=== PATIENT | male | born 1945 | race Caucasian/White ===

== ENCOUNTER 2018-10-10 09:28 | Emergency (ER) | payer MEDICARE ==
[~2018-10-10] VITALS: Ht 188 cm; Wt 99.8 kg
[~2018-10-10 09:28] MED LIST: AMLO5TAB9 PO; ASCO500C15 PO; CIPR-225 PO; CYCL10TA9 PO; HYDR-3876 PO; IBUP-1780 PO; LISI10TA2 PO; METF-397 PO; MULT-301 PO; OMEP20TA7 PO; ONDA8TAB12 PO; OXYC-465 PO; PHEN-640 PO; POLY17PO6 PO; RANI-515 PO; RT-ALBUINH IH; SIMV20TA3 PO; TAMS0.4C2 PO
--- OUTSIDE RECORDS SUMMARY | 2018-10-10 09:34 | XMS REPORT | Continuity of Care Document ---
Author Organization Unknown Address Unknown Allergies Active Description Code Type Severity Reaction Onset Reported/Identified Relationship to Patient Clinical Status Yes No Known Drug Allergies [id number] Drug Allergy Unknown N/A 09/25/2015 Medications There is no data. Problems Date Dx Coded Attending Type Code Diagnosis Diagnosed By 09/26/2015 VALERIA GARLAND MD Ot N20.1 09/26/2015 VALERIA GARLAND MD Ot Z01.810 09/26/2015 VALERIA GARLAND MD Ot Z01.811 09/26/2015 VALERIA GARLAND MD Ot Z11.2 09/26/2015 VALERIA GARLAND MD Ot N20.1 CALCULUS OF URETER 09/26/2015 VALERIA GARLAND MD Ot Z79.899 OTHER HALF-WAY (CURRENT) DRUG THERAPY 09/27/2015 VALERIA GARLAND MD Ot N20.1 09/27/2015 VALERIA GARLAND MD Ot Z79.899 10/12/2015 VALERIA GARLAND MD Ot N20.1 CALCULUS OF URETER 10/12/2015 VALERIA GARLAND MD Ot Z01.810 ENCOUNTER FOR PREPROCEDURAL CARDIOVASCUL 10/12/2015 VALERIA GARLAND MD Ot Z01.811 ENCOUNTER FOR PREPROCEDURAL RESPIRATORY 10/12/2015 VALERIA GARLAND MD Ot Z11.2 ENCOUNTER FOR SCREENING FOR OTHER BACTER Procedures There is no data. Results There is no data. Encounters ACCT No. Visit Date/Time Discharge Status Pt. Type Provider Facility Loc./Unit Complaint [id number] 09/26/2015 06:00:00 09/26/2015 13:25:00 DIS Outpatient VALERIA GARLAND MD [facility] [id number] 09/25/2015 11:35:00 09/25/2015 23:59:59 CLS Outpatient DADA TAPIA, VALERIA Sharma [facility] PREOP [id number] 10/10/2018 09:30:00 ACT Emergency RODNEY PRESCOTT DO [facility] ER FS RIGHT SIDE GROIN PAIN [id number] 08/17/2018 08:00:00 08/17/2018 23:59:59 [facility] Outpatient SARAHI ROBERTO [facility]
[2018-10-10 10:53] LABS: BILIRUBIN,URINE NEGATIVE (NEGATIVE); CLARITY,URINE CLEAR; COLOR,URINE YELLOW; GLUCOSE, URINE (UA) 3+ (NEGATIVE); KETONES,URINE NEGATIVE (NEGATIVE); LEUKOCYTE ESTERASE ,URINE NEGATIVE (NEGATIVE); NITRITE,URINE NEGATIVE (NEGATIVE); PROTEIN,URINE NEGATIVE (NEGATIVE); UROBILINOGEN,URINE 0.2 MG/DL (NORMAL)
[2018-10-10 10:54] LABS: BACTERIA,URINE NEGATIVE /HPF; SQUAMOUS EPITHELIAL CELL,UR RARE /HPF; WBC,URINE 0-2 /HPF
--- NOTE | 2018-10-10 10:56 | ED GI ---
General Chief Complaint: Abdominal/GI Problems Stated Complaint: RIGHT SIDE GROIN PAIN Nursing Triage Note: Patient reports right groin/right flank pain for 2 weeks. States he has had kidney stones in the past, but not for some time. Denies any difficulty urinating, blood in urine, etc. Sepsis Screen: No Definite Risk History of Present Illness Date Seen by Provider: Oct 10, 2018 Time Seen by Provider: 10:42 This is a 72-year-old man with a history of kidney stones and remote appendectomy, diabetes, hyperlipidemia, GERD, here for intermittent right groin pain over the last several days. He states that the pain comes and goes. Sharp in character. This feels the same as when he had a kidney stone in the past. He is urinating normally. He has not had a change in bowel movements, no vomiting. No lower extremity weakness, numbness, or tingling. He currently does not have pain. Allergies and Home Medications Allergies Coded Allergies: No Known Drug Allergies (Unverified , 09/25/15) Home Medications Albuterol Sulfate 6.7 Gm Hfa.aer.ad, 2 PUFF IH Q6H PRN for SHORTNESS OF BREATH, (Reported) Amlodipine Besylate 5 Mg Tablet, 5 MG PO DAILY, (Reported) Ascorbic Acid 500 Mg Capsule.er, 500 MG PO DAILY, (Reported) Ciprofloxacin HCl 500 Mg Tablet, 500 MG PO BID TAKE ONE TABLET BY MOUTH TWICE A DAY. USE ALL OF THIS ANTIBIOTIC PRESCRIBED. Prescribed by: CASSANDRA ROY on 09/26/15 1303 Cyclobenzaprine HCl 10 Mg Tablet, 10 MG PO HS PRN for SPASMS, (Reported) Hydrocodone/Acetaminophen 1 Each Tablet, 1-2 EACH PO Q4H MAY TAKE 1 OR 2 TABLETS BY MOUTH EVERY 4 HRS NEEDED FOR PAIN. Prescribed by: CASSANDRA ROY on 09/26/15 1303 Ibuprofen 800 Mg Tablet, 800 MG PO Q6H PRN for PAIN, (Reported) Lisinopril 10 Mg Tablet, 10 MG PO DAILY, (Reported) Metformin HCl 500 Mg Tablet, 500 MG PO BID, (Reported) Multivitamin 1 Each Tablet, 1 EACH PO DAILY, (Reported) Omeprazole 20 Mg Tablet.dr, 20 MG PO DAILY, (Reported) Ondansetron HCl 8 Mg Tablet, 8 MG PO Q6H PRN for NAUSEA/VOMITING, (Reported) Oxycodone HCl/Acetaminophen 1 Each Tablet, 1 EACH PO Q4H PRN for PAIN, (Reported ) Phenazopyridine HCl 200 Mg Tablet, 1 TAB PO TID MAY TAKE ONE TABLET BY MOUTH UP TO 3 TIMES A DAY NEEDED FOR PAIN OR BLADDER SPASMS. Prescribed by: CASSANDRA ROY on 09/26/15 1303 Polyethylene Glycol 3350 17 Gm Powd.pack, 17 GM PO DAILY, (Reported) Simvastatin 20 Mg Tablet, 20 MG PO DAILY, (Reported) Tamsulosin HCl 0.4 Mg Cap.er.24h, 0.4 MG PO DAILY, (Reported) Patient Home Medication List Home Medication List Reviewed: Yes Review of Systems Review of Systems Constitutional: no symptoms reported EENTM: No Symptoms Reported Respiratory: No Symptoms Reported Cardiovascular: No Symptoms Reported Gastrointestinal: See HPI Genitourinary: See HPI Musculoskeletal: no symptoms reported Skin: no symptoms reported Psychiatric/Neurological: No Symptoms Reported Endocrine: No Symptoms Reported Past Uypovbx-Ncahia-Wjswta Hx Past Med/Social Hx: Reviewed Nursing Past Med/Soc Hx Patient Social History Alcohol Use: Denies Use Recreational Drug Use: No Smoking Status: Never a Smoker 2nd Hand Smoke Exposure: No Recent Foreign Travel: No Contact w/Someone Who Travel: No Recent Infectious Disease Expo: No Recent Hopitalizations: No Physical Abuse: No Sexual Abuse: No Mistreated: No Fear: No Immunizations Up To Date Date of Influenza Vaccine: Mar 26, 2015 Seasonal Allergies Seasonal Allergies: No Past Medical History Surgeries: Yes Appendectomy Respiratory: Yes Asthma, Chronic Bronchitis Cardiac: No Neurological: No Sexually Transmitted Disease: No HIV/AIDS: No Genitourinary: Yes Kidney Stones Gastrointestinal: Yes Gastroesophageal Reflux, Chronic Constipation Musculoskeletal: Yes Chronic Back Pain Endocrine: Yes Diabetes, Non-Insulin dep HEENT: No Loss of Vision: Bilateral Hearing Impairment: Hard of Hearing Cancer: No Psychosocial: No Integumentary: No Blood Disorders: No Adverse Reaction/Blood Tranf: No Physical Exam Vital Signs Vital Signs - First Documented 10/10/18 10:25 Temp 98.3 Pulse 98 Resp 20 B/P (MAP) 134/74 (94) Pulse Ox 98 O2 Delivery Room Air Capillary Refill : Less Than 3 Seconds Height/Weight/BMI Height: 6'2.00" Weight: 220lbs. 0.0oz. 99.640605qi; 27.15 BMI Method:Stated General Appearance: no apparent distress HEENT: normal ENT inspection Neck: supple Respiratory: lungs clear Cardiovascular: normal peripheral pulses, regular rate, rhythm Gastrointestinal: non tender, soft Genital/Rectal: other (the testicles are normal in size and nontender, there is no inguinal hernia) Back: no CVA tenderness Neurologic/Psychiatric: alert, normal mood/affect; No abnormal gait Skin: warm/dry Progress/Results/Core Measures Results/Orders Lab Results Laboratory Tests Test 10/10/18 10:35 10/10/18 11:00 Range/Units Urine Color YELLOW Urine Clarity CLEAR Urine pH 6.0 5-9 Urine Specific [place] 1.015 L 1.016-1.022 Urine Protein NEGATIVE NEGATIVE Urine Glucose (UA) 3+ H NEGATIVE Urine Ketones NEGATIVE NEGATIVE Urine Nitrite NEGATIVE NEGATIVE Urine Bilirubin NEGATIVE NEGATIVE Urine Urobilinogen 0.2 NORMAL MG/DL Urine Leukocyte Esterase NEGATIVE NEGATIVE Urine RBC (Auto) NEGATIVE NEGATIVE Urine RBC NONE /HPF Urine WBC 0-2 /HPF Urine Squamous Epithelial Cells RARE /HPF Urine Crystals NONE /LPF Urine Bacteria NEGATIVE /HPF Urine Casts PRESENT /LPF Urine Hyaline Casts 5-10 H /LPF Urine Mucus MODERATE H /LPF Urine Culture Indicated NO White Blood Count 8.8 4.3-11.0 10^3/uL Red Blood Count 4.48 4.35-5.85 10^6/uL Hemoglobin 13.2 L 13.3-17.7 G/DL Hematocrit 41 40-54 % Mean Corpuscular Volume 91 80-99 FL Mean Corpuscular Hemoglobin 29 25-34 PG Mean Corpuscular Hemoglobin Concent 33 32-36 G/DL Red Cell Distribution Width 13.1 10.0-14.5 % Platelet Count 236 130-400 10^3/uL Mean Platelet Volume 8.8 7.4-10.4 FL Sodium Level 137 135-145 MMOL/L Potassium Level 4.2 3.6-5.0 MMOL/L Chloride Level 99 98-107 MMOL/L Carbon Dioxide Level 28 21-32 MMOL/L Anion Gap 10 5-14 MMOL/L Blood Urea Nitrogen 16 7-18 MG/DL Creatinine 0.80 0.60-1.30 MG/DL Estimat Glomerular Filtration Rate > 60 BUN/Creatinine Ratio 20 Glucose Level 231 H 70-105 MG/DL Calcium Level 8.9 8.5-10.1 MG/DL My Orders Orders - RODNEY PRESCOTT DO Ua Culture If Indicated (10/10/18 10:39) Cbc No Diff (10/10/18 10:49) Basic Metabolic Panel (10/10/18 10:49) Ct Abdomen/Pelvis W (10/10/18 10:57) Vital Signs/I&O 10/10/18 10:25 Temp 98.3 Pulse 98 Resp 20 B/P (MAP) 134/74 (94) Pulse Ox 98 O2 Delivery Room Air Blood Pressure Mean: 94 Progress Progress Note #1: Progress Note This is a 72-year-old man with a history of kidney stones in the past here with pain that he says is identical to his prior episode, intermittent, present in the right groin but currently resolved. He just wants to find out what was causing his pain. Urinalysis does not show evidence of hematuria. We will check a CT with IV contrast as well as basic labs. We will continue to monitor. Progress Note #2: Progress Note Intermittent groin pain may be secondary to the small fat containing inguinal hernias seen on CT. Patient is asymptomatic and well appearing, he can follow- up as an outpatient for further evaluation. Return precautions discussed. Departure Impression Primary Impression: Inguinal hernia Disposition: 01 HOME, SELF-CARE Condition: Stable Departure-Patient Inst. Referrals: ANN MARIE BROWN MD, AMANDA S APRN (PCP) Primary Care Physician Patient Instructions: Inguinal and Femoral (Groin) Hernias RODNEY PRESCOTT DO Oct 10, 2018 10:56
[2018-10-10 11:09] LABS: HEMOGLOBIN 13.2 G/DL (13.3-17.7); WHITE BLOOD COUNT 8.8 10^3/uL (4.3-11.0)
[2018-10-10 11:10] LABS: MEAN PLATELET VOLUME 8.8 FL (7.4-10.4); RED CELL DISTRIBUTION WIDTH 13.1 % (10.0-14.5)
[2018-10-10 11:31] LABS: BUN/CREATININE RATIO 20; CARBON DIOXIDE 28 MMOL/L (21-32); CHLORIDE 99 MMOL/L (98-107); GFR ESTIMATED > 60; GLUCOSE 231 MG/DL (70-105); POTASSIUM 4.2 MMOL/L (3.6-5.0); SODIUM 137 MMOL/L (135-145)
[2018-10-10 11:32] LABS: CALCIUM 8.9 MG/DL (8.5-10.1)
--- NOTE | 2018-10-10 12:28 | Diagnostic Imaging Report ---
PROCEDURE: CT abdomen and pelvis with contrast. TECHNIQUE: Multiple contiguous axial images were obtained through the abdomen and pelvis after administration of intravenous contrast. Auto Exposure Controls were utilized during the CT exam to meet ALARA standards for radiation dose reduction. INDICATION: Right lower pelvic pain for two weeks. COMPARISON: None. FINDINGS: There is mild pleural thickening/fluid in the lung bases. There is increased AP diameter. The heart is normal in size. There is no pericardial effusion. The liver demonstrates no focal lesions. Cholecystectomy clips are noted. The spleen appears normal. The adrenal glands are normal. The pancreas is normal. The kidneys demonstrate no enhancing masses. There is no hydronephrosis. Simple appearing cysts are seen bilaterally, larger on the right measuring 3.3 cm in size. The bowel loops are nondistended. No obstruction is seen. The appendix is not seen but no secondary findings of appendicitis are seen. No free fluid is seen. There is diverticulosis of the descending and sigmoid colon without findings of diverticulitis. The distal colon is decompressed. No acute osseous abnormality seen. No masses or lymphadenopathy is seen. There are bilateral inguinal hernias containing fat only, left greater than right. IMPRESSION: 1. No acute abdominopelvic abnormality is seen. 2. Colonic diverticulosis without diverticulitis. 3. Small fat-containing inguinal hernias, left greater than right. 4. Mild pleural thickening/fluid at the lung bases. Dictated by: Dictated on workstation # [id number]
[2018-10-10 13:02] VITALS: BP 135/64
== END 2018-10-10 13:00 | disposition home or self-care (01) ==
LOC: EDUNIT# 09:28 → ER FS 09:30
DX: K40.90 Unilateral inguinal hernia, without obstruction or gangrene, not specified as recurrent (principal); E11.9 Type 2 diabetes mellitus without complications; E78.5 Hyperlipidemia, unspecified; K21.9 Gastro-esophageal reflux disease without esophagitis; J45.909 Unspecified asthma, uncomplicated; Z87.19 Personal history of other diseases of the digestive system; Z87.442 Personal history of urinary calculi; Z90.49 Acquired absence of other specified parts of digestive tract; Z79.84 Long term (current) use of oral hypoglycemic drugs
CPT/HCPCS: 36415; 74177; 80048; 81000; 85027

== ENCOUNTER 2018-10-26 11:40 | Outpatient (CLI) | payer MEDICARE ==
[~2018-10-26] VITALS: Ht 188 cm; Wt 102.1 kg
[2018-10-26] MEDS ORDERED: CHOL2000 PO (11:59)
[2018-10-26] MEDS ORDERED: OMEG-141 PO (11:59)
[2018-10-26 12:02] VITALS: BP 146/101
[2018-10-28] MEDS ORDERED: ACHD5005 PO (13:00)
== END 2018-10-26 12:26 | disposition home or self-care (01) ==
LOC: PREOP 11:40
PROVIDERS: ATTEND Surgery
DX: Z01.818 Encounter for other preprocedural examination (principal)
CPT/HCPCS: 87081

== ENCOUNTER 2018-10-28 07:55 | Day surgery (SDC) | payer MEDICARE ==
[~2018-10-28] VITALS: Ht 188 cm; Wt 96.8 kg
[2018-10-28] VITALS (8 sets, daily range): BP systolic 118–148; BP diastolic 73–98
[~2018-10-28 07:55] MED LIST changes: +CHOL2000 PO; +OMEG-141 PO
[2018-10-28] MEDS ORDERED: ceFAZolin 2 GM/50 ML NS 50 ML IV ONE (08:15)
[2018-10-28] MEDS ORDERED: CATHETER FLUSH 10 ML SYR IV PRN (08:15)
[2018-10-28] MEDS: LACTATED RINGERS 1,000 ML IV PRN ×2 (08:15→12:36)
--- NOTE | 2018-10-28 08:42 | Progress Note-Pre Operative ---
Pre-Operative Progress Note H&P Reviewed The H&P was reviewed, patient examined and no changes noted. Time Seen by Provider: 08:32 Date H&P Reviewed: October 28, 2018 Time H&P Reviewed: 08:33 Pre-Operative Diagnosis: Right inguinal hernia MONIKA THURMAN DO October 28, 2018 08:42
--- OUTSIDE RECORDS SUMMARY | 2018-10-28 11:03 | XMS REPORT | Continuity of Care Document ---
Author Organization Unknown Address Unknown Allergies Active Description Code Type Severity Reaction Onset Reported/Identified Relationship to Patient Clinical Status Yes No Known Drug Allergies [id number] Drug Allergy Unknown N/A 09/25/2015 Medications There is no data. Problems Date Dx Coded Attending Type Code Diagnosis Diagnosed By 09/26/2015 VALERIA GARLAND MD Ot N20.1 09/26/2015 VALERIA GARLAND MD Ot Z01.810 09/26/2015 VALERIA GARLAND MD Ot Z01.811 09/26/2015 VALERIA GARLAND MD Ot Z11.2 09/26/2015 VALERIA GARLAND MD Ot N20.1 CALCULUS OF URETER 09/26/2015 VALERIA GARLAND MD Ot Z79.899 OTHER GROUP HOME (CURRENT) DRUG THERAPY 09/27/2015 VALERIA GARLAND MD Ot N20.1 09/27/2015 VALERIA GARLAND MD Ot Z79.899 10/12/2015 VALERIA GARLAND MD Ot N20.1 CALCULUS OF URETER 10/12/2015 VALERIA GARLAND MD Ot Z01.810 ENCOUNTER FOR PREPROCEDURAL CARDIOVASCUL 10/12/2015 VALERIA GARLAND MD Ot Z01.811 ENCOUNTER FOR PREPROCEDURAL RESPIRATORY 10/12/2015 VALERIA GARLAND MD Ot Z11.2 ENCOUNTER FOR SCREENING FOR OTHER BACTER 10/10/2018 VALERIA GARLAND MD Ot N20.1 CALCULUS OF URETER 10/10/2018 VALERIA GARLAND MD Ot Z01.810 ENCOUNTER FOR PREPROCEDURAL CARDIOVASCUL 10/10/2018 VALERIA GARLAND MD Ot Z01.811 ENCOUNTER FOR PREPROCEDURAL RESPIRATORY 10/10/2018 VALERIA GARLAND MD Ot Z11.2 ENCOUNTER FOR SCREENING FOR OTHER BACTER 10/10/2018 VALERIA GARLAND MD, Ot N20.1 CALCULUS OF URETER 10/10/2018 VALERIA GARLAND MD, Ot Z01.810 ENCOUNTER FOR PREPROCEDURAL CARDIOVASCUL 10/10/2018 VALERIA GARLAND MD, Ot Z01.811 ENCOUNTER FOR PREPROCEDURAL RESPIRATORY 10/10/2018 VALERIA GARLAND MD, Ot Z11.2 ENCOUNTER FOR SCREENING FOR OTHER BACTER 10/13/2018 RODNEY PRESCOTT DO Ot E11.9 TYPE 2 DIABETES MELLITUS WITHOUT COMPLIC 10/13/2018 RODNEY PRESCOTT DO Ot E78.5 HYPERLIPIDEMIA, UNSPECIFIED 10/13/2018 ATA PRESCOTT DOED T Ot J45.909 UNSPECIFIED ASTHMA, UNCOMPLICATED 10/13/2018 RODNEY PRESCOTT DO T Ot K21.9 GASTRO-ESOPHAGEAL REFLUX DISEASE WITHOUT 10/13/2018 RODNEY PRESCOTT DO T Ot K40.90 UNIL INGUINAL HERNIA, W/O OBST OR GANGR, 10/13/2018 RODNEY PRESCOTT DO Ot R10.31 RIGHT LOWER QUADRANT PAIN 10/13/2018 RODNEY PRESCOTT DO T Ot Z79.84 GROUP HOME (CURRENT) USE OF ORAL HYPOGLYC 10/13/2018 ATA PRESCOTT DOED T Ot Z87.19 PERSONAL HISTORY OF OTHER DISEASES OF TH 10/13/2018 RODNEY PRESCOTT DO T Ot Z87.442 PERSONAL HISTORY OF URINARY CALCULI 10/13/2018 RODNEY PRESCOTT DO T Ot Z90.49 ACQUIRED ABSENCE OF OTHER SPECIFIED PART Procedures There is no data. Results Test Result Range Complete urinalysis with reflex to culture - 10/10/18 10:35 Urine color determination YELLOW NRG Urine clarity determination CLEAR NRG Urine pH measurement by test strip 6.0 5-9 Specific gravity of urine by test strip 1.015 1.016- 1.022 Urine protein assay by test strip, semi-quantitative NEGATIVE NEGATIVE Urine glucose detection by automated test strip 3+ NEGATIVE Erythrocytes detection in urine sediment by light microscopy NEGATIVE NEGATIVE Urine ketones detection by automated test strip NEGATIVE NEGATIVE Urine nitrite detection by test strip NEGATIVE NEGATIVE Urine total bilirubin detection by test strip NEGATIVE NEGATIVE Urine urobilinogen measurement by automated test strip (mass/volume) 0.2 mg/dL NORMAL Urine leukocyte esterase detection by dipstick NEGATIVE NEGATIVE Automated urine sediment erythrocyte count by microscopy (number/high power field) NONE NRG Automated urine sediment leukocyte count by microscopy (number/high power field ) [HPF] NRG Bacteria detection in urine sediment by light microscopy NEGATIVE NRG Squamous epithelial cells detection in urine sediment by light microscopy RARE NRG Crystals detection in urine sediment by light microscopy NONE NRG Casts detection in urine sediment by light microscopy PRESENT NRG Mucus detection in urine sediment by light microscopy MODERATE NRG Complete urinalysis with reflex to culture NO NRG Hyaline casts detection in urine sediment by light microscopy 5-10 NRG Automated blood complete blood count (hemogram) panel - 10/10/18 11:00 Blood leukocytes automated count (number/volume) 8.8 10*3/uL 4.3-11.0 Blood erythrocytes automated count (number/volume) 4.48 10*6/uL 4.35-5.85 Venous blood hemoglobin measurement (mass/volume) 13.2 g/dL 13.3-17.7 Blood hematocrit (volume fraction) 41 % 40-54 Automated erythrocyte mean corpuscular volume 91 [foz_us] 80-99 Automated erythrocyte mean corpuscular hemoglobin (mass per erythrocyte) 29 pg 25-34 Automated erythrocyte mean corpuscular hemoglobin concentration measurement ( mass/volume) 33 g/dL 32-36 Automated erythrocyte distribution width ratio 13.1 % 10.0-14.5 Automated blood platelet count (count/volume) 236 10*3/uL 130-400 Automated blood platelet mean volume measurement 8.8 [foz_us] 7.4-10.4 Whole blood basic metabolic panel - 10/10/18 11:00 Serum or plasma sodium measurement (moles/volume) 137 mmol/L 135-145 Serum or plasma potassium measurement (moles/volume) 4.2 mmol/L 3.6-5.0 Serum or plasma chloride measurement (moles/volume) 99 mmol/L 98-107 Carbon dioxide 28 mmol/L 21-32 Serum or plasma anion gap determination (moles/volume) 10 mmol/L 5-14 Serum or plasma urea nitrogen measurement (mass/volume) 16 mg/dL 7-18 Serum or plasma creatinine measurement (mass/volume) 0.80 mg/dL 0.60-1.30 Serum or plasma urea nitrogen/creatinine mass ratio 20 NRG Serum or plasma creatinine measurement with calculation of estimated glomerular filtration rate > NRG Serum or plasma glucose measurement (mass/volume) 231 mg/dL 70-105 Serum or plasma calcium measurement (mass/volume) 8.9 mg/dL 8.5-10.1 Encounters ACCT No. Visit Date/Time Discharge Status Pt. Type Provider Facility Loc./Unit Complaint [id number] 10/10/2018 09:30:00 10/10/2018 13:00:00 DIS Outpatient RODNEY PRESCOTT DO [facility] ER FS RIGHT SIDE GROIN PAIN [id number] 09/26/2015 06:00:00 09/26/2015 13:25:00 DIS Outpatient VALERIA GARLAND MD [facility] SDC LEFT STONE [id number] 09/25/2015 11:35:00 09/25/2015 23:59:59 CLS Outpatient VALERIA GARLAND MD [facility] PREOP LEFT STONE [id number] 08/17/2018 08:00:00 08/17/2018 23:59:59 CLS Outpatient SARAHI ROBERTO [facility]
[2018-10-28] MEDS ORDERED: proPOfol 200 MG/20 ML (DIPRIVAN) VIAL IV ONE (11:43)
[2018-10-28] MEDS ORDERED: SEVOFLURANE (ULTANE) 15 ML INHAL SOLN ONE ×4 (11:43→12:28)
[2018-10-28] MEDS ORDERED: ONDANSETRON 4 MG/2 ML (SDV) Z0FRAN ONE (11:43)
[2018-10-28] MEDS ORDERED: fentaNYL INJECTION 100 MCG/2 ML AMP ONE ×2 (11:43→12:39)
[2018-10-28] MEDS ORDERED: LIDOCAINE PF 2% 5 ML (XYLOCAINE) VIAL ONE (11:43)
[2018-10-28] MEDS ORDERED: ROCURONIUM 10 MG/ML 5 ML SYRINGE IV ONE (11:44)
[2018-10-28] MEDS ORDERED: MIDAZOLAM 2 MG/2 ML (VERSED) VIAL ONE (11:44)
[2018-10-28] MEDS ORDERED: LIDOCAINE 1% INJ 20 ML 20 ML VIAL ONE (11:50)
[2018-10-28] MEDS ORDERED: BUP/EPI 0.5% 1:200,000 (SENSORCAINE) 30 ML VIAL ONE (11:50)
[2018-10-28] MEDS ORDERED: PHENYLEPHRINE 100 MCG/ML 10 ML (ANESTHESIA) SYR ONE (12:28)
--- NOTE | 2018-10-28 12:48 | Progress Note-Post Operative ---
Post-Operative Progess Note Surgeon (s)/Shelf Stocker (s) Surgeon MONIKA THURMAN DO Shelf Stocker: Candace Pre-Operative Diagnosis Right inguinal hernia Post-Operative Diagnosis Same - Direct Procedure & Operative Findings Date of Procedure 10/28/18 Procedure Performed/Findings RIH with mesh placement Anesthesia Type GET Estimated Blood Loss Estimated blood loss (mL): scant Specimens/Packing Specimens Removed none MONIKA THURMAN DO October 28, 2018 12:48
[2018-10-28] MEDS ORDERED: ACHD5005 PO (13:00)
[2018-10-28] MEDS ORDERED: morphine INJ 10 MG/ML 1ML (SYR OR VIAL) ONE (13:01)
--- NOTE | 2018-10-28 13:01 | Discharge Inst-Surgical ---
Discharge Inst-Surgical Depart Medication/Instructions New, Converted or Re-Newed RX: RX Given to Pt/Family Patient Instructions Follow up Appt: Make appointment for 1 week. [phone] Instructions: No lifting greater than 20 pounds. No strenuous activity. May shower in 24 hours, no tub bath or soaking. Use incentive spirometer at home as directed. No Smoking Skin/Wound Care: May remove bandages in am. You need to leave the Dermabond on incision it will fall off on it's own. Symptoms to Report: Appetite Changes, Extremity Discoloration, Numbness/Tingling, Swelling Increased , Bleeding Excessive, Eyesight Changes, Pain Increased, Urine Color Change, Constipation(Persistent), Fever over 101 degree F, Pain/Pressure in chest, Urinating Difficulty, Cough Up/Vomit Blood, Heart Beat Irreg/Pounding, Pain/ Pressure in jaw, Cramps in feet or legs, Lightheadedness, Pain/Pressure in shoulder, Diarrhea(Persistent), Memory Changes Suddenly, Questions/Concerns, Weight gain consecutive days, Dizziness/Fainting, Nausea/Vomiting, Shortness of Breath, Weight gain over 2 pounds If questions or concerns contact your physician Or seek help at emergency department. Activity Activity as Tolerated: Yes Activity Instructions: Avoid Stress to Incision Driving Instructions: No Driving/Refer to Dr. Perez Discharge Diet: No Restrictions Diet After 24 Hours: Clear Liquid if Nauseous If Any Problems/Questions/Issu: Contact Your Physician, Go to Emergency Room Skin/Wound Care Infection Signs and Symptoms: Increased Redness, Foul Odor of Wound, Increased Drainage, Skin Itchy or Has a Rash, Increased Swelling, Temperature Above 101 F Bathing Instructions: Shower Stitches/[place]/Dermabond Dis: Dermabond Ice Pack: Ice On and Off Site (as needed for pain) MONIKA THURMAN DO October 28, 2018 13:01
[2018-10-28] MEDS ORDERED: ONDANSETRON 4 MG/2 ML (SDV) Z0FRAN IVP PRN (13:15)
[2018-10-28] MEDS ORDERED: MEPERIDINE (DEMEROL) INJ 50 MG/ML IVP ONE (13:15)
[2018-10-28] MEDS ORDERED: morphine INJ 10 MG/ML 1ML (SYR OR VIAL) IVP ONE (13:15)
--- NOTE | 2018-10-29 00:02 | OPERATIVE REPORT ---
DATE OF SERVICE: 10/28/2018 PREOPERATIVE DIAGNOSIS: Bilateral inguinal hernia. POSTOPERATIVE DIAGNOSIS: Bilateral inguinal hernia. PROCEDURE: Right inguinal herniorrhaphy with mesh placement. SURGEON: Acosta Steele DO. DADO OPERATOR: Oleksandr Maria DO. ANESTHESIA: General endotracheal tube. SPECIMENS: None. BLOOD LOSS: Scant. FLUIDS: Per anesthesia. POSTOPERATIVE CONDITION: Stable. INDICATION FOR PROCEDURE: The patient is a 72-year-old male, who came in complaining of right inguinal pain and had been told he had a right inguinal hernia. Physical exam found a right inguinal hernia as well as a small left inguinal hernia, but only the right was bothering, so only decided to repair this one. FINDINGS: The patient had a right direct inguinal hernia, which was basically a floor defect. PROCEDURE NOTE: After informed consent was obtained, the patient was brought to the operating room and placed on the operating table in supine position. He was sterilely prepped and draped in a normal fashion. Local lidocaine was used to infiltrate the skin actually to perform an ilioinguinal nerve block as well as pubic tubercle block and then infiltrated the right inguinal region with local, then made an incision with #15 blade, carried down through the skin into the subcutaneous tissue, then deepened down through subcutaneous tissue with Bovie electrocautery down to the fascia. External oblique fascia was infiltrated with local and incised through the external inguinal ring with Bovie electrocautery, grasping the two sides and then dissecting under the external oblique fascia bluntly with a finger, then getting around the cord and cord structures and the pubic tubercle, placed a Nelson drain, put in inferolateral direction. Looked superiorly immediately, did not find an indirect hernia sac, it was a large floor defect. I elected to close this with 0 Vicryl. Two [id number] sutures were used to close this, held down nicely. I then elected to place a right-sided Parietex mesh, trimmed to fit into the inguinal canal and sutured one to the pubic tubercle and encircled the cord with a precut hole, attached the mesh to itself and then placed the rest of the mesh up under the external oblique fascia. It laid in very nicely, copiously irrigated with normal saline, suctioned this out and then elected to close the incision, closed the external oblique fascia with 3-0 Vicryl running suture, thereby recreating the external inguinal ring, internal inguinal ring and recreated by the mesh. I then closed Hao's fascia with 3-0 Vicryl three interrupted sutures and then closed the skin with a 4-0 undyed Monocryl in running subcuticular fashion. Area was cleaned and dried and Dermabond was placed. The patient then transferred to the recovery room in stable condition. Sponge, instrument and needle count correct at the end of the case. Job ID: [id number] DocumentID: [id number] Dictated Date: 10/28/2018 16:31:22 Street Car Inspector Date: 10/29/2018 00:01:53 Dictated By: ACOSTA STEELE DO
== END 2018-10-28 15:10 | disposition home or self-care (01) ==
LOC: SDC 07:55
PROVIDERS: ATTEND Surgery
DX: K40.90 Unilateral inguinal hernia, without obstruction or gangrene, not specified as recurrent (principal); E11.9 Type 2 diabetes mellitus without complications; I10 Essential (primary) hypertension; E78.5 Hyperlipidemia, unspecified; K21.9 Gastro-esophageal reflux disease without esophagitis; J45.909 Unspecified asthma, uncomplicated; Z80.3 Family history of malignant neoplasm of breast; Z87.891 Personal history of nicotine dependence; Z79.84 Long term (current) use of oral hypoglycemic drugs; Z79.899 Other long term (current) drug therapy
CPT/HCPCS: 82962

== ENCOUNTER → 2019-04-28 | Outpatient (CLI) | payer MEDICARE ==
[~2019-04-28] MED LIST changes: +ACHD5005 PO; +CATHETER FLUSH 10 ML SYR IV PRN; +HOLD METFORMIN - RECEIVED CONTRAST 20 ML VIAL IV SCH; +IOHEXOL 350 MG/ML 100 ML (OMNIPAQUE 350) VIAL IV ONE; +NS 100 ML (IVPB) BAG IV ONE
--- NOTE | 2019-04-28 10:37 | Diagnostic Imaging Report ---
PROCEDURE: CT chest with and without contrast. TECHNIQUE: Multiple contiguous axial images were obtained through the chest before and after administration of intravenous contrast. Auto Exposure Controls were utilized during the CT exam to meet ALARA standards for radiation dose reduction. INDICATION: 2-3 months history of cough. COMPARISON: Correlation limited to overlapped images of the lung bases obtained at abdominal CT 10/10/2018. FINDINGS: Benign calcified andreas granulomatous residua paratracheal, subcarinal, mediastinal as well as the bilateral johnnie present. Few scattered calcified pulmonary parenchymal granulomata noted. No suspicious or noncalcified lung mass or thoracic lymph nodes. No findings of acute pneumonia. There is mild subsegmental basilar atelectatic changes. No carlos edema or focal pneumonia. There is a tiny hiatal hernia. There is no thoracic effusion. The aorta is nonaneurysmal and patent. No acute chest wall pathology. The visualized upper abdomen reveals previous cholecystectomy and a tiny cyst off the upper pole of the left renal cortex. IMPRESSION: Chronic benign calcified granulomatous residua. Mild zones of atelectasis. No focal pneumonia, suspicious mass or chest effusion. Dictated by: Dictated on workstation # [id number]
== END ==
LOC: RAD FS 08:28
PROVIDERS: ATTEND Nurse Practitioner
DX: J44.9 Chronic obstructive pulmonary disease, unspecified (principal); I10 Essential (primary) hypertension; J98.11 Atelectasis; J84.10 Pulmonary fibrosis, unspecified; Z90.49 Acquired absence of other specified parts of digestive tract
CPT/HCPCS: 71270

== ENCOUNTER → 2019-06-02 | Outpatient (CLI) | payer MEDICARE ==
[~2019-06-02] MED LIST changes: -CATHETER FLUSH 10 ML SYR IV PRN; -HOLD METFORMIN - RECEIVED CONTRAST 20 ML VIAL IV SCH; -IOHEXOL 350 MG/ML 100 ML (OMNIPAQUE 350) VIAL IV ONE; -NS 100 ML (IVPB) BAG IV ONE; +RT-ALBUTEROL SULF 2.5 MG/3 ML PRE-MIX VIAL INH ONE
== END ==
LOC: RT 13:33
PROVIDERS: ATTEND Nurse Practitioner Family
DX: J30.9 Allergic rhinitis, unspecified (principal); Z87.891 Personal history of nicotine dependence
CPT/HCPCS: 94060; 94726; 94729

== ENCOUNTER → 2020-01-27 | Outpatient (CLI) | payer MEDICARE ==
[~2020-01-27] MED LIST changes: -ONDA8TAB12 PO; +ONDA8TAB15 PO; -RANI-515 PO; +RANI-609 PO; -RT-ALBUTEROL SULF 2.5 MG/3 ML PRE-MIX VIAL INH ONE; +SIMV20TA26 PO; -SIMV20TA3 PO
== END ==
LOC: CARD 09:54
PROVIDERS: ATTEND Internal Medicine Cardiovascular Disease
DX: I10 Essential (primary) hypertension (principal); R09.89 Other specified symptoms and signs involving the circulatory and respiratory systems; R07.9 Chest pain, unspecified; R06.09 Other forms of dyspnea
CPT/HCPCS: 93306

== ENCOUNTER → 2020-02-07 | Outpatient (CLI) | payer MEDICARE ==
[~2020-02-07] VITALS: Ht 188 cm; Wt 72.0 kg
[~2020-02-07] MED LIST changes: +CATHETER FLUSH 10 ML SYR IV PRN; +REGADENOSON 0.4 MG/5 ML SYR (LEXISCAN) IV ONE
[2020-02-07 09:30] VITALS: BP 184/93
--- NOTE | 2020-02-07 12:05 | Cardiology Stress Test Report ---
Stress Test Report Date of Procedure/Referring: Date of Procedure: Feb 07, 2020 PCP Raheel Perea MD Admitting Physician Center/[facility] Indications: Chest pain Baseline Heart Rate: 74 Baseline Blood Pressure: Blood Pressure Systolic: 184 Blood Pressure Diastolic: 93 Baseline Vitals Vital Signs Date Time Temp Pulse Resp B/P (MAP) Pulse Ox O2 Delivery O2 Flow Rate FiO2 02/07/20 09:30 76 18 184/93 (123) 98 Room Air Baseline EKG: Baseline EKG: normal sinus rhythm Summary After explaining the procedure to the patient, he signed a consent and then brought to the stress nuclear laboratory. Patient received 0.4 mg Lexiscan for stress test, ECG, heart rate and blood pressure were monitored continuously. Resting and stress dose of radio tracer were injected, imaging was acquired and reviewed in short axis, horizontal long axis and vertical long axis views. TID: 1.08 SSS: 3 SDS: 1 EF: 52 1. Patient tolerated Lexiscan well 2. Baseline hypertension, mild improvement during test 3. Diaphragmatic attenuation with typical male pattern, no significant ischemia or infarction on SPECT images 4. Normal left ventricular size, mild lateral wall hypokinesia, EF 52 percent RAHEEL PEREA MD Feb 07, 2020 12:05
== END ==
LOC: CARD 06:45
PROVIDERS: ATTEND Internal Medicine Cardiovascular Disease
DX: I11.9 Hypertensive heart disease without heart failure (principal); R09.89 Other specified symptoms and signs involving the circulatory and respiratory systems
CPT/HCPCS: 78452; 93017; A9502

== ENCOUNTER → 2020-07-03 | Outpatient (CLI) | payer MEDICARE, MEDICAID ==
[~2020-07-03] MED LIST changes: +AMLO-250 PO; -AMLO5TAB9 PO; -ASCO500C15 PO; +ASCO500C18 PO; -CATHETER FLUSH 10 ML SYR IV PRN; -HYDR-3876 PO; +HYDR-3920 PO; -OXYC-465 PO; +OXYC-556 PO; -REGADENOSON 0.4 MG/5 ML SYR (LEXISCAN) IV ONE
--- NOTE | 2020-07-03 11:18 | Diagnostic Imaging Report ---
PROCEDURE: MRI lumbar spine without contrast. TECHNIQUE: Multiplanar, multisequence MRI of the lumbar spine was performed without contrast. INDICATION: Chronic low back pain. Right-sided sciatica. COMPARISON: None. FINDINGS: 5 lumbar type vertebral bodies are visualized with the last well-formed disc space designated L5-S1. No acute fracture or dislocation is seen in the lumbar spine. Alignment is anatomic. Vertebral body heights and disc spaces are well-maintained. The bone marrow signal is normal. The conus terminates at the L1 level. No masses are seen associated with the conus or nerve roots of the cauda equina. No epidural collections are identified. Multilevel degenerative changes are seen in the lumbar spine with disc bulges, facet hypertrophy, and buckling of the ligamentum flavum. T12-L1: No significant spinal canal or foraminal stenosis. L1-L2: No significant spinal canal or foraminal stenosis. L2-L3: No significant spinal canal or foraminal stenosis. L3-L4: Facet hypertrophy and buckling of the ligamentum flavum results in no significant spinal canal narrowing and mild bilateral foraminal narrowing. L4-L5: Broad-based disc bulge, facet hypertrophy with right-sided synovial cyst, and buckling of the ligamentum flavum results in severe spinal canal stenosis and moderate bilateral foraminal stenosis. L5-S1: Broad-based disc bulge, facet hypertrophy, and buckling of the ligamentum flavum results in no significant spinal canal narrowing and moderate right and ewpqmgwy-og-ypzmka left foraminal stenosis. Paravertebral soft tissues are unremarkable. Simple cortical cyst is noted in the inferior pole of the right kidney. IMPRESSION: 1. No acute fracture or dislocation in the lumbar spine. 2. Multilevel degenerative changes in the lumbar spine, greatest at L4-L5 and L5-S1. In particular a synovial cyst is seen protruding from the right facet joint at L4-L5 contributing to the severe spinal canal stenosis. This also is likely contacting the L5 and/or S1 nerve roots, contributing to the patient's history of right-sided sciatica. Dictated by: Dictated on workstation # [id number]
== END ==
LOC: RAD 08:55
PROVIDERS: ATTEND Nurse Practitioner
DX: M47.816 Spondylosis without myelopathy or radiculopathy, lumbar region (principal); M47.817 Spondylosis without myelopathy or radiculopathy, lumbosacral region; M48.061 Spinal stenosis, lumbar region without neurogenic claudication
CPT/HCPCS: 72148

== ENCOUNTER 2020-08-17 07:11 | Inpatient (IN) | payer MEDICARE, MEDICAID ==
[~2020-08-17] VITALS: Ht 188 cm; Wt 98.2 kg
[~2020-08-17 07:11] MED LIST changes: +ACETAMINOPHEN 500 MG TAB (TYLENOL) PO PRN; +BISACODYL 10 MG SUPP (DULCOLAX) PR PRN; +CALCIUM CARBONATE 500 MG (TUMS) TAB.CHEW PO PRN; +LACTULOSE SYRUP 10GM/15ML (ENULOSE) 30ML UDC PO PRN; -LISI10TA2 PO; +LISI10TA25 PO; +LOPERAMIDE 2 MG (IMODIUM) TABLET PO PRN; +MELATONIN 3 MG TABLET PO PRN; +ONDANSETRON 4 MG (ZOFRAN) ORAL DISSOLVE TAB PO PRN; +diphenhydrAMINE 25 MG TAB (BENADRYL) PO PRN
--- NOTE | 2020-08-17 11:53 | History & Physical ---
History of Present Illness HPI/Chief Complaint CC: Severe back pain from spine surgery HPI: This is a 74yoWM clinic patient of [facility] who arrives from [facility] after undergoing spine surgery and in need of PT OT and swing bed services prior to returning home with his elderly . He has help at home with some caretakers but very concerned about falls at night. Currently patient feels good and pain is well controlled on pain meds. BM yesterday. Urinating well. Will check labs in am. Restarted all meds at [place]. Source: patient, old records Exam Limitations: no limitations Date Seen 08/17/20 Time Seen by a Provider: 19:00 Attending Physician Gaby Gomez DO [facility] [place] [place] Referring Physician Date of Admission Home Medications & Allergies Home Medications Reviewed patient Home Medication Reconciliation performed by pharmacy medication reconciliations manufacturing test technician and/or nursing. Patients Allergies have been reviewed. Allergies Allergies Coded Allergies No Known Drug Allergies (Unverified10/28/18) Past Fqcchev-Fflvbk-Tvjuvz Hx Past Med/Social Hx: Reviewed Nursing Past Med/Soc Hx, Reviewed and Corrections made Patient Social History Marrital Status: Employed/Student: retired Alcohol Use: Denies Use Smoking Status: Never a Smoker Former Smoker, Quit: October 26, 1969 2nd Hand Smoke Exposure: Yes Recent Hopitalizations: No Immunizations Up To Date Date of Pneumonia Vaccine: Mar 30, 2018 Date of Influenza Vaccine: Mar 30, 2018 Seasonal Allergies Seasonal Allergies: No Past Medical History Surgeries: Appendectomy, Orthopedic Cardiac: High Cholesterol, Hypertension Sexually Transmitted Disease: No HIV/AIDS: No Genitourinary: Kidney Stones Gastrointestinal: Gastroesophageal Reflux, Chronic Constipation Musculoskeletal: Back Injury, Chronic Back Pain Endocrine: Diabetes, Non-Insulin dep Loss of Vision: Bilateral Hearing Impairment: Hard of Hearing History of Blood Disorders: No Adverse Reaction to Blood Ferguson: No (N/A) Review of Systems Constitutional: see HPI, malaise, weakness Gastrointestinal: constipation Musculoskeletal: back pain Physical Exam Physical Exam Vital Signs Vital Signs - First Documented 08/17/20 08/17/20 13:10 18:32 Temp 36.9 Pulse 101 Resp 16 B/P (MAP) 100/62 (75) Pulse Ox 95 O2 Delivery Room Air Capillary Refill : Height, Weight, BMI Height: 6'2.00" Weight: 213lbs. 6.0oz. 96.454706uz; 20.37 BMI Method:Stated General Appearance: No Apparent Distress, WD/WN, Chronically ill Eyes: Bilateral Eye Normal Inspection, Bilateral Eye PERRL HEENT: PERRL/EOMI, Normal ENT Inspection, Pharynx Normal Neck: Full Range of Motion, Normal Inspection, Non Tender, Supple, Carotid Bruit Respiratory: Chest Non Tender, Lungs Clear, Normal Breath Sounds, No Accessory Muscle Use, No Respiratory Distress Cardiovascular: Regular Rate, Rhythm, No Edema, No Gallop, No JVD, No Murmur, Normal Peripheral Pulses Gastrointestinal: Normal Bowel Sounds, No Organomegaly, No Pulsatile Mass, Non Tender, Soft Back: CVA Tenderness (L), CVA Tenderness (R), Decreased Range of Motion, Muscle Spasm, Vertebral Tenderness Extremity: Normal Capillary Refill, Normal Inspection, Normal Range of Motion, Non Tender, No Calf Tenderness, No Pedal Edema Neurologic/Psychiatric: Alert, Oriented x3, No Motor/Sensory Deficits, Normal Mood/Affect Skin: Normal Color, Warm/Dry Lymphatic: No Adenopathy Results Results/Procedures Labs Patient resulted labs reviewed. Assessment/Plan Admission Diagnosis Assessment: Severe back pain from extensive spine surgery with disability HTN DM HLP GERD Plan: Pain control PT OT Home meds Admission Status: Inpatient Order (span 2 midnights) Reason for Inpatient Admission: sb Diagnosis/Problems Diagnosis/Problems (1) S/P spinal surgery (2) Hypertension (3) Diabetes mellitus Clinical Quality Measures DVT/VTE Risk/Contraindication: Contraindications-Pharm: Other *list below* Other: spinal surgery GABY GOMEZ DO Aug 17, 2020 11:53
[2020-08-17] MEDS ORDERED: ACETAMINOPHEN 325 MG TABLET PO PRN (13:15)
[2020-08-17] MEDS ORDERED: DOCU100T2 PO (13:35)
[2020-08-17] MEDS ORDERED: LISI10TA25 PO (13:35)
[2020-08-17] MEDS ORDERED: OXYC10TA7 PO (13:35)
[2020-08-17] MEDS ORDERED: TIOT4MIS2 IH (13:35)
[2020-08-17] MEDS ORDERED: CYCL10TA9 PO (13:35)
[2020-08-17] MEDS ORDERED: FLUT1AER IH (13:35)
--- NOTE | 2020-08-17 15:06 | Physical Therapy Evaluation ---
PT Evaluation-General Medical Diagnosis Admission Date Aug 17, 2020 at 13:02 Medical Diagnosis: lumbar intrabody fusion Onset Date: Aug 15, 2020 Therapy Diagnosis Therapy Diagnosis: generalized weakness/debility Height/Weight Height (Feet): 6 Height (Inches): 2.00 Weight (Pounds): 213 Weight (Ounces): 6.0 Precautions Precautions/Isolations: Standard Precautions Weight Bear Status Right Lower Extremity: Right Weight Bearing/Tolerated Left Lower Extremity: Left Weight Bearing/Tolerated Referral Physician: Patricia Reason for Referral: Evaluation/Treatment Medical History Pertinent Medical History: DM, HTN Current History Direct admit for SWB Reviewed History: Yes Social History Home: Apartment Current Living Status: Spouse Entry Into Home: Level Entry Prior Prior Level of Function SCALE: Activities may be completed with or without assistive devices. 8-Uhxgbyxbfc-xytirwv completes the activity by him/herself with no assistance from a helper. 5-Set-up or Clean-up Assistance-helper sets up or cleans up; patient completes activity. [place] assists only prior to or following the activity. 4-Supervision or Touching Assistance-helper provides verbal cues and/or touching/steadying and/or contact guard assistance as patient completes activity. Assistance may be provided throughout the activity or intermittently. 3-Partial/Moderate Assistance-helper does LESS THAN HALF the effort. [place] lifts, holds or supports trunk or limbs, but provides less than half the effort. 2-Substantial/Maximal Assistance-helper does MORE THAN HALF the effort. [place] lifts or holds trunk or limbs and provides more than half the effort. 0-Clwaflvvq-xvresn does ALL the effort. Patient does none of the effort to complete the activity. Or, the assistance of 2 or more helpers is required for the patient to complete the activity. If activity was not attempted, code reason: 7-Patient Refused. 9-Not Applicable-not attempted and the patient did not perform the activity before the current illness, exacerbation or injury. 10-Not Attempted due to Environmental Limitations-(lack of equipment, weather restraints, etc.). 88-Not Attempted due to Medical Conditions or Safety Concerns. Bed Mobility: 6 Transfers (B,C,W/C): 6 Gait: 6 Stairs: 6 Indoor Mobility (Ambulation): Independent Stairs: Independent Prior Devices Use: Walker PT Evaluation-Current Subjective Patient agrees to PT. Pain Numeric Pain Scale: 5-Moderate Pain Location: Lower Location Body Site: Back Pain Description: Acute Objective Patient Orientation: Normal For Age ROM/Strength ROM Lower Extremities bilateral LE WFL Strength Lower Extremities 4-/5 grossly bilateral LE Integumentary/Posture Integumentary refer to nursing notes Bowel Incontinence: No Bladder Incontinence: No Posture trunk flexed posture Neuromuscular (Tone, Coordination, Reflexes) grossly intact with all Sensory Vision: Functional Hearing: Impaired Sensation Right Lower Extremit: Intact Sensation Left Lower Extremity: Intact Transfers Roll Left & Right (QC): 2 Sit to Lying (QC): 2 Lying to Sitting/Side of Bed(Q: 2 Sit to Stand (QC): 3 Chair/Ujr-qv-Gbovr Xfer(QC): 3 Toilet Transfer (QC): 3 Car Transfer (QC): 3 Gait Does the Patient Walk?: Yes Mode of Locomotion: Walk Anticipated Mode of Locomotion: Walk Walk 10 feet (QC): 3 Walk 50 ft with 2 Turns(QC): 3 Walk 150 ft (QC): 3 Walking 10ft/uneven surface-QC: 3 Distance: 225' Gait Assistive Device: FWW Comments/Gait Description slow, steady gait sequence Wheelchair Training Does the Pt Use a Wheelchair?: No Wheel 50 ft with 2 turns (QC): 9 Wheel 150 ft (QC): 9 Type of Wheelchair: N/A Stairs #of Steps: 4 1 Step (curb) (QC): 4 4 Steps (QC): 4 12 Steps (QC): 9 Balance Sitting Static: Normal Sitting Dynamic: Normal Standing Static: Normal Standing Dynamic: Normal Picking up an Object (QC): 88 Treatment Gait training 225' FWW min assist for safety/stair training 4 steps with bilateral hand rail step to sequence Assessment/Needs 74 y.o. male, will benefit from skilled PT to address functional strength and mobility to improve current LOF to safely return to home with spouse at maximum LOF. Rehab Potential: Fair PT [facility] Goals Microfilm Operator Goals PT [facility] Goals Time Frame: Sep 02, 2020 Roll Left & Right (QC): 6 Sit to Lying (QC): 6 Lying-Sitting on Side/Bed(QC): 6 Sit to Stand (QC): 6 Chair/Kes-qy-Pryaj Xfer(QC): 6 Toilet Transfer (QC): 6 Car Transfer (QC): 6 Does the Patient Walk: Yes Walk 10 feet (QC): 6 Walk 50ft with 2 Turns (QC): 6 Walk 150 ft (QC): 6 Walking 10ft on Uneven Surface: 6 1 Step (curb) (QC): 5 4 Steps (QC): 5 12 Steps (QC): 88 Picking up an Object (QC): 6 (device due to no bending allow per surgeon) Does the Pt use WC or Scooter?: No Wheel 50 feet with 2 turns (QC: 9 Type: N/A Wheel 150 feet: 9 Type: N/A PT Plan Problem List Problem List: Activity Tolerance, Functional Strength, Gait, Transfer, Bed Mobility Treatment/Plan Treatment Plan: Continue Plan of Care Treatment Plan: Bed Mobility, Education, Functional Activity Jose, Functional Strength, Gait, Safety, Therapeutic Exercise, Transfers Treatment Duration: Sep 02, 2020 Frequency: 11 times per week Estimated Hrs Per Day: .5 hour per day Patient and/or Family Agrees t: Yes Discharge Recommendations Therapy Discharge Recommendati: Home & Family, Post Acute PT Time/GCodes Time In: 1310 Time Out: 1333 Total Billed Treatment Time: 23 Total Billed Treatment 1 visit EVModC 8 min FA 15 min CHANA DYKES PT Aug 17, 2020 15:06
--- NOTE | 2020-08-17 15:32 | Occupational Therapy Eval ---
OT Evaluation-General/PLF Medical Diagnosis Admission Date Aug 17, 2020 at 13:02 Medical Diagnosis: lumbar intrabody fusion Onset Date: Aug 15, 2020 Therapy Diagnosis Therapy Diagnosis: decreased ADL status, weakness Height/Weight Height (Feet): 6 Height (Inches): 2.00 Weight (Pounds): 213 Weight (Ounces): 6.0 Precautions Precautions/Isolations: Standard Precautions Referral Physician: Patricia Referral Reason: Evaluation/Treatment Medical History Pertinent Medical History: DM, HTN Additional Medical History HTN, kidney stones, GERD, DM, back pain, SAMISH Current History s/p lumbar interbody fusion 1 level L4-L5, direct admit for SWB Social History Home: Apartment Current Living Status: Spouse Entry Into Home: Ramp (with rails) ADL-Prior Level of Function SCALE: Activities may be completed with or without assistive devices. 9-Bmstitjmbo-aeggaua completes the activity by him/herself with no assistance from a helper. 5-Set-up or Clean-up Assistance-helper sets up or cleans up; patient completes activity. [place] assists only prior to or following the activity. 4-Supervision or Touching Assistance-helper provides verbal cues and/or touching/steadying and/or contact guard assistance as patient completes activity. Assistance may be provided throughout the activity or intermittently. 3-Partial/Moderate Assistance-helper does LESS THAN HALF the effort. [place] lifts, holds or supports trunk or limbs, but provides less than half the effort. 2-Substantial/Maximal Assistance-helper does MORE THAN HALF the effort. [place] lifts or holds trunk or limbs and provides more than half the effort. 7-Stjdpumef-lsbeoo does ALL the effort. Patient does none of the effort to complete the activity. Or, the assistance of 2 or more helpers is required for the patient to complete the activity. If activity was not attempted, code reason: 7-Patient Refused. 9-Not Applicable-not attempted and the patient did not perform the activity before the current illness, exacerbation or injury. 10-Not Attempted due to Environmental Limitations-(lack of equipment, weather restraints, etc.). 88-Not Attempted due to Medical Conditions or Safety Concerns. ADL PLOF Comments Pt reports being independent at PLOF with bathing/dressing/toileting. He has assistance at home with cooking and cleaning. He primarily used a cane for functional mobility. Self Care: Independent Functional Cognition: Independent DME/Equipment: Bath Chair, Tub/Shower DME/Equipment Comments cane OT Current Status Subjective Pt laying in bed, agreeable to OT evaluation and tx. Pt did not verbalize any pain during tx. Mental Status/Objective Patient Orientation: Person, Place, Situation Attachments: Drains Current Glasses/Contacts: Yes Hearing Aids: No (has had LEIJA in past, doesn't wear) Dentures/Partials: Yes Hand Dominance: Left Upper Extremity ROM WFL Upper Extremity Coordination WFL Upper Extremity Sensation WFL, pt denies tingling/numbness BUEs Upper Extremity Strength Mpt tested t pback precautions. ADL-Treatment Eating (QC): 6 (Per pt report) Oral Hygiene (QC): 5 (set up at tray table) Shower/Bathe Self (QC): 2 (Pt able to wash upper body, required assist with buttocks, and lower legs/feet. Pt able to was periare in standing) Upper Body Dressing (QC): 2 (Pt able to unbutton shirt, mod A to doff shirt. Pt donned hospital gown, threading BUEs, assist tying gown. Assist with back brace.) Lower Body Dressing (QC): 2 (assist with fasteners, pt able to manage pants down, assist doffing over feet.) On/Off Footwear (QC): 1 (Assist donning/doffing socks due to back precautions) Toileting Hygiene (QC): 2 (Pt able to manage pants down, assist with fasteners, assist with hygiene, assist pant hike.) Other Treatments Pt dr order: showering is allowed but sponge bathing is encouraged to prevent bandage from getting wet. Do not soak incision (no bathing/swimming) until after follow up appointment Pt laying in bed, pt completed oral care at tray table. Transferred supine to sit EOB with max A. Pt doffed UE clothing, and performed UE sponge bath. Pt donned hospital gown and back brace. He then stood at FWW, mod A sit to stand. OT assisted pt with fasteners, he then performed clothing management down, washed periarea, OT assisted with buttocks, managed underwear up. Then sat at bed to finish LE sponge bath. OT assisted pt with LEs in order to maintain back precautions. Pt doffed back brace, transferred supine with max A. Post tx, pt laying in bed, call light in reach and all needs met. Education OT Patient Education: Correct positioning, Energy conservation, Modified ADL techniques, Progress toward Goal/Update tx plan, Purpose of tx/functional activities, Reviewed precautions, Rehab process Teaching Recipient: Patient Teaching Methods: Discussion Response to Teaching: Verbalize Understanding OT Short Term Goals Short Term Goals Time Frame: Aug 30, 2020 Shower/bathe self: 3 Upper body dressin Lower body dressin Putting on/taking off footwear: 3 OT Form Builder Goals Form Builder Goals Time Frame: Sep 08, 2020 Eating (QC): 6 Oral Hygiene (QC): 6 Toileting Hygiene (QC): 6 Shower/Bathe Self (QC): 4 Upper Body Dressing (QC): 5 Lower Body Dressing (QC): 4 On/Off Footwear (QC): 4 Additional Goals: 1-Demonstrate ADL Tasks, 2-Verbalize Understanding, 3- ImproveStrength/Jose 1=Demonstrate adherence to instructed precautions during ADL tasks. 2=Patient will verbalize/demonstrate understanding of assistive devices/modifications for ADL. 3=Patient will improve strength/tolerance for activity to enable patient to perform ADL's. OT Education/Plan Problem List/Assessment Assessment: Decreased Activ Tolerance, Decreased UE Strength, Impaired Bed Mobility, Impaired Funct Balance, Impaired I ADL's, Impaired Self-Care Skills Discharge Recommendations Plan/Recommendations: Continue POC Therapy Discharge Recommendati: Home & Family Treatment Plan/Plan of Care Patient would benefit from OT for education, treatment and training to promote independence in ADL's, mobility, safety and/or upper extremity function for ADL's. Plan of Care: ADL Retraining, Functional Mobility, UE Funct Exercise/Act Treatment Duration: Sep 08, 2020 Frequency: 5 times per week Estimated Hrs Per Day: .25 hour per day Rehab Potential: Fair Time/GCodes Start Time: 13:40 Stop Time: 15:23 Total Time Billed (hr/min): 43 Billed Treatment Time 1, EVM (10'), ADL 2 (33) KRISTI CERVANTES OT Aug 17, 2020 15:32
[2020-08-17] MEDS: HYDROcodone/APAP 5 MG/325 MG (LORTAB) TAB PO PRN ×2 (16:02→21:18)
[2020-08-17] MEDS ORDERED: RT-ALBUTEROL SULF 2.5 MG/3 ML PRE-MIX VIAL IH PRN (18:15)
[2020-08-17] MEDS ORDERED: NON-FORMULARY MEDICATION 1 EA EA (Oxycodone HCl 10 MG) PO PRN (18:15)
[2020-08-17] MEDS ORDERED: NON-FORMULARY MEDICATION 1 EA EA (Docusate Sodium 100 MG) PO PRN (18:15)
[2020-08-17] MEDS ORDERED: RX-CYCLOBENZAPRINE 10 MG (FLEXERIL) TAB PPK#3 PO PRN (18:15)
[2020-08-17] MEDS ORDERED: DOCUSATE SODIUM 100 MG (COLACE) CAP PO PRN (18:30)
[2020-08-17 18:32] VITALS: BP 100/62
[2020-08-17] MEDS ORDERED: CYCLOBENZAPRINE 10 MG (FLEXERIL) TAB PO PRN (18:45)
[2020-08-17] MEDS: SENNA W/DOCUSATE (SENOKOT S) TABLET PO SCH ×2 (19:02→21:17)
[2020-08-17] MEDS: DOCUSATE SODIUM 100 MG (COLACE) CAP PO SCH ×2 (19:02→21:17)
[2020-08-17] MEDS: SIMvastatin 20 MG (ZOCOR) TAB PO SCH (21:18)
[2020-08-18 05:01] VITALS: BP 107/62
[2020-08-18 06:19] LABS: BASOPHILS # (AUTO) 0.1 10^3/uL (0.0-0.1); BASOPHILS % (AUTO) 1 % (0-10); EOSINOPHILS # (AUTO) 0.2 10^3/uL (0.0-0.3); EOSINOPHILS % (AUTO) 2 % (0-10); HEMATOCRIT 31 % (40-54); LYMPHOCYTES # (AUTO) 2.9 10^3/uL (1.0-4.0); LYMPHOCYTES % (AUTO) 25 % (12-44); MEAN CORPUSCULAR HEMOGLOBIN 30 pg (25-34); MEAN CORPUSCULAR HGB CONC 33 g/dL (32-36); MEAN CORPUSCULAR VOLUME 92 fL (80-99); MEAN PLATELET VOLUME 8.9 fL (9.0-12.2); MONOCYTES # (AUTO) 1.1 10^3/uL (0.0-1.0); MONOCYTES % (AUTO) 9 % (0-12); NEUTROPHILS # (AUTO) 7.5 10^3/uL (1.8-7.8); NEUTROPHILS % (AUTO) 63 % (42-75); PLATELET COUNT 268 10^3/uL (130-400); WHITE BLOOD COUNT 11.9 10^3/uL (4.3-11.0)
[2020-08-18 06:23] LABS: ALBUMIN 3.4 GM/DL (3.2-4.5); CHLORIDE 104 MMOL/L (98-107); POTASSIUM 4.4 MMOL/L (3.6-5.0); SODIUM 134 MMOL/L (135-145)
[2020-08-18 06:24] LABS: CALCIUM 8.7 MG/DL (8.5-10.1)
[2020-08-18 06:25] LABS: GLUCOSE 171 MG/DL (70-105)
[2020-08-18 06:26] LABS: TOTAL PROTEIN 7.1 GM/DL (6.4-8.2)
[2020-08-18 06:27] LABS: CARBON DIOXIDE 20 MMOL/L (21-32)
[2020-08-18 06:29] LABS: ALKALINE PHOSPHATASE 57 U/L (40-136); CREATININE SERUM 0.79 MG/DL (0.60-1.30); GFR ESTIMATED > 60
[2020-08-18 06:30] LABS: BUN/CREATININE RATIO 22
[2020-08-18 06:32] LABS: ALANINE AMINOTRANSFERASE 45 U/L (0-55)
[2020-08-18] MEDS: UMECLIDINIUM BROMIDE (INCRUSE ELLIPTA) 7'S IH SCH (07:28)
[2020-08-18] MEDS: ADVAIR HFA 115/21 MCG INHALER 8 GM IH SCH ×2 (07:28→18:00)
[2020-08-18] MEDS ORDERED: NON-FORMULARY MEDICATION 1 EA EA (Fluticasone/Vilanterol (Breo Ellipta 100-25 Mcg INH) 1 E IH SCH (09:00)
[2020-08-18] MEDS: lisINopril 10 MG (PRINIVIL) TABLET PO SCH (09:00)
[2020-08-18] MEDS ORDERED: NON-FORMULARY MEDICATION 1 EA EA (Tiotropium Bromide (Spiriva Respimat 2.5MCG/ACTUATION) 2 IH SCH (09:00)
[2020-08-18] MEDS: metFORMIN 500 MG (GLUCOPHAGE) TAB PO SCH ×2 (09:09→17:58)
[2020-08-18] MEDS: PANTOPRAZOLE 20 MG TABLET (PROTONIX) PO SCH (09:11)
[2020-08-18] MEDS: amLODIPine 5 MG (NORVASC) TAB PO SCH (09:12)
[2020-08-18] MEDS: SENNA W/DOCUSATE (SENOKOT S) TABLET PO SCH ×2 (09:33→19:47)
[2020-08-18] MEDS: DOCUSATE SODIUM 100 MG (COLACE) CAP PO SCH ×2 (09:33→19:46)
--- NOTE | 2020-08-18 09:41 | Physical Therapy Daily Note ---
PT Daily Note-Current Subjective Patient reports 5/10 LBP. Very agreeable to participate with therapy. Pain Numeric Pain Scale: 5-Moderate Pain Location: Lower Location Body Site: Back Pain Description: Acute Mental Status Patient Orientation: Normal For Age Transfers SCALE: Activities may be completed with or without assistive devices. 3-Hoemdgcgbb-jvsbaan completes the activity by him/herself with no assistance from a helper. 5-Set-up or Clean-up Assistance-helper sets up or cleans up; patient completes activity. [place] assists only prior to or following the activity. 4-Supervision or Touching Assistance-helper provides verbal cues and/or touching/steadying and/or contact guard assistance as patient completes activity. Assistance may be provided throughout the activity or intermittently. 3-Partial/Moderate Assistance-helper does LESS THAN HALF the effort. [place] lifts, holds or supports trunk or limbs, but provides less than half the effort. 2-Substantial/Maximal Assistance-helper does MORE THAN HALF the effort. [place] lifts or holds trunk or limbs and provides more than half the effort. 0-Mrdgfqpsg-jkjxxv does ALL the effort. Patient does none of the effort to complete the activity. Or, the assistance of 2 or more helpers is required for the patient to complete the activity. If activity was not attempted, code reason: 7-Patient Refused. 9-Not Applicable-not attempted and the patient did not perform the activity before the current illness, exacerbation or injury. 10-Not Attempted due to Environmental Limitations-(lack of equipment, weather restraints, etc.). 88-Not Attempted due to Medical Conditions or Safety Concerns. Roll Left & Right (QC): 4 Sit to Lying (QC): 4 Lying to Sitting/Side of Bed(Q: 4 Sit to Stand (QC): 4 Chair/Nwq-of-Gjfsr Xfer(QC): 4 Toilet Transfer (QC): 4 (patient toileted self independently) Weight Bearing Right Lower Extremity: Right Weight Bearing/Tolerated Left Lower Extremity: Left Weight Bearing/Tolerated Gait Training Does the Patient Walk?: Yes Distance: 500' Walk 10 feet (QC): 4 Walk 50 ft with 2 Turns(QC): 4 Walk 150 ft (QC): 4 Walking 10ft/uneven surface-QC: 4 Gait Assistive Device: FWW trunk flexed posture/functional gait sequence Exercises Seated Therapy Exercises: Ankle pumps, Long arc quads, Hip flexion Seated Reps: 15 (2 sets) Assessment Current Status: Excellent Progress Patient is up in recliner and is highly motivated with progress. SWB updated. PT Local Hazmat Driver Goals Local Hazmat Driver Goals PT Local Hazmat Driver Goals Time Frame: Sep 02, 2020 Roll Left & Right (QC): 6 Sit to Lying (QC): 6 Lying-Sitting on Side/Bed(QC): 6 Sit to Stand (QC): 6 Chair/Lrw-bg-Xuzfh Xfer(QC): 6 Toilet Transfer (QC): 6 Car Transfer (QC): 6 Does the Patient Walk: Yes Walk 10 feet (QC): 6 Walk 50ft with 2 Turns (QC): 6 Walk 150 ft (QC): 6 Walking 10ft on Uneven Surface: 6 1 Step (curb) (QC): 5 4 Steps (QC): 5 12 Steps (QC): 88 Picking up an Object (QC): 6 (device due to no bending allow per surgeon) Does the Pt use WC or Scooter?: No Wheel 50 feet with 2 turns (QC: 9 Type: N/A Wheel 150 feet: 9 Type: N/A PT Plan Treatment/Plan Treatment Plan: Continue Plan of Care Treatment Plan: Bed Mobility, Education, Functional Activity Jose, Functional Strength, Gait, Safety, Therapeutic Exercise, Transfers Treatment Duration: Sep 02, 2020 Frequency: 11 times per week Estimated Hrs Per Day: .5 hour per day Patient and/or Family Agrees t: Yes Time/GCodes Time In: 845 Time Out: 908 Total Billed Treatment Time: 23 Total Billed Treatment 1 visit GT 13 min EX 10 min CHANA DYKES PT Aug 18, 2020 09:41
--- NOTE | 2020-08-18 11:43 | Progress Note - Hospitalist ---
JESUS CANALES,[facility] 08/18/20 1143: Subjective HPI/CC On Admission Date Seen by Provider: Aug 18, 2020 Time Seen by Provider: 11:00 CC: Severe back pain from spine surgery HPI: This is a 74yoWM clinic patient of [facility] who arrives from [facility] after undergoing spine surgery and in need of PT OT and swing bed services prior to returning home with his elderly . He has help at home with some caretakers but very concerned about falls at night. Currently patient feels good and pain is well controlled on pain meds. BM yesterday. Urinating well. Will check labs in am. Restarted all meds at [place]. Subjective/Events-last exam Endorses improvement of low back pain to 5/10 this am. Ambulated in [place] with PT & feels stronger. +BM, +urine. Denies CP/SOB/fever/chills/abd pain Review of Systems General: No Chills Pulmonary: No Dyspnea, No Cough Cardiovascular: No: Chest Pain Gastrointestinal: No: Nausea, Vomiting, Abdominal Pain Genitourinary: No Dysuria Neurological: No: Weakness, Numbness Objective Exam Vital Signs Vital Signs Date Time Temp Pulse Resp B/P (MAP) Pulse Ox O2 Delivery O2 Flow Rate FiO2 08/18/20 07:35 Room Air 08/18/20 07:28 94 08/18/20 05:01 37.5 87 18 107/62 (77) Capillary Refill : General Appearance: No Apparent Distress Respiratory: Chest Non Tender, Lungs Clear, Normal Breath Sounds Cardiovascular: Regular Rate, Rhythm, No Edema Gastrointestinal: Non Tender Rectal: Deferred Back: Normal Inspection Extremity: Normal Capillary Refill, Normal Inspection, No Pedal Edema Neurologic/Psychiatric: Alert, No Motor/Sensory Deficits Skin: Normal Color Results/Procedures Lab Laboratory Tests 08/18/20 06:09 Patient resulted labs reviewed. Assessment/Plan Assessment and Plan Assess & Plan/Chief Complaint 1. Low back pain -Lortab -Oxycodone -Flexeril -APAP -work with PT/OT 2. BM/Urine -Bisacodyl, Senna, Docusate PRN -No Merchant 3. H/o asthma -Albuterol -Advair -Incruse 4. HTN -Amlodipine -Holding lisinopril for SBP < 130 5. DM -Metformin Clinical Quality Measures DVT/VTE Risk/Contraindication: Contraindications-Pharm: Other *list below* Other: spinal surgery GABY DE GUZMAN DO 08/19/20 0706: Subjective Subjective/Events-last exam Patient feels good Less pain BM regimen will be held due to loose stools Review of Systems General: Fatigue Objective Exam General Appearance: No Apparent Distress, WD/WN, Chronically ill Respiratory: Chest Non Tender, Lungs Clear, Normal Breath Sounds, No Accessory Muscle Use, No Respiratory Distress Cardiovascular: Regular Rate, Rhythm, No Edema, No Gallop, No JVD, No Murmur, Normal Peripheral Pulses Back: Decreased Range of Motion Neurologic/Psychiatric: Alert, Oriented x3, No Motor/Sensory Deficits, Normal Mood/Affect Assessment/Plan Assessment and Plan Assess & Plan/Chief Complaint Pain control Ambulate PT OT Supervisory-Addendum Brief Verification & Attestation Participated in pt care: history, MDM, physical Personally performed: exam, history, MDM, supervision of care Care discussed with: Medical Student Procedures: n/a Results interpretation: Verified all documentation Verification and Attestation of Medical Student E/M Service A medical student performed and documented this service in my presence. I reviewed and verified all information documented by the medical student and made modifications to such information, when appropriate. I personally performed the physical exam and medical decision making. Gaby De Guzman, Aug 19, 2020,07:05 JESUS CANALES,MED STUD Aug 18, 2020 11:43 GABY DE GUZMAN DO Aug 19, 2020 07:06
--- NOTE | 2020-08-18 13:32 | Occupational Ther Daily Note ---
OT Current Status-Daily Note Subjective Pt alert, sitting in recliner. Pt agrees to therapy. No c/o pain at this time. Mental Status/Objective Patient Orientation: Person, Place, Time, Situation Attachments: Drains, IV ADL-Treatment Pt able to don/doff socks by bringing each foot up to adhere to back precautions, set up only. Pt demonstrates SOA and requires recovery break. Pt then declined to walk to bathroom sink to complete oral care. After gathering supplies for pt, pt was able to complete oral care by self. After session, PT took over care. All needs met in room. Therapy Code Descriptions/Definitions Functional [place] Measure: 0=Not Assessed/NA 4=Minimal Assistance 1=Total Assistance 5=Supervision or Setup 2=Maximal Assistance 6=Modified [place] 3=Moderate Assistance 7=Complete IndependenceSCALE: Activities may be completed with or without assistive devices. 3-Pokkjkfqwy-zrtietq completes the activity by him/herself with no assistance from a helper. 5-Set-up or Clean-up Assistance-helper sets up or cleans up; patient completes activity. [place] assists only prior to or following the activity. 4-Supervision or Touching Assistance-helper provides verbal cues and/or touching/steadying and/or contact guard assistance as patient completes activity. Assistance may be provided throughout the activity or intermittently. 3-Partial/Moderate Assistance-helper does LESS THAN HALF the effort. [place] lifts, holds or supports trunk or limbs, but provides less than half the effort. 2-Substantial/Maximal Assistance-helper does MORE THAN HALF the effort. [place] lifts or holds trunk or limbs and provides more than half the effort. 1-Ncqsozenk-dzkudv does ALL the effort. Patient does none of the effort to complete the activity. Or, the assistance of 2 or more helpers is required for the patient to complete the activity. If activity was not attempted, code reason: 7-Patient Refused. 9-Not Applicable-not attempted and the patient did not perform the activity before the current illness, exacerbation or injury. 10-Not Attempted due to Environmental Limitations-(lack of equipment, weather restraints, etc.). 88-Not Attempted due to Medical Conditions or Safety Concerns. Oral Hygiene (QC): 5 On/Off Footwear: 5 OT Short Term Goals Short Term Goals Time Frame: Aug 30, 2020 Shower/bathe self: 3 Upper body dressin Lower body dressin Putting on/taking off footwear: 3 OT Agriculture Teacher Goals Alf Goals Time Frame: Sep 08, 2020 Eating (QC): 6 Oral Hygiene (QC): 6 Toileting Hygiene (QC): 6 Shower/Bathe Self (QC): 4 Upper Body Dressing (QC): 5 Lower Body Dressing (QC): 4 On/Off Footwear (QC): 4 Additional Goals: 1-Demonstrate ADL Tasks, 2-Verbalize Understanding, 3- ImproveStrength/Jose 1=Demonstrate adherence to instructed precautions during ADL tasks. 2=Patient will verbalize/demonstrate understanding of assistive devices/modifications for ADL. 3=Patient will improve strength/tolerance for activity to enable patient to perform ADL's. OT Education/Plan Problem List/Assessment Assessment: Decreased Activ Tolerance, Impaired Self-Care Skills Discharge Recommendations Plan/Recommendations: Continue POC Treatment Plan/Plan of Care Patient would benefit from OT for education, treatment and training to promote independence in ADL's, mobility, safety and/or upper extremity function for ADL's. Plan of Care: ADL Retraining, Functional Mobility, UE Funct Exercise/Act Treatment Duration: Sep 08, 2020 Frequency: 5 times per week Estimated Hrs Per Day: .25 hour per day Rehab Potential: Fair Time/GCodes Start Time: 13:08 Stop Time: 13:23 Total Time Billed (hr/min): 15 Billed Treatment Time 1 visit-ADL 1 (15 min) JONI ALVARADO Aug 18, 2020 13:32
--- NOTE | 2020-08-18 13:45 | Physical Therapy Daily Note ---
PT Daily Note-Current Subjective Patient just completed OT session. Agrees to PT. Mental Status Patient Orientation: Normal For Age Transfers SCALE: Activities may be completed with or without assistive devices. 6-Jxtswvrvio-ptemwbl completes the activity by him/herself with no assistance from a helper. 5-Set-up or Clean-up Assistance-helper sets up or cleans up; patient completes activity. [place] assists only prior to or following the activity. 4-Supervision or Touching Assistance-helper provides verbal cues and/or touching/steadying and/or contact guard assistance as patient completes activity. Assistance may be provided throughout the activity or intermittently. 3-Partial/Moderate Assistance-helper does LESS THAN HALF the effort. [place] lifts, holds or supports trunk or limbs, but provides less than half the effort. 2-Substantial/Maximal Assistance-helper does MORE THAN HALF the effort. [place] lifts or holds trunk or limbs and provides more than half the effort. 0-Imxhvvley-qeelot does ALL the effort. Patient does none of the effort to complete the activity. Or, the assistance of 2 or more helpers is required for the patient to complete the activity. If activity was not attempted, code reason: 7-Patient Refused. 9-Not Applicable-not attempted and the patient did not perform the activity before the current illness, exacerbation or injury. 10-Not Attempted due to Environmental Limitations-(lack of equipment, weather restraints, etc.). 88-Not Attempted due to Medical Conditions or Safety Concerns. Sit to Stand (QC): 6 Weight Bearing Right Lower Extremity: Right Weight Bearing/Tolerated Left Lower Extremity: Left Weight Bearing/Tolerated Gait Training Does the Patient Walk?: Yes Distance: 600' Walk 10 feet (QC): 6 Walk 50 ft with 2 Turns(QC): 6 Walk 150 ft (QC): 6 Gait Assistive Device: FWW safe and functional with no deviation Exercises Seated Therapy Exercises: Ankle pumps, Long arc quads, Hip flexion Seated Reps: 15 Assessment PT instructed patient to ambulate PRN in hallway. Nursing notified. Patient progressing with treatment plan. PT Half-Way Goals Half-Way Goals PT Half-Way Goals Time Frame: Sep 02, 2020 Roll Left & Right (QC): 6 Sit to Lying (QC): 6 Lying-Sitting on Side/Bed(QC): 6 Sit to Stand (QC): 6 Chair/Lpy-gp-Guycq Xfer(QC): 6 Toilet Transfer (QC): 6 Car Transfer (QC): 6 Does the Patient Walk: Yes Walk 10 feet (QC): 6 Walk 50ft with 2 Turns (QC): 6 Walk 150 ft (QC): 6 Walking 10ft on Uneven Surface: 6 1 Step (curb) (QC): 5 4 Steps (QC): 5 12 Steps (QC): 88 Picking up an Object (QC): 6 (device due to no bending allow per surgeon) Does the Pt use WC or Scooter?: No Wheel 50 feet with 2 turns (QC: 9 Type: N/A Wheel 150 feet: 9 Type: N/A PT Plan Treatment/Plan Treatment Plan: Continue Plan of Care Treatment Plan: Bed Mobility, Education, Functional Activity Jose, Functional Strength, Gait, Safety, Therapeutic Exercise, Transfers Treatment Duration: Sep 02, 2020 Frequency: 11 times per week Estimated Hrs Per Day: .5 hour per day Patient and/or Family Agrees t: Yes Time/GCodes Time In: 1326 Time Out: 1336 Total Billed Treatment Time: 10 Total Billed Treatment 1 visit FA 10 min CHANA DYKES PT Aug 18, 2020 13:45
[2020-08-18 17:55] VITALS: BP 107/44
[2020-08-18] MEDS: SIMvastatin 20 MG (ZOCOR) TAB PO SCH (19:47)
[2020-08-19 05:13] VITALS: BP 134/78
--- NOTE | 2020-08-19 07:19 | Progress Note - Hospitalist ---
Subjective HPI/CC On Admission Date Seen by Provider: Aug 19, 2020 Time Seen by Provider: 12:00 CC: Severe back pain from spine surgery HPI: This is a 74yoWM clinic patient of [facility] who arrives from [facility] after undergoing spine surgery and in need of PT OT and swing bed services prior to returning home with his elderly . He has help at home with some caretakers but very concerned about falls at night. Currently patient feels good and pain is well controlled on pain meds. BM yesterday. Urinating well. Will check labs in am. Restarted all meds at [place]. Subjective/Events-last exam Patient feels good Ambulating with therapy Pain improved BM+ Review of Systems General: Fatigue, Malaise Musculoskeletal: back pain Objective Exam Vital Signs Vital Signs Date Time Temp Pulse Resp B/P (MAP) Pulse Ox O2 Delivery O2 Flow Rate FiO2 08/19/20 17:17 36.6 105 20 90/64 (73) 94 Room Air Capillary Refill : General Appearance: No Apparent Distress, WD/WN, Chronically ill Respiratory: Chest Non Tender, Lungs Clear, Normal Breath Sounds, No Accessory Muscle Use, No Respiratory Distress Cardiovascular: Regular Rate, Rhythm, No Edema, No Gallop, No JVD, No Murmur, Normal Peripheral Pulses Back: Decreased Range of Motion Neurologic/Psychiatric: Alert, Oriented x3, No Motor/Sensory Deficits, Normal Mood/Affect Results/Procedures Lab Patient resulted labs reviewed. Assessment/Plan Assessment and Plan Assess & Plan/Chief Complaint Assessment: s/p spinal surgery with slow recovery Back pain HTN DM Plan: Monitor closely Diagnosis/Problems Diagnosis/Problems (1) S/P spinal surgery (2) Hypertension (3) Diabetes mellitus Clinical Quality Measures DVT/VTE Risk/Contraindication: Contraindications-Pharm: Other *list below* Other: spinal surgery ALVINA DE GUZMAN DO Aug 19, 2020 07:19
[2020-08-19] MEDS: ADVAIR HFA 115/21 MCG INHALER 8 GM IH SCH (07:26)
[2020-08-19] MEDS: UMECLIDINIUM BROMIDE (INCRUSE ELLIPTA) 7'S IH SCH (07:27)
--- NOTE | 2020-08-19 08:08 | Physical Therapy Daily Note ---
PT Daily Note-Current Subjective Patient just completed breakfast and agrees to PT. Pain Numeric Pain Scale: 5-Moderate Pain Location: Lower Location Body Site: Back Pain Description: Acute Mental Status Patient Orientation: Normal For Age Transfers SCALE: Activities may be completed with or without assistive devices. 9-Vevvjegndm-fkeoajz completes the activity by him/herself with no assistance from a helper. 5-Set-up or Clean-up Assistance-helper sets up or cleans up; patient completes activity. [place] assists only prior to or following the activity. 4-Supervision or Touching Assistance-helper provides verbal cues and/or touching/steadying and/or contact guard assistance as patient completes activity. Assistance may be provided throughout the activity or intermittently. 3-Partial/Moderate Assistance-helper does LESS THAN HALF the effort. [place] lifts, holds or supports trunk or limbs, but provides less than half the effort. 2-Substantial/Maximal Assistance-helper does MORE THAN HALF the effort. [place] lifts or holds trunk or limbs and provides more than half the effort. 7-Komlipnry-vkfnhx does ALL the effort. Patient does none of the effort to complete the activity. Or, the assistance of 2 or more helpers is required for the patient to complete the activity. If activity was not attempted, code reason: 7-Patient Refused. 9-Not Applicable-not attempted and the patient did not perform the activity be fore the current illness, exacerbation or injury. 10-Not Attempted due to Environmental Limitations-(lack of equipment, weather restraints, etc.). 88-Not Attempted due to Medical Conditions or Safety Concerns. Roll Left & Right (QC): 6 Sit to Lying (QC): 5 Lying to Sitting/Side of Bed(Q: 5 Sit to Stand (QC): 6 Chair/Rhy-zr-Hmglp Xfer(QC): 6 Toilet Transfer (QC): 6 Weight Bearing Right Lower Extremity: Right Weight Bearing/Tolerated Left Lower Extremity: Left Weight Bearing/Tolerated Gait Training Does the Patient Walk?: Yes Distance: 600' Walk 10 feet (QC): 6 Walk 50 ft with 2 Turns(QC): 6 Walk 150 ft (QC): 6 Walking 10ft/uneven surface-QC: 6 Gait Assistive Device: FWW safe and functional (RN notified to have patient ambulate PRN in hallway) Stair Training Stair Training: Handrails/: 2 handrails #of Steps: 4 1 Step (curb) (QC): 5 4 Steps (QC): 5 12 Steps (QC): 9 Stairs: Pattern: Step to Assessment Patient returned to bed without much difficulty. Back brace on when OOB. PT Skilled Nursing Goals Biscuit Factory Worker Goals PT Biscuit Factory Worker Goals Time Frame: Sep 02, 2020 Roll Left & Right (QC): 6 Sit to Lying (QC): 6 Lying-Sitting on Side/Bed(QC): 6 Sit to Stand (QC): 6 Chair/Jpi-dc-Gzaef Xfer(QC): 6 Toilet Transfer (QC): 6 Car Transfer (QC): 6 Does the Patient Walk: Yes Walk 10 feet (QC): 6 Walk 50ft with 2 Turns (QC): 6 Walk 150 ft (QC): 6 Walking 10ft on Uneven Surface: 6 1 Step (curb) (QC): 5 4 Steps (QC): 5 12 Steps (QC): 88 Picking up an Object (QC): 6 (device due to no bending allow per surgeon) Does the Pt use WC or Scooter?: No Wheel 50 feet with 2 turns (QC: 9 Type: N/A Wheel 150 feet: 9 Type: N/A PT Plan Treatment/Plan Treatment Plan: Continue Plan of Care Treatment Plan: Bed Mobility, Education, Functional Activity Jose, Functional Strength, Gait, Safety, Therapeutic Exercise, Transfers Treatment Duration: Sep 02, 2020 Frequency: 11 times per week Estimated Hrs Per Day: .5 hour per day Patient and/or Family Agrees t: Yes Time/GCodes Time In: 735 Time Out: 750 Total Billed Treatment Time: 15 Total Billed Treatment 1 visit FA 15 min CHANA DYKES PT Aug 19, 2020 08:08
[2020-08-19] MEDS: amLODIPine 5 MG (NORVASC) TAB PO SCH (08:14)
[2020-08-19] MEDS: lisINopril 10 MG (PRINIVIL) TABLET PO SCH (08:14)
[2020-08-19] MEDS: metFORMIN 500 MG (GLUCOPHAGE) TAB PO SCH ×2 (08:15→17:57)
[2020-08-19] MEDS: DOCUSATE SODIUM 100 MG (COLACE) CAP PO SCH ×2 (08:15→20:52)
[2020-08-19] MEDS: SENNA W/DOCUSATE (SENOKOT S) TABLET PO SCH ×2 (08:15→20:52)
[2020-08-19] MEDS: PANTOPRAZOLE 20 MG TABLET (PROTONIX) PO SCH (08:17)
[2020-08-19] MEDS: HYDROcodone/APAP 5 MG/325 MG (LORTAB) TAB PO PRN (15:46)
[2020-08-19 17:17] VITALS: BP 90/64
[2020-08-19] MEDS: SIMvastatin 20 MG (ZOCOR) TAB PO SCH (20:52)
[2020-08-20] MEDS: HYDROcodone/APAP 5 MG/325 MG (LORTAB) TAB PO PRN ×2 (02:09→23:17)
[2020-08-20 06:34] VITALS: BP 109/66
[2020-08-20] MEDS: ADVAIR HFA 115/21 MCG INHALER 8 GM IH SCH (07:29)
[2020-08-20] MEDS: UMECLIDINIUM BROMIDE (INCRUSE ELLIPTA) 7'S IH SCH (07:29)
[2020-08-20] MEDS: lisINopril 10 MG (PRINIVIL) TABLET PO SCH (08:58)
[2020-08-20] MEDS: amLODIPine 5 MG (NORVASC) TAB PO SCH (08:58)
[2020-08-20] MEDS: DOCUSATE SODIUM 100 MG (COLACE) CAP PO SCH ×2 (08:58→21:16)
[2020-08-20] MEDS: PANTOPRAZOLE 20 MG TABLET (PROTONIX) PO SCH (08:58)
[2020-08-20] MEDS: SENNA W/DOCUSATE (SENOKOT S) TABLET PO SCH ×2 (08:58→21:16)
[2020-08-20] MEDS: metFORMIN 500 MG (GLUCOPHAGE) TAB PO SCH ×2 (08:58→18:32)
--- NOTE | 2020-08-20 12:43 | Progress Note - Hospitalist ---
Subjective HPI/CC On Admission Date Seen by Provider: Aug 20, 2020 Time Seen by Provider: 12:15 CC: Severe back pain from spine surgery HPI: This is a 74yoWM clinic patient of [facility] who arrives from [facility] after undergoing spine surgery and in need of PT OT and swing bed services prior to returning home with his elderly . He has help at home with some caretakers but very concerned about falls at night. Currently patient feels good and pain is well controlled on pain meds. BM yesterday. Urinating well. Will check labs in am. Restarted all meds at [place]. Subjective/Events-last exam Patient reports no issues Back pain managed BM+ Eating well No other concerns Review of Systems General: Fatigue, Malaise Musculoskeletal: back pain Objective Exam Vital Signs Vital Signs Date Time Temp Pulse Resp B/P (MAP) Pulse Ox O2 Delivery O2 Flow Rate FiO2 08/20/20 09:00 Room Air 08/20/20 07:29 93 08/20/20 06:34 36.4 85 18 109/66 (80) Capillary Refill : General Appearance: No Apparent Distress, WD/WN, Chronically ill Respiratory: Chest Non Tender, Lungs Clear, Normal Breath Sounds, No Accessory Muscle Use, No Respiratory Distress Cardiovascular: Regular Rate, Rhythm, No Edema, No Gallop, No JVD, No Murmur, Normal Peripheral Pulses Back: Decreased Range of Motion Neurologic/Psychiatric: Alert, Oriented x3, No Motor/Sensory Deficits, Normal Mood/Affect Results/Procedures Lab Patient resulted labs reviewed. Assessment/Plan Assessment and Plan Assess & Plan/Chief Complaint Assessment: s/p spinal surgery with slow recovery Back pain HTN DM Plan: Monitor closely 08/20/20: Back pain management PT OT BM regimen Diagnosis/Problems Diagnosis/Problems (1) S/P spinal surgery (2) Hypertension (3) Diabetes mellitus Clinical Quality Measures DVT/VTE Risk/Contraindication: Contraindications-Pharm: Other *list below* Other: spinal surgery ALVINA DE GUZMAN DO Aug 20, 2020 12:43
[2020-08-20 18:00] VITALS: BP 134/63
[2020-08-20] MEDS: SIMvastatin 20 MG (ZOCOR) TAB PO SCH (21:16)
[2020-08-21 05:33] VITALS: BP 120/67
[2020-08-21 05:59] LABS: BASOPHILS % (AUTO) 0 % (0-10); EOSINOPHILS # (AUTO) 0.2 10^3/uL (0.0-0.3); EOSINOPHILS % (AUTO) 3 % (0-10); HEMATOCRIT 28 % (40-54); HEMOGLOBIN 8.8 g/dL (13.3-17.7); LYMPHOCYTES # (AUTO) 2.5 10^3/uL (1.0-4.0); LYMPHOCYTES % (AUTO) 29 % (12-44); MEAN CORPUSCULAR HEMOGLOBIN 29 pg (25-34); MEAN CORPUSCULAR HGB CONC 32 g/dL (32-36); MEAN CORPUSCULAR VOLUME 93 fL (80-99); MEAN PLATELET VOLUME 8.9 fL (9.0-12.2); MONOCYTES # (AUTO) 0.8 10^3/uL (0.0-1.0); MONOCYTES % (AUTO) 10 % (0-12); NEUTROPHILS # (AUTO) 4.8 10^3/uL (1.8-7.8); NEUTROPHILS % (AUTO) 57 % (42-75); PLATELET COUNT 218 10^3/uL (130-400); WHITE BLOOD COUNT 8.4 10^3/uL (4.3-11.0)
[2020-08-21 06:11] LABS: ALBUMIN 3.1 GM/DL (3.2-4.5); CHLORIDE 105 MMOL/L (98-107); POTASSIUM 4.6 MMOL/L (3.6-5.0); SODIUM 135 MMOL/L (135-145)
[2020-08-21 06:12] LABS: CALCIUM 8.4 MG/DL (8.5-10.1)
[2020-08-21 06:13] LABS: GLUCOSE 122 MG/DL (70-105); TOTAL PROTEIN 6.4 GM/DL (6.4-8.2)
[2020-08-21 06:14] LABS: CARBON DIOXIDE 20 MMOL/L (21-32)
[2020-08-21 06:15] LABS: BILIRUBIN,TOTAL 0.4 MG/DL (0.1-1.0)
[2020-08-21 06:17] LABS: ALKALINE PHOSPHATASE 60 U/L (40-136); CREATININE SERUM 0.65 MG/DL (0.60-1.30); GFR ESTIMATED > 60
[2020-08-21 06:18] LABS: BUN/CREATININE RATIO 20
[2020-08-21 06:20] LABS: ALANINE AMINOTRANSFERASE 50 U/L (0-55)
[2020-08-21] MEDS: DOCUSATE SODIUM 100 MG (COLACE) CAP PO SCH ×2 (08:57→20:07)
[2020-08-21] MEDS: SENNA W/DOCUSATE (SENOKOT S) TABLET PO SCH ×2 (08:57→20:07)
[2020-08-21] MEDS: PANTOPRAZOLE 20 MG TABLET (PROTONIX) PO SCH (08:57)
[2020-08-21] MEDS: metFORMIN 500 MG (GLUCOPHAGE) TAB PO SCH ×2 (08:57→17:32)
[2020-08-21] MEDS: amLODIPine 5 MG (NORVASC) TAB PO SCH (08:57)
[2020-08-21] MEDS: lisINopril 10 MG (PRINIVIL) TABLET PO SCH (08:57)
--- NOTE | 2020-08-21 10:06 | Physical Therapy Daily Note ---
PT Daily Note-Current Subjective Patient agrees to PT. Pain Numeric Pain Scale: 5-Moderate Pain Location: Lower Location Body Site: Back Pain Description: Acute Mental Status Patient Orientation: Normal For Age Attachments: Drains Transfers SCALE: Activities may be completed with or without assistive devices. 3-Oshqypssak-yezrenn completes the activity by him/herself with no assistance from a helper. 5-Set-up or Clean-up Assistance-helper sets up or cleans up; patient completes activity. [place] assists only prior to or following the activity. 4-Supervision or Touching Assistance-helper provides verbal cues and/or touching/steadying and/or contact guard assistance as patient completes activity. Assistance may be provided throughout the activity or intermittently. 3-Partial/Moderate Assistance-helper does LESS THAN HALF the effort. [place] lifts, holds or supports trunk or limbs, but provides less than half the effort. 2-Substantial/Maximal Assistance-helper does MORE THAN HALF the effort. [place] lifts or holds trunk or limbs and provides more than half the effort. 9-Uckxosoni-zvydoj does ALL the effort. Patient does none of the effort to complete the activity. Or, the assistance of 2 or more helpers is required for the patient to complete the activity. If activity was not attempted, code reason: 7-Patient Refused. 9-Not Applicable-not attempted and the patient did not perform the activity before the current illness, exacerbation or injury. 10-Not Attempted due to Environmental Limitations-(lack of equipment, weather restraints, etc.). 88-Not Attempted due to Medical Conditions or Safety Concerns. Roll Left & Right (QC): 5 Sit to Lying (QC): 5 Lying to Sitting/Side of Bed(Q: 5 Sit to Stand (QC): 5 Chair/Axj-lm-Oqxza Xfer(QC): 5 Toilet Transfer (QC): 5 Car Transfer (QC): 5 Weight Bearing Right Lower Extremity: Right Weight Bearing/Tolerated Left Lower Extremity: Left Weight Bearing/Tolerated Gait Training Does the Patient Walk?: Yes Distance: 600' Walk 10 feet (QC): 5 Walk 50 ft with 2 Turns(QC): 5 Walk 150 ft (QC): 5 Walking 10ft/uneven surface-QC: 5 Gait Assistive Device: FWW safe and functional with no deviation Stair Training Stair Training: Handrails/: 2 handrails #of Steps: 12 1 Step (curb) (QC): 5 4 Steps (QC): 5 12 Steps (QC): 5 Stairs: Pattern: Step to Balance Picking up an Object (QC): 5 (seated position with baster hand) Exercises Seated Therapy Exercises: Ankle pumps, Long arc quads, Hip flexion Seated Reps: 15 Assessment Patient toileted self after BM. Patient tolerated treatment well. PT Nursing Home Goals Pallet Rectifier Goals PT Pallet Rectifier Goals Time Frame: Sep 02, 2020 Roll Left & Right (QC): 6 Sit to Lying (QC): 6 Lying-Sitting on Side/Bed(QC): 6 Sit to Stand (QC): 6 Chair/Tdq-zz-Mkovp Xfer(QC): 6 Toilet Transfer (QC): 6 Car Transfer (QC): 6 Does the Patient Walk: Yes Walk 10 feet (QC): 6 Walk 50ft with 2 Turns (QC): 6 Walk 150 ft (QC): 6 Walking 10ft on Uneven Surface: 6 1 Step (curb) (QC): 5 (met 08/21/20) 4 Steps (QC): 5 (met 08/21/20) 12 Steps (QC): 5 (met 08/21/20) Picking up an Object (QC): 6 (device due to no bending allow per surgeon) Does the Pt use WC or Scooter?: No Wheel 50 feet with 2 turns (QC: 9 Type: N/A Wheel 150 feet: 9 Type: N/A PT Plan Treatment/Plan Treatment Plan: Continue Plan of Care Treatment Plan: Bed Mobility, Education, Functional Activity Jose, Functional Strength, Gait, Safety, Therapeutic Exercise, Transfers Treatment Duration: Sep 02, 2020 Frequency: 11 times per week Estimated Hrs Per Day: .5 hour per day Patient and/or Family Agrees t: Yes Time/GCodes Time In: 915 Time Out: 943 Total Billed Treatment Time: 28 Total Billed Treatment 1 visit FA 15 min EX 13 min CHANA DYKES PT Aug 21, 2020 10:05
[2020-08-21] MEDS: UMECLIDINIUM BROMIDE (INCRUSE ELLIPTA) 7'S IH SCH (10:51)
[2020-08-21] MEDS: ADVAIR HFA 115/21 MCG INHALER 8 GM IH SCH (10:51)
--- NOTE | 2020-08-21 11:18 | Progress Note - Hospitalist ---
SATYA MATA [facility] 08/21/20 1118: Subjective HPI/CC On Admission Date Seen by Provider: Aug 21, 2020 Time Seen by Provider: 08:40 CC: Severe back pain from spine surgery HPI: This is a 74yoWM clinic patient of [facility] who arrives from [facility] after undergoing spine surgery and in need of PT OT and swing bed services prior to returning home with his elderly . He has help at home with some caretakers but very concerned about falls at night. Currently patient feels good and pain is well controlled on pain meds. BM yesterday. Urinating well. Will check labs in am. Restarted all meds at [place]. Subjective/Events-last exam Jax is alert and oriented and in no acute distress. No acute events overnight. He is eating and drinking without issue. Urinating and having bowel movements. Currently he is working with PT and he feels he is making progress. Pain is better controlled with 5/10 being the max. Back drain presents with less than 15cc, draining thin bright red blood. He has a follow up appointment with orthopedics August 23. Denies F/C, N/V, SOB, Chest pain, abdominal pain, weakness or loss of sensation at this time. Review of Systems General: No Chills HEENT: No Head Aches, No Visual Changes Pulmonary: No Dyspnea, No Cough Cardiovascular: No: Chest Pain, Palpitations Gastrointestinal: No: Nausea, Vomiting, Abdominal Pain, Constipation, Hematochezia Genitourinary: No Incontinence, No Retention Musculoskeletal: back pain (minimal ) Neurological: No: Numbness Objective Exam Vital Signs Vital Signs Date Time Temp Pulse Resp B/P (MAP) Pulse Ox O2 Delivery O2 Flow Rate FiO2 08/21/20 09:35 Room Air 08/21/20 09:00 96 08/21/20 05:33 35.6 77 20 120/67 (84) Capillary Refill : General Appearance: No Apparent Distress, WD/WN, Thin HEENT: PERRL/EOMI Neck: Full Range of Motion, Non Tender Respiratory: Chest Non Tender, Normal Breath Sounds, No Accessory Muscle Use, No Respiratory Distress Cardiovascular: Regular Rate, Rhythm, Normal Peripheral Pulses Gastrointestinal: Non Tender, Soft Back: No CVA Tenderness, Other (Dressing over L4-S1 region. Appeared C/D/I. Drain had minimal fluid. <15cc thin blood ) Extremity: Normal Capillary Refill, Non Tender, No Calf Tenderness Neurologic/Psychiatric: Alert, Oriented x3 Skin: Normal Color, Warm/Dry Lymphatic: No Adenopathy Results/Procedures Lab Laboratory Tests 08/21/20 05:43 Patient resulted labs reviewed. Assessment/Plan Assessment and Plan Assess & Plan/Chief Complaint Assessment: s/p spinal surgery with slow recovery Back pain HTN DM 08/20/20: Back pain management PT OT BM regimen 08/21/20: Pain has improved Continue PT BM regimen helping Consider drain removal Plan D/C tomorrow. F/U appointment with ortho on 08/23/20 Clinical Quality Measures DVT/VTE Risk/Contraindication: Contraindications-Pharm: Other *list below* Other: spinal surgery GABY GOMEZ DO 08/22/20 0545: Subjective Subjective/Events-last exam Pt doing very well Ready for discharge tomorrow with [facility] Will discontinue the drain now that he has less than 50 CCs per shift Bowels are moving well Pain is under control Objective Exam General Appearance: No Apparent Distress, WD/WN, Chronically ill Respiratory: Lungs Clear, Normal Breath Sounds Cardiovascular: Regular Rate, Rhythm Back: Decreased Range of Motion Neurologic/Psychiatric: Alert, Oriented x3, No Motor/Sensory Deficits, Normal Mood/Affect Assessment/Plan Assessment and Plan Assess & Plan/Chief Complaint DC tomorrow Supervisory-Addendum Brief Verification & Attestation Participated in pt care: history, MDM, physical Personally performed: exam, history, MDM, supervision of care Care discussed with: Medical Student Procedures: n/a Results interpretation: Verified all documentation Verification and Attestation of Medical Student E/M Service A medical student performed and documented this service in my presence. I reviewed and verified all information documented by the medical student and made modifications to such information, when appropriate. I personally performed the physical exam and medical decision making. Gaby Gomez Aug 22, 2020,05:44 SATYA MATA [facility] Aug 21, 2020 11:18 GABY GOMEZ DO Aug 22, 2020 05:45
--- NOTE | 2020-08-21 13:18 | Occupational Ther Daily Note ---
OT Current Status-Daily Note Subjective Pt alert, lying in bed. Pt agrees to therapy. No c/o pain. Mental Status/Objective Patient Orientation: Person, Place, Time, Situation Attachments: Drains, IV ADL-Treatment Pt agrees to shower. Pt ambulated to toilet with SBA. SBA for clothing manipulation, independent sitting on toilet for hygiene. Transferred into shower, SBA. Completed shower using LH sponge, grabbars and hand held shower sitting on shower bench, independently. Pt doffed socks independently after education on how to adhere to back precautions. Educated pt on donning socks with sock aide, pt verbalized understanding though did not want to attempt. Min A to thread underwear over toes then pt able to complete all other parts of donning lower body. Using clinical judgment pt is able to complete upper body dressing by self after set up. Pt fatigues easily and becomes SOA then uses pursed lip breathing. Min A to go from EOB to supine. After session, pt lying in bed with call light/phone in reach. All needs met in room. Therapy Code Descriptions/Definitions Functional [place] Measure: 0=Not Assessed/NA 4=Minimal Assistance 1=Total Assistance 5=Supervision or Setup 2=Maximal Assistance 6=Modified [place] 3=Moderate Assistance 7=Complete IndependenceSCALE: Activities may be completed with or without assistive devices. 9-Epkuxltfkx-bmqywan completes the activity by him/herself with no assistance from a helper. 5-Set-up or Clean-up Assistance-helper sets up or cleans up; patient completes activity. [place] assists only prior to or following the activity. 4-Supervision or Touching Assistance-helper provides verbal cues and/or touching/steadying and/or contact guard assistance as patient completes activity. Assistance may be provided throughout the activity or intermittently. 3-Partial/Moderate Assistance-helper does LESS THAN HALF the effort. [place] lifts, holds or supports trunk or limbs, but provides less than half the effort. 2-Substantial/Maximal Assistance-helper does MORE THAN HALF the effort. [place] lifts or holds trunk or limbs and provides more than half the effort. 3-Dtwbywxni-mjxale does ALL the effort. Patient does none of the effort to c omplete the activity. Or, the assistance of 2 or more helpers is required for the patient to complete the activity. If activity was not attempted, code reason: 7-Patient Refused. 9-Not Applicable-not attempted and the patient did not perform the activity before the current illness, exacerbation or injury. 10-Not Attempted due to Environmental Limitations-(lack of equipment, weather restraints, etc.). 88-Not Attempted due to Medical Conditions or Safety Concerns. Shower/Bathe Self (QC): 5 Upper Body Dressing (QC): 5 Lower Body Dressing (QC): 3 On/Off Footwear: 3 Toileting Hygiene (QC): 4 Toilet Transfer (QC): 4 OT Short Term Goals Short Term Goals Time Frame: Aug 30, 2020 Shower/bathe self: 3 Upper body dressin Lower body dressin Putting on/taking off footwear: 3 OT Editorial Clerk Goals Editorial Clerk Goals Time Frame: Sep 08, 2020 Eating (QC): 6 Oral Hygiene (QC): 6 Toileting Hygiene (QC): 6 Shower/Bathe Self (QC): 4 Upper Body Dressing (QC): 5 Lower Body Dressing (QC): 4 On/Off Footwear (QC): 4 Additional Goals: 1-Demonstrate ADL Tasks, 2-Verbalize Understanding, 3- ImproveStrength/Jose 1=Demonstrate adherence to instructed precautions during ADL tasks. 2=Patient will verbalize/demonstrate understanding of assistive devices/modifications for ADL. 3=Patient will improve strength/tolerance for activity to enable patient to perform ADL's. OT Education/Plan Problem List/Assessment Assessment: Decreased Activ Tolerance, Impaired Self-Care Skills Discharge Recommendations Plan/Recommendations: Continue POC Treatment Plan/Plan of Care Patient would benefit from OT for education, treatment and training to promote independence in ADL's, mobility, safety and/or upper extremity function for ADL's. Plan of Care: ADL Retraining, Functional Mobility, UE Funct Exercise/Act Treatment Duration: Sep 08, 2020 Frequency: 5 times per week Estimated Hrs Per Day: .25 hour per day Rehab Potential: Fair Time/GCodes Start Time: 12:40 Stop Time: 13:37 Total Time Billed (hr/min): 57 Billed Treatment Time 1 vosot-ADL 4 (57 min) JONI ALVARADO Aug 21, 2020 13:18
--- NOTE | 2020-08-21 14:39 | Physical Therapy Daily Note ---
PT Daily Note-Current Subjective Patient is in bed. Just completed OT session. AGrees to PT. Pain Numeric Pain Scale: 5-Moderate Pain Location: Lower Location Body Site: Back Pain Description: Acute Mental Status Patient Orientation: Normal For Age Transfers SCALE: Activities may be completed with or without assistive devices. 4-Vigqgejavf-auopjsq completes the activity by him/herself with no assistance from a helper. 5-Set-up or Clean-up Assistance-helper sets up or cleans up; patient completes activity. [place] assists only prior to or following the activity. 4-Supervision or Touching Assistance-helper provides verbal cues and/or touching/steadying and/or contact guard assistance as patient completes activity. Assistance may be provided throughout the activity or intermittently. 3-Partial/Moderate Assistance-helper does LESS THAN HALF the effort. [place] lifts, holds or supports trunk or limbs, but provides less than half the effort. 2-Substantial/Maximal Assistance-helper does MORE THAN HALF the effort. [place] lifts or holds trunk or limbs and provides more than half the effort. 8-Xamaoeeeq-mwcuff does ALL the effort. Patient does none of the effort to complete the activity. Or, the assistance of 2 or more helpers is required for the patient to complete the activity. If activity was not attempted, code reason: 7-Patient Refused. 9-Not Applicable-not attempted and the patient did not perform the activity before the current illness, exacerbation or injury. 10-Not Attempted due to Environmental Limitations-(lack of equipment, weather restraints, etc.). 88-Not Attempted due to Medical Conditions or Safety Concerns. Roll Left & Right (QC): 6 Sit to Lying (QC): 6 Lying to Sitting/Side of Bed(Q: 6 Sit to Stand (QC): 6 Chair/Leu-jb-Icqgi Xfer(QC): 6 Toilet Transfer (QC): 6 Car Transfer (QC): 6 QC addressed due to dismissal to home this week Weight Bearing Right Lower Extremity: Right Weight Bearing/Tolerated Left Lower Extremity: Left Weight Bearing/Tolerated Gait Training Does the Patient Walk?: Yes Distance: 600' Walk 10 feet (QC): 6 Walk 50 ft with 2 Turns(QC): 6 Walk 150 ft (QC): 6 Walking 10ft/uneven surface-QC: 6 Gait Assistive Device: FWW safe and functional with no deviation. Balance Picking up an Object (QC): 6 (chair car driver) Assessment Patient tolerated treatment well. Patient donns back brace with set up. All gross motor skills are safely performed and independent. Patient is highly motivated with progress and the ability to perform activity. Goals address and attained. Patient initially required minimal assistance with all functional mobility. Patient ambulates >500' with FWW and ascends and descends steps (12) with step to sequence. PT Snf Goals Snf Goals PT Forms Analyst Goals Time Frame: Sep 02, 2020 Roll Left & Right (QC): 6 (met 08/21/20) Sit to Lying (QC): 6 (met 08/21/20) Lying-Sitting on Side/Bed(QC): 6 (met 08/21/20) Sit to Stand (QC): 6 (met 08/21/20) Chair/Kxg-wr-Ojmnb Xfer(QC): 6 (met 08/21/20) Toilet Transfer (QC): 6 (met 08/21/20) Car Transfer (QC): 6 (met 08/21/20) Does the Patient Walk: Yes Walk 10 feet (QC): 6 (met 08/21/20) Walk 50ft with 2 Turns (QC): 6 (met 08/21/20) Walk 150 ft (QC): 6 (met 08/21/20) Walking 10ft on Uneven Surface: 6 (met 08/21/20) 1 Step (curb) (QC): 5 (met 08/21/20) 4 Steps (QC): 5 (met 08/21/20) 12 Steps (QC): 5 (met 08/21/20) Picking up an Object (QC): 6 (device due to no bending allow per surgeon) Does the Pt use WC or Scooter?: No Wheel 50 feet with 2 turns (QC: 9 Type: N/A Wheel 150 feet: 9 Type: N/A PT Plan Treatment/Plan Treatment Plan: Continue Plan of Care, Discontinue PT, goals met (plan dismissal 08/22/20) Treatment Plan: Bed Mobility, Education, Functional Activity Jose, Functional Strength, Gait, Safety, Therapeutic Exercise, Transfers Treatment Duration: Sep 02, 2020 Frequency: 11 times per week Estimated Hrs Per Day: .5 hour per day Patient and/or Family Agrees t: Yes Time/GCodes Time In: 1345 Time Out: 1400 Total Billed Treatment Time: 15 Total Billed Treatment 1 visit FA 15 min CHANA DYKES PT Aug 21, 2020 14:39
[2020-08-21 18:07] VITALS: BP 115/69
[2020-08-21] MEDS: SIMvastatin 20 MG (ZOCOR) TAB PO SCH (20:07)
[2020-08-21] MEDS: HYDROcodone/APAP 5 MG/325 MG (LORTAB) TAB PO PRN (21:28)
[2020-08-22 05:20] VITALS: BP 118/64
[2020-08-22] MEDS ORDERED: OXYC10TA7 PO (06:20)
[2020-08-22] MEDS ORDERED: CYCL10TA9 PO ×2 (06:20→09:46)
--- NOTE | 2020-08-22 06:23 | D/C HH Face to Face Order ---
D/C Face to Face Orders Reconcile Patient Problems Problems Reviewed?: Yes Instructions for Patient [facility] Patient Instructions/FollowUp: [facility] 1 week Physician to follow Patient: [facility] Discharge Diet for Home: Regular Diet Patient Problems: Spinal surgery Patient Data-Allergies,Ht & Wt Patient Allergies: Coded Allergies: No Known Drug Allergies (Unverified , 10/28/18) Height (Feet): 6 Height (Inches): 2.00 Weight (Pounds): 213 Weight (Ounces): 6.0 Home Health Need/Face to Face Date of Face to Face: Aug 22, 2020 Clinical Findings: Generalized weakness and fatigue, Instability, Muscle weakness, Pain with ambulation, Unsteady gait I have seen Pt huto-kr-pddb: Yes Discharged To: Home Diagnosis/Conditions: Spinal surgery Patient is Homebound due to: Muscle weakness, Pain w/ambulation Homebound Status Due to the above stated illness, injury or surgical procedure (medical condition or diagnosis) and associated clinical findings, the patient is homebound because of his/her inability to leave home except with aid of a supportive device and/or person AND leaving the home requires a considerable and taxing effort or is medically contraindicated. Pt req the following assistanc: [facility] Nursing Orders Home Health Services Order: Nursing Services, Marketing Sales Manager-Evaluate & Treat, Physical Therapy-Evaluate & Treat Certify Stmt I certify that this patient is under my care and that I, a nurse practitioner or a physician; a senior executive assistant working with me, had a face to face encounter that - meets the physician face to face encounter requirements with this patient as dated. ALVINA DE GUZMAN DO Aug 22, 2020 06:23
--- NOTE | 2020-08-22 06:23 | Discharge Summary ---
Discharge Summary Hospital Course Was the Problem List Reviewed?: Yes Problems/Dx: (1) S/P spinal surgery (2) Hypertension (3) Diabetes mellitus Hospital Course Date of Admission: Aug 17, 2020 at 13:02 Admission Diagnosis : Family Physician/Provider: Michelle Godinez Aprn Date of Discharge: 08/22/20 Discharge Diagnosis: spine surgery with slow recovery, HTN, DM, post op anemia Hospital Course: Hospital Course: Pt had an uneventful hospital course. He was admitted to [facility] from [facility] after spine surgery. He underwent PT and OT, bowel function returned back to normal, pain was well controlled, labs remained stable and overall he was doing well and felt to be ready for discharge. Labs and Pending Lab Test: Home Meds Active Oxycodone HCl 10 Mg Tablet 10 Mg PO Q4H PRN MDD 60MG Cyclobenzaprine HCl 10 Mg Tablet 10 Mg PO Q8H PRN Reported Spiriva Respimat 2.5MCG/ACTUATION (Tiotropium [place]) 4 Gm Mist.inhal 2 Puff IH DAILY Lisinopril 10 Mg Tablet 10 Mg PO DAILY Docusate Sodium 100 Mg Tablet 100 Mg PO BID PRN Breo Ellipta 100-25 Mcg INH (Fluticasone/Vilanterol) 1 Each Blst.w.dev 1 Each IH DAILY Simvastatin 20 Mg Tablet 20 Mg PO HS Omeprazole 20 Mg Tablet.dr 20 Mg PO DAILY Metformin HCl 500 Mg Tablet 1,000 Mg PO BID WITH MEALS Amlodipine Besylate 5 Mg Tablet 5 Mg PO DAILY Proventil Hfa (Albuterol Sulfate) 6.7 Gm Hfa.aer.ad 2 Puff IH Q6H PRN Assessment/Pt Instructions [facility] 1 week Discharge Planning: <30 minutes discharge planning Discharge Physical Examination Vital Signs Vital Signs Date Time Temp Pulse Resp B/P (MAP) Pulse Ox O2 Delivery O2 Flow Rate FiO2 08/22/20 05:20 36.2 82 20 118/64 (82) 94 Room Air General Appearance: No Apparent Distress, WD/WN, Chronically ill Respiratory: Lungs Clear Cardiovascular: Regular Rate, Rhythm Neurologic/Psychiatric: Alert, Oriented x3, No Motor/Sensory Deficits, Normal Mood/Affect Allergies: Coded Allergies: No Known Drug Allergies (Unverified , 10/28/18) Discharge Summary Date of Admission Aug 17, 2020 at 13:02 Date of Discharge Discharge Date: Aug 22, 2020 Admission Diagnosis Assessment: Severe back pain from extensive spine surgery with disability HTN DM HLP GERD Plan: Pain control PT OT Home meds Discharge Diagnosis DC tomorrow (1) S/P spinal surgery (2) Hypertension (3) Diabetes mellitus Clinical Quality Measures DVT/VTE Risk/Contraindication: Contraindications-Pharm: Other *list below* Other: spinal surgery ALVINA DE GUZMAN DO Aug 22, 2020 06:23
[2020-08-22] MEDS: UMECLIDINIUM BROMIDE (INCRUSE ELLIPTA) 7'S IH SCH (07:19)
[2020-08-22] MEDS: ADVAIR HFA 115/21 MCG INHALER 8 GM IH SCH (07:19)
--- NOTE | 2020-08-22 07:56 | Therapy Team Discharge Summary ---
Therapy Discharge Summary Discharge Recommendations Date of Discharge Physical Therapy Patient donns back brace with set up. All gross motor skills are safely performed and independent. Patient is highly motivated with progress and the ability to perform activity. Goals address and attained. Patient initially re quired minimal assistance with all functional mobility. Patient ambulates >500' with FWW and ascends and descends steps (12) with step to sequence with use of 2 hand rails. Patient is currently independent and will dismiss to home with spouse and home health. Occupational Therapy Decreased Activ Tolerance, Impaired Self-Care Skills PT Nursing Home Goals [place]er Goals PT Lode Miner Goals Time Frame: Sep 02, 2020 Roll Left to Right (QC): 6 (met 08/21/20) Sit to Lying (QC): 6 (met 08/21/20) Lying-Sitting on Side/Bed(QC): 6 (met 08/21/20) Sit to Stand (QC): 6 (met 08/21/20) Chair/Ylv-jk-Notkv Xfer(QC): 6 (met 08/21/20) Car Transfer (QC): 6 (met 08/21/20) Does the Patient Walk: Yes Walk 10 feet (QC): 6 (met 08/21/20) Walk 10ft-Uneven Surface(QC): 6 (met 08/21/20) Walk 50ft with 2 Turns (QC): 6 (met 08/21/20) Walk 150 ft (QC): 6 (met 08/21/20) Does the Pt use WC or Scooter?: No Wheel 50 feet with 2 turns (QC: 9 1 Step (curb) (QC): 5 (met 08/21/20) 4 Steps (QC): 5 (met 08/21/20) 12 Steps (QC): 5 (met 08/21/20) Picking up an Object (QC): 6 (device due to no bending allow per surgeon) OT Lode Miner Goals Lode Miner Goals Time Frame: Sep 08, 2020 Eating (QC): 6 Oral Hygiene (QC): 6 Shower/Bathe Self (QC): 4 Upper Body Dressing (QC): 5 Lower Body Dressing (QC): 4 On/Off Footwear (QC): 4 Toileting Hygiene (QC): 6 Toilet/Commode Transfer (QC): 6 (met 08/21/20) Additional Goals: 1-Demonstrate ADL Tasks, 2-Verbalize Understanding, 3- ImproveStrength/Jose 1=Demonstrate adherence to instructed precautions during ADL tasks. 2=Patient will verbalize/demonstrate understanding of assistive devices/modifications for ADL. 3=Patient will improve strength/tolerance for activity to enable patient to perform ADL's. CHANA DYKES PT Aug 22, 2020 07:56
[2020-08-22] MEDS: HYDROcodone/APAP 5 MG/325 MG (LORTAB) TAB PO PRN (08:33)
[2020-08-22] MEDS: PANTOPRAZOLE 20 MG TABLET (PROTONIX) PO SCH (08:33)
[2020-08-22] MEDS: metFORMIN 500 MG (GLUCOPHAGE) TAB PO SCH (08:33)
[2020-08-22] MEDS: DOCUSATE SODIUM 100 MG (COLACE) CAP PO SCH (08:34)
[2020-08-22] MEDS: amLODIPine 5 MG (NORVASC) TAB PO SCH (08:37)
[2020-08-22] MEDS: lisINopril 10 MG (PRINIVIL) TABLET PO SCH (08:37)
[2020-08-22] MEDS: SENNA W/DOCUSATE (SENOKOT S) TABLET PO SCH (08:37)
[2020-08-22] MEDS ORDERED: OXC5T PO (09:46)
--- NOTE | 2020-08-22 11:08 | Progress Note ---
[facility] 08/22/20 1108: Progress Note Hospital Course: Jax Cabrera is a 74 y/o male that was admitted to [facility] on 08/17/20 and with be D/C to 08/22/20 today. The patient underwent spinal fusion of his lumbar spine and required admittance for PT/OT and swing bed services. while admitted he was under the care of Dr. Gomez Internal Medicine and received PT/OT services. The patients labs were stable through out hospital course. Pain was well controlled. Bowel function is back to normal and the patient has regained his strength. He will be discharged in stable condition. He should follow medication prescribed in discharge papers. Additionally, he should follow up with appointments outlined in discharge instructions. The following information is only a summary of the patients admission while at [facility] and is not all inclusive. Please review entire chart for more information. GABY GOMEZ DO 08/23/20 0535: Supervisory-Addendum Brief Verification & Attestation Participated in pt care: history, MDM, physical Personally performed: exam, history, MDM, supervision of care Care discussed with: Medical Student Procedures: n/a Results interpretation: Verified all documentation Verification and Attestation of Medical Student E/M Service A medical student performed and documented this service in my presence. I reviewed and verified all information documented by the medical student and made modifications to such information, when appropriate. I personally performed the physical exam and medical decision making. Gaby Gomez, Aug 23, 2020,05:35 SATYA [facility]ATA [facility] Aug 22, 2020 11:08 GABY GOMEZ DO Aug 23, 2020 05:35
--- NOTE | 2020-08-22 14:33 | Therapy Team Discharge Summary ---
Therapy Discharge Summary Discharge Recommendations Date of Discharge Aug 22, 2020 at 11:25 Therapy D/C Recommendations: Occupational Therapy Home Care Occupational Therapy Pt. seen to increase overall strength with daily tasks, as well as independence. At discharge, pt. met goals of toileting, showering, and UE dressing. Requires continued practice with LE dressing and footwear. Pt. discharged home with continued support. Recommend continued OT to increase functional independence. Decreased Activ Tolerance, Impaired Self-Care Skills PT Turn Out Goals Turn Out Goals PT Turn Out Goals Time Frame: Sep 02, 2020 Roll Left to Right (QC): 6 (met 08/21/20) Sit to Lying (QC): 6 (met 08/21/20) Lying-Sitting on Side/Bed(QC): 6 (met 08/21/20) Sit to Stand (QC): 6 (met 08/21/20) Chair/Lbe-mi-Vfkil Xfer(QC): 6 (met 08/21/20) Car Transfer (QC): 6 (met 08/21/20) Does the Patient Walk: Yes Walk 10 feet (QC): 6 (met 08/21/20) Walk 10ft-Uneven Surface(QC): 6 (met 08/21/20) Walk 50ft with 2 Turns (QC): 6 (met 08/21/20) Walk 150 ft (QC): 6 (met 08/21/20) Does the Pt use WC or Scooter?: No Wheel 50 feet with 2 turns (QC: 9 1 Step (curb) (QC): 5 (met 08/21/20) 4 Steps (QC): 5 (met 08/21/20) 12 Steps (QC): 5 (met 08/21/20) Picking up an Object (QC): 6 (device due to no bending allow per surgeon) OT Penitentiary Goals Turn Out Goals Time Frame: Sep 08, 2020 Eating (QC): 6 (met) Oral Hygiene (QC): 6 (not met) Shower/Bathe Self (QC): 4 (met) Upper Body Dressing (QC): 5 (met) Lower Body Dressing (QC): 4 (not met) On/Off Footwear (QC): 4 (not met) Toileting Hygiene (QC): 6 (not met) Toilet/Commode Transfer (QC): 6 (met 08/21/20) Additional Goals: 1-Demonstrate ADL Tasks, 2-Verbalize Understanding, 3-Imp roveStrength/Jose 1=Demonstrate adherence to instructed precautions during ADL tasks. 2=Patient will verbalize/demonstrate understanding of assistive devices/modifications for ADL. 3=Patient will improve strength/tolerance for activity to enable patient to perform ADL's. TONY KRISHNAMURTHY OT Aug 22, 2020 14:33
== END 2020-08-22 11:25 | disposition home health service (06) | DRG 948 ==
LOC: 4TH 13:02
PROVIDERS: ADMIT Internal Medicine; ATTEND Internal Medicine
DX: G89.18 Other acute postprocedural pain (principal); Z47.89 Encounter for other orthopedic aftercare; D64.9 Anemia, unspecified; E11.9 Type 2 diabetes mellitus without complications; I10 Essential (primary) hypertension; K59.00 Constipation, unspecified; J45.909 Unspecified asthma, uncomplicated; E78.00 Pure hypercholesterolemia, unspecified; E78.5 Hyperlipidemia, unspecified; K21.9 Gastro-esophageal reflux disease without esophagitis; H54.3 Unqualified visual loss, both eyes; H91.90 Unspecified hearing loss, unspecified ear; Z79.84 Long term (current) use of oral hypoglycemic drugs
CPT/HCPCS: 36415; 80053; 85025; 94640; 94760

== ENCOUNTER → 2020-10-17 | Outpatient (CLI) | payer MEDICARE, MEDICAID ==
[~2020-10-17] MED LIST changes: -ACETAMINOPHEN 500 MG TAB (TYLENOL) PO PRN; -BISACODYL 10 MG SUPP (DULCOLAX) PR PRN; -CALCIUM CARBONATE 500 MG (TUMS) TAB.CHEW PO PRN; +DOCU100T2 PO; +FLUT1AER IH; -LACTULOSE SYRUP 10GM/15ML (ENULOSE) 30ML UDC PO PRN; -LOPERAMIDE 2 MG (IMODIUM) TABLET PO PRN; -MELATONIN 3 MG TABLET PO PRN; -ONDANSETRON 4 MG (ZOFRAN) ORAL DISSOLVE TAB PO PRN; +OXC5T PO; +OXYC10TA7 PO; +RT-ALBUTEROL SULF 2.5 MG/3 ML PRE-MIX VIAL INH ONE; +TIOT4MIS2 IH; -diphenhydrAMINE 25 MG TAB (BENADRYL) PO PRN
== END ==
LOC: RT 15:30
PROVIDERS: ATTEND Nurse Practitioner Family
DX: J44.9 Chronic obstructive pulmonary disease, unspecified (principal)
CPT/HCPCS: 94060; 94726; 94729

== ENCOUNTER → 2020-12-26 | Outpatient (CLI) | payer MEDICARE, MEDICAID ==
[~2020-12-26] MED LIST changes: -RT-ALBUTEROL SULF 2.5 MG/3 ML PRE-MIX VIAL INH ONE
--- NOTE | 2020-12-26 09:59 | Diagnostic Imaging Report ---
INDICATION: Postmenopausal. COMPARISON: None. FINDINGS: The bone mineral density of the hips and femoral necks was measured. The lumbar spine could not be evaluated as reportedly the patient underwent a fusion procedure of the lower lumbar spine in July of this year. The total T score for the left hip is -2.1 and for the right hip -1.5. These values do fall within the range of osteopenia. The T score for the left femoral neck is -1.6 and for the right -1.5. These, too, are within the range of osteopenia. AP Spine L1-L4: [BMD (g/cm2): na] [T-Score: na] [Z-Score: na] [BMD Previous: na] [BMD % Change: na] LT Hip Neck: [BMD (g/cm2): 0.867] [T-Score: -1.6] [Z-Score: -0.6] LT Hip Total: [BMD (g/cm2):0.799] [T-Score:-2.1] [Z-Score: -1.6] [BMD Previous: na] [BMD % Change: na] RT Hip Neck: [BMD (g/cm2):0.881] [T-Score:-1.5] [Z-Score:-0.5] RT Hip Total: [BMD (g/cm2):0.890] [T-score:-1.5] [Z-Score:-1.0] [BMD Previous:na] [BMD % Change:na] *Indicates significant change from prior examination based on 95% confidence level. World Health Organization criteria for BMD interpretation classify patients as Normal (T-score at or above -1.0), Osteopenic (T-score between -1.0 and -2.5) or Osteoporotic (T-score at or below -2.5). LIMITATIONS AND MODIFICATION: None. FRACTURE RISK (FRAX SCORE): The ten year probability of (%): Major Osteoporotic Fracture: [10.6] Hip Fracture: [3.0] IMPRESSION: 1. There is osteopenia of the hips and femoral necks. 2. The bone mineral density of the lumbar spine could not be obtained due to the surgical procedure. 3. See below National Osteoporosis Foundation guidelines on when to potentially initiate pharmacologic therapy. Based on the National Osteoporosis Foundation Guidelines, pharmacologic treatment should be initiated in any of the following, unless clinical conditions suggest otherwise: * Any patient with prior fragility fracture of the hip or vertebrae. A spine fracture indicates 5X risk for subsequent spine fracture and 2X risk for subsequent hip fracture. * Osteoporosis (T-score <-2.5). * Postmenopausal women and men age 50 and older with low bone mass/osteopenia (T-score between -1.0 and -2.5) by DXA and 10-year major osteoporotic fracture greater than 20% or a 10-year probability of hip fracture greater than 3%. These fracture risks are supplied above in the FRAX score, if applicable. * Clinician judgement and/or patient preferences may indicate treatment for people with 10-year fracture probabilities above or below these levels. Dictated by: Dictated on workstation # [id number]
== END ==
LOC: RAD 13:00
PROVIDERS: ATTEND Nurse Practitioner
DX: Z13.820 Encounter for screening for osteoporosis (principal); M85.80 Other specified disorders of bone density and structure, unspecified site
CPT/HCPCS: 77080

== ENCOUNTER 2021-02-25 09:30 | Observation (INO) | payer MEDICARE, MEDICAID ==
[~2021-02-25] VITALS: Ht 187 cm; Wt 95.3 kg
[2021-02-25] MEDS ORDERED: NS IV 1000 ML 1,000 ML ONE (09:57)
[2021-02-25 09:59] LABS: BASOPHILS # (AUTO) 0.1 10^3/uL (0.0-0.1); BASOPHILS % (AUTO) 0 % (0-10); EOSINOPHILS # (AUTO) 0.1 10^3/uL (0.0-0.3); EOSINOPHILS % (AUTO) 0 % (0-10); HEMATOCRIT 42 % (40-54); HEMOGLOBIN 13.1 g/dL (13.3-17.7); LYMPHOCYTES # (AUTO) 1.9 10^3/uL (1.0-4.0); LYMPHOCYTES % (AUTO) 11 % (12-44); MEAN CORPUSCULAR HEMOGLOBIN 28 pg (25-34); MEAN CORPUSCULAR HGB CONC 31 g/dL (32-36); MEAN CORPUSCULAR VOLUME 89 fL (80-99); MEAN PLATELET VOLUME 8.6 fL (9.0-12.2); MONOCYTES # (AUTO) 1.3 10^3/uL (0.0-1.0); MONOCYTES % (AUTO) 8 % (0-12); NEUTROPHILS % (AUTO) 80 % (42-75); PLATELET COUNT 287 10^3/uL (130-400); WHITE BLOOD COUNT 16.3 10^3/uL (4.3-11.0)
[2021-02-25 10:13] LABS: CHLORIDE 98 MMOL/L (98-107); POTASSIUM 4.9 MMOL/L (3.6-5.0); SODIUM 132 MMOL/L (135-145)
[2021-02-25 10:15] LABS: CALCIUM 9.4 MG/DL (8.5-10.1); INR 0.9 (0.8-1.4); PROTHROMBIN TIME PATIENT 12.5 SEC (12.2-14.7)
[2021-02-25 10:16] LABS: GLUCOSE 167 MG/DL (70-105); TOTAL PROTEIN 8.1 GM/DL (6.4-8.2)
[2021-02-25 10:17] LABS: BILIRUBIN,TOTAL 0.9 MG/DL (0.1-1.0); CARBON DIOXIDE 19 MMOL/L (21-32)
[2021-02-25 10:19] LABS: ALKALINE PHOSPHATASE 79 U/L (40-136); CREATININE SERUM 0.84 MG/DL (0.60-1.30); GFR ESTIMATED 89
[2021-02-25 10:20] LABS: BUN/CREATININE RATIO 17
[2021-02-25 10:22] LABS: ALANINE AMINOTRANSFERASE 148 U/L (0-55); MAGNESIUM 1.5 MG/DL (1.6-2.4)
[2021-02-25 10:26] LABS: BAND NEUTROPHILS 0 %; BASOPHILS % (MANUAL) 1 %; EOSINOPHILS % (MANUAL) 3 %; LYMPHOCYTES % (MANUAL) 13 %; MONOCYTES % (MANUAL) 6 %; NEUTROPHILS % (MANUAL) 77 %; RBC MORPH NORMAL
--- NOTE | 2021-02-25 10:39 | Diagnostic Imaging Report ---
INDICATION: Sepsis. Frontal chest obtained at 10:38 a.m. and is compared to 09/25/2015. FINDINGS: Heart is mildly enlarged. Mediastinal silhouette is otherwise unremarkable. There is mild central vascular prominence. There are chronic appearing increased interstitial markings. There is some minimal bibasilar infiltrate which was not present on the previous study. IMPRESSION: Mild cardiomegaly and central vascular prominence. Chronic appearing increased interstitial markings. There are minimal bibasilar infiltrates which were not present on the previous study. Dictated by: Dictated on workstation # [id number]
[2021-02-25] MEDS ORDERED: CEFEPIME INJECTION 1,000 MG in WATER (STERILE) FOR INJECTION 10 ML IV ONE (10:45)
--- NOTE | 2021-02-25 11:02 | ED Respiratory ---
General Chief Complaint: Respiratory Problems Stated Complaint: SOB/CHILLS Nursing Triage Note: PT BROUHGT IN BY [facility] FROM [facility] WALK[facility] FOR SOA AND CHILLS. PT WAS TACHYCARDIC AT WALK IN CLINIC AND SOFT BLOOD PRESSURE 100/78. PT DENIES PAIN ON ARRIVAL. GIVEN 324 MG ASA BY EMS EN ROUTE. PT HAS 18G LEFT FOREARM THAT WAS PLACED BY [facility] Source: patient Exam Limitations: no limitations (JAMES HUDSON APRN) History of Present Illness Date Seen by Provider: Feb 25, 2021 Time Seen by Provider: 10:59 Initial Comments To ER by [facility] with reports of shortness of breath and chills. Has a history of COPD. 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 Timing/Duration: just prior to arrival Severity: moderate Associated Symptoms: cough (JAMES HUDSON APRN) Allergies and Home Medications Allergies Coded Allergies: No Known Drug Allergies (Unverified , 10/28/18) Patient Home Medication List Home Medication List Reviewed: Yes (JAMES HUDSON APRN) Albuterol Sulfate (Proventil Hfa) 6.7 Gm Hfa.aer.ad, 2 PUFF INH Q6H PRN for SHORTNESS OF BREATH, (Reported) Entered as Reported by: PAULINE EAST on 02/27/21 102 Last Action: Reviewed Amlodipine Besylate (Amlodipine Besylate) 5 Mg Tablet, 5 MG PO DAILY, (Reported) Entered as Reported by: NOEMÍ HERNANDEZ on 09/25/15 1220 Last Action: Reviewed Aspirin (Aspirin EC) 81 Mg Tablet.dr, 81 MG PO DAILY, (Reported) Entered as Reported by: PAULINE EAST on 02/27/21 102 Last Action: Reviewed Fluticasone Propionate (Fluticasone Propionate) 16 Gm [place].susp, 1 SPRAY NSEACH DAILY PRN for CONGESTION, (Reported) Entered as Reported by: PAULINE EAST on 02/27/21 102 Last Action: Reviewed Fluticasone/Vilanterol (Breo Ellipta 200-25 Mcg INH) 1 Each Blst.w.dev, 1 PUFF INH DAILY, (Reported) Entered as Reported by: PAULINE EAST on 02/27/21 102 Last Action: Reviewed Gabapentin (Gabapentin) 100 Mg Capsule, 100 MG PO DAILY, (Reported) Entered as Reported by: PAULINE EAST on 02/27/21 1027 Last Action: Reviewed Ipratropium/Albuterol Sulfate (Iprat-Albut 0.5-3(2.5) mg/3 ml) 3 Ml Ampul.neb, 3 ML NEB Q4H PRN for SHORTNESS OF BREATH, (Reported) Entered as Reported by: PAULINE EAST on 02/27/21 102 Last Action: Reviewed Lisinopril (Lisinopril) 20 Mg Tablet, 20 MG PO HS, (Reported) Entered as Reported by: PAULINE EAST on 02/27/21 102 Last Action: Reviewed Metformin HCl (Metformin HCl) 500 Mg Tablet, 1,000 MG PO BID, (Reported) Entered as Reported by: NOEMÍ HERNANDEZ on 09/25/15 1220 Last Action: Reviewed Montelukast Sodium (Montelukast Sodium) 10 Mg Tablet, 10 MG PO DAILY, (Reported) Entered as Reported by: PAULINE EAST on 02/27/211026 Last Action: Reviewed [place]-3 Fatty Acids/Fish Oil (Fish Oil 1,200 mg Softgel) 1 Each Capsule, 1 EACH PO DAILY, (Reported) Entered as Reported by: PAULINE EAST on 02/27/21 1031 Last Action: Reviewed Omeprazole (Omeprazole) 20 Mg Tablet.dr, 20 MG PO DAILY, (Reported) Entered as Reported by: NOEMÍ HERNANDEZ on 09/25/15 1220 Last Action: Reviewed Polyethylene Glycol 3350 (Miralax) 17 Gm Powd.pack, 17 GM PO DAILY PRN for CONSTIPATION-2ND LINE, (Reported) Entered as Reported by: PAULINE EAST on 02/27/21 102 Last Action: Reviewed Simvastatin (Simvastatin) 20 Mg Tablet, 20 MG PO DAILY, (Reported) Entered as Reported by: NOEMÍ HERNANDEZ on 09/25/15 122 Last Action: Reviewed Tiotropium Mesa (Spiriva) 1 Inh Aerp, 1 PUFF INH DAILY, (Reported) Entered as Reported by: PAULINE EAST on 02/27/21 102 Last Action: Reviewed Discontinued Medications Albuterol Sulfate (Proventil Hfa) 6.7 Gm Hfa.aer.ad, 2 PUFF IH Q6H PRN for SHORTNESS OF BREATH, (Reported) Discontinued Reason: Duplicate Order Entered as Reported by: NOEMÍ HERNANDEZ on 09/25/15 1220 Last Action: Discontinued Albuterol Sulfate (Proair Hfa) 1 Puff Puff, 2 PUFF IH DAILY, (Reported) Discontinued Reason: No Longer Taking Entered as Reported by: MARLYS CANTU on 02/25/212255 Last Action: Discontinued Cyclobenzaprine HCl (Cyclobenzaprine HCl) 10 Mg Tablet, 10 MG PO TID Discontinued Reason: No Longer Taking Prescribed by: ALVINA DE GUZMAN on 08/22/20 0946 Last Action: Discontinued Docusate Sodium (Docusate Sodium) 100 Mg Tablet, 100 MG PO BID PRN for CONSTIPATION-1ST LINE, (Reported) Discontinued Reason: No Longer Taking Entered as Reported by: PAULINE EAST on 08/17/201334 Last Action: Discontinued Docusate Sodium (Colace) 100 Mg Capsule, 100 MG PO BID PRN for CONSTIPATION-1ST LINE, (Reported) Discontinued Reason: No Longer Taking Entered as Reported by: MARLYS CANTU on 02/25/212255 Last Action: Discontinued Fluticasone/Vilanterol (Breo Ellipta 100-25 Mcg INH) 1 Each Blst.w.dev, 1 EACH IH DAILY, (Reported) Discontinued Reason: No Longer Taking Entered as Reported by: PAULINE EAST on 08/17/201334 Last Action: Discontinued Lidocaine/Racepinep/Tetracaine (Dkwzndnrk-Awtiujlp-Rftuu Soln) 3 Ml Portia.pf.raúl, 3 ML TP DAILY PRN for PAIN-SEE DOSE INSTRUCTIONS, (Reported) Discontinued Reason: No Longer Taking Entered as Reported by: MARLYS CANTU on 02/25/212255 Last Action: Discontinued Lisinopril (Lisinopril) 10 Mg Tablet, 10 MG PO DAILY, (Reported) Discontinued Reason: No Longer Taking Entered as Reported by: PAULINE EAST on 08/17/201334 Last Action: Discontinued Meloxicam (Mobic) 15 Mg Tablet, 15 MG PO DAILY, (Reported) Discontinued Reason: No Longer Taking Entered as Reported by: MARLYS CANTU on 02/25/212255 Last Action: Discontinued Oxycodone Hcl (Oxyir Tablet) 5 Mg Tab, 10 MG PO Q4H PRN for PAIN-SEVERE (8-10) Discontinued Reason: No Longer Taking Prescribed by: ALVINA DE GUZMAN on 08/22/20 0949 Last Action: Discontinued Sitagliptin Phosphate (Januvia) 100 Mg Tablet, 100 MG PO DAILY, (Reported) Discontinued Reason: No Longer Taking Entered as Reported by: MARLYS CANTU on 02/25/212255 Last Action: Discontinued Tamsulosin HCl (Flomax) 0.4 Mg Cap, 0.4 MG PO DAILY, (Reported) Discontinued Reason: No Longer Taking Entered as Reported by: MARLYS CANTU on 02/25/212255 Last Action: Discontinued Tiotropium Mesa (Spiriva Respimat 2.5MCG/ACTUATION) 4 Gm Mist.inhal, 2 PUFF IH DAILY, (Reported) Discontinued Reason: No Longer Taking Entered as Reported by: PAULINE EAST on 08/17/20 1335 Last Action: Discontinued Tizanidine HCl (Tizanidine HCl) 2 Mg Capsule, 2 MG PO BID, (Reported) Discontinued Reason: No Longer Taking Entered as Reported by: MARLYS CANTU on 02/25/212255 Last Action: Discontinued Tramadol HCl (Tramadol HCl) 50 Mg Tablet, 50 MG PO BID PRN for PAIN-SEE DOSE INSTRUCTIONS, (Reported) Discontinued Reason: No Longer Taking Entered as Reported by: MARLYS CANTU on 02/25/212255 Last Action: Discontinued Review of Systems Review of Systems Constitutional: see HPI EENTM: see HPI Respiratory: see HPI, cough Cardiovascular: no symptoms reported Genitourinary: no symptoms reported Musculoskeletal: no symptoms reported Skin: no symptoms reported Psychiatric/Neurological: No Symptoms Reported Hematologic/Lymphatic: No Symptoms Reported Immunological/Allergic: no symptoms reported (JAMES HUDSON APRN) Past Myjebkg-Rxlkvt-Qirfyl Hx Patient Social History Tobacco Use?: No Smoking Status: Former Smoker Smokeless Tobacco Frequency: Former User Use of E-Cig and/or Vaping dev: No Alcohol Use?: No Pt feels they are or have been: No (JAMES HUDSON APRN) Immunizations Up To Date First/Initial COVID19 Vaccinat: 07/25/2020 Second COVID19 Vaccination Marcelino: 08/22/2020 COVID19 Vaccine Chip Unloader: moderndeandra (JAMES HUDSON APRN) Seasonal Allergies Seasonal Allergies: No (JAMES HUDSON APRN) Past Medical History Surgery/Hospitalization HX: back surgery july Surgeries: Yes Appendectomy, Orthopedic Respiratory: Yes Asthma, Chronic Bronchitis Cardiac: Yes High Cholesterol, Hypertension Neurological: No Sexually Transmitted Disease: No HIV/AIDS: No Genitourinary: Yes Kidney Stones Gastrointestinal: Yes Gastroesophageal Reflux, Chronic Constipation Musculoskeletal: Yes Back Injury, Chronic Back Pain Endocrine: Yes Diabetes, Non-Insulin dep HEENT: Yes (READING GLASSES, PARTIAL ) Loss of Vision: Bilateral Hearing Impairment: Hard of Hearing Cancer: No Psychosocial: No Integumentary: No Blood Disorders: No Adverse Reaction/Blood Tranf: No (N/A) (JAMES HUDSON APRN) Physical Exam Vital Signs - First Documented 02/25/21 09:33 Temp 37.3 Pulse 116 Resp 22 B/P (MAP) 143/83 (103) Pulse Ox 96 O2 Delivery Room Air (TYREE TELLES MD) Capillary Refill : Less Than 3 Seconds (JAMES HUDSON APRN) Height: 6'2.00" Weight: 213lbs. 6.0oz. 96.009326fc; 26.00 BMI Method:Stated General Appearance: WD/WN, no apparent distress Eyes: Bilateral Eye Normal Inspection, Bilateral Eye PERRL, Bilateral Eye EOMI Neck: non-tender, full range of motion Respiratory: normal breath sounds, no respiratory distress, no accessory muscle use, decreased breath sounds; No wheezing; other (Bibasilar diminished but without crackles) Gastrointestinal: normal bowel sounds, non tender Neurologic/Psychiatric: alert, normal mood/affect, oriented x 3 Skin: normal color, warm/dry (JAMES HUDSON APRN) Focused Exam Lactic Acid Level Laboratory Tests Test 02/25/21 09:45 Lactic Acid Level 3.84 MMOL/L (0.50-2.00) *H (TYREE TELLES MD) Progress/Results/Core Measures Suspected Sepsis SIRS Temperature: Pulse: 116 Respiratory Rate: 22 Laboratory Tests 02/25/21 09:45: White Blood Count 16.3H Blood Pressure 143 /83 Mean: 103 02/25/21 09:45: Lactic Acid Level 3.84*H Laboratory Tests 02/25/21 09:45: Creatinine 0.84, INR Comment 0.9, Platelet Count 287, Total Bilirubin 0.9 (JAMES HUDSON APRN) Results/Orders Lab Results Laboratory Tests Test 02/25/21 09:45 02/25/21 10:50 Range/Units White Blood Count 16.3 H 4.3-11.0 10^3/uL Red Blood Count 4.70 4.30-5.52 10^6/uL Hemoglobin 13.1 L 13.3-17.7 g/dL Hematocrit 42 40-54 % Mean Corpuscular Volume 89 80-99 fL Mean Corpuscular Hemoglobin 28 25-34 pg Mean Corpuscular Hemoglobin Concent 31 L 32-36 g/dL Red Cell Distribution Width 14.9 H 10.0-14.5 % Platelet Count 287 130-400 10^3/uL Mean Platelet Volume 8.6 L 9.0-12.2 fL Immature Granulocyte % (Auto) 0 % Neutrophils (%) (Auto) 80 H 42-75 % Lymphocytes (%) (Auto) 11 L 12-44 % Monocytes (%) (Auto) 8 0-12 % Eosinophils (%) (Auto) 0 0-10 % Basophils (%) (Auto) 0 0-10 % Neutrophils # (Auto) 13.0 H 1.8-7.8 10^3/uL Lymphocytes # (Auto) 1.9 1.0-4.0 10^3/uL Monocytes # (Auto) 1.3 H 0.0-1.0 10^3/uL Eosinophils # (Auto) 0.1 0.0-0.3 10^3/uL Basophils # (Auto) 0.1 0.0-0.1 10^3/uL Immature Granulocyte # (Auto) 0.1 0.0-0.1 10^3/uL Neutrophils % (Manual) 77 % Lymphocytes % (Manual) 13 % Monocytes % (Manual) 6 % Eosinophils % (Manual) 3 % Basophils % (Manual) 1 % Band Neutrophils 0 % Blood Morphology Comment NORMAL Prothrombin Time 12.5 12.2-14.7 SEC INR Comment 0.9 0.8-1.4 Activated Partial Thromboplast Time 26 24-35 SEC Sodium Level 132 L 135-145 MMOL/L Potassium Level 4.9 3.6-5.0 MMOL/L Chloride Level 98 98-107 MMOL/L Carbon Dioxide Level 19 L 21-32 MMOL/L Anion Gap 15 H 5-14 MMOL/L Blood Urea Nitrogen 14 7-18 MG/DL Creatinine 0.84 0.60-1.30 MG/DL Estimat Glomerular Filtration Rate 89 BUN/Creatinine Ratio 17 Glucose Level 167 H 70-105 MG/DL Lactic Acid Level 3.84 *H 0.50-2.00 MMOL/L Calcium Level 9.4 8.5-10.1 MG/DL Corrected Calcium 9.4 8.5-10.1 MG/DL Magnesium Level 1.5 L 1.6-2.4 MG/DL Total Bilirubin 0.9 0.1-1.0 MG/DL Aspartate Amino Transf (AST/SGOT) 76 H 5-34 U/L Alanine Aminotransferase (ALT/SGPT) 148 H 0-55 U/L Alkaline Phosphatase 79 40-136 U/L Myoglobin 37.0 10.0-92.0 NG/ML Troponin I < 0.028 <0.028 NG/ML Total Protein 8.1 6.4-8.2 GM/DL Albumin 4.0 3.2-4.5 GM/DL Influenza Type A (RT-PCR) Not Detected Not Detecte Influenza Type B (RT-PCR) Not Detected Not Detecte SARS-CoV-2 RNA (RT-PCR) Not Detected Not Detecte Urine Color YELLOW Urine Clarity CLEAR Urine pH 7.0 5-9 Urine Specific [place] 1.020 1.016-1.022 Urine Protein NEGATIVE NEGATIVE Urine Glucose (UA) NEGATIVE NEGATIVE Urine Ketones NEGATIVE NEGATIVE Urine Nitrite NEGATIVE NEGATIVE Urine Bilirubin NEGATIVE NEGATIVE Urine Urobilinogen 1.0 < = 1.0 MG/DL Urine Leukocyte Esterase NEGATIVE NEGATIVE Urine RBC (Auto) NEGATIVE NEGATIVE Urine RBC NONE /HPF Urine WBC NONE /HPF Urine Squamous Epithelial Cells NONE /HPF Urine Crystals NONE /LPF Urine Bacteria NEGATIVE /HPF Urine Casts NONE /LPF Urine Mucus NEGATIVE /LPF Urine Culture Indicated NO (TYREE TELLES MD) Micro Results Microbiology 02/25/21 Blood Culture - Preliminary, Resulted No growth (TYREE TELLES MD) My Orders Orders - TYREE TELLES MD Cbc With Automated Diff (02/25/21 09:37) Comprehensive Metabolic Panel (02/25/21 09:37) Blood Culture (02/25/21 09:37) Urinalysis (02/25/21 09:37) Protime With Inr (02/25/21 09:37) Partial Thromboplastin Time (02/25/21 09:37) Chest 1 View, Ap/Pa Only (02/25/21 09:37) Ed Iv/Invasive Line Start (02/25/21 09:37) Ed Iv/Invasive Line Start (02/25/21 09:37) Vital Signs Adult Sepsis Patie Q15M (02/25/21 09:37) O2 (02/25/21 09:37) Remove Rings In Anticipation O (02/25/21 09:37) Lactic Acid Analyzer (02/25/21 09:37) Magnesium (02/25/21 09:37) Ekg Tracing (02/25/21 09:37) Myoglobin Serum (02/25/21 09:37) Monitor-Rhythm Ecg Trace Only (02/25/21 09:37) Troponin I (02/25/21 09:37) Covid 19 Inhouse Test (02/25/21 09:37) Influenza A And B By Pcr (02/25/21 09:37) Ns Iv 1000 Ml (Sodium Chloride 0.9%) (02/25/21 09:57) Manual Differential (02/25/21 09:45) (TYREE TELLES MD) Vital Signs/I&O 02/25/21 02/25/21 09:33 09:33 Temp 37.3 Pulse 116 Resp 22 B/P (MAP) 143/83 (103) Pulse Ox 96 O2 Delivery Room Air Room Air (TYREE TELLES MD) Vital Signs/I&O Capillary Refill : Less Than 3 Seconds (JAMES HUDSON APRN) Blood Pressure Mean: 103 Departure Communication (Admissions) 1101-Tachycardic at 116, elevated lactic acid at 3.84 but he is not hypotensive nor does he have a lactic acid over 4 so he does not need the fluid bolus. He received 1 L in the ER plus cefepime. Awaiting bed assignment upstairs. Empirically going to use cefepime. Spoke with Dr. De Guzman she agrees with the plan. (JAMES HUDSON APRN) Impression Primary Impression: Bibasilar pneumonia Additional Impression: Sepsis Disposition: 09 ADMITTED INPATIENT Condition: Stable Admissions Decision to Admit Reason: Admit from ER (General) Decision to Admit/Date: Feb 25, 2021 Time/Decision to Admit Time: 11:02 (JAMES HUDSON APRN) Departure-Patient Inst. Referrals: [facility]/ (PCP) Primary Care Physician TORRES MIXON APRN (Family) Primary Care Physician ATTENDING PHYSICIAN NOTE: I was physically present as attending physician in the emergency department during the care of this patient. I received report from EMS and placed to the initial orders. Care of the patient was then transitioned to James Hudson NP. (TYREE TELLES MD) JAMES HUDSON APRN Feb 25, 2021 11:02 TYREE TELLES MD Feb 27, 2021 14:20
[2021-02-25 11:10] LABS: BILIRUBIN,URINE NEGATIVE (NEGATIVE); CLARITY,URINE CLEAR; COLOR,URINE YELLOW; GLUCOSE, URINE (UA) NEGATIVE (NEGATIVE); KETONES,URINE NEGATIVE (NEGATIVE); LEUKOCYTE ESTERASE ,URINE NEGATIVE (NEGATIVE); NITRITE,URINE NEGATIVE (NEGATIVE); PROTEIN,URINE NEGATIVE (NEGATIVE)
[2021-02-25 11:40] LABS: BACTERIA,URINE NEGATIVE /HPF
--- NOTE | 2021-02-25 13:03 | History & Physical-Hospitalist ---
History of Present Illness HPI/Chief Complaint Chief complaint: Pneumonia History of present illness: This is a 75-year-old white male known to me from prior swing bed hospital course following lumbar spine surgery who presented to the ER with shortness of breath and fever found to have a severely elevated lactic acid with bilateral pneumonia with Covid negative swab. He was placed on cefepime and aggressive IV fluids lactic acid will soon be normalized and he is currently doing much better. Source: patient Exam Limitations: no limitations Date Seen 02/25/21 Time Seen by a Provider: 13:00 Attending Physician [facility] Referring Physician Date of Admission Home Medications & Allergies Home Medications Reviewed patient Home Medication Reconciliation performed by pharmacy medication reconciliations dental laboratory technician apprentice and/or nursing. Patients Allergies have been reviewed. Allergies Allergies Coded Allergies No Known Drug Allergies (Unverified10/28/18) Past Jebkxml-Rghktc-Mtcain Hx Patient Social History Marrital Status: single Employed/Student: retired Tobacco Use?: No Smoking Status: Former Smoker Smokeless Tobacco Frequency: Former User Use of E-Cig and/or Vaping dev: No Alcohol Use?: No Pt feels they are or have been: No Immunizations Up To Date Date of Influenza Vaccine: Apr 18, 2020 First/Initial COVID19 Vaccinat: 07/25/2020 Second COVID19 Vaccination Marcelino: 08/22/2020 Tetanus Booster (TDap): Unknown Hepatitis A: No Hepatitis B: No Date of Pneumonia Vaccine: Mar 30, 2018 Seasonal Allergies Seasonal Allergies: No Current Status Advance Directives: No Primary Language: Guamanian Preferred Spoken Language: Guamanian Past Medical History Surgeries: Appendectomy, Orthopedic Asthma, Chronic Bronchitis High Cholesterol, Hypertension Sexually Transmitted Disease: No HIV/AIDS: No Kidney Stones Gastroesophageal Reflux, Chronic Constipation Back Injury, Chronic Back Pain Diabetes, Non-Insulin dep Loss of Vision: Bilateral Hearing Impairment: Hard of Hearing Blood Disorders: No Adverse Reaction/Blood Tranf: No (N/A) Review of Systems Constitutional: see HPI, dizziness, fever, malaise, weakness EENTM: no symptoms reported Respiratory: cough, dyspnea on exertion Cardiovascular: no symptoms reported Gastrointestinal: no symptoms reported Genitourinary: no symptoms reported Musculoskeletal: no symptoms reported Skin: no symptoms reported Psychiatric/Neurological: No Symptoms Reported Physical Exam Physical Exam Vital Signs Vital Signs - First Documented 02/25/21 02/25/21 09:33 21:44 Temp 37.3 Pulse 116 Resp 22 B/P (MAP) 143/83 (103) Pulse Ox 96 O2 Delivery Room Air FiO2 21 Capillary Refill : Less Than 3 Seconds Height, Weight, BMI Height: 6'2.00" Weight: 213lbs. 6.0oz. 96.301471md; 26.00 BMI Method:Stated General Appearance: No Apparent Distress, Chronically ill Eyes: Right Eye Normal Inspection, Right Eye PERRL HEENT: PERRL/EOMI, Normal ENT Inspection, Pharynx Normal, Moist Mucous Membranes Neck: Full Range of Motion, Normal Inspection, Non Tender Respiratory: Chest Non Tender, Lungs Clear, No Accessory Muscle Use, No Respiratory Distress, Decreased Breath Sounds, Wheezing Cardiovascular: Regular Rate, Rhythm, No Edema, No Gallop, No JVD, No Murmur, Normal Peripheral Pulses Gastrointestinal: Normal Bowel Sounds, No Organomegaly, No Pulsatile Mass, Non Tender, Soft Back: Normal Inspection, No CVA Tenderness, No Vertebral Tenderness Extremity: Normal Capillary Refill, Normal Inspection, Normal Range of Motion, Non Tender, No Calf Tenderness, No Pedal Edema Neurologic/Psychiatric: Alert, Oriented x3, No Motor/Sensory Deficits, Normal Mood/Affect Skin: Normal Color, Warm/Dry Lymphatic: No Adenopathy Results Results/Procedures Labs Laboratory Tests 02/25/21 09:45 02/26/21 04:55 Patient resulted labs reviewed. Assessment/Plan Admission Diagnosis Assessment: Sepsis Pneumonia Elevated lactic acid HTN DM HLP GERD Plan: IV antibiotics IV fluids Admission Status: Inpatient Order (span 2 midnights) Reason for Inpatient Admission: Sepsis with pneumonia ALVINA DE GUZMAN DO Feb 25, 2021 13:03
[2021-02-25 16:00] VITALS: BP 144/94
[2021-02-25] MEDS ORDERED: ONDANSETRON 4 MG/2 ML (SDV) Z0FRAN IV PRN (17:00)
[2021-02-25] MEDS ORDERED: ACETAMINOPHEN 325 MG TABLET PO PRN (17:00)
[2021-02-25] MEDS: LACTATED RINGERS 1,000 ML IV SCH (17:29)
[2021-02-25 20:00] VITALS: BP 107/64
[2021-02-25] MEDS ORDERED: ALPRAZolam 0.25 MG (XANAX) TAB PO PRN (20:45)
[2021-02-25] MEDS ORDERED: HYDROcodone/APAP 5 MG/325 MG (LORTAB) TAB PO PRN (20:45)
[2021-02-25] MEDS ORDERED: MELATONIN 3 MG TABLET PO PRN (20:45)
[2021-02-25] MEDS ORDERED: DOCUSATE SODIUM 100 MG (COLACE) CAP PO PRN (20:45)
[2021-02-25] MEDS ORDERED: CALCIUM CARBONATE 500 MG (TUMS) TAB.CHEW PO PRN (20:45)
[2021-02-25] MEDS ORDERED: diphenhydrAMINE 25 MG TAB (BENADRYL) PO PRN (20:45)
[2021-02-25] MEDS ORDERED: LOPERAMIDE 2 MG (IMODIUM) TABLET PO PRN (20:45)
[2021-02-25] MEDS ORDERED: morphine INJ 4 MG/ML 1 ML (VIAL/SYRINGE) IVP PRN (21:00)
[2021-02-25] MEDS: SENNA W/DOCUSATE (SENOKOT S) TABLET PO SCH (21:07)
[2021-02-25] MEDS: inSUlin ASPART (NovoLOG) 1 UNIT/0.01 ML (CHARGE PER UNIT) SC SCH (21:07)
[2021-02-25] MEDS: ENOXAPARIN 40 MG/0.4 ML (LOVENOX) SYR SC SCH (21:08)
[2021-02-25] MEDS: CEFEPIME 2,000 MG/SWFI 20 ML IV PUSH IV SCH ×2 (21:08)
[2021-02-25] MEDS: polyethylene glycoL POWDER 17 GM (MIRALAX) PACK PO SCH (21:08)
[2021-02-25] MEDS: RT-ALBUTEROL/IPRATROPIUM 3 ML (DUONEB) VIAL INH SCH (21:44)
[2021-02-25] MEDS ORDERED: [UNRECOGNIZED DRUG - CODE] TP (22:56)
[2021-02-25] MEDS ORDERED: DOCU-143 PO (22:56)
[2021-02-25] MEDS ORDERED: TMSL.4C PO (22:56)
[2021-02-25] MEDS ORDERED: MELO15TA14 PO (22:56)
[2021-02-25] MEDS ORDERED: RT-ALBUINH IH (22:56)
[2021-02-25] MEDS ORDERED: SITA100T12 PO (22:56)
[2021-02-25] MEDS ORDERED: TRM50T PO (22:56)
[2021-02-25] MEDS ORDERED: TIZA2CAP9 PO (22:56)
[2021-02-25 23:10] VITALS: BP 98/63
[2021-02-26] VITALS (7 sets, daily range): BP systolic 93–142; BP diastolic 57–89
[2021-02-26] MEDS: LACTATED RINGERS 1,000 ML IV SCH ×2 (01:22→09:50)
[2021-02-26] MEDS: RT-ALBUTEROL/IPRATROPIUM 3 ML (DUONEB) VIAL INH SCH ×4 (03:43→20:53)
[2021-02-26 05:31] LABS: BASOPHILS # (AUTO) 0.1 10^3/uL (0.0-0.1); BASOPHILS % (AUTO) 1 % (0-10); EOSINOPHILS # (AUTO) 0.2 10^3/uL (0.0-0.3); EOSINOPHILS % (AUTO) 2 % (0-10); HEMATOCRIT 36 % (40-54); HEMOGLOBIN 11.3 g/dL (13.3-17.7); LYMPHOCYTES % (AUTO) 27 % (12-44); MEAN CORPUSCULAR HEMOGLOBIN 28 pg (25-34); MEAN CORPUSCULAR HGB CONC 31 g/dL (32-36); MEAN CORPUSCULAR VOLUME 90 fL (80-99); MEAN PLATELET VOLUME 9.1 fL (9.0-12.2); MONOCYTES % (AUTO) 9 % (0-12); NEUTROPHILS # (AUTO) 6.9 10^3/uL (1.8-7.8); NEUTROPHILS % (AUTO) 62 % (42-75); PLATELET COUNT 225 10^3/uL (130-400); WHITE BLOOD COUNT 11.1 10^3/uL (4.3-11.0)
[2021-02-26 05:48] LABS: ALBUMIN 3.4 GM/DL (3.2-4.5); POTASSIUM 4.5 MMOL/L (3.6-5.0)
[2021-02-26 05:49] LABS: CALCIUM 9.1 MG/DL (8.5-10.1)
[2021-02-26 05:50] LABS: TOTAL PROTEIN 6.9 GM/DL (6.4-8.2)
[2021-02-26 05:54] LABS: CREATININE SERUM 0.77 MG/DL (0.60-1.30)
[2021-02-26] MEDS: inSUlin ASPART (NovoLOG) 1 UNIT/0.01 ML (CHARGE PER UNIT) SC SCH ×2 (06:01→10:43)
--- NOTE | 2021-02-26 07:09 | Progress Note - Hospitalist ---
Subjective HPI/CC On Admission Date Seen by Provider: Feb 26, 2021 Time Seen by Provider: 12:00 Chief complaint: Pneumonia History of present illness: This is a 75-year-old white male known to me from prior swing bed hospital course following lumbar spine surgery who presented to the ER with shortness of breath and fever found to have a severely elevated lactic acid with bilateral pneumonia with Covid negative swab. He was placed on cefepime and aggressive IV fluids lactic acid will soon be normalized and he is currently doing much better. Subjective/Events-last exam Patient doing much better Hep locking IV fluid Moving to fourth floor Updated at bedside and daughter No pain is reported PT and OT will be ordered Discontinue telemetry We will add senna for bowels Room air currently Lactic acid elevation resolved Review of Systems General: Fatigue, Malaise Pulmonary: Cough Focused Exam Lactate Level 02/25/21 12:00: Lactic Acid Level 2.79*H 02/25/21 14:00: Lactic Acid Level 2.39*H 02/25/21 16:09: Lactic Acid Level 1.78 Objective Exam Vital Signs Vital Signs Date Time Temp Pulse Resp B/P (MAP) Pulse Ox O2 Delivery O2 Flow Rate FiO2 02/26/21 15:33 95 Room Air 02/26/21 11:18 35.9 70 16 110/77 (88) 02/26/21 02:50 21 Capillary Refill : Less Than 3 Seconds General Appearance: No Apparent Distress, WD/WN, Chronically ill Respiratory: No Accessory Muscle Use, No Respiratory Distress, Decreased Breath Sounds Cardiovascular: Regular Rate, Rhythm Neurologic/Psychiatric: Alert, Oriented x3, No Motor/Sensory Deficits, Normal Mood/Affect, corrections specialist II-XII Norm as Tested Results/Procedures Lab Laboratory Tests 02/26/21 04:55 Patient resulted labs reviewed. Assessment/Plan Assessment and Plan Assess & Plan/Chief Complaint Assessment: Sepsis Pneumonia Elevated lactic acid HTN DM HLP GERD Plan: IV antibiotics IV fluids 02/26/2021: Hep-Lock IV fluid PT and OT Transfer to fourth floor [facility] DC telemetry Weaned O2 now ALVINA DE GUZMAN DO Feb 26, 2021 07:09
[2021-02-26] MEDS: SENNA W/DOCUSATE (SENOKOT S) TABLET PO SCH ×3 (08:09→20:36)
[2021-02-26] MEDS: polyethylene glycoL POWDER 17 GM (MIRALAX) PACK PO SCH ×2 (08:09→20:36)
[2021-02-26] MEDS: CEFEPIME 2,000 MG/SWFI 20 ML IV PUSH IV SCH ×4 (09:50→20:42)
[2021-02-26] MEDS ORDERED: SENNA W/DOCUSATE (SENOKOT S) TABLET PO ONE (12:15)
--- NOTE | 2021-02-26 13:14 | Physical Therapy Evaluation ---
PT Evaluation-General Medical Diagnosis Admission Date Feb 25, 2021 at 10:54 Medical Diagnosis: Pneumonia, sepsis Onset Date: Feb 25, 2021 Therapy Diagnosis Therapy Diagnosis: weakness Height/Weight Height (Feet): 6 Height (Inches): 2.00 Weight (Pounds): 213 Weight (Ounces): 6.0 Precautions Precautions/Isolations: Standard Precautions Weight Bear Status Right Lower Extremity: Right Full Weight Bearing Left Lower Extremity: Left Full Weight Bearing Referral Physician: Patricia Reason for Referral: Evaluation/Treatment Medical History Pertinent Medical History: COPD, DM, GERD, HTN Additional Medical History Back Sx, chronic brochitis, high cholesterol, [place] Current History Pt to walk in clinic at [facility] with SOA and chills, tachycardia. To ER via EMS, admitted with pneumonia, sepsis Reviewed History: Yes Social History Home: Single Level Current Living Status: Significant Other Entry Into Home: Level Entry Reports he assists spouse Prior Prior Level of Function SCALE: Activities may be completed with or without assistive devices. 5-Hqtvqiuicx-mrfpvop completes the activity by him/herself with no assistance from a helper. 5-Set-up or Clean-up Assistance-helper sets up or cleans up; patient completes activity. [place] assists only prior to or following the activity. 4-Supervision or Touching Assistance-helper provides verbal cues and/or touching/steadying and/or contact guard assistance as patient completes activity. Assistance may be provided throughout the activity or intermittently. 3-Partial/Moderate Assistance-helper does LESS THAN HALF the effort. [place] lifts, holds or supports trunk or limbs, but provides less than half the effort. 2-Substantial/Maximal Assistance-helper does MORE THAN HALF the effort. [place] lifts or holds trunk or limbs and provides more than half the effort. 9-Hyivhcaxg-tdlptv does ALL the effort. Patient does none of the effort to complete the activity. Or, the assistance of 2 or more helpers is required for the patient to complete the activity. If activity was not attempted, code reason: 7-Patient Refused. 9-Not Applicable-not attempted and the patient did not perform the activity before the current illness, exacerbation or injury. 10-Not Attempted due to Environmental Limitations-(lack of equipment, weather restraints, etc.). 88-Not Attempted due to Medical Conditions or Safety Concerns. Bed Mobility: 6 Transfers (B,C,W/C): 6 Gait: 6 Stairs: 9 Wheelchair Mobility: 9 Indoor Mobility (Ambulation): Independent Stairs: Not Applicalbe Prior Devices Use: None Prior Device Use: Pt uses 4WW when walking long distances for exercise, otherwise (I) PT Evaluation-Current Subjective Pt agreeable, denies pain. Reports walking is near PLOF, just feels weak. Pain Numeric Pain Scale: 0-No Pain Pt/Family Goals Home Objective Patient Orientation: Person, Place, Time, Situation ROM/Strength ROM Upper Extremities See OT ROM Lower Extremities WFL Strength Upper Extremities See OT Strength Lower Extremities Grossly 4/5, WFL for functional mobility Integumentary/Posture Integumentary See nurses' notes Neuromuscular (Tone, Coordination, Reflexes) unremarkable Sensory Vision: Functional Hearing: Impaired Transfers Roll Left to Right (QC): 6 Sit to Lying (QC): 6 Lying to Sitting/Side of Bed(Q: 6 Sit to Stand (QC): 6 Gait Does the Patient Walk?: Yes Mode of Locomotion: Walk Anticipated Mode of Locomotion: Walk Walk 10 feet (QC): 5 Walk 50 ft with 2 Turns(QC): 5 Walk 150 ft (QC): 5 Distance: 150 Gait Assistive Device: None Comments/Gait Description steady gait, moderate speed, no LOB. Pt with wheezing, SOA but O2 sats 97% on RA post ambulation Wheelchair Training Does the Pt Use a Wheelchair?: No Balance Sitting Static: Good Sitting Dynamic: Good Standing Static: Good Standing Dynamic: Fair Assessment/Needs Pt would benefit from short term skilled PT to improve functional activity tolerance for safe return home. Rehab Potential: Good PT Medical Records Manager Goals Assisted Goals PT Assisted Goals Time Frame: Mar 05, 2021 Roll Left & Right (QC): 6 Sit to Lying (QC): 6 Lying-Sitting on Side/Bed(QC): 6 Sit to Stand (QC): 6 Chair/Kab-es-Swfwt Xfer(QC): 6 Toilet Transfer (QC): 6 Car Transfer (QC): 6 Does the Patient Walk: Yes Walk 10 feet (QC): 6 Walk 50ft with 2 Turns (QC): 6 Walk 150 ft (QC): 6 Walking 10ft on Uneven Surface: 6 1 Step (curb) (QC): 6 4 Steps (QC): 9 12 Steps (QC): 9 Picking up an Object (QC): 6 Does the Pt use WC or Scooter?: No Wheel 50 feet with 2 turns (QC: 9 Type: N/A Wheel 150 feet: 9 Type: N/A PT LTGs established to allow safe return home PT Plan Problem List Problem List: Activity Tolerance, Functional Strength, Safety, Balance, Gait, Transfer Treatment/Plan Treatment Plan: Continue Plan of Care Treatment Plan: Education, Functional Activity Jose, Functional Strength, Gait, Safety, Therapeutic Exercise, Transfers Treatment Duration: Mar 05, 2021 Frequency: 6 times per week Estimated Hrs Per Day: .25 hour per day Patient and/or Family Agrees t: Yes Safety Risks/Education Teaching Recipient: Patient Teaching Methods: Discussion Response to Teaching: Verbalize Understanding PT POC Discharge Recommendations Therapy Discharge Recommendati: Home & Family Time/GCodes Time In: 1248 Time Out: 1303 Total Billed Treatment Time: 15 Total Billed Treatment 1, KASANDRAC x 15' LAM PATTON DPPhilip Feb 26, 2021 13:14
--- NOTE | 2021-02-26 13:28 | Occupational Therapy Eval ---
OT Evaluation-General/PLF Medical Diagnosis Admission Date Feb 25, 2021 at 10:54 Medical Diagnosis: Pneumonia, sepsis Onset Date: Feb 25, 2021 Therapy Diagnosis Therapy Diagnosis: Weakness Height/Weight Height (Feet): 6 Height (Inches): 2.00 Weight (Pounds): 213 Weight (Ounces): 6.0 Precautions Precautions/Isolations: Standard Precautions Weight Bear Status Weight Bearing Restriction: Weight Bearing/Tolerated Referral Physician: Patricia Referral Reason: Activity Tolerance, Self Care, Evaluation/Treatment, Strengthening/ROM Medical History Pertinent Medical History: COPD, DM, GERD, HTN Additional Medical History Back surgery Current History Pt. came to ER with sepsis/pneumonia, SOA, tachycardia Reviewed History: Yes Social History Home: Single Level Current Living Status: Significant Other Entry Into Home: Level Entry ADL-Prior Level of Function SCALE: Activities may be completed with or without assistive devices. 1-Lnrxssbkmj-vahxpik completes the activity by him/herself with no assistance from a helper. 5-Set-up or Clean-up Assistance-helper sets up or cleans up; patient completes activity. [place] assists only prior to or following the activity. 4-Supervision or Touching Assistance-helper provides verbal cues and/or touching/steadying and/or contact guard assistance as patient completes activity. Assistance may be provided throughout the activity or intermittently. 3-Partial/Moderate Assistance-helper does LESS THAN HALF the effort. [place] lifts, holds or supports trunk or limbs, but provides less than half the effort. 2-Substantial/Maximal Assistance-helper does MORE THAN HALF the effort. [place] lifts or holds trunk or limbs and provides more than half the effort. 8-Uyepgdtgf-vazelk does ALL the effort. Patient does none of the effort to complete the activity. Or, the assistance of 2 or more helpers is required for the patient to complete the activity. If activity was not attempted, code reason: 7-Patient Refused. 9-Not Applicable-not attempted and the patient did not perform the activity before the current illness, exacerbation or injury. 10-Not Attempted due to Environmental Limitations-(lack of equipment, weather restraints, etc.). 88-Not Attempted due to Medical Conditions or Safety Concerns. ADL PLOF Comments Pt. independent with daily skills. Typically doesn't use walker unless going out into community long distances. Pt. assists his at home. Self Care: Independent Functional Cognition: Independent DME/Equipment: Bath Chair, Grab Bars, Tub/Shower Drive Self: Yes OT Current Status Subjective No pain. Pt. reports he is feeling better. Mental Status/Objective Patient Orientation: Person, Place, Time, Situation Current Upper Extremity ROM WFL bilateral UE ADL-Treatment On/Off Footwear (QC): 5 (Pt. able to don/doff shoes.) Toileting Hygiene (QC): 4 (Pt. verbalizes he has been able to take self to bathroom with SBA from nursing.) Other Treatments Pt. seen by OT/PT due to fatigue and possible need of skilled assessment of two clinicians. PT assessed mobility while OT assessed ADL skills. Pt. transferred supine-sit with SBA. Donned shoes with set up. Stood with CGA. CGA for mobility down manning with no LOB with no walker needed. Ambulated 150. Oxygen sats taken at end of session. 96% on room air. Pt. tired. Would like to rest. States that he is feeling much better however from when he came to ER originally. All needs met back in bed. Education OT Patient Education: Correct positioning, Modified ADL techniques, Progress toward Goal/Update tx plan, Purpose of tx/functional activities, Reviewed precautions, Rehab process, Transfer techniques Teaching Recipient: Patient Teaching Methods: Demonstration, Discussion Response to Teaching: Verbalize Understanding, Return Demonstration OT Director Acute Goals Director Acute Goals Time Frame: Mar 05, 2021 Eating (QC): 6 Oral Hygiene (QC): 6 Toileting Hygiene (QC): 6 Shower/Bathe Self (QC): 6 Upper Body Dressing (QC): 6 Lower Body Dressing (QC): 6 On/Off Footwear (QC): 6 Additional Goals: 1-Demonstrate ADL Tasks, 2-Verbalize Understanding, 3-Imp roveStrength/Jose 1=Demonstrate adherence to instructed precautions during ADL tasks. 2=Patient will verbalize/demonstrate understanding of assistive devices/modifications for ADL. 3=Patient will improve strength/tolerance for activity to enable patient to perform ADL's. OT Education/Plan Problem List/Assessment Assessment: Decreased Activ Tolerance, Impaired I ADL's Discharge Recommendations Plan/Recommendations: Continue POC Therapy Discharge Recommendati: Home & Family Treatment Plan/Plan of Care Treatment,Training & Education: Yes Patient would benefit from OT for education, treatment and training to promote independence in ADL's, mobility, safety and/or upper extremity function for ADL's. Plan of Care: ADL Retraining, Functional Mobility Treatment Duration: Mar 05, 2021 Frequency: 5 times per week Estimated Hrs Per Day: .25 hour per day Agreement: Yes Rehab Potential: Good Time/GCodes Start Time: 12:48 Stop Time: 13:03 Total Time Billed (hr/min): 15 Billed Treatment Time 1, EVM x 15minutes TONY KRISHNAMURTHY OT Feb 26, 2021 13:28
[2021-02-26] MEDS: ENOXAPARIN 40 MG/0.4 ML (LOVENOX) SYR SC SCH (20:35)
[2021-02-27] VITALS (9 sets, daily range): BP systolic 118–150; BP diastolic 60–92
[2021-02-27] MEDS: RT-ALBUTEROL/IPRATROPIUM 3 ML (DUONEB) VIAL INH SCH (02:02)
[2021-02-27 05:16] LABS: BASOPHILS % (AUTO) 1 % (0-10); EOSINOPHILS # (AUTO) 0.2 10^3/uL (0.0-0.3); EOSINOPHILS % (AUTO) 3 % (0-10); HEMATOCRIT 37 % (40-54); HEMOGLOBIN 11.6 g/dL (13.3-17.7); LYMPHOCYTES # (AUTO) 2.3 10^3/uL (1.0-4.0); LYMPHOCYTES % (AUTO) 27 % (12-44); MEAN CORPUSCULAR HEMOGLOBIN 28 pg (25-34); MEAN CORPUSCULAR HGB CONC 31 g/dL (32-36); MEAN CORPUSCULAR VOLUME 89 fL (80-99); MEAN PLATELET VOLUME 8.5 fL (9.0-12.2); MONOCYTES # (AUTO) 0.9 10^3/uL (0.0-1.0); MONOCYTES % (AUTO) 11 % (0-12); NEUTROPHILS % (AUTO) 59 % (42-75); PLATELET COUNT 247 10^3/uL (130-400); WHITE BLOOD COUNT 8.5 10^3/uL (4.3-11.0)
[2021-02-27 05:40] LABS: ALBUMIN 3.7 GM/DL (3.2-4.5); POTASSIUM 4.5 MMOL/L (3.6-5.0)
[2021-02-27 05:41] LABS: CALCIUM 9.2 MG/DL (8.5-10.1)
[2021-02-27 05:42] LABS: TOTAL PROTEIN 7.6 GM/DL (6.4-8.2)
[2021-02-27 05:44] LABS: BILIRUBIN,TOTAL 0.7 MG/DL (0.1-1.0)
[2021-02-27 05:46] LABS: CREATININE SERUM 0.79 MG/DL (0.60-1.30)
--- NOTE | 2021-02-27 08:54 | Physical Therapy Daily Note ---
PT Daily Note-Current Subjective Patient in bed pre tx, agrees to PT, has no complaints of pain. Appearance Patient in bed post tx with nurse call, phone, tray, all needs met, SCD's on. Mental Status Patient Orientation: Person, Place, Situation Attachments: SCD's Transfers SCALE: Activities may be completed with or without assistive devices. 9-Lmcabldepw-wgvuzgg completes the activity by him/herself with no assistance from a helper. 5-Set-up or Clean-up Assistance-helper sets up or cleans up; patient completes activity. [place] assists only prior to or following the activity. 4-Supervision or Touching Assistance-helper provides verbal cues and/or touching/steadying and/or contact guard assistance as patient completes activity. Assistance may be provided throughout the activity or intermittently. 3-Partial/Moderate Assistance-helper does LESS THAN HALF the effort. [place] lifts, holds or supports trunk or limbs, but provides less than half the effort. 2-Substantial/Maximal Assistance-helper does MORE THAN HALF the effort. [place] lifts or holds trunk or limbs and provides more than half the effort. 2-Slrzujelv-xhadku does ALL the effort. Patient does none of the effort to complete the activity. Or, the assistance of 2 or more helpers is required for the patient to complete the activity. If activity was not attempted, code reason: 7-Patient Refused. 9-Not Applicable-not attempted and the patient did not perform the activity before the current illness, exacerbation or injury. 10-Not Attempted due to Environmental Limitations-(lack of equipment, weather restraints, etc.). 88-Not Attempted due to Medical Conditions or Safety Concerns. Roll Left & Right (QC): 6 Sit to Lying (QC): 6 Lying to Sitting/Side of Bed(Q: 6 Sit to Stand (QC): 5 Chair/Ohn-qy-Vvrjy Xfer(QC): 5 Weight Bearing Right Lower Extremity: Right Full Weight Bearing Left Lower Extremity: Left Full Weight Bearing Gait Training Distance: 250' Walk 10 feet (QC): 4 Walk 50 ft with 2 Turns(QC): 4 Walk 150 ft (QC): 4 Gait Persons Needed: 1 Gait Assistive Device: None CGA, one standing rest break, gets SOB with ambulation Exercises Supine Ex: Ankle pumps, Heel Slides Supine Reps: 20 Treatments bed mobility and transfers, ambulation, LE strengthening Assessment Current Status: Fair Progress SOB with activity, needs occasional rest break PT Freight Sorter Goals Penitentiary Goals PT Freight Sorter Goals Time Frame: Mar 05, 2021 Roll Left & Right (QC): 6 Sit to Lying (QC): 6 Lying-Sitting on Side/Bed(QC): 6 Sit to Stand (QC): 6 Chair/Ape-ay-[place]tem[place] Xfer(QC): 6 Toilet Transfer (QC): 6 Car Transfer (QC): 6 Does the Patient Walk: Yes Walk 10 feet (QC): 6 Walk 50ft with 2 Turns (QC): 6 Walk 150 ft (QC): 6 Walking 10ft on Uneven Surface: 6 1 Step (curb) (QC): 6 4 Steps (QC): 9 12 Steps (QC): 9 Picking up an Object (QC): 6 Does the Pt use WC or Scooter?: No Wheel 50 feet with 2 turns (QC: 9 Type: N/A Wheel 150 feet: 9 Type: N/A PT Plan Problem List Problem List: Activity Tolerance, Functional Strength, Safety, Balance, Gait, Transfer, ROM Treatment/Plan Treatment Plan: Continue Plan of Care Treatment Plan: Education, Functional Activity Jose, Functional Strength, Gait, Safety, Therapeutic Exercise, Transfers Treatment Duration: Mar 05, 2021 Frequency: 6 times per week Estimated Hrs Per Day: .25 hour per day Patient and/or Family Agrees t: Yes Safety Risks/Education Patient Education: Gait Training, Transfer Techniques, Correct Positioning, Safety Issues Teaching Recipient: Patient Teaching Methods: Demonstration, Discussion Response to Teaching: Reinforcement Needed Time/GCodes Time In: 0832 Time Out: 0842 Total Billed Treatment Time: 10 Total Billed Treatment 1 visit GT MEL AZAR PT Feb 27, 2021 08:54
[2021-02-27] MEDS ORDERED: RT-ALBUTEROL/IPRATROPIUM 3 ML (DUONEB) VIAL INH PRN (09:15)
[2021-02-27] MEDS: CEFEPIME 2,000 MG/SWFI 20 ML IV PUSH IV SCH ×4 (09:54→21:25)
[2021-02-27] MEDS: polyethylene glycoL POWDER 17 GM (MIRALAX) PACK PO SCH ×2 (09:55→20:31)
[2021-02-27] MEDS: SENNA W/DOCUSATE (SENOKOT S) TABLET PO SCH ×4 (09:55→20:31)
[2021-02-27] MEDS ORDERED: TIOT18CA2 INH (10:27)
[2021-02-27] MEDS ORDERED: LISI20TA26 PO (10:27)
[2021-02-27] MEDS ORDERED: FLUT1BLS INH (10:27)
[2021-02-27] MEDS ORDERED: GABA-486 PO (10:27)
[2021-02-27] MEDS ORDERED: FLUT16SP22 NSEACH (10:27)
[2021-02-27] MEDS ORDERED: RT-ALBUINH INH (10:27)
[2021-02-27] MEDS ORDERED: POLY17PO6 PO (10:27)
[2021-02-27] MEDS ORDERED: ASPI-1238 PO (10:27)
[2021-02-27] MEDS ORDERED: IPRA3AMP31 NEB (10:27)
[2021-02-27] MEDS ORDERED: MONT10TA32 PO (10:27)
[2021-02-27] MEDS ORDERED: OMEG-109 PO (10:31)
--- NOTE | 2021-02-27 12:10 | Progress Note - Hospitalist ---
ALEXANDRA JONES Balwinder 02/27/21 1210: Subjective HPI/CC On Admission Date Seen by Provider: Feb 27, 2021 Time Seen by Provider: 10:30 Today Mr. Cabrera reports that he is feeling much better. Still endorses mild dyspnea with exertion and cough. He feels that he is progressing and has no questions nor concerns. Review of Systems General: No Chills, No Night Sweats, No Fatigue, No Malaise HEENT: No Head Aches Pulmonary: Dyspnea, Cough; No Pleuritic Chest Pain Cardiovascular: No: Chest Pain, Palpitations Gastrointestinal: No: Nausea, Vomiting, Abdominal Pain, Diarrhea, Constipation Genitourinary: No Dysuria Neurological: No: Weakness Focused Exam Lactate Level 02/25/21 12:00: Lactic Acid Level 2.79*H 02/25/21 14:00: Lactic Acid Level 2.39*H 02/25/21 16:09: Lactic Acid Level 1.78 Objective Exam Vital Signs Vital Signs Date Time Temp Pulse Resp B/P (MAP) Pulse Ox O2 Delivery O2 Flow Rate FiO2 02/27/21 10:25 128/84 (99) 02/27/21 09:06 36.8 81 96 21 02/27/21 09:00 Room Air 02/27/21 08:00 20 Capillary Refill : Less Than 3 Seconds General Appearance: No Apparent Distress, WD/WN HEENT: Moist Mucous Membranes Respiratory: Chest Non Tender, Lungs Clear, Normal Breath Sounds, No Accessory Muscle Use, No Respiratory Distress Cardiovascular: Regular Rate, Rhythm, No Edema, No Murmur Gastrointestinal: Normal Bowel Sounds, No Organomegaly, Non Tender, Soft Neurologic/Psychiatric: Alert, Oriented x3, No Motor/Sensory Deficits Skin: Normal Color Results/Procedures Lab Laboratory Tests 02/27/21 05:00 Patient resulted labs reviewed. Assessment/Plan Assessment and Plan Assess & Plan/Chief Complaint Mr. Cabrera is a 75 yo M w/ PMH of HTN, HLD, GERD who was admitted 02/25 for sepsis secondary to pneumonia. Pneumonia -02/25: COVID negative. Elevated lactate (2.79), febrile, SOB -Chest Xray: New bibasilar infiltrates -Blood cultures: NGTD Day 3 Plan: -Continue cefepime (Day 3) -Continue PT/OT -Step down to fourth floor. -Telemetry discontinued. GABY DE GUZMAN DO 02/28/21 0526: Subjective Subjective/Events-last exam Pt doing a lot better Moving around well Does not meet criteria for inpatient rehab Labs stable Checked meds Review of Systems Pulmonary: Dyspnea Objective Exam General Appearance: No Apparent Distress, WD/WN, Chronically ill Respiratory: Lungs Clear, Normal Breath Sounds, Decreased Breath Sounds Cardiovascular: Regular Rate, Rhythm Neurologic/Psychiatric: Alert Assessment/Plan Assessment and Plan Assess & Plan/Chief Complaint Supportive care Plan for discharge tomorrow Supervisory-Addendum Brief Verification & Attestation Participated in pt care: history, MDM, physical Personally performed: exam, history, MDM, supervision of care Care discussed with: Medical Student Procedures: n/a Results interpretation: Verified all documentation Verification and Attestation of Medical Student E/M Service A medical student performed and documented this service in my presence. I reviewed and verified all information documented by the medical student and made modifications to such information, when appropriate. I personally performed the physical exam and medical decision making. Gaby De Guzman, Feb 28, 2021,05:25 ALEXANDRA JONES Feb 27, 2021 12:10 GABY DE GUZMAN DO Feb 28, 2021 05:26
--- NOTE | 2021-02-27 13:34 | Occupational Ther Daily Note ---
OT Current Status-Daily Note Subjective Pt in bed, family members present. Pt agreeable to OT Tx, declined ADLs as he has already completed shower this AM with nursing. Mental Status/Objective Patient Orientation: Person, Place, Situation ADL-Treatment Therapy Code Descriptions/Definitions Functional [place] Measure: 0=Not Assessed/NA 4=Minimal Assistance 1=Total Assistance 5=Supervision or Setup 2=Maximal Assistance 6=Modified Craig 3=Moderate Assistance 7=Complete IndependenceSCALE: Activities may be completed with or without assistive devices. 4-Ooxggjgsrd-ysupyud completes the activity by him/herself with no assistance from a helper. 5-Set-up or Clean-up Assistance-helper sets up or cleans up; patient completes activity. [place] assists only prior to or following the activity. 4-Supervision or Touching Assistance-helper provides verbal cues and/or touching/steadying and/or contact guard assistance as patient completes activity. Assistance may be provided throughout the activity or intermittently. 3-Partial/Moderate Assistance-helper does LESS THAN HALF the effort. [place] lifts, holds or supports trunk or limbs, but provides less than half the effort. 2-Substantial/Maximal Assistance-helper does MORE THAN HALF the effort. [place] lifts or holds trunk or limbs and provides more than half the effort. 7-Dngunrulp-agokzq does ALL the effort. Patient does none of the effort to complete the activity. Or, the assistance of 2 or more helpers is required for the patient to complete the activity. If activity was not attempted, code reason: 7-Patient Refused. 9-Not Applicable-not attempted and the patient did not perform the activity before the current illness, exacerbation or injury. 10-Not Attempted due to Environmental Limitations-(lack of equipment, weather restraints, etc.). 88-Not Attempted due to Medical Conditions or Safety Concerns. Eating (QC): 6 (per pt report) Shower/Bathe Self (QC): 5 (per pt and nursing report) Lower Body Dressing (QC): 4 (Per nursing report, SBA.) Other Treatment Pt laying in bed, agreeable to OT tx. Pt declined ADL tx as he has already showered earlier with nursing staff. In order to increase BUE strength and activity tolerance, pt completed x20 reps each of the following: shoulder flexion, elbow flexion, elbow extension. Post tx, pt in bed, call light in reach and all needs met. Education OT Patient Education: Correct positioning, Energy conservation, Exercise program, Modified ADL techniques, Progress toward Goal/Update tx plan, Purpose of tx/functional activities Teaching Recipient: Patient Teaching Methods: Discussion Response to Teaching: Verbalize Understanding OT Mcfp Goals Stranding Machine Operator Helper Goals Time Frame: Mar 05, 2021 Eating (QC): 6 Oral Hygiene (QC): 6 Toileting Hygiene (QC): 6 Shower/Bathe Self (QC): 6 Upper Body Dressing (QC): 6 Lower Body Dressing (QC): 6 On/Off Footwear (QC): 6 Additional Goals: 1-Demonstrate ADL Tasks, 2-Verbalize Understanding, 3- ImproveStrength/Jose 1=Demonstrate adherence to instructed precautions during ADL tasks. 2=Patient will verbalize/demonstrate understanding of assistive d evices/modifications for ADL. 3=Patient will improve strength/tolerance for activity to enable patient to perform ADL's. OT Education/Plan Problem List/Assessment Assessment: Decreased Activ Tolerance, Decreased UE Strength, Impaired I ADL's, Impaired Self-Care Skills Discharge Recommendations Plan/Recommendations: Continue POC Treatment Plan/Plan of Care Patient would benefit from OT for education, treatment and training to promote independence in ADL's, mobility, safety and/or upper extremity function for ADL's. Plan of Care: ADL Retraining, Functional Mobility Treatment Duration: Mar 05, 2021 Frequency: 5 times per week Estimated Hrs Per Day: .25 hour per day Agreement: Yes Rehab Potential: Good Time/GCodes Start Time: 13:15 Stop Time: 13:30 Total Time Billed (hr/min): 15 Billed Treatment Time 1, EX KRISTI CERVANTES OT Feb 27, 2021 13:34
[2021-02-27] MEDS: ENOXAPARIN 40 MG/0.4 ML (LOVENOX) SYR SC SCH (21:24)
[2021-02-28 04:47] LABS: BASOPHILS # (AUTO) 0.1 10^3/uL (0.0-0.1); BASOPHILS % (AUTO) 1 % (0-10); EOSINOPHILS # (AUTO) 0.4 10^3/uL (0.0-0.3); EOSINOPHILS % (AUTO) 5 % (0-10); HEMATOCRIT 40 % (40-54); HEMOGLOBIN 12.4 g/dL (13.3-17.7); LYMPHOCYTES # (AUTO) 2.5 10^3/uL (1.0-4.0); LYMPHOCYTES % (AUTO) 27 % (12-44); MEAN CORPUSCULAR HEMOGLOBIN 27 pg (25-34); MEAN CORPUSCULAR HGB CONC 31 g/dL (32-36); MEAN CORPUSCULAR VOLUME 89 fL (80-99); MEAN PLATELET VOLUME 8.8 fL (9.0-12.2); MONOCYTES % (AUTO) 11 % (0-12); NEUTROPHILS % (AUTO) 56 % (42-75); PLATELET COUNT 270 10^3/uL (130-400)
[2021-02-28 04:55] LABS: ALBUMIN 3.8 GM/DL (3.2-4.5); POTASSIUM 4.6 MMOL/L (3.6-5.0)
[2021-02-28 04:56] LABS: CALCIUM 9.4 MG/DL (8.5-10.1)
[2021-02-28 04:57] LABS: TOTAL PROTEIN 7.9 GM/DL (6.4-8.2)
[2021-02-28 04:59] VITALS: BP 141/87
[2021-02-28 05:01] LABS: CREATININE SERUM 0.74 MG/DL (0.60-1.30)
[2021-02-28 05:08] VITALS: BP 141/87
[2021-02-28] MEDS: SENNA W/DOCUSATE (SENOKOT S) TABLET PO SCH ×2 (07:54→07:55)
[2021-02-28] MEDS: polyethylene glycoL POWDER 17 GM (MIRALAX) PACK PO SCH (07:54)
[2021-02-28] MEDS: CEFEPIME 2,000 MG/SWFI 20 ML IV PUSH IV SCH ×2 (08:03)
[2021-02-28 08:15] VITALS: BP 147/88
--- NOTE | 2021-02-28 08:50 | Physical Therapy Daily Note ---
PT Daily Note-Current Subjective Pt in bed upon arrival and agrees to tx. Pt has no c/o pain. Mental Status Patient Orientation: Person, Place, Time, Situation Transfers SCALE: Activities may be completed with or without assistive devices. 0-Rnmiiwapvj-avfpleq completes the activity by him/herself with no assistance from a helper. 5-Set-up or Clean-up Assistance-helper sets up or cleans up; patient completes activity. [place] assists only prior to or following the activity. 4-Supervision or Touching Assistance-helper provides verbal cues and/or touching/steadying and/or contact guard assistance as patient completes activity. Assistance may be provided throughout the activity or intermittently. 3-Partial/Moderate Assistance-helper does LESS THAN HALF the effort. [place] lift s, holds or supports trunk or limbs, but provides less than half the effort. 2-Substantial/Maximal Assistance-helper does MORE THAN HALF the effort. [place] lifts or holds trunk or limbs and provides more than half the effort. 6-Dvdzchtab-lcamtr does ALL the effort. Patient does none of the effort to complete the activity. Or, the assistance of 2 or more helpers is required for the patient to complete the activity. If activity was not attempted, code reason: 7-Patient Refused. 9-Not Applicable-not attempted and the patient did not perform the activity before the current illness, exacerbation or injury. 10-Not Attempted due to Environmental Limitations-(lack of equipment, weather restraints, etc.). 88-Not Attempted due to Medical Conditions or Safety Concerns. Roll Left & Right (QC): 6 Sit to Lying (QC): 6 Lying to Sitting/Side of Bed(Q: 6 Sit to Stand (QC): 6 Weight Bearing Right Lower Extremity: Right Full Weight Bearing Left Lower Extremity: Left Full Weight Bearing Gait Training Does the Patient Walk?: Yes Distance: 500' Walk 10 feet (QC): 5 Walk 50 ft with 2 Turns(QC): 5 Walk 150 ft (QC): 5 Gait Persons Needed: 1 Gait Assistive Device: None Pt amb w/o an AD and SBA. Pt has no LOB or gait deviations noted at this time. Treatments Pt performs bed mobility and sits EOB. Pt sit to stand and amb 500' w/o an AD and SBA. Pt required one standing rest break (5 seconds) after 300'. Pt returns to bed in room and was left with all needs met, call light in hand. Assessment Current Status: Good Progress Pt increasing endurance and strength PT Radiology Ct Technologist Goals Senior Care Goals PT Senior Care Goals Time Frame: Mar 05, 2021 Roll Left & Right (QC): 6 Sit to Lying (QC): 6 Lying-Sitting on Side/Bed(QC): 6 Sit to Stand (QC): 6 Chair/Wph-mf-Dzcum Xfer(QC): 6 Toilet Transfer (QC): 6 Car Transfer (QC): 6 Does the Patient Walk: Yes Walk 10 feet (QC): 6 Walk 50ft with 2 Turns (QC): 6 Walk 150 ft (QC): 6 Walking 10ft on Uneven Surface: 6 1 Step (curb) (QC): 6 4 Steps (QC): 9 12 Steps (QC): 9 Picking up an Object (QC): 6 Does the Pt use WC or Scooter?: No Wheel 50 feet with 2 turns (QC: 9 Type: N/A Wheel 150 feet: 9 Type: N/A PT Plan Treatment/Plan Treatment Plan: Continue Plan of Care Treatment Plan: Education, Functional Activity Jose, Functional Strength, Gait, Safety, Therapeutic Exercise, Transfers Treatment Duration: Mar 05, 2021 Frequency: 6 times per week Estimated Hrs Per Day: .25 hour per day Patient and/or Family Agrees t: Yes Time/GCodes Time In: 821 Time Out: 832 Total Billed Treatment Time: 11 Total Billed Treatment 1, GT SULTANATEOFILO GRAPHICS INTERN Feb 28, 2021 08:50
[2021-02-28] MEDS ORDERED: CEFD300C3 PO (09:51)
--- NOTE | 2021-02-28 09:52 | D/C HH Face to Face Order ---
D/C Face to Face Orders Reconcile Patient Problems Problems Reviewed?: Yes Instructions for Patient [place] Patient Instructions/FollowUp: PCP 1 week Physician to follow Patient: [facility] Discharge Diet for Home: No Restrictions Patient Problems: PNA Patient Data-Allergies,Ht & Wt Patient Allergies: Coded Allergies: No Known Drug Allergies (Unverified , 10/28/18) Height (Feet): 6 Height (Inches): 2.00 Weight (Pounds): 213 Weight (Ounces): 6.0 Home Health Need/Face to Face Date of Face to Face: Feb 28, 2021 Clinical Findings: Generalized weakness and fatigue, Instability, Muscle weakness I have seen Pt xkay-[id number]: Yes Discharged To: Home Diagnosis/Conditions: PNA Patient is Homebound due to: [place] fall risk due to instabilty, Muscle weakness Homebound Status Due to the above stated illness, injury or surgical procedure (medical condition or diagnosis) and associated clinical findings, the patient is homebound because of his/her inability to leave home except with aid of a supportive device and/or person AND leaving the home requires a considerable and taxing effort or is medically contraindicated. Pt req the following assistanc: Walker Home Health Nursing Orders Home Health Services Order: Nursing Services, Fusion Juncture Grinder-Evaluate & Maddison t, Physical Therapy-Evaluate & Treat Home Health Infusion Therapy Line Start Date: Feb 25, 2021 Certify Stmt I certify that this patient is under my care and that I, a nurse practitioner or a physician; a nurse practitioner physician assistant working with me, had a face to face encounter that - meets the physician face to face encounter requirements with this patient as dated. ALVINA DE GUZMAN DO Feb 28, 2021 09:52
--- NOTE | 2021-02-28 09:53 | Discharge Summary ---
Discharge Summary Hospital Course Was the Problem List Reviewed?: Yes Problems/Dx: (1) Pneumonia (2) Sepsis Status: Acute (3) Hypertension (4) Diabetes mellitus Hospital Course Date of Admission: Feb 25, 2021 at 10:54 Admission Diagnosis : Family Physician/Provider: Michelle Godinez Aprn Date of Discharge: 02/28/21 Discharge Diagnosis: Sepsis, pneumonia, hypertension, debility Hospital Course: Hospital course: Pt had an uneventful hospital course after he was admitted for pneumonia due to COPD he was placed on Cefepime and aggressive IV fluid resolved the elevated l actic acid with sepsis, he was restarted on of his home medications and was deemed stable for discharge with improved status. Labs and Pending Lab Test: Laboratory Tests 02/27/21 20:21: Glucometer 151H 02/28/21 04:27: White Blood Count 9.0, Red Blood Count 4.52, Hemoglobin 12.4L, Hematocrit 40, Mean Corpuscular Volume 89, Mean Corpuscular Hemoglobin 27, Mean Corpuscular Hemoglobin Concent 31L, Red Cell Distribution Width 15.1H, Platelet Count 270, Mean Platelet Volume 8.8L, Immature Granulocyte % (Auto) 1, Neutrophils (%) (Auto) 56, Lymphocytes (%) (Auto) 27, Monocytes (%) (Auto) 11, Eosinophils (%) (Auto) 5, Basophils (%) (Auto) 1, Neutrophils # (Auto) 5.0, Lymphocytes # (Auto) 2.5, Monocytes # (Auto) 1.0, Eosinophils # (Auto) 0.4H, Basophils # (Auto) 0.1, Immature Granulocyte # (Auto) 0.1, Sodium Level 134L, Potassium Level 4.6, Chloride Level 102, Carbon Dioxide Level 21, Anion Gap 11, Blood Urea Nitrogen 13, Creatinine 0.74, Estimat Glomerular Filtration Rate 103, BUN/Creatinine Ratio 18, Glucose Level 154H, Calcium Level 9.4, Corrected Calcium 9.6, Total Bilirubin 1.0, Aspartate Amino Transf (AST/SGOT) 73H, Alanine Aminotransferase (ALT/SGPT) 119H, Alkaline Phosphatase 71, Total Protein 7.9, Albumin 3.8 Microbiology 02/25/21 Blood Culture - Preliminary, Resulted No growth Home Meds Active Cefdinir 300 Mg Capsule 300 Mg PO BID Reported Fish Oil 1,200 mg Softgel ([place]-3 Fatty Acids/Fish Oil) 1 Each Capsule 1 Each PO DAILY Miralax (Polyethylene Glycol 3350) 17 Gm Powd.pack 17 Gm PO DAILY PRN Aspirin EC (Aspirin) 81 Mg Tablet.dr 81 Mg PO DAILY Gabapentin 100 Mg Capsule 100 Mg PO DAILY Breo Ellipta 200-25 Mcg INH (Fluticasone/Vilanterol) 1 Each Blst.w.dev 1 Puff INH DAILY Proventil Hfa (Albuterol Sulfate) 6.7 Gm Hfa.aer.ad 2 Puff INH Q6H PRN Montelukast Sodium 10 Mg Tablet 10 Mg PO DAILY Iprat-Albut 0.5-3(2.5) mg/3 ml (Ipratropium/Albuterol Sulfate) 3 Ml Ampul.neb 3 Ml NEB Q4H PRN Fluticasone Propionate 16 Gm [place].susp 1 [place] NSEACH DAILY PRN Spiriva (Tiotropium [place]) 1 Inh Aerp 1 Puff INH DAILY Lisinopril 20 Mg Tablet 20 Mg PO HS Simvastatin 20 Mg Tablet 20 Mg PO DAILY Omeprazole 20 Mg Tablet.dr 20 Mg PO DAILY Metformin HCl 500 Mg Tablet 1,000 Mg PO BID TAKES 2 (500MG) TABS Amlodipine Besylate 5 Mg Tablet 5 Mg PO DAILY Assessment/Pt Instructions [facility] in 1 week Discharge Planning: <30 minutes discharge planning Discharge Physical Examination Vital Signs Vital Signs Date Time Temp Pulse Resp B/P (MAP) Pulse Ox O2 Delivery O2 Flow Rate FiO2 02/28/21 08:42 Room Air 02/28/21 08:15 36.7 89 24 147/88 (107) 93 02/27/21 09:06 21 General Appearance: No Apparent Distress, WD/WN, Chronically ill Respiratory: Lungs Clear, Normal Breath Sounds Cardiovascular: Regular Rate, Rhythm Neurologic/Psychiatric: Alert, Oriented x3 Allergies: Coded Allergies: No Known Drug Allergies (Unverified , 10/28/18) Discharge Summary Date of Admission Feb 25, 2021 at 10:54 Date of Discharge Discharge Date: Feb 28, 2021 Admission Diagnosis Assessment: Sepsis Pneumonia Elevated lactic acid HTN DM HLP GERD Plan: IV antibiotics IV fluids Discharge Diagnosis Supportive care Plan for discharge tomorrow ALVINA DE GUZMAN DO Feb 28, 2021 09:52
--- NOTE | 2021-02-28 13:40 | Progress Note ---
ALEXANDRA JONES 02/28/21 1340: Progress Note Jax Cabrera is a 75yo male with a past medical history of HTN, HLD and GERD who presented to [facility] with shortness of breath and fever. Admission findings were significant for elevated lactic acid (up to 3.86), COVID negative, and chest xray consistent with bilateral pneumonia. He was started on cefepime and IV fluids. By 02/27 patient was feeling much better and labs had normalized. By 02/28 patient felt close to baseline and safe for discharge. [facility]. All questions and concerns were answered. Patient was satisfied with his care. GABY DE GUZMAN DO 03/01/21 0514: Supervisory-Addendum Brief Verification & Attestation Participated in pt care: history, MDM, physical Personally performed: exam, history, MDM, supervision of care Care discussed with: Medical Student Procedures: n/a Results interpretation: Verified all documentation Verification and Attestation of Medical Student E/M Service A medical student performed and documented this service in my presence. I reviewed and verified all information documented by the medical student and made modifications to such information, when appropriate. I personally performed the physical exam and medical decision making. Gaby De Guzman, Mar 01, 2021,05:14 ALEXANDRA JONES Feb 28, 2021 13:40 GABY DE GUZMAN DO Mar 01, 2021 05:14
== END 2021-02-28 13:12 | disposition home health service (06) ==
LOC: EDUNIT# 09:30 → ER 09:31 → UNDOADMIN 10:54 → CSD 10:54 → 4TH 02-27 19:13 → CSD 02-27 19:13 → 4TH 02-27 19:13 → UNDODISIN 02-28 13:14
PROVIDERS: ADMIT Internal Medicine; ATTEND Internal Medicine
DX: A41.9 Sepsis, unspecified organism (principal); J18.9 Pneumonia, unspecified organism; J44.0 Chronic obstructive pulmonary disease with (acute) lower respiratory infection; E87.2 Acidosis; I10 Essential (primary) hypertension; E78.00 Pure hypercholesterolemia, unspecified; K21.9 Gastro-esophageal reflux disease without esophagitis; K59.09 Other constipation; E11.9 Type 2 diabetes mellitus without complications; H91.90 Unspecified hearing loss, unspecified ear; H54.7 Unspecified visual loss; E78.5 Hyperlipidemia, unspecified; Z87.891 Personal history of nicotine dependence; Z79.84 Long term (current) use of oral hypoglycemic drugs; Z79.82 Long term (current) use of aspirin; Z79.899 Other long term (current) drug therapy; Z20.822 Contact with and (suspected) exposure to COVID-19
CPT/HCPCS: 36415; 71045; 80053; 80061; 81000; 82947; 83605; 83735; 83874; 84484; 85007; 85025; 85027; 85610; 85730; 87040; 87636; 93005; 93041; 94640; 94664; 94760; 96361; 96374

== ENCOUNTER → 2021-03-30 | Outpatient (CLI) | payer MEDICARE, MEDICAID ==
[~2021-03-30] MED LIST changes: +ASPI-1238 PO; +CEFD300C3 PO; +DOCU-143 PO; +FLUT16SP22 NSEACH; +FLUT1BLS INH; +GABA-486 PO; +IPRA3AMP31 NEB; +LISI20TA26 PO; +MELO15TA14 PO; +MONT10TA32 PO; +OMEG-109 PO; +RT-ALBUINH INH; +SITA100T12 PO; +TIOT18CA2 INH; +TIZA2CAP9 PO; +TMSL.4C PO; +TRM50T PO; +[UNRECOGNIZED DRUG - CODE] TP
--- NOTE | 2021-03-30 11:10 | Diagnostic Imaging Report ---
PROCEDURE: CT chest without contrast. TECHNIQUE: Multiple contiguous axial images were obtained through the chest without the use of intravenous contrast. Auto Exposure Controls were utilized during the CT exam to meet ALARA standards for radiation dose reduction. INDICATION: COPD, pneumonia follow-up There is calcific atherosclerosis of aorta with no evidence of aneurysm. There are some calcified hilar lymph nodes bilaterally. There is also some calcified subcarinal lymph nodes. None of these appear pathologically enlarged. There are some calcified granulomas in the periphery of both lower lungs. There are no infiltrates, effusions or pneumothoraces. IMPRESSION: Granulomatous changes in the lungs. Sliding hiatal hernia. No acute abnormality seen in the chest. Dictated by: Dictated on workstation # [id number]
== END ==
LOC: RAD 12:15
PROVIDERS: ATTEND Nurse Practitioner Family
DX: J44.9 Chronic obstructive pulmonary disease, unspecified (principal); J18.9 Pneumonia, unspecified organism; K44.9 Diaphragmatic hernia without obstruction or gangrene
CPT/HCPCS: 71250

== ENCOUNTER → 2021-05-07 | Outpatient (CLI) | payer MEDICARE, MEDICAID ==
--- NOTE | 2021-05-07 08:45 | Diagnostic Imaging Report ---
Clinical indications: Patient having memory problems of unknown cause. Exam: MRI of the brain performed without IV contrast. Sequences include axial DWI, ADC map, axial gradient echo, axial T2, axial FLAIR, axial T1, and sagittal T1. Comparison: None. Findings: There is a 4 mm subtle focal area of slightly increased DWI signal seen in the high posterior right frontal lobe with no associated high T2 signal or abnormal DWI signal. This may be artifactual or representing an area of acute small vessel ischemic disease. The remainder of the brain is unremarkable for age There is no intracranial hemorrhage, brain herniation, midline shift, or hydrocephalus. There is brain parenchymal volume loss which appears appropriate for patient's age. There are focal, patchy mildly confluent areas of high T2 signal white matter changes involving both cerebral hemispheres and periventricular regions, likely representing chronic small vessel ischemic disease and leukoaraiosis. The [place] of [place] vascular structures show no gross abnormality as visualized. The pituitary gland, sella, and suprasellar regions are unremarkable as visualized. There are postoperative changes to both globes which may be related to lens implants. Otherwise, the extracranial soft tissue, skull, and orbits are unremarkable. Paranasal sinuses and mastoid air cells are clear. Impression: 1: There is a 4 mm focal area of slightly elevated DWI signal with no associated high T2 signal or significant ADC map signal. This may be artifactual versus acute small vessel ischemic disease. 2: Otherwise there is no other evidence of acute intracranial process. 3: Age related brain parenchymal changes with brain parenchymal volume loss, chronic small vessel ischemic disease and leukoaraiosis. Dictated by: Dictated on workstation # [id number]
== END ==
LOC: RAD 08:00
PROVIDERS: ATTEND Nurse Practitioner
DX: I67.81 Acute cerebrovascular insufficiency (principal); I67.82 Cerebral ischemia; G31.89 Other specified degenerative diseases of nervous system
CPT/HCPCS: 70551

== ENCOUNTER 2021-06-04 09:33 | Observation (INO) | payer MEDICARE, MEDICAID ==
[~2021-06-04] VITALS: Ht 188 cm; Wt 99.8 kg
[~2021-06-04 09:33] MED LIST changes: +CYCL10TA25 PO; -CYCL10TA9 PO; +MONT-40 PO; -MONT10TA32 PO; +ONDA-106 PO; -ONDA8TAB15 PO
[2021-06-04] MEDS ORDERED: NITROGLYCERIN 0.4 MG SL TABS BTL 25'S SL PRN ×2 (09:45→17:15)
[2021-06-04 09:52] LABS: BASOPHILS % (AUTO) 0 % (0-10); EOSINOPHILS # (AUTO) 0.2 10^3/uL (0.0-0.3); EOSINOPHILS % (AUTO) 2 % (0-10); HEMATOCRIT 39 % (40-54); HEMOGLOBIN 12.2 g/dL (13.3-17.7); LYMPHOCYTES # (AUTO) 2.5 10^3/uL (1.0-4.0); LYMPHOCYTES % (AUTO) 27 % (12-44); MEAN CORPUSCULAR HEMOGLOBIN 28 pg (25-34); MEAN CORPUSCULAR HGB CONC 31 g/dL (32-36); MEAN CORPUSCULAR VOLUME 91 fL (80-99); MEAN PLATELET VOLUME 8.7 fL (9.0-12.2); MONOCYTES # (AUTO) 0.8 10^3/uL (0.0-1.0); MONOCYTES % (AUTO) 9 % (0-12); NEUTROPHILS # (AUTO) 5.7 10^3/uL (1.8-7.8); NEUTROPHILS % (AUTO) 61 % (42-75); PLATELET COUNT 263 10^3/uL (130-400); WHITE BLOOD COUNT 9.3 10^3/uL (4.3-11.0)
--- NOTE | 2021-06-04 09:53 | ED Chest Pain ---
General Stated Complaint: CHEST PAIN Source: patient, EMS Exam Limitations: no limitations History of Present Illness Date Seen by Provider: Jun 04, 2021 Time Seen by Provider: 09:32 Initial Comments Patient to the ER by EMS from home with chief complaint that after he woke up this morning about 5 in the morning he started having some substernal midline ch est pain reproducible to direct palpation as well as shortness of air. He was discharged 5 days ago from the hospital for pneumonia. No history of coronary disease or stents. He does however have a history of diabetes, hypertension, hyperlipidemia, but denies smoking. EMS gave him 324 mg of aspirin and a dose of nitroglycerin which brought his blood pressure down and took his pain from a 10 out of 10 down to a 9 out of 10. Patient's not having a fever or chills but still has some coughing. States that he feels he is getting better. He is not on antibiotics or steroids at this time. He endorses a history of COPD. Allergies and Home Medications Allergies Coded Allergies: No Known Drug Allergies (Unverified , 10/28/18) Patient Home Medication List Home Medication List Reviewed: Yes Albuterol Sulfate (Proventil Hfa) 6.7 Gm Hfa.aer.ad, 2 PUFF INH Q6H PRN for SHORTNESS OF BREATH, (Reported) Entered as Reported by: PAULINE EAST on 02/27/21 1027 Last Action: Continued Amlodipine Besylate (Amlodipine Besylate) 5 Mg Tablet, 5 MG PO DAILY, (Reported) Entered as Reported by: NOEMÍ HERNANDEZ on 09/25/15 1220 Last Action: Continued Aspirin (Aspirin EC) 81 Mg Tablet.dr, 81 MG PO DAILY, (Reported) Entered as Reported by: PAULINE EAST on 02/27/21 1027 Last Action: Continued Docusate Sodium (Docusate Sodium) 100 Mg Capsule, 100 MG PO BID PRN for CONSTIPATION-1ST LINE Prescribed by: MÓNICA REECE on 06/04/21 1525 Last Action: Continued Fluticasone/Umeclidin/Vilanter (Trelegy Ellipta 100-62.5-25) 1 Each Blst.w.dev, 1 EACH IH DAILY Prescribed by: MÓNICA REECE on 06/04/21 1618 Last Action: Converted Fluticasone/Vilanterol (Breo Ellipta 200-25 Mcg INH) 1 Each Blst.w.dev, 1 PUFF INH DAILY, (Reported) Entered as Reported by: PAULINE EAST on 02/27/21 1027 Last Action: Held Lisinopril (Lisinopril) 20 Mg Tablet, 20 MG PO HS, (Reported) Entered as Reported by: PAULINE EAST on 02/27/21 1027 Last Action: Continued Metformin HCl (Metformin HCl) 500 Mg Tablet, 1,000 MG PO BID, (Reported) Entered as Reported by: NOEMÍ HERNANDEZ on 09/25/15 1220 Last Action: Held Montelukast Sodium (Montelukast Sodium) 10 Mg Tablet, 10 MG PO DAILY, (Reported) Entered as Reported by: PAULINE EAST on 02/27/21 102 Last Action: Held [place]-3 Fatty Acids/Fish Oil (Fish Oil 1,200 mg Softgel) 1 Each Capsule, 1 EACH PO DAILY, (Reported) Entered as Reported by: PAULINE EAST on 02/27/21 1031 Last Action: Held Omeprazole (Omeprazole) 20 Mg Tablet.dr, 20 MG PO DAILY, (Reported) Entered as Reported by: NOEMÍ HERNANDEZ on 09/25/15 1220 Last Action: Converted Simvastatin (Simvastatin) 20 Mg Tablet, 20 MG PO DAILY, (Reported) Entered as Reported by: NOEMÍ HERNANDEZ on 09/25/15 1220 Last Action: Continued Tiotropium [place] (Spiriva) 1 Inh Aerp, 2 PUFF INH DAILY Prescribed by: MÓNICA REECE on 06/04/21 1525 Last Action: Held Tiotropium [place] (Spiriva Respimat 1.25MCG/ACTUATION) 4 Gm Mist.inhal, 2 PUFF IH DAILY Prescribed by: MÓNICA REECE on 06/04/21 1618 Last Action: Held Discontinued Medications Cefdinir (Cefdinir) 300 Mg Capsule, 300 MG PO BID Discontinued Reason: No Longer Taking Prescribed by: ALVINA DE GUZMAN on 02/28/21 0951 Last Action: Discontinued Fluticasone Propionate (Fluticasone Propionate) 16 Gm [place].susp, 1 SPRAY NSEACH DAILY PRN for CONGESTION, (Reported) Discontinued Reason: No Longer Taking Entered as Reported by: PAULINE EAST on 9/7/21 1027 Last Action: Discontinued Gabapentin (Gabapentin) 100 Mg Capsule, 100 MG PO DAILY, (Reported) Discontinued Reason: No Longer Taking Entered as Reported by: PAULINE EAST on 02/27/211026 Last Action: Discontinued Ipratropium/Albuterol Sulfate (Iprat-Albut 0.5-3(2.5) mg/3 ml) 3 Ml Ampul.neb, 3 ML NEB Q4H PRN for SHORTNESS OF BREATH, (Reported) Discontinued Reason: No Longer Taking Entered as Reported by: PAULINE EAST on 02/27/211026 Last Action: Discontinued Polyethylene Glycol 3350 (Miralax) 17 Gm Powd.pack, 17 GM PO DAILY PRN for CONSTIPATION-2ND LINE, (Reported) Discontinued Reason: No Longer Taking Entered as Reported by: PAULINE EAST on 02/27/211026 Last Action: Discontinued Review of Systems Review of Systems Constitutional: No chills, No diaphoresis EENTM: No Blurred Vision, No Double Vision Respiratory: Cough, Shortness of Air Cardiovascular: Chest Pain; Denies Edema, Denies Lightheadedness Gastrointestinal: Denies Abdominal Pain, Denies Constipated, Denies Diarrhea, Denies Nausea Genitourinary: Denies Burning, Denies Discharge Musculoskeletal: No back pain, No joint pain Skin: No pruritus, No rash Psychiatric/Neurological: Denies Headache, Denies Numbness All Other Systems Reviewed Negative Unless Noted: Yes Past Oisdazm-Negonc-Vjvtcn Hx Patient Social History Tobacco Use?: No Use of E-Cig and/or Vaping dev: No Substance use?: No Immunizations Up To Date First/Initial COVID19 Vaccinat: 07/25/2020 Second COVID19 Vaccination Marcelino: 08/22/2020 Seasonal Allergies Seasonal Allergies: No Past Medical History Surgery/Hospitalization HX: back surgery july Surgeries: Yes Appendectomy, Orthopedic Respiratory: Yes Asthma, Chronic Bronchitis Cardiac: Yes High Cholesterol, Hypertension Neurological: No Sexually Transmitted Disease: No HIV/AIDS: No Genitourinary: Yes Kidney Stones Gastrointestinal: Yes Gastroesophageal Reflux, Chronic Constipation Musculoskeletal: Yes Back Injury, Chronic Back Pain Endocrine: Yes Diabetes, Non-Insulin dep HEENT: Yes (READING GLASSES, PARTIAL ) Loss of Vision: Bilateral Hearing Impairment: Hard of Hearing Cancer: No Psychosocial: No Integumentary: No Blood Disorders: No Adverse Reaction/Blood Tranf: No (N/A) Physical Exam Vital Signs Vital Signs - First Documented 06/04/21 09:35 Temp 36.4 Pulse 105 Resp 20 B/P (MAP) 148/85 (106) Pulse Ox 95 O2 Delivery Room Air Capillary Refill : Height, Weight, BMI Height: 6'2.00" Weight: 213lbs. 6.0oz. 96.202195sp; 26.00 BMI Method:Stated General Appearance: Mild Distress, Obese HEENT: PERRL/EOMI, Pharynx Normal, Moist Mucous Membranes Neck: Full Range of Motion, Normal Inspection, Non Tender, Supple Respiratory: No Chest Non Tender (Chest pain reproducible by direct palpation); Lungs Clear, Accessory Muscle Use, Decreased Breath Sounds, Respiratory Distress (Increased work of breathing with some supraclavicular retractions), Other (Oxygen saturation 92 to 94% on room air with rate of 25 to 30 breaths/min) Cardiovascular: Regular Rate, Rhythm, Normal Peripheral Pulses Gastrointestinal: Normal Bowel Sounds, Non Tender, Soft Extremity: Normal Capillary Refill, Normal Inspection, No Pedal Edema Neurologic/Psychiatric: Alert, Oriented x3, No Motor/Sensory Deficits Skin: Normal Color, Warm/Dry Progress/Results/Core Measures Results/Orders Lab Results Laboratory Tests Test 06/04/21 09:40 06/04/21 09:59 Range/Units White Blood Count 9.3 4.3-11.0 10^3/uL Red Blood Count 4.34 4.30-5.52 10^6/uL Hemoglobin 12.2 L 13.3-17.7 g/dL Hematocrit 39 L 40-54 % Mean Corpuscular Volume 91 80-99 fL Mean Corpuscular Hemoglobin 28 25-34 pg Mean Corpuscular Hemoglobin Concent 31 L 32-36 g/dL Red Cell Distribution Width 14.8 H 10.0-14.5 % Platelet Count 263 130-400 10^3/uL Mean Platelet Volume 8.7 L 9.0-12.2 fL Immature Granulocyte % (Auto) 1 % Neutrophils (%) (Auto) 61 42-75 % Lymphocytes (%) (Auto) 27 12-44 % Monocytes (%) (Auto) 9 0-12 % Eosinophils (%) (Auto) 2 0-10 % Basophils (%) (Auto) 0 0-10 % Neutrophils # (Auto) 5.7 1.8-7.8 10^3/uL Lymphocytes # (Auto) 2.5 1.0-4.0 10^3/uL Monocytes # (Auto) 0.8 0.0-1.0 10^3/uL Eosinophils # (Auto) 0.2 0.0-0.3 10^3/uL Basophils # (Auto) 0.0 0.0-0.1 10^3/uL Immature Granulocyte # (Auto) 0.1 0.0-0.1 10^3/uL Prothrombin Time 12.8 12.2-14.7 SEC INR Comment 0.9 0.8-1.4 Activated Partial Thromboplast Time 24 24-35 SEC D-Dimer 0.97 H 0.00-0.49 UG/ML Sodium Level 138 135-145 MMOL/L Potassium Level 4.3 3.6-5.0 MMOL/L Chloride Level 105 98-107 MMOL/L Carbon Dioxide Level 22 21-32 MMOL/L Anion Gap 11 5-14 MMOL/L Blood Urea Nitrogen 8 7-18 MG/DL Creatinine 0.79 0.60-1.30 MG/DL Estimat Glomerular Filtration Rate 95 BUN/Creatinine Ratio 10 Glucose Level 252 H 70-105 MG/DL Calcium Level 9.0 8.5-10.1 MG/DL Corrected Calcium 9.2 8.5-10.1 MG/DL Magnesium Level 1.5 L 1.6-2.4 MG/DL Total Bilirubin 0.6 0.1-1.0 MG/DL Aspartate Amino Transf (AST/SGOT) 18 5-34 U/L Alanine Aminotransferase (ALT/SGPT) 30 0-55 U/L Alkaline Phosphatase 57 40-136 U/L Myoglobin 23.9 10.0-92.0 NG/ML Troponin I < 0.028 <0.028 NG/ML B-Type Natriuretic Peptide 18.1 <100.0 PG/ML Total Protein 6.9 6.4-8.2 GM/DL Albumin 3.8 3.2-4.5 GM/DL Lipase 12 8-78 U/L Blood Gas Puncture Site L RADIAL Blood Gas Patient Temperature 97.6 Arterial Blood pH 7.37 7.37-7.43 Arterial Blood Partial Pressure CO2 38 35-45 MMHG Arterial Blood Partial Pressure O2 92 79-93 MMHG Arterial Blood HCO3 22 L 23-27 MMOL/L Arterial Blood Total CO2 23.0 21.0-31.0 MMOL/L Arterial Blood Oxygen Saturation 97 94-100 % Arterial Blood Base Excess -2.6 L -2.5-2.5 MMOL/L Daren Test YES-POS Blood Gas Ventilator Setting NO Blood Gas Inspired Oxygen 2L Influenza Type A (RT-PCR) Not Detected Not Detecte Influenza Type B (RT-PCR) Not Detected Not Detecte SARS-CoV-2 RNA (RT-PCR) Not Detected Not Detecte My Orders Orders - SERAFIN SMALL Arterial Blood Gas (06/04/21 09:43) Cbc With Automated Diff (06/04/21:43) Magnesium (06/04/21:43) Chest 1 View, Ap/Pa Only (06/04/21 09:43) Ekg Tracing (06/04/21:43) Comprehensive Metabolic Panel (06/04/21 09:43) Myoglobin Serum (06/04/21 09:43) Protime With Inr (06/04/21:43) Partial Thromboplastin Time (06/04/21 09:43) O2 (06/04/21 09:43) Monitor-Rhythm Ecg Trace Only (06/04/21 09:43) Lipid Panel (06/05/21 06:00) Ed Iv/Invasive Line Start (06/04/21 09:43) Lipase (06/04/21 09:43) Bnp [place] (06/04/21 09:43) Fibrin Degradation Products (06/04/21 09:43) Troponin I [place] (06/04/21 09:43) Nitroglycerin 0.4 Mg Btl 25's (Nitrostat (06/04/21 09:45) Covid 19 Inhouse Test (06/04/21 09:43) Influenza A And B By Pcr (06/04/21 09:43) Ct Angio Chest W (06/04/21 10:53) Ed Iv/Invasive Line Start (06/04/21 10:53) Ns Iv 1000 Ml (Sodium Chloride 0.9%) (06/04/21 11:00) Iohexol Injection (Omnipaque 350 Mg/Ml 1 (06/04/21 11:00) Received Contrast (Hold Metformin- Contr (06/04/21 11:00) Sodium Chloride Flush (Catheter Flush Sy (06/04/21 11:00) Ns (Ivpb) (Sodium Chloride 0.9% Ivpb Bag (06/04/21 11:00) Ekg Tracing (06/04/21 10:58) Enoxaparin Injection (Lovenox Injection) (06/04/21 12:15) Medications Given in ED Current Medications Medications Dose Ordered Sig/Tavon Route Start Time Stop Time Status Last Admin Dose Admin Iohexol 100 ml ONCE ONCE IV 06/04/21 11:00 06/04/21 11:01 DC 06/04/21 11:36 83 ML Sodium Chloride 10 ml NEEDED PRN IV 06/04/21 11:00 06/04/21 17:02 DC 06/04/21 11:37 10 ML Sodium Chloride 100 ml ONCE ONCE IV 06/04/21 11:00 06/04/21 11:01 DC 06/04/21 11:36 80 ML Vital Signs/I&O 06/04/21 09:35 Temp 36.4 Pulse 105 Resp 20 B/P (MAP) 148/85 (106) Pulse Ox 95 O2 Delivery Room Air Progress Progress Note : Time: 09:52 Progress Note ABG, chest x-ray, chest pain work-up, Covid and influenza swabs. Initial ECG Impression Date: Jun 04, 2021 Initial ECG Impression Time: 09:36 Initial ECG Rate: 106 Initial ECG Rhythm: S.Tach Initial ECG Intervals: Normal Initial ECG Impression: Normal, Nonspecific Changes Comment Sinus tachycardia without clinically relevant ST changes EKG : EKG Time: 11:16 Rate: 90 Rhythm: Normal Sinus Intervals: Normal ECG Comparisson: Unchanged ECG Impression: Normal Comment Normal sinus rhythm without clinically relevant ST changes Diagnostic Imaging Diagonstic Imaging: Xray Plain Films/CT/US/NM/MRI: chest Reviewed: Reviewed by Me Departure Communication (Admissions) Time/Spoke to Admitting Phy: 12:[address] Sethi and she agrees to observe the patient for acute coronary syndrome work-up with cardiology consult. Time/Spoke to Consulting Phy: 12:00 Discussed the case with Dr. Perea who agrees to consult on the case. He would like Lovenox, echocardiogram and aspirin. Impression Primary Impression: Chest pain Qualified Codes: R07.9 - Chest pain, unspecified Additional Impressions: Acute coronary syndrome Thyroid nodule greater than or equal to 1.5 cm in diameter incidentally noted on imaging study Disposition: ADMITTED INPATIENT Condition: Stable Admissions Decision to Admit Reason: Admit from ER (General) Decision to Admit/Date: Jun 04, 2021 Time/Decision to Admit Time: 12:00 Departure-Patient Inst. Referrals: [facility] (PCP) Primary Care Physician TORRES MIXON APRN (Family) Primary Care Physician Scripts Tiotropium [place] (Spiriva Respimat 1.25MCG/ACTUATION) 4 Gm Mist.inhal 2 PUFF IH DAILY for 30 Days, EA Prov: STEPHANY SETHI MD 06/04/21 Fluticasone/Umeclidin/Vilanter (Trelegy Ellipta 100-62.5-25) 1 Each Blst.w.dev 1 EACH IH DAILY for 30 Days Prov: STEPHANY SETHI MD 06/04/21 Docusate Sodium (Docusate Sodium) 100 Mg Capsule 100 MG PO BID PRN for CONSTIPATION-1ST LINE for 30 Days, CAP Prov: STEPHANY SETHI MD 06/04/21 Tiotropium [place] (Spiriva) 1 Inh Aerp 2 PUFF INH DAILY for 30 Days, EA Prov: STEPHANY SETHI MD 06/04/21 Copy Copies To 1: MÓNICA VIVEROS TITUS J Jun 04, 2021 09:53
[2021-06-04 10:04] LABS: ALBUMIN 3.8 GM/DL (3.2-4.5); POTASSIUM 4.3 MMOL/L (3.6-5.0)
[2021-06-04 10:05] LABS: INR 0.9 (0.8-1.4); PROTHROMBIN TIME PATIENT 12.8 SEC (12.2-14.7)
[2021-06-04 10:07] LABS: TOTAL PROTEIN 6.9 GM/DL (6.4-8.2)
[2021-06-04 10:09] LABS: BILIRUBIN,TOTAL 0.6 MG/DL (0.1-1.0)
[2021-06-04 10:10] LABS: CREATININE SERUM 0.79 MG/DL (0.60-1.30)
[2021-06-04 10:11] LABS: ABG BASE EXCESS -2.6 MMOL/L (-2.5-2.5); ABG OXYGEN SATURATION 97 % (94-100); ABG PCO2 38 MMHG (35-45); ABG PH 7.37 (7.37-7.43); ABG PO2 92 MMHG (79-93)
[2021-06-04 10:12] LABS: ALLENS TEST YES-POS; INSPIRED O2 2L; PATIENT TEMP 97.6; VENTILATOR NO
[2021-06-04 10:14] LABS: MAGNESIUM 1.5 MG/DL (1.6-2.4)
--- NOTE | 2021-06-04 10:39 | Diagnostic Imaging Report ---
HISTORY: Chest pain. COMPARISON: 02/25/2021. TECHNIQUE: Frontal view of the chest. FINDINGS: Lung volumes are large. There is no pleural effusion or pneumothorax. There is mild thickening along the pleura bilaterally which appears to represent pleural fat when compared to the CT from 03/30/2021 and prior chest x-rays. The cardiac silhouette is normal in size. There are chronic appearing opacities in the lungs bilaterally. No new consolidation is seen. IMPRESSION: Chronic findings in the chest with no new consolidation seen. Dictated by: Dictated on workstation # [id number]
[2021-06-04] MEDS ORDERED: IOHEXOL 350 MG/ML 100 ML (OMNIPAQUE 350) VIAL IV ONE (11:00)
[2021-06-04] MEDS ORDERED: HOLD METFORMIN - RECEIVED CONTRAST 20 ML VIAL IV SCH (11:00)
[2021-06-04] MEDS ORDERED: NS IV 1000 ML 1,000 ML IV SCH (11:00)
[2021-06-04] MEDS ORDERED: CATHETER FLUSH 10 ML SYR IV PRN ×2 (11:00→17:15)
[2021-06-04] MEDS ORDERED: NS 100 ML (IVPB) BAG IV ONE (11:00)
--- NOTE | 2021-06-04 11:54 | Diagnostic Imaging Report ---
PROCEDURE: CT angiography of the chest with contrast. TECHNIQUE: Multiple contiguous axial images were obtained through the chest after uneventful bolus administration of intravenous contrast. 3D reconstructed CTA MIP acquisitions were also performed. Auto Exposure Controls were utilized during the CT exam to meet ALARA standards for radiation dose reduction. INDICATION: Shortness of air and COPD. COMPARISON: Correlation is made with prior CT chest from 03/30/2021. FINDINGS: There is a nodule posterior to the right lobe of the thyroid approximately 16 mm in size compared with 15 mm on prior exam. This could represent a parathyroid nodule. Thoracic aorta does show some ectasia, but no dissection is seen. Pulmonary arteries are prominent, perhaps on the basis of pulmonary arterial hypertension. No definite filling defects are seen to suggest pulmonary emboli. There is no pericardial or pleural fluid identified. There is a linear opacity in the right upper lobe suggestive of scarring or atelectasis. Calcified granuloma is present as well. No noncalcified nodules or masses are seen. The upper abdomen is unremarkable. IMPRESSION: 1. No evidence of pulmonary neoplasm or thoracic aortic dissection. Pulmonary arteries are somewhat prominent, perhaps on the basis of pulmonary hypertension. 2. No acute feature in the chest is identified. 3. Nodule posterior to the right lobe of the thyroid. A parathyroid nodule cannot be entirely excluded. Dictated by: Dictated on workstation # [id number]
[2021-06-04] MEDS ORDERED: ENOXAPARIN 100 MG/1 ML (LOVENOX) SYR SC ONE (12:15)
[2021-06-04] MEDS ORDERED: REGADENOSON 0.4 MG/5 ML SYR (LEXISCAN) IV ONE (14:15)
[2021-06-04] MEDS ORDERED: TIOT18CA2 INH (15:25)
[2021-06-04] MEDS ORDERED: DOCU100C37 PO (15:25)
--- NOTE | 2021-06-04 15:40 | Consultation-Cardiology ---
HPI-Cardiology Cardiology Consultation Date of Consultation 06/04/21 Date of Admission Time Seen by Provider: 12:00 Indication: Chest pain HPI 75-year-old woman history of hypertension, was hospitalized for pneumonia and discharged about 5 days ago, still having some cough and sputum, came to the emergency room for chest pain, described as dull in nature in the retrosternal area associated with sharp pain across her sternum. No palpitation. No syncope. The pain origin initially severe, relieved with nitroglycerin. No further episodes of chest pain reported but has been having some waxing and waning chest pain. Home Medications & Allergies Allergies: Coded Allergies: No Known Drug Allergies (Unverified , 10/28/18) Home Medication List Reviewed: Yes RWE-Zfciai-Hgrmel Hx Patient Social History Employed/Student: retired Smoking Status: Former Smoker Former smoker/When Quit: Jun 23, 1969 2nd Hand Smoke Exposure: Yes Recent Hopitalizations: No Have you traveled recently?: No Alcohol Use?: No Immunizations Up To Date Date of Pneumonia Vaccine: Mar 30, 2018 Date of Influenza Vaccine: Apr 18, 2020 Past Medical History discussed below Family Medical History Family Medical Hx non contributory Review of Systems-General Review of Systems Constitutional: No chills, No diaphoresis EENTM: see HPI, no symptoms reported Respiratory: no symptoms reported, see HPI, cough, dyspnea on exertion Cardiovascular: see HPI, chest pain; No edema, No Hx of Intervention, No palpitations, No syncope, No vascular heart diseas, No other Gastrointestinal: no symptoms reported, see HPI Genitourinary: no symptoms reported, see HPI Musculoskeletal: No back pain; joint pain, muscle stiffness Skin: see HPI; No pruritus, No rash Psychiatric/Neurological: See HPI; Denies Headache, Denies Numbness All Other Systems Reviewed Negative Unless Noted: Yes Reviewed Test Results Reviewed Test Results Lab Laboratory Tests Test 06/04/21 09:40 06/04/21 09:59 Range/Units White Blood Count 9.3 4.3-11.0 10^3/uL Red Blood Count 4.34 4.30-5.52 10^6/uL Hemoglobin 12.2 L 13.3-17.7 g/dL Hematocrit 39 L 40-54 % Mean Corpuscular Volume 91 80-99 fL Mean Corpuscular Hemoglobin 28 25-34 pg Mean Corpuscular Hemoglobin Concent 31 L 32-36 g/dL Red Cell Distribution Width 14.8 H 10.0-14.5 % Platelet Count 263 130-400 10^3/uL Mean Platelet Volume 8.7 L 9.0-12.2 fL Immature Granulocyte % (Auto) 1 % Neutrophils (%) (Auto) 61 42-75 % Lymphocytes (%) (Auto) 27 12-44 % Monocytes (%) (Auto) 9 0-12 % Eosinophils (%) (Auto) 2 0-10 % Basophils (%) (Auto) 0 0-10 % Neutrophils # (Auto) 5.7 1.8-7.8 10^3/uL Lymphocytes # (Auto) 2.5 1.0-4.0 10^3/uL Monocytes # (Auto) 0.8 0.0-1.0 10^3/uL Eosinophils # (Auto) 0.2 0.0-0.3 10^3/uL Basophils # (Auto) 0.0 0.0-0.1 10^3/uL Immature Granulocyte # (Auto) 0.1 0.0-0.1 10^3/uL Prothrombin Time 12.8 12.2-14.7 SEC INR Comment 0.9 0.8-1.4 Activated Partial Thromboplast Time 24 24-35 SEC D-Dimer 0.97 H 0.00-0.49 UG/ML Sodium Level 138 135-145 MMOL/L Potassium Level 4.3 3.6-5.0 MMOL/L Chloride Level 105 98-107 MMOL/L Carbon Dioxide Level 22 21-32 MMOL/L Anion Gap 11 5-14 MMOL/L Blood Urea Nitrogen 8 7-18 MG/DL Creatinine 0.79 0.60-1.30 MG/DL Estimat Glomerular Filtration Rate 95 BUN/Creatinine Ratio 10 Glucose Level 252 H 70-105 MG/DL Calcium Level 9.0 8.5-10.1 MG/DL Corrected Calcium 9.2 8.5-10.1 MG/DL Magnesium Level 1.5 L 1.6-2.4 MG/DL Total Bilirubin 0.6 0.1-1.0 MG/DL Aspartate Amino Transf (AST/SGOT) 18 5-34 U/L Alanine Aminotransferase (ALT/SGPT) 30 0-55 U/L Alkaline Phosphatase 57 40-136 U/L Myoglobin 23.9 10.0-92.0 NG/ML Troponin I < 0.028 <0.028 NG/ML B-Type Natriuretic Peptide 18.1 <100.0 PG/ML Total Protein 6.9 6.4-8.2 GM/DL Albumin 3.8 3.2-4.5 GM/DL Lipase 12 8-78 U/L Blood Gas Puncture Site L RADIAL Blood Gas Patient Temperature 97.6 Arterial Blood pH 7.37 7.37-7.43 Arterial Blood Partial Pressure CO2 38 35-45 MMHG Arterial Blood Partial Pressure O2 92 79-93 MMHG Arterial Blood HCO3 22 L 23-27 MMOL/L Arterial Blood Total CO2 23.0 21.0-31.0 MMOL/L Arterial Blood Oxygen Saturation 97 94-100 % Arterial Blood Base Excess -2.6 L -2.5-2.5 MMOL/L Daren Test YES-POS Blood Gas Ventilator Setting NO Blood Gas Inspired Oxygen 2L Influenza Type A (RT-PCR) Not Detected Not Detecte Influenza Type B (RT-PCR) Not Detected Not Detecte SARS-CoV-2 RNA (RT-PCR) Not Detected Not Detecte Physical Exam Physical Exam Vital Signs Vital Signs - First Documented 06/04/21 09:35 Temp 36.4 Pulse 105 Resp 20 B/P (MAP) 148/85 (106) Pulse Ox 95 O2 Delivery Room Air Capillary Refill : Less Than 3 Seconds Height, Weight, BMI Height: 6'2.00" Weight: 213lbs. 6.0oz. 96.228194sq; 28.09 BMI Method:Stated General Appearance: Mild Distress, Obese Eyes: Bilateral Eye Normal Inspection, Bilateral Eye PERRL, Bilateral Eye EOMI HEENT: PERRL/EOMI, Pharynx Normal, Moist Mucous Membranes Neck: Full Range of Motion, Normal Inspection, Non Tender, Supple Respiratory: No Chest Non Tender (Chest pain reproducible by direct palpation); Lungs Clear, Accessory Muscle Use, Decreased Breath Sounds, Respiratory Distress (Increased work of breathing with some supraclavicular retractions), Other (Oxygen saturation 92 to 94% on room air with rate of 25 to 30 breaths/min) Cardiovascular: Regular Rate, Rhythm, Normal Peripheral Pulses Gastrointestinal: Normal Bowel Sounds, Non Tender, Soft Back: Normal Inspection, No CVA Tenderness, No Vertebral Tenderness Extremity: Normal Capillary Refill, Normal Inspection, No Pedal Edema Neurologic/Psychiatric: Alert, Oriented x3, No Motor/Sensory Deficits Skin: Normal Color, Warm/Dry Lymphatic: No Adenopathy A/P-Cardiology Admission Diagnosis Chest pain Hypertension Hyperlipidemia Diabetes mellitus Assessment/Plan Chest pain nonspecific etiology, resembling angina, relieved by nitroglycerin, EKG did not show any acute abnormality, cardiac enzymes were negative. Plan to evaluate stress test and echocardiogram, patient was started on aspirin, Lovenox. We will continue monitoring Hypertension, restart home medication monitor blood pressure Hyperlipidemia, Maintained on simvastatin, monitor lipids Diabetes mellitus, followed and managed by primary care physician COPD, currently stable. Continue to monitor Gastroesophageal reflux disease, maintained on omeprazole Incidental finding thyroid Nodule on CT scan, defer management to medical team Clinical Quality Measures AMI/AHF: ASA po Prior to arrival: Yes RAHEEL GARCIA MD Jun 04, 2021 15:40
[2021-06-04] MEDS ORDERED: FLUT1BLS3 IH (16:18)
[2021-06-04] MEDS ORDERED: TIOT4MIS5 IH (16:18)
[2021-06-04] MEDS ORDERED: RT-ALBUTEROL SULF 2.5 MG/3 ML PRE-MIX VIAL INH PRN (16:30)
[2021-06-04] MEDS ORDERED: DOCUSATE SODIUM 100 MG (COLACE) CAP PO PRN (16:30)
[2021-06-04] MEDS ORDERED: morphine INJ 4 MG/ML 1 ML (VIAL/SYRINGE) IV PRN (17:15)
[2021-06-04] MEDS ORDERED: ACETAMINOPHEN 325 MG TABLET PO PRN (17:15)
[2021-06-04] MEDS ORDERED: ONDANSETRON 4 MG/2 ML (SDV) Z0FRAN IVP PRN (17:15)
[2021-06-04] MEDS: inSUlin ASPART (NovoLOG) 1 UNIT/0.01 ML (CHARGE PER UNIT) SC SCH (20:45)
[2021-06-04] MEDS ORDERED: inSUlin ASPART (NovoLOG) 1 UNIT/0.01 ML (CHARGE PER UNIT) SC SCH (21:00)
[2021-06-04] MEDS ORDERED: lisINopril 20 MG (PRINIVIL) TABLET PO SCH (21:00)
[2021-06-04] MEDS: RT--FLUTICASONE/SALMETEROL 232-14 (AIRDUO RespiCLICK) IH SCH (21:32)
[2021-06-04] MEDS: CATHETER FLUSH 10 ML SYR IV SCH (22:34)
[2021-06-05] MEDS ORDERED: ENOXAPARIN 100 MG/1 ML (LOVENOX) SYR SC SCH
[2021-06-05 05:22] LABS: BASOPHILS % (AUTO) 0 % (0-10); EOSINOPHILS # (AUTO) 0.2 10^3/uL (0.0-0.3); EOSINOPHILS % (AUTO) 3 % (0-10); HEMATOCRIT 39 % (40-54); HEMOGLOBIN 12.1 g/dL (13.3-17.7); LYMPHOCYTES # (AUTO) 2.2 10^3/uL (1.0-4.0); LYMPHOCYTES % (AUTO) 26 % (12-44); MEAN CORPUSCULAR HEMOGLOBIN 28 pg (25-34); MEAN CORPUSCULAR HGB CONC 31 g/dL (32-36); MEAN CORPUSCULAR VOLUME 89 fL (80-99); MONOCYTES # (AUTO) 0.8 10^3/uL (0.0-1.0); MONOCYTES % (AUTO) 9 % (0-12); NEUTROPHILS # (AUTO) 5.4 10^3/uL (1.8-7.8); NEUTROPHILS % (AUTO) 62 % (42-75); PLATELET COUNT 248 10^3/uL (130-400); WHITE BLOOD COUNT 8.7 10^3/uL (4.3-11.0)
[2021-06-05 05:37] LABS: POTASSIUM 4.5 MMOL/L (3.6-5.0)
[2021-06-05 05:38] LABS: CALCIUM 9.1 MG/DL (8.5-10.1)
[2021-06-05 05:43] LABS: CREATININE SERUM 0.68 MG/DL (0.60-1.30)
[2021-06-05] MEDS: CATHETER FLUSH 10 ML SYR IV SCH (05:55)
[2021-06-05] MEDS: inSUlin ASPART (NovoLOG) 1 UNIT/0.01 ML (CHARGE PER UNIT) SC SCH (05:55)
[2021-06-05] MEDS ORDERED: UMECLIDINIUM BROMIDE (INCRUSE ELLIPTA) 7'S IH SCH (08:00)
[2021-06-05] MEDS ORDERED: REGADENOSON 0.4 MG/5 ML SYR (LEXISCAN) IV ONE (08:02)
[2021-06-05 08:05] VITALS: BP 152/89
[2021-06-05] MEDS ORDERED: ASPIRIN E.C. 81 MG (ECOTRIN) TAB PO SCH (09:00)
[2021-06-05] MEDS ORDERED: SIMvastatin 20 MG (ZOCOR) TAB PO SCH (09:00)
[2021-06-05] MEDS ORDERED: amLODIPine 5 MG (NORVASC) TAB PO SCH (09:00)
[2021-06-05] MEDS ORDERED: PANTOPRAZOLE 20 MG TABLET (PROTONIX) PO SCH (09:00)
--- NOTE | 2021-06-05 10:22 | Short Stay Summary ---
History of Present Illness History of Present Illness Reason for visit/HPI 75 yo male came to ER due to stabbing chest pain for last 3 days intermittently. He denies history of coronary artery disease, but does have hypertension, diabetes and COPD. He quit smoking when he was 24 years old. Date of Admission Jun 04, 2021 at 12:13 Date of Discharge Jun 05, 2021 Time Seen by Provider: 11:00 Attending Physician Stephany Sethi MD Admitting Physician [facility] [place] Consult Cardiology Allergies and Home Medications Allergies Coded Allergies: No Known Drug Allergies (Unverified , 10/28/18) Patient Home Medication List Home Medication List Reviewed: Yes Albuterol Sulfate (Proventil Hfa) 6.7 Gm Hfa.aer.ad, 2 PUFF INH Q6H PRN for SHORTNESS OF BREATH, (Reported) Entered as Reported by: PAULINE EAST on 02/27/21 1027 Last Action: Continued Amlodipine Besylate (Amlodipine Besylate) 5 Mg Tablet, 5 MG PO DAILY, (Reported) Entered as Reported by: NOEMÍ HERNANDEZ on 09/25/15 1220 Last Action: Continued Aspirin (Aspirin EC) 81 Mg Tablet.dr, 81 MG PO DAILY, (Reported) Entered as Reported by: PAULINE EAST on 02/27/21 1027 Last Action: Continued Docusate Sodium (Docusate Sodium) 100 Mg Capsule, 100 MG PO BID PRN for CONSTIPATION-1ST LINE Prescribed by: MÓNICA REECE on 06/04/21 1525 Last Action: Continued Fluticasone/Umeclidin/Vilanter (Trelegy Ellipta 100-62.5-25) 1 Each Blst.w.dev, 1 EACH IH DAILY Prescribed by: MÓNICA REECE on 06/04/21 1618 Last Action: Converted Lisinopril (Lisinopril) 20 Mg Tablet, 20 MG PO HS, (Reported) Entered as Reported by: PAULINE EAST on 02/27/21 1027 Last Action: Continued Metformin HCl (Metformin HCl) 500 Mg Tablet, 1,000 MG PO BID, (Reported) Entered as Reported by: NOEMÍ HERNANDEZ on 09/25/15 1220 Last Action: Held Montelukast Sodium (Montelukast Sodium) 10 Mg Tablet, 10 MG PO DAILY, (Reported) Entered as Reported by: PAULINE EAST on 02/27/211026 Last Action: Held [place]-3 Fatty Acids/Fish Oil (Fish Oil 1,200 mg Softgel) 1 Each Capsule, 1 EACH PO DAILY, (Reported) Entered as Reported by: PAULINE EAST on 02/27/21 1031 Last Action: Held Omeprazole (Omeprazole) 20 Mg Tablet.dr, 20 MG PO DAILY, (Reported) Entered as Reported by: NOEMÍ EHRNANDEZ on 09/25/15 1220 Last Action: Converted Simvastatin (Simvastatin) 20 Mg Tablet, 20 MG PO DAILY, (Reported) Entered as Reported by: NOEMÍ HERNANDEZ on 09/25/15 1220 Last Action: Continued Discontinued Medications Cefdinir (Cefdinir) 300 Mg Capsule, 300 MG PO BID Discontinued Reason: No Longer Taking Prescribed by: ALVINA DE GUZMAN on 02/28/21 0951 Last Action: Discontinued Fluticasone Propionate (Fluticasone Propionate) 16 Gm [place].susp, 1 SPRAY NSEACH DAILY PRN for CONGESTION, (Reported) Discontinued Reason: No Longer Taking Entered as Reported by: PAULINE EAST on 02/27/211026 Last Action: Discontinued Fluticasone/Vilanterol (Breo Ellipta 200-25 Mcg INH) 1 Each Blst.w.dev, 1 PUFF INH DAILY, (Reported) Entered as Reported by: PAULINE EAST on 02/27/211026 Last Action: Held Gabapentin (Gabapentin) 100 Mg Capsule, 100 MG PO DAILY, (Reported) Discontinued Reason: No Longer Taking Entered as Reported by: PAULINE EAST on 02/27/211026 Last Action: Discontinued Ipratropium/Albuterol Sulfate (Iprat-Albut 0.5-3(2.5) mg/3 ml) 3 Ml Ampul.neb, 3 ML NEB Q4H PRN for SHORTNESS OF BREATH, (Reported) Discontinued Reason: No Longer Taking Entered as Reported by: PAULINE EAST on 02/27/211026 Last Action: Discontinued Polyethylene Glycol 3350 (Miralax) 17 Gm Powd.pack, 17 GM PO DAILY PRN for CONSTIPATION-2ND LINE, (Reported) Discontinued Reason: No Longer Taking Entered as Reported by: PAULINE EAST on 9/7/21 1027 Last Action: Discontinued Tiotropium [place] (Spiriva) 1 Inh Aerp, 2 PUFF INH DAILY Prescribed by: MÓNICA REECE on 06/04/21 1525 Last Action: Held Tiotropium [place] (Spiriva Respimat 1.25MCG/ACTUATION) 4 Gm Mist.inhal, 2 PUFF IH DAILY Prescribed by: MÓNICA REECE on 06/04/21 1618 Last Action: Held Past Nbhfhkg-Kkbyac-Cjzowx Hx Patient Social History Employed/Student: retired Smoking Status: Former Smoker Former Smoker, Quit: October 26, 1969 2nd Hand Smoke Exposure: Yes Recent Hopitalizations: No Have you traveled recently?: No Alcohol Use?: No Pt feels they are or have been: No Immunizations Up To Date Date of Pneumonia Vaccine: Mar 30, 2018 Date of Influenza Vaccine: May 13, 2021 Seasonal Allergies Seasonal Allergies: No Surgeries Yes Appendectomy, Orthopedic Respiratory Yes Cardiovascular Yes High Cholesterol, Hypertension Neurological No Reproductive System Sexually Transmitted Disease: No HIV/AIDS: No Genitourinary Yes Kidney Stones Gastrointestinal Yes Gastroesophageal Reflux, Chronic Constipation Musculoskeletal Yes Back Injury, Chronic Back Pain Endocrine History of Endocrine Disorders: Yes Endocrine Disorders: Diabetes, Non-Insulin dep HEENT History of HEENT Disorders: Yes (READING GLASSES, PARTIAL ) Loss of Vision: Bilateral Hearing Impairment: Hard of Hearing Cancer No Psychosocial History of Psychiatric Problem: No Integumentary History of Skin or Integumenta: No Blood Transfusions History of Blood Disorders: No Adverse Reaction to a Blood Tr: No (N/A) Review of Systems Constitutional: see HPI Physical Exam Vital Signs Vital Signs - First Documented 06/04/21 09:35 Temp 36.4 Pulse 105 Resp 20 B/P (MAP) 148/85 (106) Pulse Ox 95 O2 Delivery Room Air Capillary Refill : Less Than 3 Seconds Height, Weight, BMI Height: 6'2.00" Weight: 213lbs. 6.0oz. [id number]; 28.09 BMI Method:Stated General Appearance: No Apparent Distress, WD/WN Respiratory: Lungs Clear, Normal Breath Sounds Cardiovascular: Regular Rate, Rhythm, No Murmur Extremity: No Pedal Edema Neurologic/Psychiatric: Alert, Normal Mood/Affect Skin: Normal Color, Warm/Dry Clinical Quality Measures AMI/AHF: ASA po Prior to arrival: Yes Short Stay Diagnosis Discharge Diagnosis-Short Stay Admission Diagnosis: Chest pain HTN HLD DMII Final Discharge Diagnosis: Chest pain without evidence of ischemia- normal stress test with EF 58% HTN HLD DMII Conclusion Labs Laboratory Tests 06/04/21 16:35: Troponin I < 0.028 06/04/21 21:59: Troponin I < 0.028 06/05/21 04:44: White Blood Count 8.7, Red Blood Count 4.33, Hemoglobin 12.1L, Hematocrit 39L, Mean Corpuscular Volume 89, Mean Corpuscular Hemoglobin 28, Mean Corpuscular Hemoglobin Concent 31L, Red Cell Distribution Width 14.8H, Platelet Count 248, Mean Platelet Volume 9.0, Immature Granulocyte % (Auto) 1, Neutrophils (%) (Auto) 62, Lymphocytes (%) (Auto) 26, Monocytes (%) (Auto) 9, Eosinophils (%) (Auto) 3, Basophils (%) (Auto) 0, Neutrophils # (Auto) 5.4, Lymphocytes # (Auto) 2.2, Monocytes # (Auto) 0.8, Eosinophils # (Auto) 0.2, Basophils # (Auto) 0.0, Immature Granulocyte # (Auto) 0.1, Sodium Level 137, Potassium Level 4.5, Chloride Level 103, Carbon Dioxide Level 23, Anion Gap 11, Blood Urea Nitrogen 9, Creatinine 0.68, Estimat Glomerular Filtration Rate 113, BUN/Creatinine Ratio 13, Glucose Level 144H, Calcium Level 9.1, Triglycerides Level 177H, Cholesterol Level 180, LDL Cholesterol Direct 111, VLDL Cholesterol 35, HDL Cholesterol 46 06/05/21 10:06: Glucometer 147H Conclusion/Plan Pt had unremarkable stress test and negative troponins and was discharged home on home medications. STEPHANY SETHI MD Jun 05, 2021 10:22
--- NOTE | 2021-06-05 10:26 | Cardiology Progress Note ---
Subjective Date Seen by Provider: Jun 05, 2021 Time Seen by Provider: 10:25 Subjective/Events-last exam Patient was seen at bedside, feeling better. No further episodes of chest pain Review of Systems General: No Chills, No Night Sweats, No Fatigue, No Malaise, No Appetite, No Other HEENT: No Head Aches, No Visual Changes, No Eye Pain, No Ear Pain, No Dysphasia, No Sinus Congestion, No Post Nasal Drip, No Sore Throat, No Other Pulmonary: No Dyspnea, No Cough, No Pleuritic Chest Pain, No Other Cardiovascular: No: Chest Pain, Palpitations, Orthopnea, Paroxysmal Noc. Dyspnea, Edema, Lt Headedness, Other Objective-Cardiology Exam Last Set of Vital Signs Vital Signs 06/05/21 08:05 Pulse 100 B/P (MAP) 152/89 (110) Pulse Ox 96 I&O Intake and Output 06/05/21 00:00 Intake Total 1150 ml Output Total 1600 ml Balance -450 ml Intake Oral 1150 ml Output Urine Total 1600 ml Daily Weight Change No General: Alert, Oriented X3, Cooperative HEENT: Atraumatic, PERRLA Neck: Supple, No JVD, No Thyromegaly Lungs: Clear to Auscultation, Normal Air Movement Heart: Regular Rate, Normal S1, Normal S2, No Murmurs Abdomen: Normal Bowel Sounds, Soft, No Tenderness, No Hepatosplenomegaly, No Masses Extremities: No Clubbing, No Cyanosis, No Edema, Normal Pulses, No Tenderness/Swelling Skin: No Rashes, No Breakdown, No Significant Lesion Neuro: Normal Gait, Normal Speech, Strength at 5/5 X4 Ext, Normal Tone, Sensation Intact Psych/Mental Status: Mental Status NL, Mood NL Results Lab Laboratory Tests 06/05/21 04:44 A/P-Cardiology Admission Diagnosis Chest pain Hypertension Hyperlipidemia Diabetes mellitus Assessment/Plan Chest pain nonspecific etiology, resembling angina, relieved by nitroglycerin, EKG did not show any acute abnormality, cardiac enzymes were negative. Stress test was borderline, had mild decrease uptake and the basal to mid anterior septum with subtle reversibility, there is no significant ischemia or infarction. Based on the stress test #1 I have explained to do a cardiac catheterization, patient had multiple risk factors including male age 75, hypertension hyperlipidemia and diabetic. I offered him cardiac catheterization. Patient preferred conservative management and is feeling better. He will follow-up as an outpatient. Hypertension, restart home medication monitor blood pressure Hyperlipidemia, Maintained on simvastatin, monitor lipids Diabetes mellitus, followed and managed by primary care physician COPD, currently stable. Continue to monitor Gastroesophageal reflux disease, maintained on omeprazole Incidental finding thyroid Nodule on CT scan, defer management to medical team Okay for discharge from cardiology standpoint and follow-up as an RAHEEL GARCIA MD Jun 05, 2021 10:26
--- NOTE | 2021-06-05 10:27 | Cardiology Stress Test Report ---
Stress Test Report Date of Procedure/Referring: Date of Procedure: Jun 05, 2021 PCP Cherise Smith MD Admitting Physician [facility] Indications: CP Baseline Blood Pressure: Blood Pressure Systolic: 152 Blood Pressure Diastolic: 89 Baseline Vitals Vital Signs Date Time Temp Pulse Resp B/P (MAP) Pulse Ox O2 Delivery O2 Flow Rate FiO2 06/04/21 09:35 36.4 105 20 148/85 (106) 95 Room Air Baseline EKG: Baseline EKG: NSR Summary After explaining the procedure to the patient, he signed a consent and then brought to the stress nuclear laboratory. Patient received 0.4 mg Lexiscan for stress test, ECG, heart rate and blood pressure were monitored continuously. Resting and stress dose of radio tracer were injected, imaging was acquired and reviewed in short axis, horizontal long axis and vertical long axis views. TID: 1.01 SSS: 5 SDS: 4 EF: 58 1. Patient tolerated Lexiscan well 2. Diaphragmatic attenuation with mild decrease uptake involving the basal to mid anteroseptum with mild reversibility, there is no significant ischemia or infarction on SPECT images 3. Normal left ventricular size, EF 58% RAHEEL GARCIA MD Jun 05, 2021 10:27
[2021-06-05] MEDS: RT--FLUTICASONE/SALMETEROL 232-14 (AIRDUO RespiCLICK) IH SCH (10:34)
--- NOTE | 2021-06-05 10:41 | Discharge Summary ---
Discharge [facility] Discharge Medications Continued Medications: Albuterol Sulfate (Proventil Hfa) 6.7 Gm Hfa.aer.ad 2 PUFF INH Q6H PRN for SHORTNESS OF BREATH, EA Amlodipine Besylate (Amlodipine Besylate) 5 Mg Tablet 5 MG PO DAILY, TAB Aspirin (Aspirin EC) 81 Mg Tablet.dr 81 MG PO DAILY, TAB Docusate Sodium (Docusate Sodium) 100 Mg Capsule 100 MG PO BID PRN for CONSTIPATION-1ST LINE for 30 Days, CAP Fluticasone/Umeclidin/Vilanter (Trelegy Ellipta 100-62.5-25) 1 Each Blst.w.dev 1 EACH IH DAILY for 30 Days Lisinopril (Lisinopril) 20 Mg Tablet 20 MG PO HS, TAB Metformin HCl (Metformin HCl) 500 Mg Tablet 1000 MG PO BID, TAB TAKES 2 (500MG) TABS Montelukast Sodium (Montelukast Sodium) 10 Mg Tablet 10 MG PO DAILY, TAB [place]-3 Fatty Acids/Fish Oil (Fish Oil 1,200 mg Softgel) 1 Each Capsule 1 EACH PO DAILY, CAP Omeprazole (Omeprazole) 20 Mg Tablet.dr 20 MG PO DAILY, TAB Simvastatin (Simvastatin) 20 Mg Tablet 20 MG PO DAILY, TAB Discontinued Medications: Fluticasone/Vilanterol (Breo Ellipta 200-25 Mcg INH) 1 Each Blst.w.dev 1 PUFF INH DAILY, EA Tiotropium [place] (Spiriva) 1 Inh Aerp 2 PUFF INH DAILY for 30 Days, EA Tiotropium [place] (Spiriva Respimat 1.25MCG/ACTUATION) 4 Gm Mist.inhal 2 PUFF IH DAILY for 30 Days, EA Patient Instructions Goal/Follow Up Appt: Follow up with primary provider within a week of discharge. Activity & Diet Discharge Diet: ADA Diet Activity as Tolerated: Yes STEPHANY SETHI MD Jun 05, 2021 10:41
== END 2021-06-05 10:38 | disposition home or self-care (01) ==
LOC: EDUNIT# 09:33 → ER 09:34 → CSD 12:13 → UNDOADMOB 12:13 → CSD 14:41 → UNDODISOB 06-05 11:40
PROVIDERS: ADMIT Family Medicine; ATTEND Family Medicine
DX: R07.2 Precordial pain (principal); E11.9 Type 2 diabetes mellitus without complications; J44.9 Chronic obstructive pulmonary disease, unspecified; I10 Essential (primary) hypertension; E78.00 Pure hypercholesterolemia, unspecified; K21.9 Gastro-esophageal reflux disease without esophagitis; K59.00 Constipation, unspecified; G89.29 Other chronic pain; M54.9 Dorsalgia, unspecified; I25.2 Old myocardial infarction; R00.0 Tachycardia, unspecified; I35.8 Other nonrheumatic aortic valve disorders; E04.1 Nontoxic single thyroid nodule; I24.9 Acute ischemic heart disease, unspecified; Z79.899 Other long term (current) drug therapy; Z79.82 Long term (current) use of aspirin; Z79.84 Long term (current) use of oral hypoglycemic drugs; Z87.891 Personal history of nicotine dependence
CPT/HCPCS: 71045; 71275; 78452; 80048; 80053; 80061; 82805; 82947; 83690; 83735; 83874; 83880; 84484; 85025 ×2; 85379; 85610; 85730; 87636; 93005; 93017; 93041; 93306; 94640 ×2; 99285; A9502; G0378; 36415

== ENCOUNTER 2021-06-25 21:09 | Emergency (ER) | payer MEDICARE, MEDICAID ==
[~2021-06-25 21:09] MED LIST changes: +DOCU100C37 PO; +FLUT1BLS3 IH; +TIOT4MIS5 IH
--- NOTE | 2021-06-25 21:24 | ED Cardiac General ---
History of Present Illness General Stated Complaint: COUGH/CP Source: patient History of Present Illness Date Seen by Provider: Jun 25, 2021 Time Seen by Provider: 21:15 Initial Comments PT ARRIVES VIA EMS FROM HOME C/O CHEST PAIN--HAD A VERY BRIEF EPISODE OF MID UPPER CHEST PAIN, THAT IS GONE NOW. C/O COUGH PT HAS HAD COVID-19 VACCINES X 3, WELL FLU VACCINE FOR THIS SEASON Allergies and Home Medications Allergies Coded Allergies: No Known Drug Allergies (Unverified , 10/28/18) Patient Home Medication List Albuterol Sulfate (Proventil Hfa) 6.7 Gm Hfa.aer.ad, 2 PUFF INH Q6H PRN for SHORTNESS OF BREATH, (Reported) Entered as Reported by: PAULINE EAST on 02/27/21 1027 Amlodipine Besylate (Amlodipine Besylate) 5 Mg Tablet, 5 MG PO DAILY, (Reported) Entered as Reported by: NOEMÍ HERNANDEZ on 09/25/15 1220 Aspirin (Aspirin EC) 81 Mg Tablet.dr, 81 MG PO DAILY, (Reported) Entered as Reported by: PAULINE EAST on 02/27/21 1027 Docusate Sodium (Docusate Sodium) 100 Mg Capsule, 100 MG PO BID PRN for CONSTIPATION-1ST LINE Prescribed by: MÓNICA REECE on 06/04/21 1525 Fluticasone/Umeclidin/Vilanter (Trelegy Ellipta 100-62.5-25) 1 Each Blst.w.dev, 1 EACH IH DAILY Prescribed by: MÓNICA REECE on 06/04/21 1618 Lisinopril (Lisinopril) 20 Mg Tablet, 20 MG PO HS, (Reported) Entered as Reported by: PAULINE EAST on 02/27/21 1027 Metformin HCl (Metformin HCl) 500 Mg Tablet, 1,000 MG PO BID, (Reported) Entered as Reported by: NOEMÍ HERNANDEZ on 09/25/15 1220 Montelukast Sodium (Montelukast Sodium) 10 Mg Tablet, 10 MG PO DAILY, (Reported) Entered as Reported by: PAULINE EAST on 02/27/21 1027 [place]-3 Fatty Acids/Fish Oil (Fish Oil 1,200 mg Softgel) 1 Each Capsule, 1 EACH PO DAILY, (Reported) Entered as Reported by: PAULINE EAST on 02/27/21 1031 Omeprazole (Omeprazole) 20 Mg Tablet.dr, 20 MG PO DAILY, (Reported) Entered as Reported by: NOEMÍ HERNANDEZ on 09/25/15 1220 Simvastatin (Simvastatin) 20 Mg Tablet, 20 MG PO DAILY, (Reported) Entered as Reported by: NOEMÍ HERNANDEZ on 09/25/15 1220 Review of Systems Review of Systems Respiratory: See HPI, Cough Cardiovascular: See HPI, Chest Pain Past Qxlihan-Jndrjb-Kdvgkg Hx Immunizations Up To Date First/Initial COVID19 Vaccinat: 07/26/20 Second COVID19 Vaccination Marcelino: 08/23/20 Third COVID19 Vaccination Date: 05/01/21 Seasonal Allergies Seasonal Allergies: No Past Medical History Surgery/Hospitalization HX: back surgery july Surgeries: Yes Appendectomy, Orthopedic Respiratory: Yes Asthma, Chronic Bronchitis Cardiac: Yes High Cholesterol, Hypertension Neurological: No Sexually Transmitted Disease: No HIV/AIDS: No Genitourinary: Yes Kidney Stones Gastrointestinal: Yes Gastroesophageal Reflux, Chronic Constipation Musculoskeletal: Yes Back Injury, Chronic Back Pain Endocrine: Yes Diabetes, Non-Insulin dep HEENT: Yes (READING GLASSES, PARTIAL ) Loss of Vision: Bilateral Hearing Impairment: Hard of Hearing Cancer: No Psychosocial: No Integumentary: No Blood Disorders: No Adverse Reaction/Blood Tranf: No (N/A) Physical Exam Vital Signs Vital Signs - First Documented Capillary Refill : Height, Weight, BMI Height: 6'2.00" Weight: 213lbs. 6.0oz. 96.528335aj; 28.09 BMI Method:Stated General Appearance: No Apparent Distress, WD/WN, Obese, Other (DOES NOT APPEAR TO BE IN ANY DISCOMFORT OR DISTRESS. TALKS IN FULL SENTENCES, NO COUGH OR DYSPNEA ON EXAM) Focused Exam Lactate Level 06/25/21 21:44: Lactic Acid Level 2.32*H 06/26/21 00:25: Lactic Acid Level 2.02*H Lactic Acid Level Laboratory Tests Test 06/25/21 21:44 06/26/21 00:25 Lactic Acid Level 2.32 MMOL/L (0.50-2.00) *H 2.02 MMOL/L (0.50-2.00) *H Progress/Results/Core Measures Results/Orders Lab Results Laboratory Tests Test 06/25/21:15 06/25/21 21:20 06/25/21 21:44 06/26/21 00:25 Range/Units White Blood Count 9.2 4.3-11.0 10^3/uL Red Blood Count 4.12 L 4.30-5.52 10^6/uL Hemoglobin 11.7 L 13.3-17.7 g/dL Hematocrit 37 L 40-54 % Mean Corpuscular Volume 90 80-99 fL Mean Corpuscular Hemoglobin 28 25-34 pg Mean Corpuscular Hemoglobin Concent 32 32-36 g/dL Red Cell Distribution Width 14.0 10.0-14.5 % Platelet Count 282 130-400 10^3/uL Mean Platelet Volume 8.6 L 9.0-12.2 fL Immature Granulocyte % (Auto) 1 % Neutrophils (%) (Auto) 47 42-75 % Lymphocytes (%) (Auto) 38 12-44 % Monocytes (%) (Auto) 11 0-12 % Eosinophils (%) (Auto) 2 0-10 % Basophils (%) (Auto) 1 0-10 % Neutrophils # (Auto) 4.3 1.8-7.8 10^3/uL Lymphocytes # (Auto) 3.5 1.0-4.0 10^3/uL Monocytes # (Auto) 1.0 0.0-1.0 10^3/uL Eosinophils # (Auto) 0.2 0.0-0.3 10^3/uL Basophils # (Auto) 0.1 0.0-0.1 10^3/uL Immature Granulocyte # (Auto) 0.1 0.0-0.1 10^3/uL Erythrocyte Sedimentation Rate 31 H 0-30 MM/HR Prothrombin Time 12.9 12.2-14.7 SEC INR Comment 0.9 0.8-1.4 Activated Partial Thromboplast Time 26 24-35 SEC D-Dimer 0.78 H 0.00-0.49 UG/ML Sodium Level 136 135-145 MMOL/L Potassium Level 4.3 3.6-5.0 MMOL/L Chloride Level 104 98-107 MMOL/L Carbon Dioxide Level 22 21-32 MMOL/L Anion Gap 10 5-14 MMOL/L Blood Urea Nitrogen 8 7-18 MG/DL Creatinine 0.81 0.60-1.30 MG/DL Estimat Glomerular Filtration Rate 93 BUN/Creatinine Ratio 10 Glucose Level 199 H 70-105 MG/DL Calcium Level 8.6 8.5-10.1 MG/DL Corrected Calcium 8.8 8.5-10.1 MG/DL Magnesium Level 1.6 1.6-2.4 MG/DL Total Bilirubin 0.5 0.1-1.0 MG/DL Aspartate Amino Transf (AST/SGOT) 25 5-34 U/L Alanine Aminotransferase (ALT/SGPT) 39 0-55 U/L Alkaline Phosphatase 71 40-136 U/L Lactate Dehydrogenase 227 H 125-220 U/L Total Creatine Kinase 60 30-200 U/L Creatine Kinase MB 1.2 <6.6 NG/ML Myoglobin 41.3 10.0-92.0 NG/ML Troponin I < 0.028 <0.028 NG/ML C-Reactive Protein High Sensitivity 0.53 H 0.00-0.50 MG/DL B-Type Natriuretic Peptide 11.0 <100.0 PG/ML Total Protein 7.0 6.4-8.2 GM/DL Albumin 3.7 3.2-4.5 GM/DL Procalcitonin 0.04 <0.10 NG/ML Influenza Type A Antigen NEGATIVE NEGATIVE Influenza Type B Antigen NEGATIVE NEGATIVE SARS-CoV-2 RNA (RT-PCR) Negative Negative Urine Color YELLOW Urine Clarity CLEAR Urine pH 6.0 5-9 Urine Specific [place] 1.010 L 1.016-1.022 Urine Protein NEGATIVE NEGATIVE Urine Glucose (UA) NEGATIVE NEGATIVE Urine Ketones NEGATIVE NEGATIVE Urine Nitrite NEGATIVE NEGATIVE Urine Bilirubin NEGATIVE NEGATIVE Urine Urobilinogen 0.2 < = 1.0 MG/DL Urine Leukocyte Esterase NEGATIVE NEGATIVE Urine RBC (Auto) NEGATIVE NEGATIVE Urine RBC NONE /HPF Urine WBC NONE /HPF Urine Squamous Epithelial Cells NONE /HPF Urine Renal Epithelial Cells NONE /HPF Urine Crystals NONE /LPF Urine Bacteria NEGATIVE /HPF Urine Casts NONE /LPF Urine Mucus NEGATIVE /LPF Urine Culture Indicated NO Lactic Acid Level 2.32 *H 2.02 *H 0.50-2.00 MMOL/L Test 06/26/21 01:05 Range/Units Troponin I < 0.028 <0.028 NG/ML My Orders Orders - JANE NORTON DO Ed Iv/Invasive Line Start (06/25/21 21:16) Ekg Tracing (06/25/21 21:16) O2 (06/25/21 21:16) Monitor-Rhythm Ecg Trace Only (06/25/21 21:16) Bnp Adriel (06/25/21 21:16) Cbc With Automated Diff (06/25/21 21:16) Comprehensive Metabolic Panel (06/25/21 21:16) Creatine Kinase (06/25/21 21:16) Creatine Kinase Mb (06/25/21 21:16) Hs C Reactive Protein (06/25/21 21:16) Fibrin Degradation Products (06/25/21 21:16) Lactic Acid Analyzer (06/25/21 21:16) Magnesium (06/25/21 21:16) Procalcitonin (Pct) (06/25/21 21:16) Protime With Inr (06/25/21 21:16) Partial Thromboplastin Time (06/25/21 21:16) Ua Culture If Indicated (06/25/21 21:16) Erythrocyte Sedimentation Rate (06/25/21 21:16) Myoglobin Serum (06/25/21 21:16) Troponin I [place] (06/25/21 21:16) Influenza A & B Antigens (06/25/21 21:16) Chest 1 View, Ap/Pa Only (06/25/21 21:16) Aspirin Chewable Tablet (Baby Aspirin Ch (06/25/21 21:30) LDH (06/25/21 21:16) Covid 19 Inhouse Test (06/25/21 21:16) Isolation Central Supply Req (06/25/21 21:16) Coronavirus Sars-Cov-2 So 2019 (06/25/21 21:59) Ct Angio Chest W (06/25/21 22:45) Ed Iv/Invasive Line Start (06/25/21 22:51) Ns Iv 1000 Ml (Sodium Chloride 0.9%) (06/25/21 23:00) Blood Culture (06/25/21 22:51) Iohexol Injection (Omnipaque 350 Mg/Ml 1 (06/25/21 23:30) Received Contrast (Hold Metformin- Contr (06/25/21 23:30) Sodium Chloride Flush (Catheter Flush Sy (06/25/21 23:30) Ns (Ivpb) (Sodium Chloride 0.9% Ivpb Bag (06/25/21 23:30) Ekg Tracing (06/26/21 01:03) Troponin I [place] (06/26/21 01:03) Medications Given in ED Current Medications Medications Dose Ordered Sig/Tavon Route Start Time Stop Time Status Last Admin Dose Admin Aspirin 324 mg ONCE ONCE PO 06/25/21 21:30 06/25/21 21:31 DC 06/25/21 21:35 324 MG Iohexol 150 ml ONCE ONCE IV 06/25/21 23:30 06/25/21 23:31 DC 06/25/21 23:25 90 ML Sodium Chloride 10 ml NEEDED PRN IV 06/25/21 23:30 06/25/21 23:25 10 ML Sodium Chloride 100 ml ONCE ONCE IV 06/25/21 23:30 06/25/21 23:31 DC 06/25/21 23:25 80 ML Vital Signs/I&O 06/25/21 06/25/21 21:15 21:15 Temp 36.9 Pulse 87 Resp 18 B/P (MAP) 133/85 (101) Pulse Ox 96 96 O2 Delivery Room Air Room Air Initial ECG Impression Date: Jun 25, 2021 Initial ECG Impression Time: 21:09 Initial ECG Rate: 89 Initial ECG Rhythm: Normal Sinus Initial ECG Impression: Nonspecific Changes (INFERIOR Q WAVES) Departure Impression Primary Impression: Chest pain Additional Impression: COPD (chronic obstructive pulmonary disease) Disposition: 01 HOME, SELF-CARE Condition: Stable Departure-Patient Inst. Decision time for Depature: 01:37 Referrals: [facility] (PCP) Primary Care Physician TORRES MIXON APRN (Family) Primary Care Physician RAHEEL GARCIA MD Patient Instructions: COPD Exacerbation, Adult ED, Chest Pain (DC) Add. Discharge Instructions: HOME, REST CONTINUE YOUR CURRENT MEDICATIONS PRESCRIBED FOLLOW UP WITH DR. GARCIA THIS WEEK FOR FURTHER CARE, RETURN TO ER IF WORSE JANE NORTON DO Jun 25, 2021 21:24
[2021-06-25] MEDS ORDERED: ASPIRIN 81 MG CHEW (CHILDREN'S ASA) PO ONE (21:30)
[2021-06-25 21:31] LABS: BASOPHILS # (AUTO) 0.1 10^3/uL (0.0-0.1); BASOPHILS % (AUTO) 1 % (0-10); EOSINOPHILS # (AUTO) 0.2 10^3/uL (0.0-0.3); EOSINOPHILS % (AUTO) 2 % (0-10); HEMATOCRIT 37 % (40-54); HEMOGLOBIN 11.7 g/dL (13.3-17.7); LYMPHOCYTES # (AUTO) 3.5 10^3/uL (1.0-4.0); LYMPHOCYTES % (AUTO) 38 % (12-44); MEAN CORPUSCULAR HEMOGLOBIN 28 pg (25-34); MEAN CORPUSCULAR HGB CONC 32 g/dL (32-36); MEAN CORPUSCULAR VOLUME 90 fL (80-99); MEAN PLATELET VOLUME 8.6 fL (9.0-12.2); MONOCYTES % (AUTO) 11 % (0-12); NEUTROPHILS # (AUTO) 4.3 10^3/uL (1.8-7.8); NEUTROPHILS % (AUTO) 47 % (42-75); PLATELET COUNT 282 10^3/uL (130-400); WHITE BLOOD COUNT 9.2 10^3/uL (4.3-11.0)
[2021-06-25 21:42] LABS: ALBUMIN 3.7 GM/DL (3.2-4.5); CHLORIDE 104 MMOL/L (98-107); POTASSIUM 4.3 MMOL/L (3.6-5.0); SODIUM 136 MMOL/L (135-145)
[2021-06-25 21:43] LABS: CALCIUM 8.6 MG/DL (8.5-10.1)
[2021-06-25 21:44] LABS: GLUCOSE 199 MG/DL (70-105)
[2021-06-25 21:45] LABS: CARBON DIOXIDE 22 MMOL/L (21-32)
[2021-06-25 21:46] LABS: BILIRUBIN,TOTAL 0.5 MG/DL (0.1-1.0)
[2021-06-25 21:48] LABS: ALKALINE PHOSPHATASE 71 U/L (40-136); CREATININE SERUM 0.81 MG/DL (0.60-1.30); GFR ESTIMATED 93
[2021-06-25 21:49] LABS: BUN/CREATININE RATIO 10
[2021-06-25 21:50] LABS: MAGNESIUM 1.6 MG/DL (1.6-2.4)
[2021-06-25 21:51] LABS: ALANINE AMINOTRANSFERASE 39 U/L (0-55); CREATINE KINASE 60 U/L (30-200)
[2021-06-25 21:53] LABS: BILIRUBIN,URINE NEGATIVE (NEGATIVE); CLARITY,URINE CLEAR; COLOR,URINE YELLOW; GLUCOSE, URINE (UA) NEGATIVE (NEGATIVE); KETONES,URINE NEGATIVE (NEGATIVE); LEUKOCYTE ESTERASE ,URINE NEGATIVE (NEGATIVE); NITRITE,URINE NEGATIVE (NEGATIVE); PROTEIN,URINE NEGATIVE (NEGATIVE)
[2021-06-25 21:54] LABS: FIBRIN DEGRADATION PRODUCTS 0.78 UG/ML (0.00-0.49); INR 0.9 (0.8-1.4); PROTHROMBIN TIME PATIENT 12.9 SEC (12.2-14.7)
[2021-06-25 21:55] LABS: ERYTHROCYTE SEDIMENTATION RATE 31 MM/HR (0-30)
[2021-06-25 22:00] LABS: CREATINE KINASE MB 1.2 NG/ML (<6.6)
--- NOTE | 2021-06-25 22:01 | Diagnostic Imaging Report ---
CLINICAL INDICATIONS: Patient with chest pain and cough. EXAM: Portable chest x-ray upright view. COMPARISON: CT angiogram of the chest and chest x-ray dated 06/04/2021. FINDINGS: Stable appearance of the lung anthony with groundglass consolidation of the left lung base which likely correlates to fluid in the inferior minor fissure seen on comparison CT scan. There is no interval lung infiltrate. Bilateral lung pleural thickening with fat density seen which is better noted on the comparison CT scan of the chest. Calcified granulomas in the right lung and left lung base again seen. Pulmonary vasculature and cardiac silhouette are within normal limits. There is no pleural effusion or pneumothorax. There are thoracic spine degenerative spurs. IMPRESSION: Stable chest x-ray exam with no interval lung infiltrate. Dictated by: Dictated on workstation # [id number]
[2021-06-25 22:08] LABS: BACTERIA,URINE NEGATIVE /HPF
[2021-06-25] MEDS ORDERED: NS IV 1000 ML 1,000 ML IV SCH (23:00)
[2021-06-25] MEDS ORDERED: HOLD METFORMIN - RECEIVED CONTRAST 20 ML VIAL IV SCH (23:30)
[2021-06-25] MEDS ORDERED: IOHEXOL 350 MG/ML 150 ML (OMNIPAQUE 350) VIAL IV ONE (23:30)
[2021-06-25] MEDS ORDERED: NS 100 ML (IVPB) BAG IV ONE (23:30)
[2021-06-25] MEDS ORDERED: CATHETER FLUSH 10 ML SYR IV PRN (23:30)
--- NOTE | 2021-06-25 23:42 | Diagnostic Imaging Report ---
CLINICAL INDICATION: Patient complains of chest pain, onset hour prior to arrival. Exam: CT angiogram of the chest performed with 90 cc Omnipaque 350 IV contrast. Coronal and oblique MIP images of the vasculature were created to better evaluate anatomy. Auto Exposure Controls were utilized during the CT exam to meet ALARA standards for radiation dose reduction. Comparison: CT angiogram of the chest dated 06/04/2021. Findings: Stable appearance of both lungs. Stable partially calcified lymph nodes in the right perihilar region, left perihilar region, and mediastinum. Bronchial wall thickening is noted bilaterally and is not significantly changed. Subpleural fat seen bilaterally and insinuating along the inferior aspect of the left major fissure. There is atelectasis and/or scarring involving the posterior aspects of both lungs. Small calcified granuloma involving both lungs again seen. Stable appearance of the abdominal findings. There is no evidence of pulmonary embolism. There is no thoracic aortic aneurysm or dissection. The remainder of this exam is stable. IMPRESSION: 1: Stable CT angiogram of the chest with no evidence of pulmonary embolism. 2: Stable atelectasis or scarring involving the posterior aspects of both lungs. 3: Again noted granulomatous lung disease and partially calcified lymph nodes. 4: The remainder of this exam shows no significant interval change compared to the prior study of comparison. Dictated by: Dictated on workstation # [id number]
[2021-06-26 01:39] VITALS: BP 128/77
== END 2021-06-26 02:39 | disposition home or self-care (01) ==
LOC: EDUNIT# 21:09 → ER 21:12
DX: R07.9 Chest pain, unspecified (principal); J44.9 Chronic obstructive pulmonary disease, unspecified; I10 Essential (primary) hypertension; E66.9 Obesity, unspecified; E11.9 Type 2 diabetes mellitus without complications; K21.9 Gastro-esophageal reflux disease without esophagitis; E78.00 Pure hypercholesterolemia, unspecified; Z68.28 Body mass index [BMI] 28.0-28.9, adult; Z20.822 Contact with and (suspected) exposure to COVID-19; Z79.82 Long term (current) use of aspirin; Z79.84 Long term (current) use of oral hypoglycemic drugs; Z79.899 Other long term (current) drug therapy
CPT/HCPCS: 36415; 71045; 71275; 80053; 81000; 82550; 82553; 83605; 83615; 83735; 83874; 83880; 84145; 84484; 85025; 85379; 85610; 85652; 85730; 86141; 87040; 87635; 87636; 87804; 93005; 93041

== ENCOUNTER → 2021-07-04 | Outpatient (CLI) | payer MEDICARE, MEDICAID | LOC: CARD 12:00 | PROVIDERS: ATTEND Internal Medicine Cardiovascular Disease | DX: I10 Essential (primary) hypertension (principal) | CPT/HCPCS: 93306 ==

== ENCOUNTER 2021-07-08 12:26 | Emergency (ER) | payer MEDICARE, MEDICAID ==
[~2021-07-08] VITALS: Ht 188 cm; Wt 100.2 kg
--- NOTE | 2021-07-08 13:12 | ED GI ---
General Chief Complaint: Abdominal/GI Problems Stated Complaint: LLQ PAIN, Nursing Triage Note: PT AMB TO FT 1 W REPORTS OF SHARP LLQ PT. PT REPORTS HE WAS AT [facility] DIRECT[employer] AND "THEY FELT SOMETHING WEIRD IN MY ABDOMEN SO THEY TOLD ME TO GO TO THE ER FOR AN MRI OR CAT SCAN." PT A&OX4. History of Present Illness Date Seen by Provider: Jul 08, 2021 Time Seen by Provider: 12:40 Initial Comments 75-year-old male presents for LLQ pain and palpable mass in left flank. He went to [facility] this am and was told to proceed to the ED for CT or MRI. He reports intermittent pain in his left lower abdomen for the last few weeks, it was more noticeable today. He is unsure if he ever had a colonoscopy. Only abdominal surgery was appendectomy and for kidney stones. No blood in urine or stool, that he has noticed. Denies n/v/d. Chronic SOA from COPD, with sneezing and coughing normal for him. Denies any falls or trauma to his left chest, abdomen or back. Took his morning medications today and had breakfast. Sees Myra Culver APRN at [facility] for his PCP. Timing/Duration: Intermittent Severity/Quality: Mild Location: LLQ, Flank (left) Radiation: No Radiation Associated Symptoms: Back Pain (chronic, no recent changes.); No Chest Pain, No Heartburn, No Nausea/Vomiting; Shortness of Air (chronic), Swelling/Mass in Abdomen; No Weakness Allergies and Home Medications Allergies Coded Allergies: No Known Drug Allergies (Unverified , 10/28/18) Patient Home Medication List Home Medication List Reviewed: Yes Albuterol Sulfate (Proventil Hfa) 6.7 Gm Hfa.aer.ad, 2 PUFF INH Q6H PRN for SHORTNESS OF BREATH, (Reported) Entered as Reported by: PAULINE EAST on 02/27/21 1027 Amlodipine Besylate (Amlodipine Besylate) 5 Mg Tablet, 5 MG PO DAILY, (Reported) Entered as Reported by: NOEMÍ HERNANDEZ on 09/25/15 1220 Aspirin (Aspirin EC) 81 Mg Tablet.dr, 81 MG PO DAILY, (Reported) Entered as Reported by: PAULINE EAST on 02/27/21 1027 Docusate Sodium (Docusate Sodium) 100 Mg Capsule, 100 MG PO BID PRN for CONSTIPATION-1ST LINE Prescribed by: MÓNICA REECE on 06/04/21 1525 Fluticasone/Umeclidin/Vilanter (Trelegy Ellipta 100-62.5-25) 1 Each Blst.w.dev, 1 EACH IH DAILY Prescribed by: MÓNICA REECE on 06/04/21 1618 Lisinopril (Lisinopril) 20 Mg Tablet, 20 MG PO HS, (Reported) Entered as Reported by: PAULINE EAST on 02/27/21 1027 Metformin HCl (Metformin HCl) 500 Mg Tablet, 1,000 MG PO BID, (Reported) Entered as Reported by: NOEMÍ HERNANDEZ on 09/25/15 1220 Montelukast Sodium (Montelukast Sodium) 10 Mg Tablet, 10 MG PO DAILY, (Reported) Entered as Reported by: PAULINE EAST on 02/27/21 1027 [place]-3 Fatty Acids/Fish Oil (Fish Oil 1,200 mg Softgel) 1 Each Capsule, 1 EACH PO DAILY, (Reported) Entered as Reported by: PAULINE EAST on 02/27/21 1031 Omeprazole (Omeprazole) 20 Mg Tablet.dr, 20 MG PO DAILY, (Reported) Entered as Reported by: NOEMÍ HERNANDEZ on 09/25/15 1220 Simvastatin (Simvastatin) 20 Mg Tablet, 20 MG PO DAILY, (Reported) Entered as Reported by: NOEMÍ HERNANDEZ on 09/25/15 1220 Review of Systems Review of Systems Constitutional: no symptoms reported, see HPI Gastrointestinal: See HPI, Abdominal Pain; Denies Constipated, Denies Diarrhea, Denies Nausea, Denies Poor Appetite, Denies Poor Fluid Intake, Denies Rectal Bleeding, Denies Vomiting Genitourinary: No Symptoms Reported, See HPI All Other Systems Reviewed Negative Unless Noted: Yes Past Nylnujq-Wofefk-Pqgwcc Hx Patient Social History Tobacco Use?: No Smoking Status: Former Smoker Use of E-Cig and/or Vaping dev: No Substance use?: No Alcohol Use?: No Immunizations Up To Date Influenza Vaccine Up-to-Date: Yes; Up-to-Date First/Initial COVID19 Vaccinat: 07/26/20 Second COVID19 Vaccination Marcelino: 08/23/20 Third COVID19 Vaccination Date: 05/01/21 COVID19 Vaccine 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[employer] Seasonal Allergies Seasonal Allergies: No Past Medical History Surgery/Hospitalization HX: back surgery july 2020 Surgeries: Yes Appendectomy, Orthopedic Respiratory: Yes Asthma, Chronic Bronchitis Cardiac: Yes High Cholesterol, Hypertension Neurological: No Sexually Transmitted Disease: No HIV/AIDS: No Genitourinary: Yes Kidney Stones Gastrointestinal: Yes Gastroesophageal Reflux, Chronic Constipation Musculoskeletal: Yes Back Injury, Chronic Back Pain Endocrine: Yes Diabetes, Non-Insulin dep HEENT: Yes (READING GLASSES, PARTIAL ) Loss of Vision: Bilateral Hearing Impairment: Hard of Hearing Cancer: No Psychosocial: No Integumentary: No Blood Disorders: No Adverse Reaction/Blood Tranf: No (N/A) Family Medical History Reviewed Nursing Family Hx Physical Exam Vital Signs Vital Signs - First Documented 07/08/21 12:38 Temp 36.2 Pulse 98 Resp 26 B/P (MAP) 160/106 (124) Pulse Ox 95 O2 Delivery Room Air Capillary Refill : Less Than 3 Seconds Height/Weight/BMI Height: 6'2.00" Weight: 213lbs. 6.0oz. [id number]; 28.00 BMI Method:Stated General Appearance: WD/WN, no apparent distress Respiratory: chest non-tender, lungs clear, normal breath sounds, no respiratory distress Cardiovascular: normal peripheral pulses, regular rate, rhythm Gastrointestinal: normal bowel sounds, soft; No rebound; tenderness (left flank with palpable mass below the CVA), mass Extremities: normal range of motion, non-tender, normal inspection, normal capillary refill Neurologic/Psychiatric: no motor/sensory deficits, alert, normal mood/affect, oriented x 3 Skin: normal color, warm/dry Progress/Results/Core Measures Results/Orders Lab Results Laboratory Tests Test 07/08/21 13:05 07/08/21 13:38 Range/Units White Blood Count 9.0 4.3-11.0 10^3/uL Red Blood Count 4.44 4.30-5.52 10^6/uL Hemoglobin 12.7 L 13.3-17.7 g/dL Hematocrit 40 40-54 % Mean Corpuscular Volume 89 80-99 fL Mean Corpuscular Hemoglobin 29 25-34 pg Mean Corpuscular Hemoglobin Concent 32 32-36 g/dL Red Cell Distribution Width 14.1 10.0-14.5 % Platelet Count 283 130-400 10^3/uL Mean Platelet Volume 8.6 L 9.0-12.2 fL Immature Granulocyte % (Auto) 1 % Neutrophils (%) (Auto) 59 42-75 % Lymphocytes (%) (Auto) 27 12-44 % Monocytes (%) (Auto) 10 0-12 % Eosinophils (%) (Auto) 3 0-10 % Basophils (%) (Auto) 1 0-10 % Neutrophils # (Auto) 5.4 1.8-7.8 10^3/uL Lymphocytes # (Auto) 2.4 1.0-4.0 10^3/uL Monocytes # (Auto) 0.9 0.0-1.0 10^3/uL Eosinophils # (Auto) 0.3 0.0-0.3 10^3/uL Basophils # (Auto) 0.1 0.0-0.1 10^3/uL Immature Granulocyte # (Auto) 0.1 0.0-0.1 10^3/uL Sodium Level 138 135-145 MMOL/L Potassium Level 4.6 3.6-5.0 MMOL/L Chloride Level 104 98-107 MMOL/L Carbon Dioxide Level 22 21-32 MMOL/L Anion Gap 12 5-14 MMOL/L Blood Urea Nitrogen 11 7-18 MG/DL Creatinine 0.70 0.60-1.30 MG/DL Estimat Glomerular Filtration Rate 95 BUN/Creatinine Ratio 16 Glucose Level 155 H 70-105 MG/DL Calcium Level 9.5 8.5-10.1 MG/DL Corrected Calcium 9.3 8.5-10.1 MG/DL Total Bilirubin 0.7 0.1-1.0 MG/DL Aspartate Amino Transf (AST/SGOT) 44 H 5-34 U/L Alanine Aminotransferase (ALT/SGPT) 80 H 0-55 U/L Alkaline Phosphatase 62 40-136 U/L Total Protein 7.7 6.4-8.2 GM/DL Albumin 4.2 3.2-4.5 GM/DL Urine Color YELLOW Urine Clarity CLEAR Urine pH 6.5 5-9 Urine Specific [place] 1.010 L 1.016-1.022 Urine Protein NEGATIVE NEGATIVE Urine Glucose (UA) TRACE H NEGATIVE Urine Ketones NEGATIVE NEGATIVE Urine Nitrite NEGATIVE NEGATIVE Urine Bilirubin NEGATIVE NEGATIVE Urine Urobilinogen 0.2 < = 1.0 MG/DL Urine Leukocyte Esterase NEGATIVE NEGATIVE Urine RBC (Auto) NEGATIVE NEGATIVE Urine RBC NONE /HPF Urine WBC NONE /HPF Urine Squamous Epithelial Cells NONE /HPF Urine Crystals NONE /LPF Urine Bacteria NEGATIVE /HPF Urine Casts NONE /LPF Urine Mucus NEGATIVE /LPF Urine Culture Indicated NO My Orders Orders - IRASEMA SARGENT Ua Culture If Indicated (07/08/21 12:32) Ct Abdomen/Pelvis W (07/08/21 13:03) Cbc With Automated Diff (07/08/21 13:03) Comprehensive Metabolic Panel (07/08/21 13:03) Iohexol Injection (Omnipaque 350 Mg/Ml 1 (07/08/21 14:00) Received Contrast (Hold Metformin- Contr (07/08/21 14:00) Ns (Ivpb) (Sodium Chloride 0.9% Ivpb Bag (07/08/21 14:00) Ibuprofen Tablet (Motrin Tablet) (07/08/21 14:20) Medications Given in ED Current Medications Medications Dose Ordered Sig/Tavon Route Start Time Stop Time Status Last Admin Dose Admin Iohexol 100 ml ONCE ONCE IV 07/08/21 14:00 07/08/21 14:01 DC 07/08/21 13:55 100 ML Sodium Chloride 100 ml ONCE ONCE IV 07/08/21 14:00 07/08/21 14:01 DC 07/08/21 13:55 95 ML Vital Signs/I&O 07/08/21 07/08/21 12:38 14:38 Temp 36.2 Pulse 98 85 Resp 26 22 B/P (MAP) 160/106 (124) 145/90 Pulse Ox 95 95 O2 Delivery Room Air Room Air Blood Pressure Mean: 124 Diagnostic Imaging Diagonstic Imaging: CT Plain Films/CT/US/NM/MRI: abdomen, pelvis Comments NAME: EMELY ELLIS [facility] REC#: [id number] PT STATUS: REG ER : 1945 PHYSICIAN: IRASEMA SARGENT ADMIT DATE: 07/08/21/ER Draft Date of Exam:07/08/21 CT ABDOMEN/PELVIS W EXAMINATION: CT abdomen and pelvis with intravenous contrast. TECHNIQUE: Multiple contiguous axial images were obtained through the abdomen and pelvis after the uneventful administration of intravenous contrast. All CT scans use one or more of the following dose optimizing techniques: automated exposure control, MA and/or KvP adjustment based on patient size and exam type or iterative reconstruction. HISTORY: Left flank pain COMPARISON: 10/10/2018 FINDINGS: Limited views of the lower thorax are unremarkable. The liver is normal without focal lesion. There is no biliary ductal dilation. Gallbladder is surgically absent. Pancreas is normal. Spleen is normal. Adrenal glands are normal. There are simple cysts in the kidneys. No suspicious renal lesions. There is no hydronephrosis. Urinary bladder is normal. Bowel is normal in caliber without obstruction or inflammation. There is diverticulosis without diverticulitis. No free fluid or air. No abdominal or pelvic lymphadenopathy. Aorta is normal in caliber without aneurysm. There are no suspicious osseus lesions. There is no lumbar spine fusion and decompression. IMPRESSION: 1. No acute abnormality in the abdomen or pelvis. Dictated on workstation # [id number] Dict: 07/08/21 1357 Trans: 07/08/21 1401 CV [id number] Interpreted by: HARDIK CASTAÑEDA MD Electronically signed by: Reviewed: Reviewed by Me Departure Impression Primary Impression: Left flank pain Additional Impressions: Pleurisy Costochondral pain Disposition: HOME, SELF-CARE Condition: Improved Departure-Patient Inst. Decision time for Depature: 13:55 [place]: [facility] [place] Primary Care Physician MYRA CULVER APRN (Family) Primary Care Physician Patient Instructions: Costochondritis (DC), Pleuritic Chest Pain (DC) Add. Discharge Instructions: Take ibuprofen 600 mg every 8 hours as needed for discomfort. Use warm hot washcloths and area of tenderness as needed. Follow-up with Myra at [facility] if symptoms are not improving or worsen. Return to the emergency department for new, urgent healthcare needs. All discharge instructions reviewed with patient and/or family. Voiced understanding. Copy Copies To 1: MÓNICA VIVEROS AMY ARNP Jul 08, 2021 13:12
[2021-07-08 13:16] LABS: BASOPHILS # (AUTO) 0.1 10^3/uL (0.0-0.1); BASOPHILS % (AUTO) 1 % (0-10); EOSINOPHILS # (AUTO) 0.3 10^3/uL (0.0-0.3); EOSINOPHILS % (AUTO) 3 % (0-10); HEMATOCRIT 40 % (40-54); HEMOGLOBIN 12.7 g/dL (13.3-17.7); LYMPHOCYTES # (AUTO) 2.4 10^3/uL (1.0-4.0); LYMPHOCYTES % (AUTO) 27 % (12-44); MEAN CORPUSCULAR HEMOGLOBIN 29 pg (25-34); MEAN CORPUSCULAR HGB CONC 32 g/dL (32-36); MEAN CORPUSCULAR VOLUME 89 fL (80-99); MEAN PLATELET VOLUME 8.6 fL (9.0-12.2); MONOCYTES # (AUTO) 0.9 10^3/uL (0.0-1.0); MONOCYTES % (AUTO) 10 % (0-12); NEUTROPHILS # (AUTO) 5.4 10^3/uL (1.8-7.8); NEUTROPHILS % (AUTO) 59 % (42-75); PLATELET COUNT 283 10^3/uL (130-400)
[2021-07-08 13:30] LABS: ALBUMIN 4.2 GM/DL (3.2-4.5); POTASSIUM 4.6 MMOL/L (3.6-5.0)
[2021-07-08 13:31] LABS: CALCIUM 9.5 MG/DL (8.5-10.1)
[2021-07-08 13:33] LABS: TOTAL PROTEIN 7.7 GM/DL (6.4-8.2)
[2021-07-08 13:34] LABS: BILIRUBIN,TOTAL 0.7 MG/DL (0.1-1.0)
[2021-07-08 13:36] LABS: CREATININE SERUM 0.7 MG/DL (0.60-1.30)
[2021-07-08] MEDS ORDERED: HOLD METFORMIN - RECEIVED CONTRAST 20 ML VIAL IV SCH (14:00)
[2021-07-08] MEDS ORDERED: NS 100 ML (IVPB) BAG IV ONE (14:00)
[2021-07-08] MEDS ORDERED: IOHEXOL 350 MG/ML 100 ML (OMNIPAQUE 350) VIAL IV ONE (14:00)
--- NOTE | 2021-07-08 14:01 | Diagnostic Imaging Report ---
EXAMINATION: CT abdomen and pelvis with intravenous contrast. TECHNIQUE: Multiple contiguous axial images were obtained through the abdomen and pelvis after the uneventful administration of intravenous contrast. All CT scans use one or more of the following dose optimizing techniques: automated exposure control, MA and/or KvP adjustment based on patient size and exam type or iterative reconstruction. HISTORY: Left flank pain COMPARISON: 10/10/2018 FINDINGS: Limited views of the lower thorax are unremarkable. The liver is normal without focal lesion. There is no biliary ductal dilation. Gallbladder is surgically absent. Pancreas is normal. Spleen is normal. Adrenal glands are normal. There are simple cysts in the kidneys. No suspicious renal lesions. There is no hydronephrosis. Urinary bladder is normal. Bowel is normal in caliber without obstruction or inflammation. There is diverticulosis without diverticulitis. No free fluid or air. No abdominal or pelvic lymphadenopathy. Aorta is normal in caliber without aneurysm. There are no suspicious osseus lesions. There is no lumbar spine fusion and decompression. IMPRESSION: 1. No acute abnormality in the abdomen or pelvis. Dictated by: Dictated on workstation # [id number]
[2021-07-08 14:03] LABS: BILIRUBIN,URINE NEGATIVE (NEGATIVE); CLARITY,URINE CLEAR; COLOR,URINE YELLOW; GLUCOSE, URINE (UA) TRACE (NEGATIVE); KETONES,URINE NEGATIVE (NEGATIVE); LEUKOCYTE ESTERASE ,URINE NEGATIVE (NEGATIVE); NITRITE,URINE NEGATIVE (NEGATIVE); PH,URINE 6.5 (5-9); PROTEIN,URINE NEGATIVE (NEGATIVE)
[2021-07-08 14:12] LABS: BACTERIA,URINE NEGATIVE /HPF
[2021-07-08] MEDS ORDERED: IBUPROFEN TABLET 200 MG TAB PO STA (14:20)
[2021-07-08 14:38] VITALS: BP 145/90
== END 2021-07-08 14:38 | disposition home or self-care (01) ==
LOC: EDUNIT# 12:26 → ER 12:28
DX: R10.32 Left lower quadrant pain (principal); R09.1 Pleurisy; R07.1 Chest pain on breathing
CPT/HCPCS: 36415; 74177; 80053; 81000; 85025

== ENCOUNTER 2021-07-26 14:32 | Emergency (ER) | payer MEDICARE, MEDICAID ==
[~2021-07-26] VITALS: Ht 187 cm; Wt 100.2 kg
[2021-07-26 15:08] LABS: BASOPHILS # (AUTO) 0.1 10^3/uL (0.0-0.1); BASOPHILS % (AUTO) 1 % (0-10); EOSINOPHILS # (AUTO) 0.2 10^3/uL (0.0-0.3); EOSINOPHILS % (AUTO) 3 % (0-10); HEMATOCRIT 39 % (40-54); HEMOGLOBIN 12.3 g/dL (13.3-17.7); LYMPHOCYTES # (AUTO) 1.9 X 10^3 (1.0-4.0); LYMPHOCYTES % (AUTO) 22 % (12-44); MEAN CORPUSCULAR HEMOGLOBIN 29 pg (25-34); MEAN CORPUSCULAR HGB CONC 32 g/dL (32-36); MEAN CORPUSCULAR VOLUME 90 fL (80-99); MEAN PLATELET VOLUME 8.6 fL (9.0-12.2); MONOCYTES # (AUTO) 0.8 X 10^3 (0.0-1.0); MONOCYTES % (AUTO) 10 % (0-12); NEUTROPHILS # (AUTO) 5.7 X 10^3 (1.8-7.8); NEUTROPHILS % (AUTO) 65 % (42-75); PLATELET COUNT 279 10^3/uL (130-400); WHITE BLOOD COUNT 8.7 10^3/uL (4.3-11.0)
[2021-07-26 15:13] LABS: ALBUMIN 4.2 GM/DL (3.2-4.5)
[2021-07-26 15:14] LABS: POTASSIUM 4.4 MMOL/L (3.6-5.0)
[2021-07-26 15:15] LABS: CALCIUM 9.2 MG/DL (8.5-10.1)
[2021-07-26 15:16] LABS: INR 0.9 (0.8-1.4); PROTHROMBIN TIME PATIENT 12.8 SEC (12.2-14.7); TOTAL PROTEIN 7.8 GM/DL (6.4-8.2)
[2021-07-26 15:18] LABS: BILIRUBIN,TOTAL 0.7 MG/DL (0.1-1.0)
[2021-07-26 15:20] LABS: CREATININE SERUM 0.75 MG/DL (0.60-1.30)
[2021-07-26 15:23] LABS: MAGNESIUM 1.7 MG/DL (1.6-2.4)
--- NOTE | 2021-07-26 15:26 | Diagnostic Imaging Report ---
INDICATION: Cough and shortness of breath. TIME OF EXAM: 3:17 PM. COMPARISON: Correlation is made with prior chest from 06/25/2021. Heart size is normal. The right lung appears clear. There is questionable infiltrate in the left midlung field. Otherwise the left lung is clear. No effusion or pneumothorax is seen. IMPRESSION: Minimal infiltrate in left midlung. Study is otherwise unremarkable. Dictated by: Dictated on workstation # [id number]
[2021-07-26] MEDS ORDERED: LACTATED RINGERS 1,000 ML IV ONE (16:15)
[2021-07-26] MEDS ORDERED: HOLD METFORMIN - RECEIVED CONTRAST 20 ML VIAL IV SCH (16:30)
[2021-07-26] MEDS ORDERED: CATHETER FLUSH 10 ML SYR IV PRN (16:30)
[2021-07-26] MEDS ORDERED: NS 100 ML (IVPB) BAG IV ONE (16:30)
[2021-07-26] MEDS ORDERED: IOHEXOL 350 MG/ML 100 ML (OMNIPAQUE 350) VIAL IV ONE (16:30)
--- NOTE | 2021-07-26 17:01 | Diagnostic Imaging Report ---
PROCEDURE: CT angiography of the chest with contrast. TECHNIQUE: Multiple contiguous axial images were obtained through the chest after uneventful bolus administration of intravenous contrast. 3D reconstructed CTA MIP acquisitions were also performed. Auto Exposure Controls were utilized during the CT exam to meet ALARA standards for radiation dose reduction. INDICATION: Cough. Shortness of air. Close COVID contact. COMPARISON: 06/25/2021. FINDINGS: There is no intraluminal filling defect within the pulmonary arteries to the first subsegmental division. Thoracic aorta shows mild scattered calcified atherosclerosis, but is otherwise normal in size and contour. By NASCET criteria, there is no focal significant stenosis. There is no evidence of dissection or aneurysm. Heart size is within normal limits. There is no large pericardial effusion. Several borderline prominent and partially calcified mediastinal and bilateral hilar lymph nodes are identified consistent with underlying granulomatous disease. No hilar adenopathy is seen. Evaluation of the lung anthony demonstrates multiple scattered benign calcified granulomas as well. There is no focal consolidation, large effusion, nor pneumothorax. There is mild image degradation secondary to motion artifact, but no suspicious pulmonary nodules or masses are seen. Osseous structures show age-related degenerative changes. No lytic or blastic bony lesions are seen. Included portions of the upper abdomen show no additional acute abnormalities. IMPRESSION: 1. No acute pulmonary embolus to the first subsegmental division of the pulmonary arteries. 2. Findings consistent with prior granulomatous disease. 3. No new acute cardiopulmonary process. Dictated by: Dictated on workstation # [id number]
[2021-07-26] MEDS ORDERED: MOLN200C PO (17:31)
--- NOTE | 2021-07-26 17:31 | ED General ---
General Chief Complaint: COVID19 Suspect/Confirmed Stated Complaint: COUGH,SOB Nursing Triage Note: Patient brought to ER room 9 via [facility] from home with c/o cough that began on friday. Pt states he began to feel short of breath this morning. His tested positive for covid on friday. Pt states he was also swabbed on friday but never found out his results. Pt denies any fever, chills, or vomiting. He has had intermittent diarrhea. Source of Information: Patient Exam Limitations: No Limitations History of Present Illness Date Seen by Provider: Jul 26, 2021 Allergies and Home Medications Allergies Coded Allergies: No Known Drug Allergies (Unverified , 10/28/18) Patient Home Medication List Albuterol Sulfate (Proventil Hfa) 6.7 Gm Hfa.aer.ad, 2 PUFF INH Q6H PRN for SHORTNESS OF BREATH, (Reported) Entered as Reported by: PAULINE EAST on 02/27/21 1027 Amlodipine Besylate (Amlodipine Besylate) 5 Mg Tablet, 5 MG PO DAILY, (Reported) Entered as Reported by: NOEMÍ HERNANDEZ on 09/25/15 1220 Aspirin (Aspirin EC) 81 Mg Tablet.dr, 81 MG PO DAILY, (Reported) Entered as Reported by: PAULINE EAST on 02/27/21 1027 Docusate Sodium (Docusate Sodium) 100 Mg Capsule, 100 MG PO BID PRN for CONSTIPATION-1ST LINE Prescribed by: MÓNICA REECE on 06/04/21 1525 Fluticasone/Umeclidin/Vilanter (Trelegy Ellipta 100-62.5-25) 1 Each Blst.w.dev, 1 EACH IH DAILY Prescribed by: MÓNICA REECE on 06/04/21 1618 Lisinopril (Lisinopril) 20 Mg Tablet, 20 MG PO HS, (Reported) Entered as Reported by: PAULINE EAST on 02/27/21 1027 Metformin HCl (Metformin HCl) 500 Mg Tablet, 1,000 MG PO BID, (Reported) Entered as Reported by: NOEMÍ HERNANDEZ on 09/25/15 1220 Molnupiravir (Molnupiravir (Eua)) 200 Mg Capsule, 800 MG PO BID Prescribed by: TYREE LYONS on 07/26/21 1731 Montelukast Sodium (Montelukast Sodium) 10 Mg Tablet, 10 MG PO DAILY, (Reported) Entered as Reported by: PAULINE EAST on 02/27/21 1027 [place]-3 Fatty Acids/Fish Oil (Fish Oil 1,200 mg Softgel) 1 Each Capsule, 1 EACH PO DAILY, (Reported) Entered as Reported by: PAULINE EAST on 02/27/21 1031 Omeprazole (Omeprazole) 20 Mg Tablet.dr, 20 MG PO DAILY, (Reported) Entered as Reported by: NOEMÍ HERNANDEZ on 09/25/15 1220 Simvastatin (Simvastatin) 20 Mg Tablet, 20 MG PO DAILY, (Reported) Entered as Reported by: NOEMÍ HERNANDEZ on 09/25/15 1220 Past Ytjprhn-Hlmluv-Fceqkz Hx Patient Social History Tobacco Use?: No Smoking Status: Former Smoker Smokeless Tobacco Frequency: Former User Use of E-Cig and/or Vaping dev: No Use of E-Cig and/or Vaping Alan: Never a User Substance use?: No Alcohol Use?: No Pt feels they are or have been: No Immunizations Up To Date Influenza Vaccine Up-to-Date: Yes; Up-to-Date First/Initial COVID19 Vaccinat: 2020 Second COVID19 Vaccination Marcelino: 2020 Third COVID19 Vaccination Date: 05/01/21 COVID19 Vaccine Plant Etiologist: Michael Seasonal Allergies Seasonal Allergies: No Past Medical History Surgery/Hospitalization HX: History of COPD, Asthma, HTN Surgeries: Yes Appendectomy, Orthopedic Respiratory: Yes Asthma, Chronic Bronchitis Cardiac: Yes High Cholesterol, Hypertension Neurological: No Sexually Transmitted Disease: No HIV/AIDS: No Genitourinary: Yes Kidney Stones Gastrointestinal: Yes Gastroesophageal Reflux, Chronic Constipation Musculoskeletal: Yes Back Injury, Chronic Back Pain Endocrine: Yes Diabetes, Non-Insulin dep HEENT: Yes ([place] GLASSES, PARTIAL ) Loss of Vision: Bilateral Hearing Impairment: Hard of Hearing Cancer: No Psychosocial: No Integumentary: No Blood Disorders: No Adverse Reaction/Blood Tranf: No (N/A) Physical Exam Vital Signs Vital Signs - First Documented 07/26/21 14:32 Temp 36.0 Pulse 115 Resp 20 B/P (MAP) 154/102 (119) Pulse Ox 96 O2 Delivery Room Air Capillary Refill : Less Than 3 Seconds Height, Weight, BMI Height: 6'2.00" Weight: 213lbs. 6.0oz. 96.915502vk; 28.00 BMI Method:Stated Progress/Results/Core Measures Suspected Sepsis SIRS Temperature: Pulse: 115 Respiratory Rate: 20 Laboratory Tests 07/26/21 14:56: White Blood Count 8.7 Blood Pressure 154 /102 Mean: 119 Laboratory Tests 07/26/21 14:56: Creatinine 0.75, INR Comment 0.9, Platelet Count 279, Total Bilirubin 0.7 Results/Orders Lab Results Laboratory Tests Test 07/26/21 14:56 07/26/21 14:59 Range/Units White Blood Count 8.7 4.3-11.0 10^3/uL Red Blood Count 4.31 4.30-5.52 10^6/uL Hemoglobin 12.3 L 13.3-17.7 g/dL Hematocrit 39 L 40-54 % Mean Corpuscular Volume 90 80-99 fL Mean Corpuscular Hemoglobin 29 25-34 pg Mean Corpuscular Hemoglobin Concent 32 32-36 g/dL Red Cell Distribution Width 14.1 10.0-14.5 % Platelet Count 279 130-400 10^3/uL Mean Platelet Volume 8.6 L 9.0-12.2 fL Immature Granulocyte % (Auto) 0 % Neutrophils (%) (Auto) 65 42-75 % Lymphocytes (%) (Auto) 22 12-44 % Monocytes (%) (Auto) 10 0-12 % Eosinophils (%) (Auto) 3 0-10 % Basophils (%) (Auto) 1 0-10 % Neutrophils # (Auto) 5.7 1.8-7.8 X 10^3 Lymphocytes # (Auto) 1.9 1.0-4.0 X 10^3 Monocytes # (Auto) 0.8 0.0-1.0 X 10^3 Eosinophils # (Auto) 0.2 0.0-0.3 10^3/uL Basophils # (Auto) 0.1 0.0-0.1 10^3/uL Immature Granulocyte # (Auto) 0.0 0.0-0.1 10^3/uL Prothrombin Time 12.8 12.2-14.7 SEC INR Comment 0.9 0.8-1.4 Activated Partial Thromboplast Time 27 24-35 SEC D-Dimer 0.64 H 0.00-0.49 UG/ML Sodium Level 137 135-145 MMOL/L Potassium Level 4.4 3.6-5.0 MMOL/L Chloride Level 105 98-107 MMOL/L Carbon Dioxide Level 21 21-32 MMOL/L Anion Gap 11 5-14 MMOL/L Blood Urea Nitrogen 14 7-18 MG/DL Creatinine 0.75 0.60-1.30 MG/DL Estimat Glomerular Filtration Rate 94 BUN/Creatinine Ratio 19 Glucose Level 173 H 70-105 MG/DL Calcium Level 9.2 8.5-10.1 MG/DL Corrected Calcium 9.0 8.5-10.1 MG/DL Magnesium Level 1.7 1.6-2.4 MG/DL Total Bilirubin 0.7 0.1-1.0 MG/DL Aspartate Amino Transf (AST/SGOT) 57 H 5-34 U/L Alanine Aminotransferase (ALT/SGPT) 125 H 0-55 U/L Alkaline Phosphatase 80 40-136 U/L Myoglobin 38.0 10.0-92.0 NG/ML Troponin I < 0.028 <0.028 NG/ML Total Protein 7.8 6.4-8.2 GM/DL Albumin 4.2 3.2-4.5 GM/DL Influenza Type A Antigen NEGATIVE NEGATIVE Influenza Type B Antigen NEGATIVE NEGATIVE SARS-CoV-2 RNA (RT-PCR) Detected Negative My Orders Lisandra - TYREE TELLES MD Cbc With Automated Diff (07/26/21 15:01) Magnesium (07/26/21 15:01) Chest 1 View, Ap/Pa Only (07/26/21 15:01) Ekg Tracing (07/26/21 15:01) Comprehensive Metabolic Panel (07/26/21 15:01) Myoglobin Serum (07/26/21 15:01) Protime With Inr (07/26/21 15:01) Partial Thromboplastin Time (07/26/21 15:01) O2 (07/26/21 15:01) Monitor-Rhythm Ecg Trace Only (07/26/21 15:01) Lipid Panel (07/27/21 06:00) Ed Iv/Invasive Line Start (07/26/21 15:01) Fibrin Degradation Products (07/26/21 15:01) Troponin I [place] (07/26/21 15:01) Covid 19 Inhouse Test (07/26/21 15:02) Influenza A & B Antigens (07/26/21 15:02) Ct Angio Chest W (07/26/21 16:05) Lactated Ringers (Lr 1000 Ml Iv Solution (07/26/21 16:15) Iohexol Injection (Omnipaque 350 Mg/Ml 1 (07/26/21 16:30) Received Contrast (Hold Metformin- Contr (07/26/21 16:30) Sodium Chloride Flush (Catheter Flush Sy (07/26/21 16:30) Ns (Ivpb) (Sodium Chloride 0.9% Ivpb Bag (07/26/21 16:30) Medications Given in ED Current Medications Medications Dose Ordered Sig/Tavon Route Start Time Stop Time Status Last Admin Dose Admin Iohexol 82 ml ONCE ONCE IV 07/26/21 16:30 07/26/21 16:31 DC 07/26/21 16:49 82 ML Lactated Ringer's 1,000 ml @ 0 mls/hr Q0M ONCE IV 07/26/21 16:15 07/26/21 16:16 DC 07/26/21 16:12 1,000 MLS/HR Sodium Chloride 10 ml NEEDED PRN IV 07/26/21 16:30 07/26/21 16:49 10 ML Sodium Chloride 100 ml ONCE ONCE IV 07/26/21 16:30 07/26/21 16:31 DC 07/26/21 16:49 70 ML Vital Signs/I&O 07/26/21 14:32 Temp 36.0 Pulse 115 Resp 20 B/P (MAP) 154/102 (119) Pulse Ox 96 O2 Delivery Room Air Capillary Refill : Less Than 3 Seconds Blood Pressure Mean: 119 ECG Initial ECG Impression Date: Jul 26, 2021 Initial ECG Impression Time: 15:05 Initial ECG Rate: 108 Initial ECG Rhythm: S.Tach Comment Sinus tachycardia with no ST elevation or depression. No abnormal intervals or axis deviation Diagnostic Imaging Diagonstic Imaging: Xray Plain Films/CT/US/NM/MRI: chest Comments NAME: EMELY ELLIS [employer] MED REC#: [id number] PT STATUS: REG ER : 1945 PHYSICIAN: TYREE TELLES MD ADMIT DATE: 07/26/21/ER Signed Date of Exam:07/26/21 CHEST 1 VIEW, AP/PA ONLY INDICATION: Cough and shortness of breath. TIME OF EXAM: 3:17 PM. COMPARISON: Correlation is made with prior chest from 06/25/2021. Heart size is normal. The right lung appears clear. There is questionable infiltrate in the left midlung field. Otherwise the left lung is clear. No effusion or pneumothorax is seen. IMPRESSION: Minimal infiltrate in left midlung. Study is otherwise unremarkable. Dictated by: Dictated on workstation # [id number] Dict: 07/26/21 1518 Trans: 07/26/21 1525 PJE [id number] Interpreted by: SABINE ABRAMS MD Electronically signed by: SABINE ABRAMS MD 07/26/21 1525 Diagonstic Imaging: CT Plain Films/CT/US/NM/MRI: chest Comments NAME: EMELY ELLIS MED REC#: [id number] PT STATUS: REG ER : 1945 PHYSICIAN: TYREE TELLES MD ADMIT DATE: 07/26/21/ER Draft Date of Exam:07/26/21 CT ANGIO CHEST W PROCEDURE: CT angiography of the chest with contrast. TECHNIQUE: Multiple contiguous axial images were obtained through the chest after uneventful bolus administration of intravenous contrast. 3D reconstructed CTA MIP acquisitions were also performed. Auto Exposure Controls were utilized during the CT exam to meet ALARA standards for radiation dose reduction. INDICATION: Cough. Shortness of air. Close COVID contact. COMPARISON: 06/25/2021. FINDINGS: There is no intraluminal filling defect within the pulmonary arteries to the first subsegmental division. Thoracic aorta shows mild scattered calcified atherosclerosis, but is otherwise normal in size and contour. By NASCET criteria, there is no focal significant stenosis. There is no evidence of dissection or aneurysm. Heart size is within normal limits. There is no large pericardial effusion. Several borderline prominent and partially calcified mediastinal and bilateral hilar lymph nodes are identified consistent with underlying granulomatous disease. No hilar adenopathy is seen. Evaluation of the lung anthony demonstrates multiple scattered benign calcified granulomas as well. There is no focal consolidation, large effusion, nor pneumothorax. There is mild image degradation secondary to motion artifact, but no suspicious pulmonary nodules or masses are seen. Osseous structures show age-related degenerative changes. No lytic or blastic bony lesions are seen. Included portions of the upper abdomen show no additional acute abnormalities. IMPRESSION: 1. No acute pulmonary embolus to the first subsegmental division of the pulmonary arteries. 2. Findings consistent with prior granulomatous disease. 3. No new acute cardiopulmonary process. Dictated on workstation # [id number] Dict: 07/26/21 1653 Trans: 07/26/21 1700 [id number] Interpreted by: ANNIE GALARZA MD Departure Impression Primary Impression: COVID-19 Additional Impression: Chest pain Qualified Codes: R07.9 - Chest pain, unspecified Disposition: HOME, SELF-CARE Condition: Stable Departure-Patient Inst. Decision time for Depature: 17:48 Referrals: [facility] (PCP) Primary Care Physician ELIECER SANCHEZ APRN (Family) Primary Care Physician Patient Instructions: COVID-19 ED, Chest Pain, Molnupiravir Add. Discharge Instructions: Drink plenty of clear liquids to stay well-hydrated. Stay active by changing positions often and walking around your house frequently. Check your oxygen saturations frequently, especially if you are short of breath. If you have repeated measurements below 92% or any measurements below 90%, please return to care in the ER. Eat a well-balanced diet and take a multivitamin. Fill your prescription for Molnupiravir at the [facility] at the [facility] of [facility] on [facility]. Start this medication as soon as possible. Please read to the attached information before you start the medication. Remain in quarantine per health department and/or CDC guidelines. Call with questions or concerns. Return to the ER if you are having decompensation of your condition. All discharge instructions reviewed with patient and/or family. Voiced understanding. Scripts Molnupiravir (Molnupiravir (Eua)) 200 Mg Capsule 800 MG PO BID for 5 Days, #40 CAP Prov: TYREE TELLES MD 07/26/21 Copy Copies To 1: MÓNICA VIVEROS JOSHUA T MD Jul 26, 2021 17:31
[2021-07-26 18:22] VITALS: BP 156/101
== END 2021-07-26 18:23 | disposition home or self-care (01) ==
LOC: EDUNIT# 14:32 → ER 14:39
DX: U07.1 COVID-19 (principal); I10 Essential (primary) hypertension; E78.00 Pure hypercholesterolemia, unspecified; E11.9 Type 2 diabetes mellitus without complications; K21.9 Gastro-esophageal reflux disease without esophagitis; Z87.891 Personal history of nicotine dependence; Z79.82 Long term (current) use of aspirin; Z79.84 Long term (current) use of oral hypoglycemic drugs; Z79.899 Other long term (current) drug therapy
CPT/HCPCS: 36415; 71045; 71275; 80053; 83735; 83874; 84484; 85025; 85379; 85610; 85730; 87636; 87804; 93005; 93041

== ENCOUNTER → 2021-08-06 | Outpatient (CLI) | payer MEDICARE, MEDICAID ==
[~2021-08-06] MED LIST changes: +MOLN200C PO
== END ==
LOC: LABNPT 07:07
PROVIDERS: ATTEND Internal Medicine Cardiovascular Disease
DX: Z20.822 Contact with and (suspected) exposure to COVID-19 (principal)
CPT/HCPCS: 87635

== ENCOUNTER 2021-10-03 08:00 | Day surgery (SDC) | payer MEDICARE, MEDICAID ==
[~2021-10-03] VITALS: Ht 188 cm; Wt 101.2 kg
[2021-10-03] VITALS (11 sets, daily range): BP systolic 114–157; BP diastolic 85–98
[2021-10-03 07:21] LABS: HEMATOCRIT 44 % (40-54); HEMOGLOBIN 14.2 g/dL (13.3-17.7); MEAN CORPUSCULAR HEMOGLOBIN 28 pg (25-34); MEAN CORPUSCULAR HGB CONC 32 g/dL (32-36); MEAN CORPUSCULAR VOLUME 86 fL (80-99); MEAN PLATELET VOLUME 8.6 fL (9.0-12.2); PLATELET COUNT 355 10^3/uL (130-400); WHITE BLOOD COUNT 11.3 10^3/uL (4.3-11.0)
[2021-10-03 07:33] LABS: INR 0.9 (0.8-1.4); POTASSIUM 4.4 MMOL/L (3.6-5.0); PROTHROMBIN TIME PATIENT 12.6 SEC (12.2-14.7)
[2021-10-03 07:34] LABS: ALBUMIN 4.2 GM/DL (3.2-4.5)
[2021-10-03 07:35] LABS: CALCIUM 9.4 MG/DL (8.5-10.1)
[2021-10-03 07:36] LABS: TOTAL PROTEIN 8.7 GM/DL (6.4-8.2)
--- NOTE | 2021-10-03 07:39 | Diagnostic Imaging Report ---
INDICATION: Abnormal stress test. Chest pain with hypertension. Comparison with 07/26/2021. FINDINGS: Portable chest. The lungs are well-aerated and clear. Heart is not enlarged. No pulmonary edema or hilar adenopathy. No pneumothorax or pleural effusion. No bony abnormalities. IMPRESSION: Normal portable chest. Dictated by: Dictated on workstation # [id number]
[2021-10-03 07:40] LABS: CREATININE SERUM 0.83 MG/DL (0.60-1.30)
[~2021-10-03 08:00] MED LIST changes: +CETI10TA17 PO; +FLUT9.9S NS; +HEParin (CATH LAB) 2,000 ML IV ONE; +LIDOCAINE 1% INJ 50 ML (XYLOCAINE) VIAL ONE; +MEMA10TA57 PO; +MIDAZOLAM 5 MG/5 ML (VERSED) VIAL ONE; +NS IV 1000 ML 1,000 ML IV SCH; +NS IV 1000 ML 1,000 ML ONE; +PROP15DR OU; +fentaNYL INJ 100 MCG/2 ML AMP ONE
--- NOTE | 2021-10-03 08:20 | Conscious Sedation/ASA ---
Conscious Sedation Pre-Proced Time 08:19 ASA Score 3 For ASA 3 and 4: Consider anesthesia and medical clearance. Also, for patients with a history of failed moderate sedation consider anesthesia. Airway Lungs Heart ASA score ASA 1: a normal healthy patient ASA 2: a patient with a mild systemic disease (mid diabetes, controlled hypertension, obesity x ASA 3: a patient with a severe systemic disease that limits activity (angina, COPD, prior Myocardial infarction) ASA 4: a patient with an incapacitating disease that is a constant threat to life (CHF, renal failure) ASA 5: a moribund patient not expected to survive 24 hrs. (ruptured aneurysm) ASA 6: a declared brain- patient whose organs are being harvested. For emergent operations, add the letter E after the classification Mallampati Classification Grade 3 Sedation Plan Analgesia, Amnesia, Plan communicated to team members, Discussed options with patient/fam, Discussed risks with patient/fam The patient is an appropriate candidate to undergo the planned procedure, sedation, and anesthesia. The patient immediately re-assessed prior to indication. RAHEEL GARCIA MD Oct 03, 2021 08:20
--- NOTE | 2021-10-03 08:43 | Discharge Inst-Post CATH ---
Discharge Inst-CATH/EP Problems Reviewed?: Yes Post Cardiac Cath/EP D/C Inst Follow Up/Plan Appointment with Dr. Perea's office in 2 to 4 weeks <b>CARDIAC CATH/EP PROCEDURE DISCHARGE INSTRUCTIONS</b> ACTIVITY * Go Home directly and rest. * Limit activity of the leg (or wrist if it was used) for 7 days including aer obics, swimming, jogging, bicycling, etc. * Restrict stair-climbing for 7 days if possible, if not, climb up with your non-cath leg, then bring together on the same step. * Avoid lifting, pushing, pulling or excessive movement of the affected extremi ty for 7 days. * Customary sexual activity may be resumed after 2 days-use caution not to use a position that strains or causes pain to the affected extremity. * No driving for 24 hours. * NO SMOKING. * Avoid straining for bowel movements for 7 days. * Gentle walking on level ground is allowed. * Returning to work will depend on the type of procedure and the results. Your doctor will discuss this with you. CALL YOUR DOCTOR FOR ANY OF THE FOLLOWING: *If bleeding from the puncture site occurs- Apply gentle pressure to site with clean cloth and call your doctor or EMS. * If a knot or lump forms under the skin, increases in size, or causes pain. * If bruising appears to be worsening or moving further down your leg instead of disappearing. * Temperature above 101 F. CARE OF YOUR GROIN INCISION; * Bruising or purple discoloration of the skin near the puncture site is common. * You may shower only, no bathtub bathing for 5 days. Be careful to avoid slipping as your leg may feel stiff. * If a closure device was used on your femoral artery, please see the attached guide regarding care of the device and your leg. * Leave dressing on FOR 24 hours. CARE OF YOUR WRIST INCISION; * Bruising or purple discoloration of the skin near the puncture site is common. * You may shower. * DO NOT submerge wrist. * Leave dressing on FOR 24 hours. RAHEEL PEREA MD Oct 03, 2021 08:43
[2021-10-03] MEDS ORDERED: NS IV 1000 ML 1,000 ML IV SCH (08:45)
[2021-10-03] MEDS ORDERED: PATIENT MAY USE OWN MEDS, ALL PO SCH (08:45)
--- NOTE | 2021-10-03 08:50 | Cardiac Cath Report ---
Cardiac Cath Report Physician (s)/Front End Driver (s) Physician RAHEEL GARCIA MD Pre-Procedure Diagnosis Pre-Procedure Diagnosis: Coronary artery disease Post-Procedure Note Procedure Start Date: Oct 03, 2021 Name of Procedure: Left heart catheterization Left ventriculogram Aortic arch angiogram Findings/Procedure Note PROCEDURE NOTE: 75 years old gentleman with history of hypertension, hyperlipidemia, had an abnormal stress test, scheduled for cardiac catheterization possible PTCA. After explaining the procedure to the patient, all pros and cons were explained, all questions were answered. The patient signed the consent and then he was placed on the cardiac catheterization laboratory. Groin was prepped SL fashion local anesthesia was used. Sheath placed in the right femoral artery. Esequiel right and left catheter were used to access the coronary system. Pigtail was used to access the left ventricular cavity. Left ventriculogram was done Aortic arch angiogram was done to evaluate the aortic arch due to difficulty advancing the wire At the end of the procedure the sheath was removed. Closure device was deployed FINDINGS: Hemodynamics LV 116/14, end-diastolic pressure of 14 Aorta 105/67 mean of 82 ANATOMY: Left Main is free of obstructive disease Left Anterior Descending is slightly tortuous with mild disease at the midportion, nonobstructive disease Left Circumflex is nondominant artery with mild disease nonobstructive disease Right Coronary Artery is dominant artery with mild disease nonobstructive disease LV Gram was done showing normal left ventricular size, normal contractility, ejection fraction 60% Aorta evaluation with aortic arch angiogram was done showing slightly prominent aortic arch, no dissection or aneurysm, normal origin of the brachiocephalic artery, left carotid and left subclavian arteries CONCLUSION: 1. Slightly tortuous coronary system with a small kink in the mid LAD, small vessel disease nonobstructive disease 2. Normal left ventricular size and systolic function ejection fraction 60% 3. Slightly prominent aortic arch, no dissection or aneurysm, normal great neck vessels DISCUSSION AND RECOMMENDATION: Continue with medical therapy, discontinue statin due to elevated liver enzymes Anesthesia Type: Conscious Sedation Estimated blood loss (mL): 20 ml Contrast Amount: 45 ml Total Radiation Dose: 344 mGy Post-Procedure Diagnosis Post-operative diagnosis: Chest pain Coronary artery disease Hypertension Hyperlipidemia RAHEEL GARCIA MD Oct 03, 2021 08:49
== END 2021-10-03 13:13 ==
LOC: CATH 08:00 → SDC 09:01 → CATH 13:13
PROVIDERS: ATTEND Internal Medicine Cardiovascular Disease
DX: I25.10 Atherosclerotic heart disease of native coronary artery without angina pectoris (principal); I10 Essential (primary) hypertension; I65.29 Occlusion and stenosis of unspecified carotid artery; E78.5 Hyperlipidemia, unspecified; K21.9 Gastro-esophageal reflux disease without esophagitis; J44.9 Chronic obstructive pulmonary disease, unspecified; Z87.891 Personal history of nicotine dependence; Z79.899 Other long term (current) drug therapy
CPT/HCPCS: 36221; 71045; 80053; 80061; 85027; 85610; 85730; 87081; 93005; 93458; C1760; C1894; 36415

== ENCOUNTER 2021-10-09 09:44 | Outpatient (RCR) | payer MEDICARE, MEDICAID ==
[~2021-10-09 09:44] MED LIST changes: -HEParin (CATH LAB) 2,000 ML IV ONE; -LIDOCAINE 1% INJ 50 ML (XYLOCAINE) VIAL ONE; -MIDAZOLAM 5 MG/5 ML (VERSED) VIAL ONE; -NS IV 1000 ML 1,000 ML IV SCH; -NS IV 1000 ML 1,000 ML ONE; +OMEP20TA56 PO; -OMEP20TA7 PO; -fentaNYL INJ 100 MCG/2 ML AMP ONE
== END 2021-10-20 | disposition home or self-care (01) ==
PROVIDERS: ATTEND Internal Medicine Critical Care Medicine
DX: J38.3 Other diseases of vocal cords (principal)

== ENCOUNTER → 2021-10-17 | Outpatient (CLI) | payer MEDICARE, MEDICAID ==
[~2021-10-17] MED LIST changes: -OMEP20TA56 PO; +OMEP20TA7 PO; +RT-ALBUTEROL SULF 2.5 MG/3 ML PRE-MIX VIAL INH ONE
== END ==
LOC: RT 10:45
PROVIDERS: ATTEND Internal Medicine Critical Care Medicine
DX: J44.9 Chronic obstructive pulmonary disease, unspecified (principal); J38.3 Other diseases of vocal cords
CPT/HCPCS: 94060; 94621; 94726; 94729

== ENCOUNTER 2022-01-22 14:51 | Emergency (ER) | payer MEDICARE, MEDICAID ==
[~2022-01-22] VITALS: Ht 187.9 cm; Wt 98.4 kg
[~2022-01-22 14:51] MED LIST changes: +OMEP20TA56 PO; -OMEP20TA7 PO; -RT-ALBUTEROL SULF 2.5 MG/3 ML PRE-MIX VIAL INH ONE
--- NOTE | 2022-01-22 15:08 | ED Upper Extremity ---
General Chief Complaint: Upper Extremity Stated Complaint: FALL Source: patient Exam Limitations: no limitations History of Present Illness Date Seen by Provider: Jan 22, 2022 Time Seen by Provider: 15:06 Initial Comments Patient is a 76-year-old male who presents ED with left shoulder pain. Patient was walking to pay his rent on the concrete when he tripped and fell landing on extended out arms. [place] a sharp pain to his left shoulder has not been able to move his shoulder. Patient states he likely tripped on his shoes. Denies hit his head or loss of conscious or on blood thinners. Did hit his left knee reports some pain but was able to stand and bear weight. Was given fentanyl in route by EMS. Denies of any headache, neck pain, middle lower back pain, chest pain, shortness of breath or abdominal pain. Denies any vomiting or diarrhea. GCS 15. Alert and orient x3 Allergies and Home Medications Allergies Coded Allergies: No Known Drug Allergies (Unverified , 10/28/18) Patient Home Medication List Home Medication List Reviewed: Yes Albuterol Sulfate (Proventil Hfa) 6.7 Gm Hfa.aer.ad, 2 PUFF INH Q6H PRN for SHORTNESS OF BREATH, (Reported) Entered as Reported by: PAULINE EAST on 02/27/21 1027 Amlodipine Besylate (Amlodipine Besylate) 5 Mg Tablet, 5 MG PO DAILY, (Reported) Entered as Reported by: NOEMÍ HERNANDEZ on 09/25/15 1220 Aspirin (Aspirin EC) 81 Mg Tablet.dr, 81 MG PO DAILY, (Reported) Entered as Reported by: PAULINE EAST on 02/27/21 1027 Cetirizine HCl (Cetirizine HCl) 10 Mg Tablet, 10 MG PO DAILY, (Reported) Entered as Reported by: SAURABH FUNES on 10/03/21 07 Fluticasone Propionate (Flonase Allergy Relief) 9.9 Ml [place].susp, 1 SPRAY NS DAILY, (Reported) Entered as Reported by: SAURABH FUNES on 10/03/21 07 Fluticasone/Umeclidin/Vilanter (Trelegy Ellipta 100-62.5-25) 1 Each Blst.w.dev, 1 EACH IH DAILY, (Reported) Entered as Reported by: SAURABH FUNES on 10/03/21725 Hydrocodone/Acetaminophen (Hydrocodone-Acetamin 5-325 mg) 5 Mg-325 Mg Tablet, 1- 2 TAB PO Q4H PRN for PAIN-MODERATE (5-7) Prescribed by: JASMYNE GONZALEZ on 01/22/22 1627 Lisinopril (Lisinopril) 20 Mg Tablet, 20 MG PO HS, (Reported) Entered as Reported by: PAULINE EAST on 02/27/21 1027 Memantine HCl (Memantine HCl) 10 Mg Tablet, 10 MG PO BID, (Reported) Entered as Reported by: SAURABH FUNES on 10/03/21725 Metformin HCl (Metformin HCl) 500 Mg Tablet, 1,000 MG PO BID, (Reported) Entered as Reported by: NOEMÍ HERNANDEZ on 09/25/15 1220 Montelukast Sodium (Montelukast Sodium) 10 Mg Tablet, 10 MG PO DAILY, (Reported) Entered as Reported by: PAULINE EAST on 02/27/21 1027 [place]-3 Fatty Acids/Fish Oil (Fish Oil 1,200 mg Softgel) 1 Each Capsule, 1 EACH PO DAILY, (Reported) Entered as Reported by: PAULINE EAST on 02/27/21 1031 Omeprazole (Omeprazole) 20 Mg Tablet.dr, 20 MG PO DAILY, (Reported) Entered as Reported by: NOEMÍ HERNANDEZ on 09/25/15 1220 Propylene Glycol/Peg 400 (Systane 0.3-0.4% Eye Drops) 15 Ml Drops, 1 DROP OU DAILY, (Reported) Entered as Reported by: SAURABH FUNES on 10/03/21725 Review of Systems Constitutional: No chills, No diaphoresis, No malaise, No weakness EENTM: No hearing loss, No blurred vision, No double vision Respiratory: No cough, No dyspnea on exertion, No short of breath Cardiovascular: No chest pain Gastrointestinal: No abdominal pain, No diarrhea, No nausea, No vomiting Genitourinary: No decreased output, No discharge Musculoskeletal: No back pain; joint pain, muscle pain, muscle stiffness Skin: No change in color, No change in hair/nails All Other Systems Reviewed Negative Unless Noted: Yes Past Yllboos-Xwkrps-Putxjg Hx Immunizations Up To Date First/Initial COVID19 Vaccinat: 2020 Second COVID19 Vaccination Marcelino: 2020 Third COVID19 Vaccination Date: 05/01/21 Seasonal Allergies Seasonal Allergies: No Past Medical History Surgery/Hospitalization HX: History of COPD, Asthma, HTN Surgeries: Yes Appendectomy, Orthopedic, Renal Respiratory: Yes Asthma, Pneumonia, Chronic Bronchitis Cardiac: Yes High Cholesterol, Hypertension Neurological: No Sexually Transmitted Disease: No HIV/AIDS: No Genitourinary: Yes Kidney Stones Gastrointestinal: Yes Gastroesophageal Reflux, Chronic Constipation Musculoskeletal: Yes Back Injury, Chronic Back Pain Endocrine: Yes Diabetes, Non-Insulin dep HEENT: Yes (READING GLASSES, PARTIAL ) Loss of Vision: Bilateral Hearing Impairment: Hard of Hearing Cancer: No Psychosocial: No Integumentary: No Blood Disorders: No Adverse Reaction/Blood Tranf: No (N/A) Physical Exam Vital Signs Vital Signs - First Documented 01/22/22 14:55 Temp 36.7 Pulse 92 Resp 20 B/P (MAP) 126/83 (97) Pulse Ox 92 Capillary Refill : Height, Weight, BMI Height: 6'2.00" Weight: 213lbs. 6.0oz. 96.032543ht; 28.63 BMI Method:Stated General Appearance: WD/WN, no apparent distress HEENT: PERRL/EOMI, normal ENT inspection, TMs normal, pharynx normal Neck: non-tender, full range of motion, supple, normal inspection Cardiovascular: regular rate, rhythm, no edema Respiratory: chest non-tender, lungs clear, normal breath sounds Gastrointestinal: normal bowel sounds, non tender, soft, no organomegaly Back: normal inspection, no CVA tenderness Shoulder: pain (Tenderness to left shoulder with crepitus. Limited passive range of motion secondary to pain), soft tissue tenderness Elbow/Forearm: normal inspection, non-tender, no evidence of injury, normal ROM, Right Wrist: Yes normal inspection, Yes non-tender, Yes no evidence of injury Neurologic/Tendon: normal sensation, normal motor functions Neurologic/Psychiatric: certified addiction counselor II-XII nml as tested, no motor/sensory deficits, alert, normal mood/affect Skin: other (abrasionto left anterior knee) Progress/Results/Core Measures Results/Orders Lab Results Laboratory Tests Test 01/22/22 15:00 Range/Units White Blood Count 9.6 4.3-11.0 10^3/uL Red Blood Count 4.63 4.30-5.52 10^6/uL Hemoglobin 12.7 L 13.3-17.7 g/dL Hematocrit 41 40-54 % Mean Corpuscular Volume 89 80-99 fL Mean Corpuscular Hemoglobin 27 25-34 pg Mean Corpuscular Hemoglobin Concent 31 L 32-36 g/dL Red Cell Distribution Width 14.4 10.0-14.5 % Platelet Count 265 130-400 10^3/uL Mean Platelet Volume 8.5 L 9.0-12.2 fL Immature Granulocyte % (Auto) 0 % Neutrophils (%) (Auto) 52 42-75 % Lymphocytes (%) (Auto) 33 12-44 % Monocytes (%) (Auto) 10 0-12 % Eosinophils (%) (Auto) 5 0-10 % Basophils (%) (Auto) 1 0-10 % Neutrophils # (Auto) 5.0 1.8-7.8 X 10^3 Lymphocytes # (Auto) 3.1 1.0-4.0 X 10^3 Monocytes # (Auto) 0.9 0.0-1.0 X 10^3 Eosinophils # (Auto) 0.4 H 0.0-0.3 10^3/uL Basophils # (Auto) 0.1 0.0-0.1 10^3/uL Immature Granulocyte # (Auto) 0.0 0.0-0.1 10^3/uL Prothrombin Time 13.2 12.2-14.7 SEC INR Comment 1.0 0.8-1.4 Activated Partial Thromboplast Time 26 24-35 SEC Sodium Level 138 135-145 MMOL/L Potassium Level 4.8 3.6-5.0 MMOL/L Chloride Level 104 98-107 MMOL/L Carbon Dioxide Level 24 21-32 MMOL/L Anion Gap 10 5-14 MMOL/L Blood Urea Nitrogen 15 7-18 MG/DL Creatinine 0.87 0.60-1.30 MG/DL Estimat Glomerular Filtration Rate 89 BUN/Creatinine Ratio 17 Glucose Level 135 H 70-105 MG/DL Calcium Level 9.6 8.5-10.1 MG/DL Corrected Calcium 9.6 8.5-10.1 MG/DL Total Bilirubin 0.4 0.1-1.0 MG/DL Aspartate Amino Transf (AST/SGOT) 47 H 5-34 U/L Alanine Aminotransferase (ALT/SGPT) 95 H 0-55 U/L Alkaline Phosphatase 64 40-136 U/L Total Protein 8.3 H 6.4-8.2 GM/DL Albumin 4.0 3.2-4.5 GM/DL My Orders Orders - SOHAM GARBER Shoulder, Left, 3 Views (01/22/22 15:03) Knee, Left, 3 Views (01/22/22 15:03) Cbc With Automated Diff (01/22/22 15:05) Comprehensive Metabolic Panel (01/22/22 15:05) Ekg Tracing (01/22/22 15:05) Partial Thromboplastin Time (01/22/22 15:05) Protime With Inr (01/22/22 15:05) Fentanyl Inj (Sublimaze Injection) (01/22/22 16:22) Vital Signs/I&O 01/22/22 14:55 Temp 36.7 Pulse 92 Resp 20 B/P (MAP) 126/83 (97) Pulse Ox 92 Departure Communication (PCP) Patient with a left proximal humeral fracture. He is neurovascular intact left arm. Patient was placed in a sling was given IV fentanyl here in the ER and by EMS for pain control. Denies hitting his head or loss of conscious. He does have abrasion to left knee with negative x-ray of the left knee. Up-to-date on his tetanus. Patient is able to stand and bear weight. Lab work was otherwise unremarkable. No current chest pain, shortness of breath, head pain, neck pain, middle lower back pain. Neurologically intact. Patient was discussed with Dr. FLOYD who recommends sling and to follow-up in the office. Pain controlled here. Will discharge with oral pain medication. Recommend ice. Recommend contacting in the morning to set up appointment for follow-up. If any worsening symptoms to return back to ED for further evaluation Impression Primary Impression: Proximal humeral fracture Disposition: 01 HOME, SELF-CARE Condition: Stable Departure-Patient Inst. Decision time for Depature: 16:22 Referrals: AMINAH ZHANG DO (PCP) Primary Care Physician LYN FLOYD MD Patient Instructions: Shoulder Fracture Add. Discharge Instructions: Keep the arm in the sling. Ice 3-4 times a day for at least 20-30 minutes. Pain medication was provided. Provided number for Dr. Floyd to follow-up with orthopedic All discharge instructions reviewed with patient and/or family. Voiced understanding. Scripts Hydrocodone/Acetaminophen (Hydrocodone-Acetamin 5-325 mg) 5 Mg-325 Mg Tablet 1-2 TAB PO Q4H PRN for PAIN-MODERATE (5-7), #20 TAB Prov: SOHAM GARBER 01/22/22 SOHAM GARBER Jan 22, 2022 15:08
[2022-01-22 15:13] LABS: BASOPHILS # (AUTO) 0.1 10^3/uL (0.0-0.1); BASOPHILS % (AUTO) 1 % (0-10); EOSINOPHILS # (AUTO) 0.4 10^3/uL (0.0-0.3); EOSINOPHILS % (AUTO) 5 % (0-10); HEMATOCRIT 41 % (40-54); HEMOGLOBIN 12.7 g/dL (13.3-17.7); LYMPHOCYTES # (AUTO) 3.1 X 10^3 (1.0-4.0); LYMPHOCYTES % (AUTO) 33 % (12-44); MEAN CORPUSCULAR HEMOGLOBIN 27 pg (25-34); MEAN CORPUSCULAR HGB CONC 31 g/dL (32-36); MEAN CORPUSCULAR VOLUME 89 fL (80-99); MEAN PLATELET VOLUME 8.5 fL (9.0-12.2); MONOCYTES # (AUTO) 0.9 X 10^3 (0.0-1.0); MONOCYTES % (AUTO) 10 % (0-12); NEUTROPHILS % (AUTO) 52 % (42-75); PLATELET COUNT 265 10^3/uL (130-400); WHITE BLOOD COUNT 9.6 10^3/uL (4.3-11.0)
[2022-01-22 15:21] LABS: POTASSIUM 4.8 MMOL/L (3.6-5.0); PROTHROMBIN TIME PATIENT 13.2 SEC (12.2-14.7)
[2022-01-22 15:22] LABS: CALCIUM 9.6 MG/DL (8.5-10.1)
[2022-01-22 15:23] LABS: TOTAL PROTEIN 8.3 GM/DL (6.4-8.2)
[2022-01-22 15:25] LABS: BILIRUBIN,TOTAL 0.4 MG/DL (0.1-1.0)
[2022-01-22 15:27] LABS: CREATININE SERUM 0.87 MG/DL (0.60-1.30)
--- NOTE | 2022-01-22 15:56 | Diagnostic Imaging Report ---
INDICATION: Left knee pain, recent fall. TECHNIQUE: AP, oblique, and lateral views of the left knee are obtained. FINDINGS: No fracture or acute bony abnormality is seen. There is patellofemoral joint space narrowing and spurring, medial and lateral compartments are relatively preserved. There is generalized demineralization. IMPRESSION: Degenerative changes of patellofemoral joint and generalized demineralization. No acute-appearing abnormality. Dictated by: Dictated on workstation # [id number]
--- NOTE | 2022-01-22 15:56 | Diagnostic Imaging Report ---
Indication: Recent falls, pain. Comparison: Limited to chest CT 07/26/2021. Findings: There is an acute-appearing displaced fracture comminuted at the surgical neck of the humerus with fracture lines extending into the head along the greater tuberosity. There is displacement laterally of the major distal component. No dislocation of the humeral head. Degenerative changes to the AC joint without its separation. Impression: A proximal humeral fracture at its neck and head without dislocation. Dictated by: Dictated on workstation # [id number]
[2022-01-22] MEDS ORDERED: fentaNYL INJ 100 MCG/2 ML AMP IVP STA (16:22)
[2022-01-22] MEDS ORDERED: ACHD5005 PO (16:27)
[2022-01-22 16:45] VITALS: BP 124/76
== END 2022-01-22 16:45 | disposition home or self-care (01) ==
LOC: EDUNIT# 14:51 → ER 14:52
DX: S42.292A Other displaced fracture of upper end of left humerus, initial encounter for closed fracture (principal); S80.212A Abrasion, left knee, initial encounter; W01.0XXA Fall on same level from slipping, tripping and stumbling without subsequent striking against object, initial encounter
CPT/HCPCS: 73030; 73562; 80053; 85025; 85610; 85730; 93005; 99283; A4565; 36415

== ENCOUNTER 2022-06-01 07:54 | Inpatient (IN) | payer MEDICARE, MEDICAID ==
[~2022-06-01] VITALS: Ht 187.9 cm; Wt 96.8 kg
[~2022-06-01 07:54] MED LIST changes: +ALBU8.5H6 IH
[2022-06-01] MEDS ORDERED: NS IV 1000 ML 1,000 ML ONE (08:25)
[2022-06-01] MEDS ORDERED: NS IV 1000 ML 1,000 ML IV STA (08:26)
--- NOTE | 2022-06-01 08:29 | ED General ---
General Chief Complaint: Cough/Cold/Flu Symptoms Stated Complaint: CHILLS/NAUSEA Nursing Triage Note: PT BROUGHT IN BY [facility] FROM HOME WITH COMPLAINT OF WEAKNESS AND FEVER. Source of Information: Patient, EMS Exam Limitations: No Limitations History of Present Illness Date Seen by Provider: Jun 01, 2022 Time Seen by Provider: 08:16 Initial Comments Patient is a 76-year-old male who presents to the emergency room with a chief complaint of generalized weakness, coughing all night, nausea and dry heaves. Symptom onset during the night. He states he is only taken his prescription medications today. EMS reports that he was so weak he could not get off the toilet when they were at the house. He has had fairly dry cough. He is been dry heaving. He feels a little short of breath. He does have to use inhalers, has COPD but is not oxygen dependent at home. He did use his inhalers this morning. No problems with bowel movements, black or bloody stool. No problems with urination. He denies joint pains, rashes or swelling. He points to his abdomen, generalized as a source of discomfort. He denies headache, earache, runny nose. No sick contacts that he is aware of. He is COVID vaccinated and believes he has had a flu shot. He goes to [facility]. Timing/Duration: 1 Day Severity: Severe Associated Systoms: Fever/Chills, Loss of Appetite, Malaise, Nausea/Vomiting, Shortness of Air, Weakness Allergies and Home Medications Allergies Coded Allergies: No Known Drug Allergies (Unverified , 10/28/18) Patient Home Medication List Home Medication List Reviewed: Yes Albuterol Sulfate (Proventil Hfa) 6.7 Gm Hfa.aer.ad, 2 PUFF INH Q6H PRN for SHORTNESS OF BREATH, (Reported) Entered as Reported by: PAULINE EAST on 02/27/21 1027 Amlodipine Besylate (Amlodipine Besylate) 5 Mg Tablet, 5 MG PO DAILY, (Reported) Entered as Reported by: NOEMÍ HERNANDEZ on 09/25/15 1220 Aspirin (Aspirin EC) 81 Mg Tablet.dr, 81 MG PO DAILY, (Reported) Entered as Reported by: PAULINE EAST on 02/27/21 1027 Cetirizine HCl (Cetirizine HCl) 10 Mg Tablet, 10 MG PO DAILY, (Reported) Entered as Reported by: SAURABH FUNES on 10/03/21725 Fluticasone Propionate (Flonase Allergy Relief) 9.9 Ml [place].susp, 1 SPRAY NS DAILY, (Reported) Entered as Reported by: SAURABH FUNES on 10/03/21725 Fluticasone/Umeclidin/Vilanter (Trelegy Ellipta 100-62.5-25) 1 Each Blst.w.dev, 1 EACH IH DAILY, (Reported) Entered as Reported by: SAURABH FUNES on 10/03/21725 Hydrocodone/Acetaminophen (Hydrocodone-Acetamin 5-325 mg) 5 Mg-325 Mg Tablet, 1- 2 TAB PO Q4H PRN for PAIN-MODERATE (5-7) Prescribed by: JASMYNE GONZALEZ on 01/22/22 1627 Lisinopril (Lisinopril) 20 Mg Tablet, 20 MG PO HS, (Reported) Entered as Reported by: PAULINE EAST on 02/27/21 1027 Memantine HCl (Memantine HCl) 10 Mg Tablet, 10 MG PO BID, (Reported) Entered as Reported by: SAURABH FUNES on 10/03/21725 Metformin HCl (Metformin HCl) 500 Mg Tablet, 1,000 MG PO BID, (Reported) Entered as Reported by: NOEMÍ HERNANDEZ on 09/25/15 1220 Montelukast Sodium (Montelukast Sodium) 10 Mg Tablet, 10 MG PO DAILY, (Reported) Entered as Reported by: PAULINE EAST on 02/27/21 1027 [place]-3 Fatty Acids/Fish Oil (Fish Oil 1,200 mg Softgel) 1 Each Capsule, 1 EACH PO DAILY, (Reported) Entered as Reported by: PAULINE EAST on 02/27/21 1031 Omeprazole (Omeprazole) 20 Mg Tablet.dr, 20 MG PO DAILY, (Reported) Entered as Reported by: NOEMÍ HERNANDEZ on 09/25/15 1220 Propylene Glycol/Peg 400 (Systane 0.3-0.4% Eye Drops) 15 Ml Drops, 1 DROP OU DAILY, (Reported) Entered as Reported by: SAURABH FUNES on 4/13/22 0726 Review of Systems Review of Systems Constitutional: see HPI, fever, malaise, weakness Respiratory: cough, short of breath Cardiovascular: no symptoms reported Gastrointestinal: abdominal pain, nausea, vomiting Genitourinary: no symptoms reported Musculoskeletal: no symptoms reported Skin: no symptoms reported All Other Systems Reviewed Negative Unless Noted: Yes Past Otvrzhz-Aeybfe-Xziace Hx Patient Social History Tobacco Use?: No Use of E-Cig and/or Vaping dev: No Substance use?: No Alcohol Use?: No Pt feels they are or have been: No Immunizations Up To Date Influenza Vaccine Up-to-Date: Yes; Up-to-Date First/Initial COVID19 Vaccinat: 2020 Second COVID19 Vaccination Marcelino: 2020 Third COVID19 Vaccination Date: 2020 Seasonal Allergies Seasonal Allergies: No Past Medical History Surgery/Hospitalization HX: History of COPD, Asthma, HTN Surgeries: Yes Appendectomy, Orthopedic, Renal Respiratory: Yes Asthma, Pneumonia, Chronic Bronchitis Cardiac: Yes High Cholesterol, Hypertension Neurological: No Sexually Transmitted Disease: No HIV/AIDS: No Genitourinary: Yes Kidney Stones Gastrointestinal: Yes Gastroesophageal Reflux, Chronic Constipation Musculoskeletal: Yes Back Injury, Chronic Back Pain Endocrine: Yes Diabetes, Non-Insulin dep HEENT: Yes (READING GLASSES, PARTIAL ) Loss of Vision: Bilateral Hearing Impairment: Hard of Hearing Cancer: No Psychosocial: No Integumentary: No Blood Disorders: No Adverse Reaction/Blood Tranf: No (N/A) Physical Exam Vital Signs Vital Signs - First Documented 06/01/22 07:57 Temp 37.3 Pulse 118 Resp 20 B/P (MAP) 89/60 (70) Pulse Ox 92 O2 Delivery Room Air Capillary Refill : Less Than 3 Seconds Height, Weight, BMI Height: 6'2.00" Weight: 213lbs. 6.0oz. 96.993747gm; 27.00 BMI Method:Stated General Appearance: No Apparent Distress, WD/WN Eyes: Bilateral Eye Normal Inspection, Bilateral Eye PERRL, Bilateral Eye EOMI HEENT: PERRL/EOMI, Pharynx Normal, Moist Mucous Membranes, Other (upper dentures in place) Neck: Normal Inspection Respiratory: Lungs Clear, Normal Breath Sounds, No Accessory Muscle Use, No Respiratory Distress, Other (room air sats 93%) Cardiovascular: Regular Rate, Rhythm, Tachycardia (HR 115) Gastrointestinal: Non Tender, Soft, Abnormal Bowel Sounds (hypoactive) Extremity: Normal Inspection, No Pedal Edema Neurologic/Psychiatric: Alert, Oriented x3, No Motor/Sensory Deficits, Normal Mood/Affect Skin: Normal Color, Warm/Dry Focused Exam Lactate Level 06/01/22 08:38: Lactic Acid Level 2.96*H Lactic Acid Level Laboratory Tests Test 06/01/22 08:38 Lactic Acid Level 2.96 MMOL/L (0.50-2.00) *H Progress/Results/Core Measures Suspected Sepsis SIRS Temperature: Pulse: 118 Respiratory Rate: 20 Laboratory Tests 06/01/22 08:11: White Blood Count 18.0H Blood Pressure 89 /60 Mean: 70 06/01/22 08:38: Lactic Acid Level 2.96*H Laboratory Tests 06/01/22 08:11: Creatinine 1.09, INR Comment 1.0, Platelet Count 292, Total Bilirubin 1.2H Results/Orders Lab Results Laboratory Tests Test 06/01/22 07:58 06/01/22 08:11 06/01/22 08:38 Range/Units Influenza Type A (RT-PCR) Not Detected Not Detecte Influenza Type B (RT-PCR) Not Detected Not Detecte SARS-CoV-2 RNA (RT-PCR) Not Detected Not Detecte White Blood Count 18.0 H 4.3-11.0 10^3/uL Red Blood Count 5.18 4.30-5.52 10^6/uL Hemoglobin 13.9 13.3-17.7 g/dL Hematocrit 44 40-54 % Mean Corpuscular Volume 84 80-99 fL Mean Corpuscular Hemoglobin 27 25-34 pg Mean Corpuscular Hemoglobin Concent 32 32-36 g/dL Red Cell Distribution Width 15.0 H 10.0-14.5 % Platelet Count 292 130-400 10^3/uL Mean Platelet Volume 8.6 L 9.0-12.2 fL Immature Granulocyte % (Auto) 0 % Neutrophils (%) (Auto) 87 H 42-75 % Lymphocytes (%) (Auto) 7 L 12-44 % Monocytes (%) (Auto) 5 0-12 % Eosinophils (%) (Auto) 0 0-10 % Basophils (%) (Auto) 0 0-10 % Neutrophils # (Auto) 15.7 H 1.8-7.8 10^3/uL Lymphocytes # (Auto) 1.2 1.0-4.0 10^3/uL Monocytes # (Auto) 1.0 0.0-1.0 10^3/uL Eosinophils # (Auto) 0.0 0.0-0.3 10^3/uL Basophils # (Auto) 0.0 0.0-0.1 10^3/uL Immature Granulocyte # (Auto) 0.1 0.0-0.1 10^3/uL Neutrophils % (Manual) 85 % Lymphocytes % (Manual) 6 % Monocytes % (Manual) 3 % Eosinophils % (Manual) 0 % Basophils % (Manual) 0 % Band Neutrophils 6 % Blood Morphology Comment NORMAL Prothrombin Time 14.0 12.2-14.7 SEC INR Comment 1.0 0.8-1.4 Activated Partial Thromboplast Time 26 24-35 SEC Sodium Level 132 L 135-145 MMOL/L Potassium Level 4.8 3.6-5.0 MMOL/L Chloride Level 102 98-107 MMOL/L Carbon Dioxide Level 17 L 21-32 MMOL/L Anion Gap 13 5-14 MMOL/L Blood Urea Nitrogen 19 H 7-18 MG/DL Creatinine 1.09 0.60-1.30 MG/DL Estimat Glomerular Filtration Rate 70 BUN/Creatinine Ratio 17 Glucose Level 199 H 70-105 MG/DL Calcium Level 9.2 8.5-10.1 MG/DL Corrected Calcium 9.4 8.5-10.1 MG/DL Total Bilirubin 1.2 H 0.1-1.0 MG/DL Aspartate Amino Transf (AST/SGOT) 75 H 5-34 U/L Alanine Aminotransferase (ALT/SGPT) 131 H 0-55 U/L Alkaline Phosphatase 94 40-136 U/L Total Protein 8.6 H 6.4-8.2 GM/DL Albumin 3.8 3.2-4.5 GM/DL Procalcitonin 0.18 H <0.10 NG/ML Lactic Acid Level 2.96 *H 0.50-2.00 MMOL/L My Orders Orders - VAMSHI GALICIA MD Cbc With Automated Diff (06/01/22 08:26) Comprehensive Metabolic Panel (06/01/22 08:26) Blood Culture (06/01/22 08:26) Urinalysis (06/01/22 08:26) Urine Culture (06/01/22 08:26) Protime With Inr (06/01/22 08:) Partial Thromboplastin Time (06/01/22 08:) Chest 1 View, Ap/Pa Only (06/01/22 08:26) Ed Iv/Invasive Line Start (06/01/22 08:26) Ed Iv/Invasive Line Start (06/01/22 08:26) Vital Signs Adult Sepsis Patie Q15M (06/01/22 08:26) O2 (06/01/22:) Remove Rings In Anticipation O (06/01/22:) Lactic Acid Analyzer (06/01/22:) Covid 19 Inhouse Test (06/01/22:) Influenza A And B By Pcr (06/01/22:) Isolation Central Supply Req (06/01/22 08:) Procalcitonin (Pct) (06/01/22 08:26) Ns Iv 1000 Ml (Sodium Chloride 0.9%) (06/01/22 08:26) Ns Iv 1000 Ml (Sodium Chloride 0.9%) (06/01/22 08:25) Manual Differential (06/01/22 08:11) Piperacillin Sodium/Tazobactam (Zosyn Vi (06/01/22 09:45) Ed Admission (Communication) (06/01/22 09:58) Medications Given in ED Current Medications Medications Dose Ordered Sig/Tavon Route Start Time Stop Time Status Last Admin Dose Admin Piperacillin Sod/ Tazobactam Sod 4.5 gm/Sodium Chloride 100 ml @ 200 mls/hr ONCE ONCE IV 06/01/22 09:45 06/01/22 10:14 DC 06/01/22 09:54 200 MLS/HR Vital Signs/I&O 06/01/22 07:57 Temp 37.3 Pulse 118 Resp 20 B/P (MAP) 89/60 (70) Pulse Ox 92 O2 Delivery Room Air Capillary Refill : Less Than 3 Seconds Blood Pressure Mean: 70 Progress Note : Time: 09:48 Progress Note Patient re-examined more alert and perky. BP was very fluid responsive - he got up to a 110 SBP, however after liter finished hes back down to 87 SBP. HR down to 98. Oxygen 93-94%. Sill no respiratory distress. No abdominal pain. Hasnt urinated for me yet. 2nd liter being hug at this time. Diagnostic Imaging Diagonstic Imaging: Xray Comments [facility]. [place], [place] NAME: EMELY ELLIS [facility] REC#: [id number] PT STATUS: REG ER : 1945 PHYSICIAN: VAMSHI GALICIA MD ADMIT DATE: 06/01/22/ER Signed Date of Exam:06/01/22 CHEST 1 VIEW, AP/PA ONLY EXAMINATION: Chest 1 view HISTORY: Weakness. Fever. COMPARISON: 10/03/2021. FINDINGS: Mild bibasilar opacities are seen. No focal consolidations. No pleural effusion or pneumothorax. Stable cardiac silhouette. IMPRESSION: 1. Bibasilar opacities favored to represent atelectasis. Dictated by: Dictated on workstation # [id number] Dict: 06/01/22929 Trans: 06/01/22932 [facility] [id number] Interpreted by: CATHERINE BHANDARI DO Electronically signed by: CATHERINE BHANDARI DO 06/01/22932 Departure Communication (Admissions) Time/Spoke to Admitting Phy: 09:[address] Gomez; Sepsis IP ICU admit; she is doing que'd orders Impression Primary Impression: Severe sepsis Disposition: ADMITTED INPATIENT Condition: Critical Admissions Decision to Admit Reason: Admit from ER (General) Decision to Admit/Date: Jun 01, 2022 Time/Decision to Admit Time: 08:42 Departure-Patient Inst. Referrals: NO,LOCAL PHYSICIAN (PCP/Family) Primary Care Physician VAMSHI GALICIA MD Jun 01, 2022 08:29
[2022-06-01 08:33] LABS: BASOPHILS % (AUTO) 0 % (0-10); EOSINOPHILS % (AUTO) 0 % (0-10); HEMATOCRIT 44 % (40-54); HEMOGLOBIN 13.9 g/dL (13.3-17.7); LYMPHOCYTES # (AUTO) 1.2 10^3/uL (1.0-4.0); LYMPHOCYTES % (AUTO) 7 % (12-44); MEAN CORPUSCULAR HEMOGLOBIN 27 pg (25-34); MEAN CORPUSCULAR HGB CONC 32 g/dL (32-36); MEAN CORPUSCULAR VOLUME 84 fL (80-99); MEAN PLATELET VOLUME 8.6 fL (9.0-12.2); MONOCYTES % (AUTO) 5 % (0-12); NEUTROPHILS # (AUTO) 15.7 10^3/uL (1.8-7.8); NEUTROPHILS % (AUTO) 87 % (42-75); PLATELET COUNT 292 10^3/uL (130-400)
[2022-06-01 08:46] LABS: ALBUMIN 3.8 GM/DL (3.2-4.5); BILIRUBIN,TOTAL 1.2 MG/DL (0.1-1.0); CALCIUM 9.2 MG/DL (8.5-10.1); CREATININE SERUM 1.09 MG/DL (0.60-1.30); POTASSIUM 4.8 MMOL/L (3.6-5.0); TOTAL PROTEIN 8.6 GM/DL (6.4-8.2)
[2022-06-01 08:59] LABS: BAND NEUTROPHILS 6 %; BASOPHILS % (MANUAL) 0 %; EOSINOPHILS % (MANUAL) 0 %; LYMPHOCYTES % (MANUAL) 6 %; MONOCYTES % (MANUAL) 3 %; NEUTROPHILS % (MANUAL) 85 %; RBC MORPH NORMAL
--- NOTE | 2022-06-01 09:35 | Diagnostic Imaging Report ---
EXAMINATION: Chest 1 view HISTORY: Weakness. Fever. COMPARISON: 10/03/2021. FINDINGS: Mild bibasilar opacities are seen. No focal consolidations. No pleural effusion or pneumothorax. Stable cardiac silhouette. IMPRESSION: 1. Bibasilar opacities favored to represent atelectasis. Dictated by: Dictated on workstation # [id number]
[2022-06-01] MEDS ORDERED: PIPERACILLIN SODIUM/TAZOBACTAM 4.5 GM in NS (IVPB) 100 ML IV ONE (09:45)
[2022-06-01] MEDS ORDERED: NS IV 1000 ML 1,000 ML IV SCH (09:45)
--- NOTE | 2022-06-01 10:03 | History & Physical-Hospitalist ---
History of Present Illness HPI/Chief Complaint Chief complaint: Sepsis HPI: This is a 76-year-old male clinic patient of [facility] who presented with severe weakness unable to ambulate or get out of his chair so EMS was called. Patient was found to have hypotension and findings consistent with pneumonia on chest x- ray. Currently he is admitted to the ICU in case pressor therapy is needed. IV fluids will be continued. Broad-spectrum Zosyn antibiotic was initiated. Source: patient, old records Exam Limitations: no limitations Date Seen 06/01/22 Time Seen by a Provider: 10:00 Attending Physician No,Local Physician PCP Admitting Physician: Attending Physician: Referring Physician Date of Admission Home Medications & Allergies Home Medications Reviewed patient Home Medication Reconciliation performed by pharmacy medication reconciliations wire technician and/or nursing. Patients Allergies have been reviewed. Allergies Allergies Coded Allergies No Known Drug Allergies (Unverified10/28/18) Past Kvbqftu-Ylojha-Crjdux Hx Patient Social History Marrital Status: Employed/Student: retired Tobacco Use?: No Smoking Status: Former Smoker Use of E-Cig and/or Vaping dev: No Substance use?: No Alcohol Use?: No Pt feels they are or have been: No Immunizations Up To Date Date of Influenza Vaccine: May 13, 2021 First/Initial COVID19 Vaccinat: 2020 Second COVID19 Vaccination Marcelino: 2020 Tetanus Booster (TDap): Unknown Hepatitis A: No Hepatitis B: No Date of Pneumonia Vaccine: Mar 30, 2018 Seasonal Allergies Seasonal Allergies: No Current Status Advance Directives: No Primary Language: Setswana Preferred Spoken Language: Setswana Past Medical History Surgeries: Appendectomy, Orthopedic, Renal Asthma, Pneumonia, Chronic Bronchitis High Cholesterol, Hypertension Sexually Transmitted Disease: No HIV/AIDS: No Kidney Stones Gastroesophageal Reflux, Chronic Constipation Back Injury, Chronic Back Pain Diabetes, Non-Insulin dep Loss of Vision: Bilateral Hearing Impairment: Hard of Hearing Blood Disorders: No Adverse Reaction/Blood Tranf: No (N/A) Review of Systems Constitutional: see HPI, dizziness, fever, malaise Respiratory: cough Cardiovascular: no symptoms reported Physical Exam Physical Exam Vital Signs Vital Signs - First Documented 06/01/22 06/01/22 07:57 12:42 Temp 37.3 Pulse 118 Resp 20 B/P (MAP) 89/60 (70) Pulse Ox 92 O2 Delivery Room Air FiO2 21 Capillary Refill : Less Than 3 Seconds Height, Weight, BMI Height: 6'2.00" Weight: 213lbs. 6.0oz. 96.744785ni; 27.00 BMI Method:Stated General Appearance: No Apparent Distress, Chronically ill Eyes: Right Eye Normal Inspection, Right Eye PERRL HEENT: PERRL/EOMI, Normal ENT Inspection, Pharynx Normal, Moist Mucous Membranes Neck: Full Range of Motion, Normal Inspection, Non Tender Respiratory: Chest Non Tender, Lungs Clear, Normal Breath Sounds, No Accessory Muscle Use, No Respiratory Distress, Crackles, Decreased Breath Sounds Cardiovascular: Regular Rate, Rhythm, No Edema, No Gallop, No JVD, No Murmur, Normal Peripheral Pulses Gastrointestinal: Normal Bowel Sounds, No Organomegaly, No Pulsatile Mass, Non Tender, Soft Back: Normal Inspection, No CVA Tenderness, No Vertebral Tenderness Extremity: Normal Capillary Refill, Normal Inspection, Normal Range of Motion, Non Tender, No Calf Tenderness, No Pedal Edema Neurologic/Psychiatric: Alert, Oriented x3, No Motor/Sensory Deficits, Normal Mood/Affect Skin: Normal Color, Warm/Dry Lymphatic: No Adenopathy Results Results/Procedures Labs Laboratory Tests 06/01/22 08:11 Patient resulted labs reviewed. Assessment/Plan Admission Diagnosis Assessment: Sepsis Pneumonia Hypotension Plan: IV antibiotics IV fluids ICU Admission Status: Inpatient Order (span 2 midnights) Reason for Inpatient Admission: Sepsis ALVINA DE GUZMAN DO Jun 01, 2022 10:03
[2022-06-01] MEDS ORDERED: LACTULOSE SYRUP 10GM/15ML (ENULOSE) 30ML UDC PO PRN (11:00)
[2022-06-01] MEDS ORDERED: ONDANSETRON 4 MG/2 ML (SDV) Z0FRAN IV PRN (11:00)
[2022-06-01] MEDS ORDERED: BISACODYL 10 MG SUPP (DULCOLAX) PR PRN (11:00)
[2022-06-01] MEDS ORDERED: ONDANSETRON 4 MG (ZOFRAN) ORAL DISSOLVE TAB PO PRN (11:00)
[2022-06-01] MEDS ORDERED: CALCIUM CARBONATE 500 MG (TUMS) TAB.CHEW PO PRN (11:00)
[2022-06-01] MEDS ORDERED: diphenhydrAMINE 25 MG TAB (BENADRYL) PO PRN (11:00)
[2022-06-01] MEDS ORDERED: HYDROmorphone 2 MG/ML VIAL (DILAUDID) IV PRN (11:00)
[2022-06-01] MEDS ORDERED: MELATONIN 3 MG TABLET PO PRN (11:00)
[2022-06-01] MEDS ORDERED: diphenhydrAMINE 50 MG/ML INJ (BENADRYL) IVP PRN (11:00)
[2022-06-01] MEDS ORDERED: ACETAMINOPHEN 325 MG TABLET PO PRN (11:00)
[2022-06-01] MEDS ORDERED: ANTACID SUSP 30 ML UDC (MYLANTA) PO PRN (11:00)
[2022-06-01] MEDS ORDERED: polyethylene glycoL POWDER 17 GM (MIRALAX) PACK PO PRN (11:00)
[2022-06-01] MEDS ORDERED: MILK OF MAGNESIA 400 MG/5 ML 30 ML UDC PO PRN (11:00)
[2022-06-01] MEDS ORDERED: NS IV 500 ML 500 ML IV PRN (11:00)
[2022-06-01] MEDS ORDERED: LIDOCAINE UROJET 2% GEL 10 ML PKG TOP ONE (11:00)
--- NOTE | 2022-06-01 11:04 | Tele-ICU Progress Note ---
Subjective Date Seen by a Provider: Jun 01, 2022 Subjective/Events-last exam This virtual visit was conducted using real time audio/video. Thank you for asking us to see this patient for hpotension and probable sepsis. Recent events: complaing of cough, abd discomfort, nausea, vomiting. PMH: COPD/asthma, HTN, HL, DM2, GERD, kidney stones. SH: smoking history: former FH: Non-contributory ROS:as in HPI. PE: SBP 89. O2 sat 94% on RA HEENT: No obvious masses, adenopathy or JVD. Chest: clear to auscultation. CV: RRR S1 S2 No murmur or added sounds. Abd: Non-tender. Bowel sounds hypoactive. : Unremarkable. Merchant N. BUYER RENTER/psychiatric: Grossly intact. No obvious focal findings. Extremities: No edema. Capillary refill < 3 seconds. Skin: unremarkable. Results: Elevated WCC 18.0, BUN 19, Lact. 2.96. Decreased Na 132. CXR: hyperinflated, unremarkable. Available chart/ vitals / labs / images reviewed. Video assessment done using teleICU camera, rest of exam as per RN. A/P: Hypotension and probable sepsis. Critical Care: critically ill patient. Cont. IVF, abx. Blood cultures sent. Discussed with RN Prerna. Asked RN to reach out to eICU if any questions or concerns later. Time spent with patient/coordination of care with other health professionals (mins): 20 Sepsis Event Evaluation Height, Weight, BMI Height: 6'2.00" Weight: 213lbs. 6.0oz. 96.519831np; 27.00 BMI Method:Stated Focused Exam Lactate Level 06/01/22 08:38: Lactic Acid Level 2.96*H Lactic Acid Level Laboratory Tests Test 06/01/22 08:38 Lactic Acid Level 2.96 MMOL/L (0.50-2.00) *H Exam Exam Patient acknowledged, consented, and participated in this virtual visit which was conducted using real time audio/video Vital Signs Date Time Temp Pulse Resp B/P (MAP) Pulse Ox O2 Delivery O2 Flow Rate FiO2 06/01/22 07:57 37.3 118 20 89/60 (70) 92 Room Air Height & Weight Height: 6'2.00" Weight: 213lbs. 6.0oz. 96.385825pq; 27.00 BMI Method:Stated General Appearance: No Apparent Distress, WD/WN HEENT: PERRL/EOMI, Pharynx Normal, Moist Mucous Membranes, Other (upper dentures in place) Neck: Normal Inspection Respiratory: Lungs Clear, Normal Breath Sounds, No Accessory Muscle Use, No Respiratory Distress, Other (room air sats 93%) Cardiovascular: Regular Rate, Rhythm, Tachycardia (HR 115) Capillary Refill: Less Than 3 Seconds Extremity: Normal Inspection, No Pedal Edema Neurologic/Psychiatric: Alert, Oriented x3, No Motor/Sensory Deficits, Normal Mood/Affect Skin: Normal Color, Warm/Dry Results Lab Laboratory Tests 06/01/22 08:11 Assessment/Plan Assessment/Plan See free text. Critical Care: Critically Ill Patient MARCEL PETERS MD Jun 01, 2022 11:03
[2022-06-01] MEDS: NS IV 1000 ML 1,000 ML IV SCH ×2 (11:58→20:10)
[2022-06-01] MEDS: NOREPINEPHRINE 8 MG/250 ML 250 ML IV SCH (12:05)
[2022-06-01] MEDS: ENOXAPARIN 40 MG/0.4 ML (LOVENOX) SYR SC SCH (12:07)
[2022-06-01 12:42] VITALS: BP 98/67
[2022-06-01] MEDS ORDERED: RT-ALBUTEROL/IPRATROPIUM 3 ML (DUONEB) VIAL INH PRN (13:00)
[2022-06-01] MEDS: RT-ALBUTEROL/IPRATROPIUM 3 ML (DUONEB) VIAL INH SCH ×2 (15:04→21:42)
[2022-06-01] MEDS: PIPERACILLIN SODIUM/TAZOBACTAM 4.5 GM in NS (IVPB) 100 ML IV SCH ×2 (17:06→23:57)
[2022-06-01] MEDS: SENNOSIDES 8.6 MG (SENOKOT) TAB PO SCH (21:15)
[2022-06-01] MEDS: DOCUSATE SODIUM 100 MG (COLACE) CAP PO SCH (21:15)
[2022-06-02] MEDS: RT-ALBUTEROL/IPRATROPIUM 3 ML (DUONEB) VIAL INH SCH ×4 (02:30→22:06)
[2022-06-02] MEDS: NS IV 1000 ML 1,000 ML IV SCH (04:39)
[2022-06-02] MEDS ORDERED: POTASSIUM CL 10MEQ/50ML IVPB 50 ML IV SCH (06:00)
[2022-06-02] MEDS ORDERED: MAGNESIUM 1 GM/100 ML IVPB 100 ML IV SCH (06:00)
[2022-06-02] MEDS ORDERED: KCL 20 MEQ TAB (K-DUR) PO SCH (06:00)
[2022-06-02 06:01] LABS: BASOPHILS % (AUTO) 0 % (0-10); EOSINOPHILS # (AUTO) 0.1 10^3/uL (0.0-0.3); EOSINOPHILS % (AUTO) 1 % (0-10); HEMATOCRIT 36 % (40-54); LYMPHOCYTES # (AUTO) 2.3 10^3/uL (1.0-4.0); LYMPHOCYTES % (AUTO) 18 % (12-44); MEAN CORPUSCULAR HEMOGLOBIN 27 pg (25-34); MEAN CORPUSCULAR HGB CONC 31 g/dL (32-36); MEAN CORPUSCULAR VOLUME 86 fL (80-99); MEAN PLATELET VOLUME 9.1 fL (9.0-12.2); MONOCYTES % (AUTO) 8 % (0-12); NEUTROPHILS # (AUTO) 9.1 10^3/uL (1.8-7.8); NEUTROPHILS % (AUTO) 73 % (42-75); PLATELET COUNT 202 10^3/uL (130-400); WHITE BLOOD COUNT 12.6 10^3/uL (4.3-11.0)
[2022-06-02 06:19] LABS: BILIRUBIN,TOTAL 1.2 MG/DL (0.1-1.0); CALCIUM 8.1 MG/DL (8.5-10.1); CREATININE SERUM 0.9 MG/DL (0.60-1.30); MAGNESIUM 1.9 MG/DL (1.6-2.4); PHOSPHORUS 3.2 MG/DL (2.3-4.7); TOTAL PROTEIN 6.6 GM/DL (6.4-8.2)
--- NOTE | 2022-06-02 06:22 | Progress Note - Hospitalist ---
Subjective HPI/CC On Admission Date Seen by Provider: Jun 02, 2022 Time Seen by Provider: 11:00 Chief complaint: Sepsis HPI: This is a 76-year-old male clinic patient of [facility] who presented with severe weakness unable to ambulate or get out of his chair so EMS was called. Patient was found to have hypotension and findings consistent with pneumonia on chest x- ray. Currently he is admitted to the ICU in case pressor therapy is needed. IV fluids will be continued. Broad-spectrum Zosyn antibiotic was initiated. Subjective/Events-last exam Doing well No hypotension Reviewed home meds via [facility] EMR and added a few in No pain reported Review of Systems General: Fatigue, Malaise Focused Exam Lactate Level 06/01/22 08:38: Lactic Acid Level 2.96*H 06/01/22 12:30: Lactic Acid Level 1.74 Objective Exam Vital Signs Vital Signs Date Time Temp Pulse Resp B/P (MAP) Pulse Ox O2 Delivery O2 Flow Rate FiO2 06/02/22 15:45 94 Room Air 0.00 06/02/22 15:17 37.3 104 20 136/78 (97) 06/01/22 12:42 21 Capillary Refill : Less Than 3 Seconds General Appearance: No Apparent Distress, WD/WN, Chronically ill Respiratory: Lungs Clear, Normal Breath Sounds Cardiovascular: Regular Rate, Rhythm Neurologic/Psychiatric: Alert, Oriented x3 Results/Procedures Lab Laboratory Tests 06/02/22 04:50 Patient resulted labs reviewed. Assessment/Plan Assessment and Plan Assess & Plan/Chief Complaint Assessment: Sepsis Pneumonia Hypotension Plan: IV antibiotics IV fluids Move to 4th Critical Care Critically Ill Patient ALVINA DE GUZMAN DO Jun 02, 2022 06:22
[2022-06-02] MEDS: NOREPINEPHRINE 8 MG/250 ML 250 ML IV SCH (07:23)
[2022-06-02] MEDS: SENNOSIDES 8.6 MG (SENOKOT) TAB PO SCH ×2 (07:51→20:01)
[2022-06-02] MEDS: DOCUSATE SODIUM 100 MG (COLACE) CAP PO SCH ×2 (07:51→20:01)
[2022-06-02] MEDS: PIPERACILLIN SODIUM/TAZOBACTAM 4.5 GM in NS (IVPB) 100 ML IV SCH ×2 (07:51→16:41)
--- NOTE | 2022-06-02 08:13 | Diagnostic Imaging Report ---
INDICATION: Pneumonia. COMPARISON: 06/01/2022. FINDINGS: Flattened diaphragms and interstitial changes within the lungs are stable. There is no new or increasing airspace consolidation evident. There is no significant effusion. There is stable enlargement of the cardiac silhouette. The central pulmonary vascularity appears appropriate. There is no pneumothorax. There is stable thickening of the pleura within the lateral aspect of the chest as previously demonstrated on prior CT. IMPRESSION: Stable appearance of the chest. There is background hyperinflation and chronic interstitial prominence. No new airspace consolidation to suggest pneumonia is evident. Pulmonary vascularity appears appropriate. Dictated by: Dictated on workstation # [id number]
--- NOTE | 2022-06-02 08:32 | Tele-ICU Progress Note ---
Progress Note video rounds completed 76 y/o male admitted with sepsis, likely PNA Now on zosyn and improving. Has hx of COPD, HTN, DM 2 GERD PE: comfortable, no hypoxemia HR: 86 NSR BP: 129/91 O2 sat 98% CXR Flattened diaphragms and interstitial changes within the lungs are stable. There is no new or increasing airspace consolidation evident. There is no significant effusion. There is stable enlargement of the cardiac silhouette. The central pulmonary vascularity appears appropriate. There is no pneumothorax. There is stable thickening of the pleura within the lateral aspect of the chest as previously demonstrated on prior CT. IMPRESSION: Stable appearance of the chest. There is background hyperinflation and chronic interstitial prominence. No new airspace consolidation to suggest pneumonia is evident. Pulmonary vascularity appears appropriate. Focused Exam Lactate Level 06/01/22 08:38: Lactic Acid Level 2.96*H 06/01/22 12:30: Lactic Acid Level 1.74 Height, Weight, BMI Height: 6'2.00" Weight: 213lbs. 6.0oz. 96.429168ug; 28.32 BMI Method:Stated Labs Laboratory Tests 06/02/22 04:50 Labs Laboratory Tests 06/02/22 04:50 Impression & Plan Impression & Plan sepsis, likely PMA improving WBC down to 12.6 from 18,000 DM2. gllu 155 Diagnosis PLAN: continue current zosyn. overall improved Time spent 20 minutes JEAN MARIE MCCRAY MD Jun 02, 2022 08:32
[2022-06-02] MEDS: ENOXAPARIN 40 MG/0.4 ML (LOVENOX) SYR SC SCH (11:28)
[2022-06-02 15:17] VITALS: BP 136/78
[2022-06-02 19:09] VITALS: BP 123/72
[2022-06-02] MEDS: MEMANTINE 10 MG (NAMENDA) TABLET PO SCH (20:00)
[2022-06-02] MEDS ORDERED: lisINopril 20 MG (PRINIVIL) TABLET PO SCH (21:00)
[2022-06-02] MEDS: RT--FLUTICASONE/SALMETEROL 232-14 (AIRDUO RespiCLICK) IH SCH (22:07)
[2022-06-03 00:07] VITALS: BP 122/67
[2022-06-03] MEDS: PIPERACILLIN SODIUM/TAZOBACTAM 4.5 GM in NS (IVPB) 100 ML IV SCH ×2 (00:28→07:44)
[2022-06-03] MEDS: RT-ALBUTEROL/IPRATROPIUM 3 ML (DUONEB) VIAL INH SCH ×2 (02:48→09:49)
[2022-06-03 03:45] VITALS: BP 107/62
[2022-06-03 06:38] LABS: BASOPHILS % (AUTO) 0 % (0-10); EOSINOPHILS # (AUTO) 0.4 10^3/uL (0.0-0.3); EOSINOPHILS % (AUTO) 4 % (0-10); HEMATOCRIT 36 % (40-54); HEMOGLOBIN 11.5 g/dL (13.3-17.7); LYMPHOCYTES # (AUTO) 2.2 10^3/uL (1.0-4.0); LYMPHOCYTES % (AUTO) 22 % (12-44); MEAN CORPUSCULAR HEMOGLOBIN 27 pg (25-34); MEAN CORPUSCULAR HGB CONC 32 g/dL (32-36); MEAN CORPUSCULAR VOLUME 85 fL (80-99); MEAN PLATELET VOLUME 8.9 fL (9.0-12.2); MONOCYTES # (AUTO) 0.8 10^3/uL (0.0-1.0); MONOCYTES % (AUTO) 8 % (0-12); NEUTROPHILS # (AUTO) 6.4 10^3/uL (1.8-7.8); NEUTROPHILS % (AUTO) 65 % (42-75); PLATELET COUNT 211 10^3/uL (130-400); WHITE BLOOD COUNT 9.9 10^3/uL (4.3-11.0)
[2022-06-03 07:21] LABS: ALBUMIN 3.3 GM/DL (3.2-4.5); CALCIUM 8.7 MG/DL (8.5-10.1); CREATININE SERUM 0.84 MG/DL (0.60-1.30); MAGNESIUM 1.9 MG/DL (1.6-2.4); POTASSIUM 3.9 MMOL/L (3.6-5.0); TOTAL PROTEIN 7.6 GM/DL (6.4-8.2)
[2022-06-03 07:35] VITALS: BP 124/74
[2022-06-03] MEDS: DOCUSATE SODIUM 100 MG (COLACE) CAP PO SCH (07:42)
[2022-06-03] MEDS: MEMANTINE 10 MG (NAMENDA) TABLET PO SCH (07:43)
[2022-06-03] MEDS: SENNOSIDES 8.6 MG (SENOKOT) TAB PO SCH (07:44)
[2022-06-03] MEDS ORDERED: UMECLIDINIUM BROMIDE (INCRUSE ELLIPTA) 7'S IH SCH (08:00)
[2022-06-03] MEDS ORDERED: PANTOPRAZOLE 20 MG TABLET (PROTONIX) PO SCH (09:00)
[2022-06-03] MEDS ORDERED: NON-FORMULARY MEDICATION 1 EA EA (Fluticasone/Umeclidin/Vilanter (Trelegy Ellipta 100-62.5 IH SCH (09:00)
[2022-06-03] MEDS ORDERED: LORATADINE (CLARITIN) 10 MG TAB PO SCH (09:00)
[2022-06-03] MEDS ORDERED: MONTELUKAST 10 MG (SINGULAIR) TAB PO SCH (09:00)
[2022-06-03] MEDS ORDERED: ASPIRIN E.C. 81 MG (ECOTRIN) TAB PO SCH (09:00)
[2022-06-03] MEDS: RT--FLUTICASONE/SALMETEROL 232-14 (AIRDUO RespiCLICK) IH SCH (09:48)
--- NOTE | 2022-06-03 09:53 | Physical Therapy Evaluation ---
PT Evaluation-General Medical Diagnosis Admission Date Jun 01, 2022 at 09:59 Medical Diagnosis: severe sepsis Onset Date: Jun 01, 2022 Therapy Diagnosis Therapy Diagnosis: debility/weakness Height/Weight Height (Feet): 6 Height (Inches): 2.00 Weight (Pounds): 213 Weight (Ounces): 6.0 Precautions Precautions/Isolations: Fall Prevention, Standard Precautions Referral Physician: Patricia Reason for Referral: Evaluation/Treatment Medical History Pertinent Medical History: COPD, DM, GERD, HTN Current History EMS secondary to weakness Reviewed History: Yes Social History Home: Apartment Current Living Status: Spouse Entry Into Home: Ramp Prior Prior Level of Function SCALE: Activities may be completed with or without assistive devices. 2-Vimlqpkbaz-fmvpwhx completes the activity by him/herself with no assistance from a helper. 5-Set-up or Clean-up Assistance-helper sets up or cleans up; patient completes activity. [place] assists only prior to or following the activity. 4-Supervision or Touching Assistance-helper provides verbal cues and/or touching/steadying and/or contact guard assistance as patient completes activity. Assistance may be provided throughout the activity or intermittently. 3-Partial/Moderate Assistance-helper does LESS THAN HALF the effort. [place] lifts, holds or supports trunk or limbs, but provides less than half the effort. 2-Substantial/Maximal Assistance-helper does MORE THAN HALF the effort. [place] lifts or holds trunk or limbs and provides more than half the effort. 2-Rxhkxjofn-vkwuso does ALL the effort. Patient does none of the effort to complete the activity. Or, the assistance of 2 or more helpers is required for the patient to complete the activity. If activity was not attempted, code reason: 7-Patient Refused. 9-Not Applicable-not attempted and the patient did not perform the activity before the current illness, exacerbation or injury. 10-Not Attempted due to Environmental Limitations-(lack of equipment, weather restraints, etc.). 88-Not Attempted due to Medical Conditions or Safety Concerns. Bed Mobility: 6 Transfers (B,C,W/C): 6 Gait: 6 Indoor Mobility (Ambulation): Independent Prior Devices Use: Walker PT Evaluation-Current Subjective Patient agrees to PT. Objective Patient Orientation: Normal For Age Attachments: Merchant Catheter, IV ROM/Strength ROM Lower Extremities bilateral LE WFL Strength Lower Extremities 4-/5 grossly bilateral LE all planes Integumentary/Posture Bowel Incontinence: No Bladder Incontinence: Merchant Cath Posture WFL Neuromuscular (Tone, Coordination, Reflexes) grossly intact Sensory Vision: Wears Glasses Hearing: Functional Transfers Sit to Stand (QC): 4 Gait Mode of Locomotion: Walk Anticipated Mode of Locomotion: Walk Walk 10 feet (QC): 4 Walk 50 ft with 2 Turns(QC): 4 Walk 150 ft (QC): 4 Distance: 500' Gait Assistive Device: FWW Comments/Gait Description slow, steady with no deviation Balance Sitting Static: Normal Sitting Dynamic: Normal Standing Static: Normal Standing Dynamic: Normal Assessment/Needs Patient will be seen short term by skilled PT to address functional strength and mobility to ensure safe return to home with spouse at maximum LOF. Rehab Potential: Fair PT [facility] Goals Pound Attendant Goals PT Pound Attendant Goals Time Frame: Jun 15, 2022 Roll Left & Right (QC): 6 Sit to Lying (QC): 6 Lying-Sitting on Side/Bed(QC): 6 Sit to Stand (QC): 6 Chair/Sgx-cs-Ijzvz Xfer(QC): 6 Walk 10 feet (QC): 6 Walk 50ft with 2 Turns (QC): 6 Walk 150 ft (QC): 6 PT Plan Problem List Problem List: Activity Tolerance, Functional Strength, Safety, Balance, Gait, Transfer Treatment/Plan Treatment Plan: Continue Plan of Care Treatment Plan: Bed Mobility, Education, Functional Activity Jose, Functional Strength, Gait, Safety, Therapeutic Exercise, Transfers Treatment Duration: Jun 15, 2022 Frequency: 6 times per week Estimated Hrs Per Day: .25 hour per day Patient and/or Family Agrees t: Yes Discharge Recommendations Therapy Discharge Recommendati: Home & Family Time Time In: 853 Time Out: 907 DATE: Jun 03, 2022 Total Billed Treatment Time: 14 Total Billed Treatment 1 visit [facility] 14 min CHANA DYKES PT Jun 03, 2022 09:53
--- NOTE | 2022-06-03 10:28 | Occupational Therapy Eval ---
OT Evaluation-General/PLF Medical Diagnosis Admission Date Jun 01, 2022 at 09:59 Medical Diagnosis: severe sepsis Onset Date: Jun 01, 2022 Therapy Diagnosis Therapy Diagnosis: n/a Height/Weight Height (Feet): 6 Height (Inches): 2.00 Weight (Pounds): 213 Weight (Ounces): 6.0 Precautions Precautions/Isolations: Fall Prevention, Standard Precautions Referral Physician: Patricia Referral Reason: Evaluation/Treatment Medical History Pertinent Medical History: COPD, DM, GERD, HTN Additional Medical History asthma, PNA, HTN, GERD, DM Current History presents with extreme weakness, unable to ambulate or get out of chair so called EMS. Found to be hypotensive. Social History Home: Apartment Current Living Status: Spouse Entry Into Home: Ramp ADL-Prior Level of Function SCALE: Activities may be completed with or without assistive devices. 6-Sgipnnpqoe-hnctyuh completes the activity by him/herself with no assistance from a helper. 5-Set-up or Clean-up Assistance-helper sets up or cleans up; patient completes activity. [place] assists only prior to or following the activity. 4-Supervision or Touching Assistance-helper provides verbal cues and/or touching/steadying and/or contact guard assistance as patient completes activity. Assistance may be provided throughout the activity or intermittently. 3-Partial/Moderate Assistance-helper does LESS THAN HALF the effort. [place] lifts, holds or supports trunk or limbs, but provides less than half the effort. 2-Substantial/Maximal Assistance-helper does MORE THAN HALF the effort. [place] lifts or holds trunk or limbs and provides more than half the effort. 3-Xmyptunng-wfsszy does ALL the effort. Patient does none of the effort to complete the activity. Or, the assistance of 2 or more helpers is required for the patient to complete the activity. If activity was not attempted, code reason: 7-Patient Refused. 9-Not Applicable-not attempted and the patient did not perform the activity before the current illness, exacerbation or injury. 10-Not Attempted due to Environmental Limitations-(lack of equipment, weather restraints, etc.). 88-Not Attempted due to Medical Conditions or Safety Concerns. ADL PLOF Comments Pt reports IND with ADLS and functional mobility without AD. He has a walker that he uses to/from mail box. [facility] comes in 1x a week to assist with showering. Pt IND with dressing and toileting. He has a tub/shower with [place] Self Care: Needed Some Help Functional Cognition: Independent OT Current Status Subjective Pt in recliner, agreeable to OT tx. Mental Status/Objective Patient Orientation: Person, Place, Situation Current Upper Extremity ROM WFL, RUE shoulder flexion to approx 90 degrees, LUE to approx 120 degrees Upper Extremity Coordination WFL Upper Extremity Strength grossly 4/5 ADL-Treatment Eating (QC): 6 On/Off Footwear (QC): 6 Toileting Hygiene (QC): 6 (per pt report) Other Treatments Pt in recliner, agreeable to OT Tx. Pt provided information about PLOF and home set up and participated in UE screen. Pt demo'd ability to complete footwear, independently. He states he has no concerns with his ability to complete ADLS upon discharging and is planing on discharging this afternoon. Pt declined toileting and other ADLs at this time, but reports IND with toileting earlier today. Pt declines further OT services. Post tx, pt in recliner, call light in reach and all needs met. Education OT Patient Education: Correct positioning, Energy conservation, Modified ADL techniques, Progress toward Goal/Update tx plan, Purpose of tx/functional activities, Rehab process Teaching Recipient: Patient Teaching Methods: Discussion Response to Teaching: Verbalize Understanding OT [facility] Goals Glass Bulb Machine Adjuster Goals 1=Demonstrate adherence to instructed precautions during ADL tasks. 2=Patient will verbalize/demonstrate understanding of assistive devices/modifications for ADL. 3=Patient will improve strength/tolerance for activity to enable patient to perform ADL's. OT Education/Plan Problem List/Assessment Assessment: No Skilled OT Needs ID'd No skilled OT services indicated at this time. Pt reports he is at his PLOF with ADLs, and reports IND with ADLs at this time. Pt declines further OT services. D/C from OT. Discharge Recommendations Plan/Recommendations: Discharge/Goals Met Treatment Plan/Plan of Care Patient would benefit from OT for education, treatment and training to promote independence in ADL's, mobility, safety and/or upper extremity function for ADL's. Plan of Care: ADL Retraining, Functional Mobility Treatment Duration: Jun 03, 2022 Frequency: 1 time per week (eval only) Estimated Hrs Per Day: .25 hour per day Agreement: Yes Rehab Potential: Fair Time Start Time: 10:10 Stop Time: 10:19 DATE: Jun 03, 2022 Total Time Billed (hr/min): 9 Billed Treatment Time 1, KRISTI TAYLOR OT Jun 03, 2022 10:28
[2022-06-03] MEDS ORDERED: AMOX1TAB12 PO ×2 (11:08→11:51)
--- NOTE | 2022-06-03 11:09 | D/C HH Face to Face Order ---
D/C HH Face to Face Orders Reconcile Patient Problems Problems Reviewed?: Yes Instructions for Patient HH Patient Instructions/FollowUp: PCP 1 week Physician to follow Patient: [facility] Discharge Diet for Home: ADA Diet Patient Problems: Debility Hypotension Patient Data-Allergies,Ht & Wt Patient Allergies: Coded Allergies: No Known Drug Allergies (Unverified , 10/28/18) Height (Feet): 6 Height (Inches): 2.00 Weight (Pounds): 213 Weight (Ounces): 6.0 Home Health Need/Face to Face Date of Face to Face: Jun 03, 2022 Clinical Findings: Generalized weakness and fatigue, Instability, Muscle weakness I have seen Pt irbj-ai-xmon: Yes Discharged To: Home Diagnosis/Conditions: Debility Patient is Homebound due to: CognItive deficits, Muscle weakness Homebound Status Due to the above stated illness, injury or surgical procedure (medical condition or diagnosis) and associated clinical findings, the patient is homebound because of his/her inability to leave home except with aid of a supportive device and/or person AND leaving the home requires a considerable and taxing effort or is medically contraindicated. Pt req the following assistanc: Walker Home Health Nursing Orders Home Health Services Order: Nursing Services, Agricultural Appraiser-Evaluate & Treat, Physical Therapy-Evaluate & Treat Home Health Infusion Therapy Line Start Date: Jun 01, 2022 Certify Stmt I certify that this patient is under my care and that I, a nurse practitioner or a physician; a data control assistant working with me, had a face to face encounter that - meets the physician face to face encounter requirements with this patient as dated. ALVINA DE GUZMAN DO Jun 03, 2022 11:09
--- NOTE | 2022-06-03 11:09 | Discharge Summary ---
Discharge Summary Hospital Course Was the Problem List Reviewed?: Yes Problems/Dx: (1) Severe sepsis Status: Acute (2) Pneumonia (3) Diabetes mellitus Hospital Course Date of Admission: Jun 01, 2022 at 09:59 Admission Diagnosis : [facility] Date of Discharge: 06/03/22 Discharge Diagnosis: [ ] Hospital Course: Uneventful hospital course after he was admitted for hypotension and severe sepsis from pneumonia. He was placed in the ICU. Aggressive IV fluids initiated with good results. He did not require pressor therapy. Home meds were restarted. PT and OT evaluated patient and found him back to baseline and I did update who appreciated the update and he will be discharged. Labs and Pending Lab Test: Laboratory Tests 06/03/22 06:15: White Blood Count 9.9, Red Blood Count 4.27L, Hemoglobin 11.5L, Hematocrit 36L, Mean Corpuscular Volume 85, Mean Corpuscular Hemoglobin 27, Mean Corpuscular Hemoglobin Concent 32, Red Cell Distribution Width 15.7H, Platelet Count 211, Mean Platelet Volume 8.9L, Immature Granulocyte % (Auto) 1, Neutrophils (%) (Auto) 65, Lymphocytes (%) (Auto) 22, Monocytes (%) (Auto) 8, Eosinophils (%) (Auto) 4, Basophils (%) (Auto) 0, Neutrophils # (Auto) 6.4, Lymphocytes # (Auto) 2.2, Monocytes # (Auto) 0.8, Eosinophils # (Auto) 0.4H, Basophils # (Auto) 0.0, Immature Granulocyte # (Auto) 0.1, Sodium Level 134L, Potassium Level 3.9, Chloride Level 105, Carbon Dioxide Level 21, Anion Gap 8, Blood Urea Nitrogen 13, Creatinine 0.84, Estimat Glomerular Filtration Rate 90, BUN/Creatinine Ratio 15, Glucose Level 140H, Calcium Level 8.7, Corrected Calcium 9.3, Magnesium Level 1.9, Total Bilirubin 1.0, Aspartate Amino Transf (AST/SGOT) 47H, Alanine Aminotransferase (ALT/SGPT) 89H, Alkaline Phosphatase 68, Total Protein 7.6, Albumin 3.3 Microbiology 06/01/22 Blood Culture - Preliminary, Resulted No growth Home Meds Active Amox Tr-K Clv 875-125 mg Tab (Amoxicillin/Potassium Clav) 875 Mg-125 Mg Tablet 1 Each PO BID Hydrocodone-Acetamin 5-325 mg (Hydrocodone/Acetaminophen) 5 Mg-325 Mg Tablet 1-2 Tab PO Q4H PRN Reported Flonase Allergy Relief (Fluticasone Propionate) 9.9 Ml [place].susp 1 [place] NS DAILY 1 SPRAY EACH NARE DAILY Systane 0.3-0.4% Eye Drops (Propylene Glycol/Peg 400) 15 Ml Drops 1 Drop OU DAILY Trelegy Ellipta 100-62.5-25 (Fluticasone/Umeclidin/Vilanter) 1 Each Blst.w.dev 1 Each IH DAILY Cetirizine HCl 10 Mg Tablet 10 Mg PO DAILY Memantine HCl 10 Mg Tablet 10 Mg PO BID Fish Oil 1,200 mg Softgel ([place]-3 Fatty Acids/Fish Oil) 1 Each Capsule 1 Each PO DAILY Aspirin EC (Aspirin) 81 Mg Tablet.dr 81 Mg PO DAILY Proventil Hfa (Albuterol Sulfate) 6.7 Gm Hfa.aer.ad 2 Puff INH Q6H PRN Montelukast Sodium 10 Mg Tablet 10 Mg PO DAILY Lisinopril 20 Mg Tablet 20 Mg PO HS Omeprazole 20 Mg Tablet.dr 20 Mg PO DAILY Metformin HCl 500 Mg Tablet 1,000 Mg PO BID TAKES 2 (500MG) TABS Amlodipine Besylate 5 Mg Tablet 5 Mg PO DAILY Assessment/Pt Instructions PCP in 1 week Discharge Planning: <30 minutes discharge planning Discharge Instructions Discharge Diet: No Restrictions Discharge Physical Examination Vital Signs Vital Signs Date Time Temp Pulse Resp B/P (MAP) Pulse Ox O2 Delivery O2 Flow Rate FiO2 06/03/22 09:49 95 Room Air 06/03/22 07:35 36.3 81 18 124/74 (91) 06/03/22 02:48 0.00 06/01/22 12:42 21 General Appearance: No Apparent Distress, WD/WN, Chronically ill Allergies: Coded Allergies: No Known Drug Allergies (Unverified , 10/28/18) Discharge Summary Date of Admission Jun 01, 2022 at 09:59 Date of Discharge Discharge Date: Jun 03, 2022 Admission Diagnosis Assessment: Sepsis Pneumonia Hypotension Plan: IV antibiotics IV fluids ICU Discharge Diagnosis Assessment: Sepsis Pneumonia Hypotension Plan: IV antibiotics IV fluids Move to [facility] ALVINA DE GUZMAN Jun 03, 2022 11:09
[2022-06-03 11:46] VITALS: BP 108/73
[2022-06-03] MEDS: ENOXAPARIN 40 MG/0.4 ML (LOVENOX) SYR SC SCH (13:09)
[2022-06-03 15:20] VITALS: BP 108/73
== END 2022-06-03 15:20 | disposition home health service (06) | DRG 871 ==
LOC: EDUNIT# 07:54 → ER 07:55 → ICU 09:59 → 4TH 06-02 11:57
PROVIDERS: ADMIT Internal Medicine; ATTEND Internal Medicine
PROC: 8E0ZXY6 Isolation (ICD-10-PCS; principal; 2022-06-01)
DX: A41.9 Sepsis, unspecified organism (principal); J18.9 Pneumonia, unspecified organism; R65.20 Severe sepsis without septic shock; E11.9 Type 2 diabetes mellitus without complications; J44.9 Chronic obstructive pulmonary disease, unspecified; I10 Essential (primary) hypertension; K21.9 Gastro-esophageal reflux disease without esophagitis; K59.09 Other constipation; Z79.84 Long term (current) use of oral hypoglycemic drugs; Z87.891 Personal history of nicotine dependence; Z20.822 Contact with and (suspected) exposure to COVID-19; Z79.899 Other long term (current) drug therapy
CPT/HCPCS: 36415; 71045; 80053; 83605; 83735; 84100; 84145; 85007; 85025; 85027; 85610; 85730; 87040; 87636; 94640; 94760

== ENCOUNTER 2022-06-22 22:17 | Emergency (ER) | payer MEDICARE, MEDICAID ==
[~2022-06-22] VITALS: Ht 187.9 cm; Wt 94.3 kg
[~2022-06-22 22:17] MED LIST changes: +AMOX1TAB12 PO
[2022-06-22 22:40] LABS: BASOPHILS % (AUTO) 0 % (0-10); EOSINOPHILS % (AUTO) 0 % (0-10); HEMATOCRIT 41 % (40-54); LYMPHOCYTES # (AUTO) 1.4 10^3/uL (1.0-4.0); LYMPHOCYTES % (AUTO) 13 % (12-44); MEAN CORPUSCULAR HEMOGLOBIN 27 pg (25-34); MEAN CORPUSCULAR HGB CONC 31 g/dL (32-36); MEAN CORPUSCULAR VOLUME 86 fL (80-99); MONOCYTES # (AUTO) 0.4 10^3/uL (0.0-1.0); MONOCYTES % (AUTO) 4 % (0-12); NEUTROPHILS # (AUTO) 8.7 10^3/uL (1.8-7.8); NEUTROPHILS % (AUTO) 82 % (42-75); PLATELET COUNT 309 10^3/uL (130-400); WHITE BLOOD COUNT 10.6 10^3/uL (4.3-11.0)
[2022-06-22 22:41] LABS: POTASSIUM 4.8 MMOL/L (3.6-5.0)
[2022-06-22 22:42] LABS: CALCIUM 9.3 MG/DL (8.5-10.1)
[2022-06-22 22:43] LABS: TOTAL PROTEIN 8.9 GM/DL (6.4-8.2)
[2022-06-22 22:45] LABS: BILIRUBIN,TOTAL 0.7 MG/DL (0.1-1.0)
[2022-06-22 22:47] LABS: CREATININE SERUM 1.18 MG/DL (0.60-1.30)
[2022-06-22] MEDS ORDERED: RX-OSELTAMIVIR 75 MG (TAMIFLU) BOX OF 10 PO STA (23:32)
--- NOTE | 2022-06-22 23:32 | ED Cough/URI ---
General Chief Complaint: Cough/Cold/Flu Symptoms Stated Complaint: RESPIRATORY ISSUES Nursing Triage Note: PT ARRIVED [facility]IA [facility] AND AMB TO [facility] WITH COMPLAINTS OF A COUGH X2 WEEKS AND SOB. HX OF COPD. Allergies and Home Medications Allergies Coded Allergies: No Known Drug Allergies (Unverified , 10/28/18) Patient Home Medication List Albuterol Sulfate (Proventil Hfa) 6.7 Gm Hfa.aer.ad, 2 PUFF INH Q6H PRN for SHORTNESS OF BREATH, (Reported) Entered as Reported by: PAULINE EAST on 02/27/21 1027 Amlodipine Besylate (Amlodipine Besylate) 5 Mg Tablet, 5 MG PO DAILY, (Reported) Entered as Reported by: NOEMÍ HERNANDEZ on 09/25/15 1220 Amoxicillin/Potassium Clav (Amox Tr-K Clv 875-125 mg Tab) 875 Mg-125 Mg Tablet, 1 EACH PO BID Prescribed by: ALVINA DE GUZMAN on 06/03/22 1151 Aspirin (Aspirin EC) 81 Mg Tablet.dr, 81 MG PO DAILY, (Reported) Entered as Reported by: PAULINE EAST on 02/27/21 1027 Cetirizine HCl (Cetirizine HCl) 10 Mg Tablet, 10 MG PO DAILY, (Reported) Entered as Reported by: SAURABH FUNES on 10/03/21 0726 Fluticasone Propionate (Flonase Allergy Relief) 9.9 Ml [place].susp, 1 SPRAY NS DAILY, (Reported) Entered as Reported by: SAURABH FUNES on 10/03/21 07 Fluticasone/Umeclidin/Vilanter (Trelegy Ellipta 100-62.5-25) 1 Each Blst.w.dev, 1 EACH IH DAILY, (Reported) Entered as Reported by: SAURABH FUNES on 10/03/21 0726 Hydrocodone/Acetaminophen (Hydrocodone-Acetamin 5-325 mg) 5 Mg-325 Mg Tablet, 1- 2 TAB PO Q4H PRN for PAIN-MODERATE (5-7) Prescribed by: JASMYNE GONZALEZ on 01/22/22 1627 Lisinopril (Lisinopril) 20 Mg Tablet, 20 MG PO HS, (Reported) Entered as Reported by: PAULINE EAST on 02/27/21 1027 Memantine HCl (Memantine HCl) 10 Mg Tablet, 10 MG PO BID, (Reported) Entered as Reported by: SAURABH FUNES on 10/03/21 0726 Metformin HCl (Metformin HCl) 500 Mg Tablet, 1,000 MG PO BID, (Reported) Entered as Reported by: NOEMÍ HERNANDEZ on 09/25/15 1220 Montelukast Sodium (Montelukast Sodium) 10 Mg Tablet, 10 MG PO DAILY, (Reported) Entered as Reported by: PAULINE EAST on 02/27/21 1027 [place]-3 Fatty Acids/Fish Oil (Fish Oil 1,200 mg Softgel) 1 Each Capsule, 1 EACH PO DAILY, (Reported) Entered as Reported by: PAULINE EAST on 02/27/21 1031 Omeprazole (Omeprazole) 20 Mg Tablet.dr, 20 MG PO DAILY, (Reported) Entered as Reported by: NOEMÍ HERNANDEZ on 09/25/15 1220 Propylene Glycol/Peg 400 (Systane 0.3-0.4% Eye Drops) 15 Ml Drops, 1 DROP OU DAILY, (Reported) Entered as Reported by: SAURABH FNUES on 10/03/21 07 Past Yddagmt-Fufstj-Dkdbaf Hx Patient Social History Tobacco Use?: No Substance use?: No Alcohol Use?: No Immunizations Up To Date First/Initial COVID19 Vaccinat: 2020 Second COVID19 Vaccination Marcelino: 2020 Third COVID19 Vaccination Date: 2020 Seasonal Allergies Seasonal Allergies: No Past Medical History Surgery/Hospitalization HX: History of COPD, Asthma, HTN Surgeries: Yes Appendectomy, Orthopedic, Renal Respiratory: Yes Asthma, Pneumonia, Chronic Bronchitis Cardiac: Yes High Cholesterol, Hypertension Neurological: No Sexually Transmitted Disease: No HIV/AIDS: No Genitourinary: Yes Kidney Stones Gastrointestinal: Yes Gastroesophageal Reflux, Chronic Constipation Musculoskeletal: Yes Back Injury, Chronic Back Pain Endocrine: Yes Diabetes, Non-Insulin dep HEENT: Yes ([place]ING GLASSES, PARTIAL ) Loss of Vision: Bilateral Hearing Impairment: Hard of Hearing Cancer: No Psychosocial: No Integumentary: No Blood Disorders: No Adverse Reaction/Blood Tranf: No (N/A) Physical Exam Vital Signs - First Documented 06/22/22 22:18 Temp 36.7 Pulse 117 B/P (MAP) 131/87 (102) Pulse Ox 95 O2 Delivery Room Air Capillary Refill : Height: 6'2.00" Weight: 213lbs. 6.0oz. 96.440669ru; 26.00 BMI Method:Stated Progress/Results/Core Measures Suspected Sepsis SIRS Temperature: Pulse: 117 Respiratory Rate: Laboratory Tests 06/22/22 22:24: White Blood Count 10.6 Blood Pressure 131 /87 Mean: 102 Laboratory Tests 06/22/22 22:24: Creatinine 1.18, Platelet Count 309, Total Bilirubin 0.7 Results/Orders Lab Results Laboratory Tests Test 06/22/22 22:24 Range/Units White Blood Count 10.6 4.3-11.0 10^3/uL Red Blood Count 4.80 4.30-5.52 10^6/uL Hemoglobin 13.0 L 13.3-17.7 g/dL Hematocrit 41 40-54 % Mean Corpuscular Volume 86 80-99 fL Mean Corpuscular Hemoglobin 27 25-34 pg Mean Corpuscular Hemoglobin Concent 31 L 32-36 g/dL Red Cell Distribution Width 15.9 H 10.0-14.5 % Platelet Count 309 130-400 10^3/uL Mean Platelet Volume 9.0 9.0-12.2 fL Immature Granulocyte % (Auto) 0 % Neutrophils (%) (Auto) 82 H 42-75 % Lymphocytes (%) (Auto) 13 12-44 % Monocytes (%) (Auto) 4 0-12 % Eosinophils (%) (Auto) 0 0-10 % Basophils (%) (Auto) 0 0-10 % Neutrophils # (Auto) 8.7 H 1.8-7.8 10^3/uL Lymphocytes # (Auto) 1.4 1.0-4.0 10^3/uL Monocytes # (Auto) 0.4 0.0-1.0 10^3/uL Eosinophils # (Auto) 0.0 0.0-0.3 10^3/uL Basophils # (Auto) 0.0 0.0-0.1 10^3/uL Immature Granulocyte # (Auto) 0.0 0.0-0.1 10^3/uL Sodium Level 132 L 135-145 MMOL/L Potassium Level 4.8 3.6-5.0 MMOL/L Chloride Level 102 98-107 MMOL/L Carbon Dioxide Level 18 L 21-32 MMOL/L Anion Gap 12 5-14 MMOL/L Blood Urea Nitrogen 22 H 7-18 MG/DL Creatinine 1.18 0.60-1.30 MG/DL Estimat Glomerular Filtration Rate 64 BUN/Creatinine Ratio 19 Glucose Level 314 H 70-105 MG/DL Calcium Level 9.3 8.5-10.1 MG/DL Corrected Calcium 9.3 8.5-10.1 MG/DL Total Bilirubin 0.7 0.1-1.0 MG/DL Aspartate Amino Transf (AST/SGOT) 50 H 5-34 U/L Alanine Aminotransferase (ALT/SGPT) 97 H 0-55 U/L Alkaline Phosphatase 95 40-136 U/L B-Type Natriuretic Peptide 10.6 <100.0 PG/ML Total Protein 8.9 H 6.4-8.2 GM/DL Albumin 4.0 3.2-4.5 GM/DL Influenza Type A (RT-PCR) Detected H Not Detecte Influenza Type B (RT-PCR) Not Detected Not Detecte SARS-CoV-2 RNA (RT-PCR) Not Detected Not Detecte My Orders Orders - JANE NORTON DO Ed Iv/Invasive Line Start (06/22/22 22:33) Monitor-Rhythm Ecg Trace Only (06/22/22 22:33) Bnp [place] (06/22/22 22:33) Cbc With Automated Diff (06/22/22 22:33) Comprehensive Metabolic Panel (06/22/22 22:33) Chest 1 View, Ap/Pa Only (06/22/22 22:33) Covid 19 Inhouse Test (06/22/22 22:33) Influenza A And B By Pcr (06/22/22 22:33) Isolation Central Supply Req (06/22/22 22:33) Rx-Oseltamivir Caps (Rx-Tamiflu Caps) (06/22/22 23:32) Vital Signs/I&O 06/22/22 22:18 Temp 36.7 Pulse 117 B/P (MAP) 131/87 (102) Pulse Ox 95 O2 Delivery Room Air Capillary Refill : Blood Pressure Mean: 102 Departure Impression Primary Impression: Influenza A Additional Impression: COPD (chronic obstructive pulmonary disease) Disposition: 01 HOME, SELF-CARE Condition: Stable Departure-Patient Inst. Decision time for Depature: 23:29 Referrals: [facility] (PCP/Family) Primary Care Physician Patient Instructions: Flu, Adult ED, COPD Exacerbation, Adult ED Add. Discharge Instructions: TAKE TAMIFLU TWICE A DAY EVERY DAY FOR 5 DAYS CONTINUE YOUR MEDICATIONS PRESCRIBED USE YOUR INHALERS PRESCRIBED TAKE TYLENOL AND MOTRIN NEEDED FOR PAIN OR FEVER QUARANTINE FOR THE NEXT 7 DAYS FOLLOW UP WITH [facility] IN 4-5 DAYS IF NO BETTER, RETURN TO ER IF WORSE All discharge instructions reviewed with patient and/or family. Voiced understanding. Scripts Benzonatate (BEL MARTINEZ) 100 Mg Capsule 200 MG PO TID, #30 CAP Prov: JANE NORTON DO 06/22/22 JANE NORTON DO Jun 22, 2022 23:32
[2022-06-22] MEDS ORDERED: BENZ100C18 PO (23:42)
[2022-06-22] MEDS ORDERED: BENZONATATE 100 MG (TESSALON) CAPSULE PO SCH (23:45)
[2022-06-23 00:06] VITALS: BP 118/94
--- NOTE | 2022-06-23 07:43 | Diagnostic Imaging Report ---
EXAMINATION: Chest 1 view HISTORY: Cough COMPARISON: 06/02/2022 FINDINGS: The lungs are clear without edema or pneumonia. No pleural effusion or pneumothorax. Heart size is normal. IMPRESSION: 1. Clear lungs. Dictated by: Dictated on workstation # [id number]
== END 2022-06-23 00:01 | disposition home or self-care (01) ==
LOC: EDUNIT# 22:17 → ER 22:19
DX: J10.1 Influenza due to other identified influenza virus with other respiratory manifestations (principal); J44.9 Chronic obstructive pulmonary disease, unspecified; Z20.822 Contact with and (suspected) exposure to COVID-19
CPT/HCPCS: 36415; 71045; 80053; 83880; 85025; 87636; 93041

== ENCOUNTER → 2022-07-02 | Outpatient (CLI) | payer MEDICARE, MEDICAID ==
[~2022-07-02] MED LIST changes: +BENZ100C18 PO
--- NOTE | 2022-07-02 17:35 | Diagnostic Imaging Report ---
PROCEDURE: US Thyroid. TECHNIQUE: Multiple real-time grayscale images were obtained of the thyroid in various projections. INDICATION: Left thyroid nodule. COMPARISON: None available. FINDINGS: Right thyroid lobe: The right thyroid lobe measures 5.2 x 1.9 x 2.2 cm. There are a few nodules present in the right thyroid lobe. The most suspicious nodule is in the lower pole, is isoechoic, solid, ill-defined margins, no echogenic foci and measures 1.2 cm in maximal dimension (TI-RADS 3). There are a few small benign TI-RADS 1 cysts in the right thyroid lobe. Isthmus: The thyroid isthmus measures 0.3 cm and is without nodule. Left thyroid lobe: The left thyroid lobe measures 5.1 x 1.6 x 2.1 cm. There is an isoechoic solid nodule that has ill-defined margins, no echogenic foci and measures up to 1 cm in the mid left thyroid lobe (TI-RADS 3). IMPRESSION: Small bilateral thyroid nodules are mildly suspicious but do not meet criteria for FNA. Additionally, since these are less than 1.5 cm in size, dedicated follow-up imaging is not suggested. ACR TI-RADS: TR3. TI-RADS Recommendations: TR3 - Mildly Suspicious. FNA if > 2.5 cm. Follow if > 1.5 cm at 1, 3, and 5 years. Dictated by: Dictated on workstation # [id number]
== END ==
LOC: RAD 12:00
PROVIDERS: ATTEND Otolaryngology Otolaryngology/Facial Plastic Surgery
DX: E04.2 Nontoxic multinodular goiter (principal)
CPT/HCPCS: 76536

== ENCOUNTER 2022-09-03 13:56 | Emergency (ER) | payer MEDICARE, MEDICAID ==
[~2022-09-03] VITALS: Ht 73 cm; Wt 98.0 kg
--- NOTE | 2022-09-03 14:09 | ED Respiratory ---
General Chief Complaint: Chest Pain Stated Complaint: CHEST PAINS Nursing Triage Note: PT ARRIVED PER EMS, PT STATES HAS BEEN HAVING CHEST PAIN TODAY, PT STATES HAS HAD SOA FOR A COUPLE DAYS. PT HAS HAD 325MG ASA, PT HAS SL IN L AC BY EMS. Source: patient, EMS, old records Exam Limitations: no limitations History of Present Illness Date Seen by Provider: Sep 03, 2022 Time Seen by Provider: 13:57 Initial Comments 76-year-old male with past medical history of COPD, diabetes, hypertension, hyperlipidemia coming in via EMS from [facility] due to concerns for chest discomfort. The patient states that he has had a productive cough for the past couple of weeks, worsening over the past day. Started to feel more short of breath. Having some chest tightness with that that is mild, constant, nothing really seems to make it worse. It is better when he gives himself a breathing treatment at home. This all started last night when it was getting worse. Denies any fever, nausea, vomiting, diarrhea, focal weakness or numbness, rash, or any other concerns. Denies any prior cardiac history including no stents, no prior DVT or PE, no lower extremity swelling or pain, no recent surgery, no hemoptysis. Allergies and Home Medications Allergies Coded Allergies: No Known Drug Allergies (Unverified , 10/28/18) Patient Home Medication List Home Medication List Reviewed: Yes Albuterol Sulfate (Proventil Hfa) 6.7 Gm Hfa.aer.ad, 2 PUFF INH Q6H PRN for SHORTNESS OF BREATH, (Reported) Entered as Reported by: PAULINE EAST on 02/27/21 1027 Amlodipine Besylate (Amlodipine Besylate) 5 Mg Tablet, 5 MG PO DAILY, (Reported) Entered as Reported by: NEOMÍ HERNANDEZ on 09/25/15 1220 Amoxicillin/Potassium Clav (Amox Tr-K Clv 875-125 mg Tab) 875 Mg-125 Mg Tablet, 1 EACH PO BID Prescribed by: ALVINA DE GUZMAN on 06/03/22 1151 Aspirin (Aspirin EC) 81 Mg Tablet.dr, 81 MG PO DAILY, (Reported) Entered as Reported by: PAULINE EAST on 02/27/21 1027 Benzonatate (Tessalon Perles) 100 Mg Capsule, 200 MG PO TID Prescribed by: JANE NORTON on 06/22/22 2342 Cetirizine HCl (Cetirizine HCl) 10 Mg Tablet, 10 MG PO DAILY, (Reported) Entered as Reported by: SAURABH FUNES on 10/03/21 07 Fluticasone Propionate (Flonase Allergy Relief) 9.9 Ml Butler.susp, 1 SPRAY NS DAILY, (Reported) Entered as Reported by: SAURABH FUNES on 10/03/21 07 Fluticasone/Umeclidin/Vilanter (Trelegy Ellipta 100-62.5-25) 1 Each Blst.w.dev, 1 EACH IH DAILY, (Reported) Entered as Reported by: SAURABH FUNES on 10/03/21 07 Hydrocodone/Acetaminophen (Hydrocodone-Acetamin 5-325 mg) 5 Mg-325 Mg Tablet, 1- 2 TAB PO Q4H PRN for PAIN-MODERATE (5-7) Prescribed by: JASMYNE GONZALEZ on 01/22/22 1627 Lisinopril (Lisinopril) 20 Mg Tablet, 20 MG PO HS, (Reported) Entered as Reported by: PAULINE EAST on 02/27/21 1027 Memantine HCl (Memantine HCl) 10 Mg Tablet, 10 MG PO BID, (Reported) Entered as Reported by: SAURABH FUNES on 10/03/21725 Metformin HCl (Metformin HCl) 500 Mg Tablet, 1,000 MG PO BID, (Reported) Entered as Reported by: NOEMÍ HERNANDEZ on 09/25/15 1220 Montelukast Sodium (Montelukast Sodium) 10 Mg Tablet, 10 MG PO DAILY, (Reported) Entered as Reported by: PAULINE EAST on 02/27/21 1027 Omar-3 Fatty Acids/Fish Oil (Fish Oil 1,200 mg Softgel) 1 Each Capsule, 1 EACH PO DAILY, (Reported) Entered as Reported by: PAULINE EAST on 02/27/21 1031 Omeprazole (Omeprazole) 20 Mg Tablet.dr, 20 MG PO DAILY, (Reported) Entered as Reported by: NOEMÍ HERNANDEZ on 09/25/15 1220 Propylene Glycol/Peg 400 (Systane 0.3-0.4% Eye Drops) 15 Ml Drops, 1 DROP OU DAILY, (Reported) Entered as Reported by: SAURABH FUNES on 10/03/21 0726 Review of Systems Review of Systems Constitutional: No fever EENTM: no symptoms reported Respiratory: see HPI Cardiovascular: chest pain Gastrointestinal: no symptoms reported Genitourinary: no symptoms reported Musculoskeletal: no symptoms reported Skin: no symptoms reported Psychiatric/Neurological: No Symptoms Reported Hematologic/Lymphatic: No Symptoms Reported Past Dkusbwg-Gmbykd-Geuoeu Hx Patient Social History Tobacco Use?: No Smoking Status: Former Smoker Substance use?: No Alcohol Use?: No Pt feels they are or have been: No Immunizations Up To Date Influenza Vaccine Up-to-Date: Yes; Up-to-Date First/Initial COVID19 Vaccinat: 2020 Second COVID19 Vaccination Marcelino: 2020 Third COVID19 Vaccination Date: 2020 Seasonal Allergies Seasonal Allergies: No Past Medical History Surgery/Hospitalization HX: History of COPD, Asthma, HTN Surgeries: Yes Appendectomy, Orthopedic, Renal Respiratory: Yes Asthma, Pneumonia, Chronic Bronchitis Cardiac: Yes High Cholesterol, Hypertension Neurological: No Sexually Transmitted Disease: No HIV/AIDS: No Genitourinary: Yes Kidney Stones Gastrointestinal: Yes Gastroesophageal Reflux, Chronic Constipation Musculoskeletal: Yes Back Injury, Chronic Back Pain Endocrine: Yes Diabetes, Non-Insulin dep HEENT: Yes (READING GLASSES, PARTIAL ) Loss of Vision: Bilateral Hearing Impairment: Hard of Hearing Cancer: No Psychosocial: No Integumentary: No Blood Disorders: No Adverse Reaction/Blood Tranf: No (N/A) Physical Exam Vital Signs - First Documented 09/03/22 13:56 Temp 36.3 Pulse 115 Resp 20 B/P (MAP) 153/84 (107) Pulse Ox 97 O2 Delivery Room Air Capillary Refill : Height: 6'2.00" Weight: 213lbs. 6.0oz. 96.564494um; 183.00 BMI Method:Stated General Appearance: WD/WN, mild distress Eyes: Bilateral Eye Normal Inspection HEENT: PERRL/EOMI, normal ENT inspection, pharynx normal Neck: non-tender, full range of motion, supple, normal inspection Respiratory: chest non-tender, accessory muscle use, wheezing, other (Tachyp crissy) Cardiovascular: no edema, tachycardia Gastrointestinal: normal bowel sounds, non tender, soft; No distended, No guarding Extremities: normal range of motion, non-tender, normal inspection, no pedal edema, no calf tenderness, normal capillary refill Neurologic/Psychiatric: no motor/sensory deficits, alert, normal mood/affect, oriented x 3 Skin: normal color, warm/dry Progress/Results/Core Measures Suspected Sepsis SIRS Temperature: Pulse: 115 Respiratory Rate: 20 Laboratory Tests 09/03/22 13:59: White Blood Count 10.4 Blood Pressure 153 /84 Mean: 107 Laboratory Tests 09/03/22 13:59: Creatinine 0.86, INR Comment 0.9, Platelet Count 273, Total Bilirubin 0.6 Results/Orders Lab Results Laboratory Tests Test 09/03/22 13:59 Range/Units White Blood Count 10.4 4.3-11.0 10^3/uL Red Blood Count 4.96 4.30-5.52 10^6/uL Hemoglobin 13.6 13.3-17.7 g/dL Hematocrit 43 40-54 % Mean Corpuscular Volume 87 80-99 fL Mean Corpuscular Hemoglobin 27 25-34 pg Mean Corpuscular Hemoglobin Concent 32 32-36 g/dL Red Cell Distribution Width 15.9 H 10.0-14.5 % Platelet Count 273 130-400 10^3/uL Mean Platelet Volume 8.8 L 9.0-12.2 fL Immature Granulocyte % (Auto) 0 % Neutrophils (%) (Auto) 55 42-75 % Lymphocytes (%) (Auto) 27 12-44 % Monocytes (%) (Auto) 11 0-12 % Eosinophils (%) (Auto) 6 0-10 % Basophils (%) (Auto) 1 0-10 % Neutrophils # (Auto) 5.7 1.8-7.8 10^3/uL Lymphocytes # (Auto) 2.8 1.0-4.0 10^3/uL Monocytes # (Auto) 1.2 H 0.0-1.0 10^3/uL Eosinophils # (Auto) 0.7 H 0.0-0.3 10^3/uL Basophils # (Auto) 0.1 0.0-0.1 10^3/uL Immature Granulocyte # (Auto) 0.0 0.0-0.1 10^3/uL Prothrombin Time 12.7 12.2-14.7 SEC INR Comment 0.9 0.8-1.4 Activated Partial Thromboplast Time 29 24-35 SEC Venous Blood pH 7.32 7.31-7.41 Venous Blood Partial Pressure CO2 48 40-52 MMHG Venous Blood HCO3 24 22-28 MMOL/L Sodium Level 136 135-145 MMOL/L Potassium Level 4.4 3.6-5.0 MMOL/L Chloride Level 104 98-107 MMOL/L Carbon Dioxide Level 21 21-32 MMOL/L Anion Gap 11 5-14 MMOL/L Blood Urea Nitrogen 14 7-18 MG/DL Creatinine 0.86 0.60-1.30 MG/DL Estimat Glomerular Filtration Rate 89 BUN/Creatinine Ratio 16 Glucose Level 178 H 70-105 MG/DL Calcium Level 8.9 8.5-10.1 MG/DL Corrected Calcium 9.0 8.5-10.1 MG/DL Magnesium Level 2.0 1.6-2.4 MG/DL Total Bilirubin 0.6 0.1-1.0 MG/DL Aspartate Amino Transf (AST/SGOT) 112 H 5-34 U/L Alanine Aminotransferase (ALT/SGPT) 260 H 0-55 U/L Alkaline Phosphatase 91 40-136 U/L Troponin I < 0.028 <0.028 NG/ML B-Type Natriuretic Peptide 16.5 <100.0 PG/ML Total Protein 8.2 6.4-8.2 GM/DL Albumin 3.9 3.2-4.5 GM/DL Lipase 24 8-78 U/L My Orders Orders - SOHAM BONDS MD Monitor-Rhythm Ecg Trace Only (09/03/22 14:) Pulse Oximetry Order (09/03/22 14:01) Albuterol/Ipra Inhalation Soln (Duoneb I (09/03/22 14:15) Ceftriaxone 1 Gm Pre-Mix (Rocephin 1 Gm (09/03/22 14:15) Doxycycline Hyclate Tablet (Vibramycin T (09/03/22 14:15) Cbc With Automated Diff (09/03/22 14:) Magnesium (09/03/22 14:) Chest 1 View, Ap/Pa Only (09/03/22 14:) Ekg Tracing (09/03/22 14:) Comprehensive Metabolic Panel (09/03/22 14:) Protime With Inr (09/03/22 14:) Partial Thromboplastin Time (09/03/22 14:01) O2 (09/03/22 14:01) Ed Iv/Invasive Line Start (09/03/22 14:01) Lipase (09/03/22 14:01) Bnp Adriel (09/03/22 14:01) Troponin I Adriel (09/03/22 14:01) Venous Blood Gas (09/03/22 14:01) Hydrocortisone Injection (Solu-Cortef In (09/03/22 14:15) Ct Angio Chest W (R/O Pe) (09/03/22 14:45) Iohexol Injection (Omnipaque 350 Mg/Ml 1 (09/03/22 15:00) Received Contrast (Hold Metformin- Contr (09/03/22 15:00) Ns (Ivpb) (Sodium Chloride 0.9% Ivpb Bag (09/03/22 15:00) Medications Given in ED Current Medications Medications Dose Ordered Sig/Tavon Route Start Time Stop Time Status Last Admin Dose Admin Albuterol/ Ipratropium 3 ml ONCE ONCE IH 09/03/22 14:15 09/03/22 14:16 DC 09/03/22 14:23 3 ML Ceftriaxone Sodium/Dextrose 50 ml @ 100 mls/hr ONCE ONCE IV 09/03/22 14:15 09/03/22 14:44 DC 09/03/22 14:19 100 MLS/HR Doxycycline Hyclate 100 mg ONCE ONCE PO 09/03/22 14:15 09/03/22 14:16 DC 09/03/22 14:19 100 MG Hydrocortisone Sodium Succinate 125 mg ONCE ONCE IV 09/03/22 14:15 09/03/22 14:16 DC 09/03/22 14:19 125 MG Iohexol 75 ml ONCE ONCE IV 09/03/22 15:00 09/03/22 15:01 DC 09/03/22 15:17 77 ML Sodium Chloride 100 ml ONCE ONCE IV 09/03/22 15:00 09/03/22 15:01 DC 09/03/22 15:17 80 ML Vital Signs/I&O 09/03/22 09/03/22 13:56 14:23 Temp 36.3 Pulse 115 Resp 20 B/P (MAP) 153/84 (107) Pulse Ox 97 94 O2 Delivery Room Air Room Air Capillary Refill : Blood Pressure Mean: 107 Progress Note : Progress Note 76-year-old male presenting for chest tightness and shortness of breath. The patient was tachypneic and tachycardic on presentation. Physical exam with significant wheezing in all lung anthony. EMS had already given him aspirin. EKG with sinus tachycardia with no acute ischemic changes on my interpretation. Chest x-ray concerning initially for some perihilar infection versus mass. CT was recommended at that time. CT imaging with some bronchomalacia with some air trapping. No pulmonary embolism was seen. Patient was giving a breathing treatment, IV steroids, ceftriaxone, and doxycycline. Symptoms significantly improved, and although still wheezing, is no longer tachypneic, and appears much more comfortable. This is consistent with a COPD exacerbation. We will send him a prescription fo r antibiotics and steroids to his pharmacy. He is only using his breathing treatments at home once or twice a day, I told him to increase the frequency to every 2-4 hours when he is sick like this. ECG Initial ECG Impression Date: Sep 03, 2022 Initial ECG Impression Time: 14:02 Initial ECG Rate: 112 Initial ECG Rhythm: S.Tach Comment Narrow QRS, borderline left axis deviation, Q waves in the inferior leads, no STEMI, no significant T wave changes, appears similar to prior EKG Diagnostic Imaging Diagonstic Imaging: Xray, CT (CTA chest) Plain Films/CT/US/NM/MRI: chest Comments [facility] [place], [place] NAME: EMELY ELLIS [facility] REC#: [id number] PT STATUS: REG ER : 1945 PHYSICIAN: SOHAM BONDS MD ADMIT DATE: 09/03/22/ER Draft Date of Exam:09/03/22 CHEST 1 VIEW, AP/PA ONLY INDICATION: Chest pain today, shortness of air for a couple of days. TECHNIQUE: Single view chest, 2:00 p.m. CORRELATION STUDY: 06/22/2022. FINDINGS: Heart size is generally stable. There is prominent appearance of bilateral johnnie with somewhat ill-defined appearance. Mildly prominent interstitial markings. A few calcified granulomas. No infiltrate. IMPRESSION: 1. Abnormal fullness suggested about bilateral johnnie. Could be reflective of mild vascular congestion and/or infiltrate. Mass and/or adenopathy is considered less likely but not excluded. Either short-term follow-up two-view chest and/or CT chest imaging would be recommended. Dictated on workstation # [id number] Dict: 09/03/22 1434 Trans: 09/03/22 1443 [id number] Interpreted by: ALDA HANSON DO Electronically signed by: NAME: EMELY ELLIS [facility] REC#: [id number] PT STATUS: REG ER : 1945 PHYSICIAN: SOHAM BONDS MD ADMIT DATE: 09/03/22/ER Draft Date of Exam:09/03/22 CT ANGIO CHEST W (R/O PE) EXAMINATION: CT angiography of the chest. TECHNIQUE: Contrast enhanced thin section helical images were obtained through the chest with intravenous contrast timed for the optimal opacification of the arterial structures per CTA protocol. Post-processing, reconstructions and interpretation of angiographic images of the vessels was performed. 3D MIP reconstructions were performed and reviewed. All CT scans use one or more of the following dose optimizing techniques: automated exposure control, MA and/or KvP adjustment based on a patient size and exam type, or iterative reconstruction. HISTORY: Chest pain, possible mass COMPARISON: None available. FINDINGS: There is no pulmonary embolism. There is no edema or pneumonia. No pleural effusion. No pneumothorax. No suspicious nodules. 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 There is no axillary or supraclavicular lymphadenopathy. There is no mediastinal lymphadenopathy. Heart size is normal. There are no coronary artery calcifications. No pericardial effusion. Aorta is normal in caliber. Limited views of the upper abdomen show changes of cholecystectomy. There are no suspicious osseus lesions. There is a mild chronic-appearing mid thoracic compression fracture. IMPRESSION: 1. No pulmonary embolism. 2. 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 3. No mass is seen. Dictated on workstation # [id number] Dict: 09/03/22 1527 Trans: 09/03/22 1531 [id number] Interpreted by: HARDIK CASTAÑEDA MD Electronically signed by: Departure Impression Primary Impression: COPD exacerbation Disposition: 01 HOME, SELF-CARE Condition: Stable Departure-Patient Inst. Decision time for Depature: 15:38 Referrals: [facility] (PCP/Family) Primary Care Physician Patient Instructions: COPD Exacerbation, Adult ED Add. Discharge Instructions: You will be on antibiotics and steroids for the next several days. Use your breathing treatments every 2-4 hours when you are feeling unwell like this. Follow back up with your regular doctor if you are not improving after the next several days. Scripts Doxycycline Hyclate (Doxycycline Hyclate) 100 Mg Tablet 100 MG PO BID for 5 Days, #10 TAB 0 Refills Prov: SOHAM BONDS MD 09/03/22 Methylprednisolone (Methylprednisolone Dose Pack) 4 Mg Tab.ds.pk 4 MG PO UD for 6 Days, #21 PKG PER DOSE PACK INSTRUCTIONS Prov: SOHAM BONDS MD 09/03/22 Work/School Note: Work Release Form Date Seen in the Emergency Department: Sep 03, 2022 Return to Work: Sep 04, 2022 Restrictions: No Restrictions SOHAM BONDS MD Sep 03, 2022 14:09
[2022-09-03] MEDS ORDERED: HYDROCORTISONE 100 MG/2 ML (Solu-CORTEF) VIAL IV ONE (14:15)
[2022-09-03] MEDS ORDERED: RT-ALBUTEROL/IPRATROPIUM 3 ML (DUONEB) VIAL IH ONE (14:15)
[2022-09-03] MEDS ORDERED: cefTRIAXone 1 GM PRE-MIX 50 ML IV ONE (14:15)
[2022-09-03] MEDS ORDERED: DOXYCYCLINE 100 MG (VIBRAMYCIN) TABLET PO ONE (14:15)
[2022-09-03 14:24] LABS: BASOPHILS # (AUTO) 0.1 10^3/uL (0.0-0.1); BASOPHILS % (AUTO) 1 % (0-10); EOSINOPHILS # (AUTO) 0.7 10^3/uL (0.0-0.3); EOSINOPHILS % (AUTO) 6 % (0-10); HEMATOCRIT 43 % (40-54); HEMOGLOBIN 13.6 g/dL (13.3-17.7); LYMPHOCYTES # (AUTO) 2.8 10^3/uL (1.0-4.0); LYMPHOCYTES % (AUTO) 27 % (12-44); MEAN CORPUSCULAR HEMOGLOBIN 27 pg (25-34); MEAN CORPUSCULAR HGB CONC 32 g/dL (32-36); MEAN CORPUSCULAR VOLUME 87 fL (80-99); MEAN PLATELET VOLUME 8.8 fL (9.0-12.2); MONOCYTES # (AUTO) 1.2 10^3/uL (0.0-1.0); MONOCYTES % (AUTO) 11 % (0-12); NEUTROPHILS # (AUTO) 5.7 10^3/uL (1.8-7.8); NEUTROPHILS % (AUTO) 55 % (42-75); PLATELET COUNT 273 10^3/uL (130-400); WHITE BLOOD COUNT 10.4 10^3/uL (4.3-11.0)
[2022-09-03 14:29] LABS: INR 0.9 (0.8-1.4); PROTHROMBIN TIME PATIENT 12.7 SEC (12.2-14.7)
[2022-09-03 14:31] LABS: ALBUMIN 3.9 GM/DL (3.2-4.5)
[2022-09-03 14:32] LABS: POTASSIUM 4.4 MMOL/L (3.6-5.0)
[2022-09-03 14:33] LABS: CALCIUM 8.9 MG/DL (8.5-10.1)
[2022-09-03 14:34] LABS: TOTAL PROTEIN 8.2 GM/DL (6.4-8.2)
[2022-09-03 14:36] LABS: BILIRUBIN,TOTAL 0.6 MG/DL (0.1-1.0)
[2022-09-03 14:38] LABS: CREATININE SERUM 0.86 MG/DL (0.60-1.30)
--- NOTE | 2022-09-03 14:43 | Diagnostic Imaging Report ---
INDICATION: Chest pain today, shortness of air for a couple of days. TECHNIQUE: Single view chest, 2:00 p.m. CORRELATION STUDY: 06/22/2022. FINDINGS: Heart size is generally stable. There is prominent appearance of bilateral johnnie with somewhat ill-defined appearance. Mildly prominent interstitial markings. A few calcified granulomas. No infiltrate. IMPRESSION: 1. Abnormal fullness suggested about bilateral johnnie. Could be reflective of mild vascular congestion and/or infiltrate. Mass and/or adenopathy is considered less likely but not excluded. Either short-term follow-up two-view chest and/or CT chest imaging would be recommended. Dictated by: Dictated on workstation # [id number]
[2022-09-03] MEDS ORDERED: NS 100 ML (IVPB) BAG IV ONE (15:00)
[2022-09-03] MEDS ORDERED: IOHEXOL 350 MG/ML 100 ML (OMNIPAQUE 350) VIAL IV ONE (15:00)
[2022-09-03] MEDS ORDERED: HOLD METFORMIN - RECEIVED CONTRAST 20 ML VIAL IV SCH (15:00)
--- NOTE | 2022-09-03 15:32 | Diagnostic Imaging Report ---
EXAMINATION: CT angiography of the chest. TECHNIQUE: Contrast enhanced thin section helical images were obtained through the chest with intravenous contrast timed for the optimal opacification of the arterial structures per CTA protocol. Post-processing, reconstructions and interpretation of angiographic images of the vessels was performed. 3D MIP reconstructions were performed and reviewed. All CT scans use one or more of the following dose optimizing techniques: automated exposure control, MA and/or KvP adjustment based on a patient size and exam type, or iterative reconstruction. HISTORY: Chest pain, possible mass COMPARISON: None available. FINDINGS: There is no pulmonary embolism. There is no edema or pneumonia. No pleural effusion. No pneumothorax. No suspicious nodules. 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 There is no axillary or supraclavicular lymphadenopathy. There is no mediastinal lymphadenopathy. Heart size is normal. There are no coronary artery calcifications. No pericardial effusion. Aorta is normal in caliber. Limited views of the upper abdomen show changes of cholecystectomy. There are no suspicious osseus lesions. There is a mild chronic-appearing mid thoracic compression fracture. IMPRESSION: 1. No pulmonary embolism. 2. 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 3. No mass is seen. Dictated by: Dictated on workstation # [id number]
[2022-09-03] MEDS ORDERED: METH4TAB10 PO (15:39)
[2022-09-03] MEDS ORDERED: DOXY100T2 PO (15:39)
[2022-09-03 15:56] VITALS: BP 129/86
== END 2022-09-03 16:00 | disposition home or self-care (01) ==
LOC: EDUNIT# 13:56 → ER 13:57
DX: J44.9 Chronic obstructive pulmonary disease, unspecified (principal); J98.09 Other diseases of bronchus, not elsewhere classified; R00.0 Tachycardia, unspecified; Z87.891 Personal history of nicotine dependence
CPT/HCPCS: 36415; 71045; 71275; 80053; 82805; 83690; 83735; 83880; 84484; 85025; 85610; 85730; 93005; 93041; 94640

== ENCOUNTER → 2022-11-15 | Outpatient (CLI) | payer MEDICARE, MEDICAID ==
[~2022-11-15] MED LIST changes: +DOXY100T2 PO; +GADOTERATE 0.5 MMOL/ML (CLARISCAN) 20 ML VIAL IV ONE; +METH4TAB10 PO
--- NOTE | 2022-11-15 09:08 | Diagnostic Imaging Report ---
PROCEDURE: MR imaging of the brain with and without contrast. TECHNIQUE: Multiplanar, multisequence MR imaging of the brain was performed with and without contrast. DATE: November 15, 2022. COMPARISON: May 07, 2021. HISTORY: 76-year-old male, memory loss. FINDINGS: There is no restricted diffusion. There are no areas of abnormal intracranial susceptibility. The ventricles and CSF spaces are normal in size and configuration for patient age. There is mild proportional prominence of the ventricles and additional CSF spaces consistent with mild cerebral volume loss. There are foci of T2 and FLAIR hyperintense signal in the ventricular and subcortical white matter which do not demonstrate diffusion restriction or contrast enhancement. These are nonspecific but most likely reflect mild to moderate findings of chronic small vessel ischemic disease. There is no acute intracranial hemorrhage. There is no mass effect or midline shift. There is no abnormal intracranial enhancement. There is normal aeration of the visualized paranasal sinuses and mastoid air cells. IMPRESSION: 1. No identified acute intracranial abnormality. 2. Mild cerebral volume loss with probable findings of mild to moderate chronic small vessel ischemic disease. Dictated by: Dictated on workstation # [id number]
== END ==
LOC: RAD 07:20
PROVIDERS: ATTEND Nurse Practitioner
DX: G30.9 Alzheimer's disease, unspecified (principal)
CPT/HCPCS: 70553

== ENCOUNTER → 2022-11-26 | Outpatient (CLI) | payer MEDICARE, MEDICAID ==
[~2022-11-26] MED LIST changes: -GADOTERATE 0.5 MMOL/ML (CLARISCAN) 20 ML VIAL IV ONE
== END ==
LOC: CARD 12:26
PROVIDERS: ATTEND Internal Medicine Cardiovascular Disease
DX: I11.9 Hypertensive heart disease without heart failure (principal); I25.10 Atherosclerotic heart disease of native coronary artery without angina pectoris
CPT/HCPCS: 93306

== ENCOUNTER → 2022-12-18 | Outpatient (CLI) | payer MEDICARE, MEDICAID ==
--- NOTE | 2022-12-18 17:42 | Diagnostic Imaging Report ---
EXAMINATION: US abdomen limited. TECHNIQUE: Multiple real-time grayscale images were obtained over the right upper quadrant in various projections. HISTORY: Elevated liver enzymes level. COMPARISON: None available. FINDINGS: Pancreas: The visualized portions of the pancreas are normal. Liver: The liver is normal in echogenicity and contour. No focal lesion is seen. The portal vein is patent with hepatopetal flow. Gallbladder and biliary tree: The gallbladder is surgically absent. There is no biliary ductal dilation. The common duct is obscured by overlying bowel gas. Right kidney: The right kidney is normal without hydronephrosis. There is a 3.4 cm cyst which requires no follow-up. Aorta and IVC: The aorta and IVC are nonvisualized secondary to overlying bowel gas. Fluid: No ascites is seen. IMPRESSION: Unremarkable right upper quadrant ultrasound. Dictated by: Dictated on workstation # [id number]
== END ==
LOC: RAD 08:24
PROVIDERS: ATTEND Internal Medicine Cardiovascular Disease
DX: R74.01 Elevation of levels of liver transaminase levels (principal)
CPT/HCPCS: 76705